=== PATIENT | male | born 1965 | race Caucasian/White ===

== ENCOUNTER → 2022-12-22 11:11 | Outpatient (BNVA) | payer MEDICARE, BC, SELFPAY | PROVIDERS: PCP Hospitalist; Visit Provider Nurse Practitioner Family | DX: N39.41 Urge incontinence (principal); R35.0 Frequency of micturition; E23.2 Diabetes insipidus; Z79.82 Long term (current) use of aspirin | CPT/HCPCS: 51798; 99202 ==

== ENCOUNTER 2023-01-17 09:52 | Outpatient (REF) | payer MEDICARE, BC, SELFPAY ==
--- NOTE | ~2023-01-17 | US_ITS ---
EXAMINATION: US RETROPERITONEAL COMPLETE (RENAL) CLINICAL INFORMATION: Frequency of micturition. COMPARISON: None available. TECHNIQUE: Real-time imaging of the kidneys and bladder. FINDINGS: RIGHT KIDNEY: 9.6 x 4.9 x 5.1 cm (SAG x AP x TRV). The kidney is normal in size, contour, and echogenicity. Renal cortical thickness is normal. No focal parenchymal lesions. There are calculi seen throughout the kidney with possible staghorn or near staghorn appearance. The largest single calcification measures 1.1 cm. There is trace perinephric fluid. No hydronephrosis but assessment limited due to calcific burden. LEFT KIDNEY: 9.4 x 4.9 x 5.7 cm (SAG x AP x TRV). The kidney is normal in size, contour, and echogenicity. Renal cortical thickness is normal. 2.2 cm simple cyst in the upper pole. No imaging follow-up is recommended. There are calculi seen throughout the kidney with possible staghorn or near staghorn appearance. The largest single calcification measures 0.9 cm. No hydronephrosis but assessment limited due to calcific burden. BLADDER: Partially distended. Right ureteral jet is demonstrated; left is not. Prevoid bladder volume is 128 mL. The patient was unable to void. Prostate: Not visualized. US/US retroperitoneal comp IMPRESSION: Innumerable bilateral calculi have the appearance of staghorn versus near staghorn configuration. There is trace right perinephric fluid. No definite hydronephrosis on either side, but assessment is limited due to the calcific burden.
== END 2023-01-17 09:53 | disposition home or self-care (01) ==
LOC: HO.US 09:52
PROVIDERS: PCP Hospitalist; Visit Provider Nurse Practitioner Family
DX: E23.2 Diabetes insipidus (principal); N39.41 Urge incontinence; R35.0 Frequency of micturition
CPT/HCPCS: 76770

== ENCOUNTER → 2023-02-09 09:06 | Outpatient (BNVA) | payer MEDICARE, BC, SELFPAY | PROVIDERS: PCP Hospitalist; Referring Provider Hospitalist; Visit Provider Nurse Practitioner Family | DX: Z12.11 Encounter for screening for malignant neoplasm of colon (principal) | CPT/HCPCS: 99202 ==

== ENCOUNTER → 2023-02-14 10:32 | Outpatient (BNVA) | payer MEDICARE, BC, SELFPAY | PROVIDERS: PCP Hospitalist; Visit Provider Nurse Practitioner Family | DX: N20.0 Calculus of kidney (principal); N39.41 Urge incontinence; R35.0 Frequency of micturition | CPT/HCPCS: 51798; 99212 ==

== ENCOUNTER 2023-03-01 11:56 | Outpatient (REF) | payer MEDICARE, BC, SELFPAY ==
--- NOTE | ~2023-03-01 | CT_ITS ---
EXAMINATION: CT ABDOMEN AND PELVIS WITHOUT CONTRAST CLINICAL INFORMATION: Kidney stones COMPARISON: Previous ultrasound December 2022 TECHNIQUE: Multidetector volumetric imaging was performed from the superior aspect of the liver through the pubic symphysis. Sagittal and coronal reformatted images were obtained on the technologist's workstation. This CT examination was performed using dose optimization techniques as appropriate, variously including the following: *Automated exposure control *Adjustment of mA and/or kV according to patient size (this includes techniques or standardized protocols for targeted exams where dose is matched to indication/reason for exam; i.e. extremities or head) *Use of iterative reconstruction technique DLP: 688 mGy-cm FINDINGS: LUNG BASES: The visualized lung bases are unremarkable. LIVER, GALLBLADDER, AND BILIARY TREE: The liver is normal in size, shape, and attenuation. 2 cm low-attenuation lesion in the right lobe of the liver near the gallbladder probably representing a cyst. No other focal liver lesion. No biliary duct dilatation. Normal gallbladder. PANCREAS: Fatty infiltration. Pancreas is otherwise normal. SPLEEN: Unremarkable. ADRENAL GLANDS: Fat stranding surrounding both adrenal glands. This is continuous with perinephric fat stranding.. A discrete mass/nodule not seen. KIDNEYS AND URETERS: The right kidney measures 8.7 and the left 10 cm in length. There are innumerable bilateral renal stones. Largest right renal stone measures 0.8 x 1.2 cm central right kidney probably the renal pelvis. Largest left renal stone measures 0.9 x 1.5 cm in the lower pole. There are central cystic areas bilaterally questionable mild hydronephrosis. There is bilateral renal cortical thickening. There is thickening of the bilateral renal capsule and inflammatory changes in the adjacent perinephric fat. Appearance is questionable for potential X DAP or xanthogranulomatous pyelonephritis. No ureteral dilatation. No ureteral stone. BLADDER: Unremarkable. GASTROINTESTINAL TRACT: Severe constipation. Postsurgical changes to the and small bowel suggestive of gastric bypass. Appendix not seen. ABDOMINAL WALL: Bulge versus small broad-based ventral hernia containing fat. LYMPH NODES: Small retroperitoneal lymph nodes. No enlarged lymph nodes. No ascites. VASCULAR: Unremarkable. PELVIC VISCERA: Unremarkable. OSSEOUS STRUCTURES: Osteopenia. T12 vertebral body compression fracture. Question L2 and L3 mild compression fractures versus Schmorl's nodes. Hardware in the right proximal femur. Degenerative changes of both hip joints. Mild degenerative changes of the lower thoracic and upper lumbar spine. CT/CT abdomen pelvis wo IV con IMPRESSION: Multiple bilateral large renal stones and question XGP or xanthogranulomatous pyelonephritis. Correlation with urinalysis recommended. Liver cyst. Constipation. Postsurgical changes from probable gastric bypass. Fleischner guidelines were followed.
== END 2023-03-01 11:57 | disposition home or self-care (01) ==
LOC: HO.CT 11:56
PROVIDERS: PCP Hospitalist; Visit Provider Hospitalist
DX: N28.83 Nephroptosis (principal)
CPT/HCPCS: 74176

== ENCOUNTER → 2023-03-15 14:05 | Outpatient (BNVA) | payer MEDICARE, BC, SELFPAY | PROVIDERS: PCP Hospitalist; Visit Provider Nurse Practitioner Family | DX: N20.0 Calculus of kidney (principal); N39.41 Urge incontinence | CPT/HCPCS: 99212 ==

== ENCOUNTER 2023-03-20 08:42 | Outpatient (REF) | payer MEDICARE, BC, SELFPAY ==
--- NOTE | ~2023-03-20 | CT_ITS ---
EXAMINATION: CT ABDOMEN AND PELVIS WITHOUT CONTRAST CLINICAL INFORMATION: Kidney stone COMPARISON: Previous CT of the abdomen and pelvis March 2023 renal and bladder ultrasound December 2022 TECHNIQUE: Multidetector volumetric imaging was performed from the superior aspect of the liver through the pubic symphysis. Sagittal and coronal reformatted images were obtained on the technologist's workstation. This CT examination was performed using dose optimization techniques as appropriate, variously including the following: *Automated exposure control *Adjustment of mA and/or kV according to patient size (this includes techniques or standardized protocols for targeted exams where dose is matched to indication/reason for exam; i.e. extremities or head) *Use of iterative reconstruction technique DLP: 718 mGy-cm FINDINGS: LUNG BASES: Small calcified and noncalcified pulmonary nodules just measuring 2 to 3 mm. Left gynecomastia. LIVER, GALLBLADDER, AND BILIARY TREE: 1.5 x 2 cm liver lesion medial segment the left lobe near the gallbladder probably representing a cyst. The liver is otherwise unremarkable. The gallbladder is unremarkable. PANCREAS: Fatty infiltration of the pancreas. SPLEEN: Unremarkable. ADRENAL GLANDS: There is diffuse fat stranding obscuring both adrenal glands. This may be secondary to renal findings. Appearance is similar to previous exam. KIDNEYS AND URETERS: There are multiple bilateral renal stones. Largest right renal stone measures 9 mm in the central right kidney/renal pelvis. Largest left renal stone measures 1 x 1.2 cm in the lower pole. There is loss of normal cortical medullary differentiation. There are small central cystic areas. There is marked capsular thickening and stranding of the perinephric fat. Appearance is questionable for XGP or xanthogranulomatous pyelonephritis. No ureteral dilatation or ureteral stone. BLADDER: Unremarkable. GASTROINTESTINAL TRACT: Severe constipation. The colon is not distended. This is similar to previous exam. The surgical changes to the stomach and small bowel/question gastric bypass. ABDOMINAL WALL: All upper abdominal wall broad-based hernia or bulge. LYMPH NODES: Small, small bowel mesentery lymph nodes. Small retroperitoneal lymph nodes. No enlarged lymph nodes seen. VASCULAR: Unremarkable. PELVIC VISCERA: Unremarkable. OSSEOUS STRUCTURES: Degenerative changes of the spine. Old-appearing T12 vertebral body compression fracture similar to previous exam. Degenerative changes at the hip joints. ORIF of right femoral intertrochanteric fracture. CT/CT abdomen pelvis wo IV con IMPRESSION: Bilateral renal stones and question xanthogranulomatous pyelonephritis of the kidneys. This is similar to 03/01/2023 exam. This may involve the adrenal glands as well. Severe constipation and mild large bowel dilatation. Other stable findings from recent exam 03/01/2023. Fleischner guidelines were followed.
== END 2023-03-20 08:43 | disposition home or self-care (01) ==
LOC: HO.CT 08:42
PROVIDERS: PCP Hospitalist; Referring Provider Hospitalist; Visit Provider Nurse Practitioner Family
DX: N20.0 Calculus of kidney (principal)
CPT/HCPCS: 74176

== ENCOUNTER 2023-04-18 11:01 | Outpatient (AMB) | payer MEDICARE, BC, SELFPAY ==
--- NOTE | 2023-04-18 11:12 | A.OFFVIS_ITS ---
Intake Vital Signs 04/18/23 11:15 Weight 235 lb 14.314 oz BP 94/52 L Blood Pressure Location Lt brachial Position Sitting Pulse 52 Pulse Source Pulse Oximeter Pulse Oximetry (%) 99 Oxygen Delivery Method Room Air Intake Visit Reasons: Pulmonary nodule Allergies No Known Allergies Allergy (Verified 04/18/23 11:17) Medication List - Last Reconciled 04/18/23 by Lilia Romero LPN acetaminophen 650 mg PO Q6H PRN aspirin 81 mg PO DAILY atropine 1% 0 drps ophthalmic (eye) bisacodyl (Dulcolax (bisacodyl)) 10 mg (2 x 5 mg) PO ONCE 1 day bisacodyl 10 mg DE DAILY PRN calcium carbonate 500 mg PO DAILY cyanocobalamin (vitamin B-12) 1,000 mcg PO DAILY desmopressin 0.2 mg PO DAILY hyoscyamine sulfate 0.125 mg PO BID PRN ibuprofen 400 mg PO Q8H levofloxacin 250 mg PO DAILY 30 days polyethylene glycol 3350 (Miralax) 238 grams PO ONCE pyridoxine (vitamin B6) ER 200 mg PO DAILY sennosides (Senna Laxative) 8.6 mg PO DAILY sodium phosphates 19-7 gram/118 mL (Fleet Enema) 118 mL DE DAILY PRN HPI Pulmonary nodule HPI Details Ayo is a very pleasant 58 year old male, never smoker, with underlying SABINE on CPAP therapy. He presents to office in a wheelchair, accompanied by a staff member from [facility], where he resides. He was referred by PCP after incidental finding of pulmonary nodules on abdominal CT. He denies any respiratory complaints at this time. Reviewed his chart, no respiratory medications other than CPAP therapy. He denies any family history of lung co nditions. 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 Combined forms of age-related cataract, bilateral Constipation, unspecified Deficiency, saccadic eye movements Diabetes insipidus Dysarthria and anarthria Dysphagia, oral phase Hemangioma of skin and subcutaneous tissue Hypertension Insomnia, unspecified Melanocytic nevi, unspecified Morbid (severe) obesity due to excess calories Muscle weakness (generalized) Obstructive sleep apnea (adult) (pediatric) Other abnormalities of gait and mobility Other chronic pain Other forms of nystagmus Other melanin hyperpigmentation Personal history of (healed) other pathological fracture Personal history of other malignant neoplasm of skin Seborrheic dermatitis, unspecified Sensorineural hearing loss, bilateral Unsteadiness on feet Vitamin B deficiency, unspecified Vitamin B12 deficiency anemia, unspecified Surgical History Bariatric surgery status Other specified postprocedural states Presence of right artificial hip joint Vasectomy status Review of Systems Const Denies chills, Denies excessive sweating, Denies fever(s), Denies headache(s) and Denies night sweats Eyes Denies dry eyes, Denies irritation and Denies itchy eyes ENT Reports Normal hearing present, Denies headache(s), Denies nasal congestion, Denies nasal discharge, Denies post nasal drip and Denies sore throat Card Denies chest pain, Denies chest pain at rest, Denies chest pain with activity, Denies claudication, Denies leg edema, Denies dyspnea, Denies dyspnea on exertion, Denies orthopnea and Denies paroxysmal nocturnal dyspnea Resp Denies chest congestion, Denies cough, Denies excessive phlegm production, Denies pain on inspiration, Denies pain with cough, Denies dyspnea, Denies dyspnea on exertion, Denies stridor and Denies wheezing Musc Denies myalgias Neuro Reports Normal hearing present and Denies headache(s) Endo Denies excessive sweating Antonio/Lymph Denies lymphadenopathy Aller/Immun Denies itchy eyes, Denies seasonal rhinorrhea and Denies wheezing Physical Exam Vital Signs: Last Vital Signs Pulse 52 04/18/23 11:15 BP 94/52 L 04/18/23 11:15 Pulse Ox 99 04/18/23 11:15 Oxygen Delivery Method Room Air 04/18/23 11:15 Const General: cooperative, healthy appearing, comfortable, no acute distress, well developed and alert Nutritional Appearance: obese Orientation/consciousness: patient oriented x3 Limitations: wheelchair HEENT Head: Yes normal to inspection, Yes normocephalic and Yes atraumatic Ears: hearing grossly normal bilaterally and external ears normal Eyes General: appearance normal, both eyes and all related structures Eyelids: Yes eyelids normal Sclerae: sclerae normal EOM: EOMs intact bilaterally Neck Neck: Yes normal visual inspection Chest Chest palpation & inspection: normal inspection of the chest Resp Effort & Inspection: normal respiratory effort, able to speak in complete sentences, no audible wheezes, no cough, no stridor, not tachypneic, no tripod positioning and no use of accessory muscles Auscultation: clear to auscultation bilaterally Cardio Jugular venous distension: no JVD Rate: regular rate Rhythm: regular rhythm Skin Other: warm, dry Neuro General: patient oriented x3 Cranial nerves: Yes Normal hearing present Cognition (Neuro): normal cognition Extrem Other: moderate BLE edema Psych Appearance: grossly normal and well kempt Speech and movement: Normal speech and movement present and Clear speech present Affect: normal affect Attitude: cooperative Thought process: Normal thought process present Thought content: Normal thought content present Insight: Good insight present (Psych) Judgement: Good judgement present (Psych) Results Reviewed Results Reviewed: [address] [address] [address] Scan Report Signed Patient: Ayo Miranda MR#: [id number] : 1965 Acct:[id number] Age/Sex: 58 / M ADM Date: 03/20/23 Loc: HO.CT Attending Dr: Cristal ROBERTSON Ordering Physician: Cristal Flores Date of Service: 03/20/23 Procedure(s): CT abdomen pelvis wo IV con Accession Number(s): [id number] cc: Cristal Flores~ EXAMINATION: CT ABDOMEN AND PELVIS WITHOUT CONTRAST? CLINICAL INFORMATION: Kidney stone? COMPARISON: Previous CT of the abdomen and pelvis March 2023 renal and bladder ultrasound December 2022 TECHNIQUE: Multidetector volumetric imaging was performed from the superior aspect of the liver through the pubic symphysis. Sagittal and coronal reformatted images were obtained on the technologist's workstation.? This CT examination was performed using dose optimization techniques as appropriate, variously including the following: *Automated exposure control *Adjustment of mA and/or kV according to patient size (this includes techniques or standardized protocols for targeted exams where dose is matched to indication/reason for exam; i.e. extremities or head) *Use of iterative reconstruction technique DLP: 718 mGy-cm FINDINGS: LUNG BASES: Small calcified and noncalcified pulmonary nodules just measuring 2 to 3 mm. Left gynecomastia.? LIVER, GALLBLADDER, AND BILIARY TREE: 1.5 x 2 cm liver lesion medial segment the left lobe near the gallbladder probably representing a cyst. The liver is otherwise unremarkable. The gallbladder is unremarkable. PANCREAS: Fatty infiltration of the pancreas.? SPLEEN: Unremarkable.? ADRENAL GLANDS: There is diffuse fat stranding obscuring both adrenal glands. This may be secondary to renal findings. Appearance is similar to previous exam. KIDNEYS AND URETERS: There are multiple bilateral renal stones. Largest right renal stone measures 9 mm in the central right kidney/renal pelvis. Largest left renal stone measures 1 x 1.2 cm in the lower pole. There is loss of normal cortical medullary differentiation. There are small central cystic areas. There is marked capsular thickening and stranding of the perinephric fat. Appearance is questionable for XGP or xanthogranulomatous pyelonephritis. No ureteral dilatation or ureteral stone. BLADDER: Unremarkable.? GASTROINTESTINAL TRACT: Severe constipation. The colon is not distended. This is similar to previous exam. The surgical changes to the stomach and small bowel/question gastric bypass. ABDOMINAL WALL: All upper abdominal wall broad-based hernia or bulge. LYMPH NODES: Small, small bowel mesentery lymph nodes. Small retroperitoneal lymph nodes. No enlarged lymph nodes seen. VASCULAR: Unremarkable. PELVIC VISCERA: Unremarkable.? OSSEOUS STRUCTURES: Degenerative changes of the spine. Old-appearing T12 vertebral body compression fracture similar to previous exam. Degenerative changes at the hip joints. ORIF of right femoral intertrochanteric fracture. ? CT/CT abdomen pelvis wo IV con IMPRESSION: Bilateral renal stones and question xanthogranulomatous pyelonephritis of the kidneys. This is similar to 03/01/2023 exam. This may involve the adrenal glands as well. Severe constipation and mild large bowel dilatation. Other stable findings from recent exam 03/01/2023. ? Fleischner guidelines were followed. Dictated By: Kathleen May MD Assessment & Plan Assessment & Plan (1) Multiple pulmonary nodules: Code(s): R91.8 - Other nonspecific abnormal finding of lung field Plan Referred for incidental findings of 2-3 mm pulmonary nodules in lung bases on abdominal CT, report above. Will send for dedicated chest CT and follow up to review results. All questions were answered and patient is in agreement of plan. Orders: Orders CT chest wo IV con Today R91.8 - Other nonspecific abnormal finding of lung field Coding Level of Care Code New Pt Level 3 (60008) Diagnoses Multiple pulmonary nodules R91.8
[2023-04-18 11:15] VITALS: BP 94/52; PULSE 52; O2SAT 99
== END 2023-04-18 11:30 | disposition home or self-care (01) ==
PROVIDERS: PCP Hospitalist; Visit Provider Nurse Practitioner Family
DX: R91.8 Other nonspecific abnormal finding of lung field (principal)
CPT/HCPCS: 99203

== ENCOUNTER → 2023-04-18 11:01 | Outpatient (BNVA) | payer MEDICARE, BC, SELFPAY | PROVIDERS: PCP Hospitalist; Visit Provider Nurse Practitioner Family | DX: R91.8 Other nonspecific abnormal finding of lung field (principal); G47.33 Obstructive sleep apnea (adult) (pediatric); Z99.89 Dependence on other enabling machines and devices | CPT/HCPCS: 99202 ==

== ENCOUNTER 2023-04-30 09:29 | Day surgery (SDC) | payer MEDICARE, BC, SELFPAY ==
--- NOTE | 2023-04-27 09:52 | HO.ANESPROP2 ---
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 Combined forms of age-related cataract, bilateral Constipation, unspecified Deficiency, saccadic eye movements Diabetes insipidus Dysarthria and anarthria Dysphagia, oral phase Hemangioma of skin and subcutaneous tissue Hypertension Insomnia, unspecified Melanocytic nevi, unspecified Morbid (severe) obesity due to excess calories Muscle weakness (generalized) Obstructive sleep apnea (adult) (pediatric) Other abnormalities of gait and mobility Other chronic pain Other forms of nystagmus Other melanin hyperpigmentation Personal history of (healed) other pathological fracture Personal history of other malignant neoplasm of skin Seborrheic dermatitis, unspecified Sensorineural hearing loss, bilateral Unsteadiness on feet Vitamin B deficiency, unspecified Vitamin B12 deficiency anemia, unspecified Surgical History Surgical History Bariatric surgery status Other specified postprocedural states Presence of right artificial hip joint Vasectomy status Meds Allergies Allergy/AdvReac Type Severity Reaction Status Date / Time No Known Allergies Allergy Verified 04/18/23 11:17 Home Medications Medication Instructions Recorded Confirmed Last Taken Type acetaminophen 325 mg capsule 650 mg PO Q6H PRN Fever 12/22/22 04/27/23 Unknown History aspirin 81 mg tablet,delayed 81 mg PO BID 12/22/22 04/27/23 Unknown History release bisacodyl 10 mg rectal suppository 10 mg CA DAILY PRN Constipation 12/22/22 04/27/23 Unknown History calcium carbonate 500 mg calcium 500 mg PO Q6-8H PRN Heartburn 12/22/22 04/27/23 Unknown History (1,250 mg) chewable tablet cyanocobalamin (vitamin B-12) 500 1,000 mcg PO DAILY 12/22/22 04/27/23 Unknown History mcg tablet desmopressin 0.2 mg tablet 0.2 mg PO BID 12/22/22 04/27/23 Unknown History hyoscyamine sulfate 0.125 mg 0.125 mg PO BID 12/22/22 04/27/23 Unknown History sublingual tablet ibuprofen 200 mg tablet 400 mg PO Q8H PRN Pain, Moderate 12/22/22 04/27/23 Unknown History pyridoxine (vitamin B6) 200 mg 200 mg PO DAILY 12/22/22 04/27/23 Unknown History tablet,extended release sennosides 8.6 mg tablet (Senna 8.6 mg PO DAILY 12/22/22 04/27/23 Unknown History Laxative) sodium phosphates 19 gram-7 118 ml CA DAILY PRN 12/22/22 04/18/23 Unknown History gram/118 mL enema (Fleet Enema) atropine 1 % eye drops 2 drp ophthalmic (eye) BID 02/14/23 04/27/23 Unknown History Exam Exam Date and Time: April 27, 2023 0952 Height,Weight and Vital Signs: Weight 106.594 kg Assessment and Plan Assessment Anesthesia Assessment: Chart Reviewed Documented by User: Norah Quinn MD 04/30/23 13:17 HPI - Anesthesia Eval Consult details Narrative: 58yo M for Cystoscopy, Left Ureteroroscopy, Retro, Laser, poss stent SNF resident. Seen by PCP Dr Pacheco 04/29/23 for pre-/tripp-op risk stratificaton. Moderate cardiac risk. Ok to proceed with surgery. No medically prohibitive issues PMFSH Active Problems Active Problems: All Active Problems (Updated 04/30/23 @ 11:30 by Norah Quinn MD) Multiple pulmonary nodules (Acute) Staghorn kidney stones (Acute) Urinary frequency (Acute) Diabetes insipidus (Acute)- Labs from 03/2023 wnl Urinary incontinence, urge (Acute) SABINE. On CPAP Patient states chokes on food. 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 Combined forms of age-related cataract, bilateral Constipation, unspecified Deficiency, saccadic eye movements Diabetes insipidus Dysarthria and anarthria Dysphagia, oral phase Hemangioma of skin and subcutaneous tissue Hypertension Insomnia, unspecified Melanocytic nevi, unspecified Morbid (severe) obesity due to excess calories Muscle weakness (generalized) Obstructive sleep apnea (adult) (pediatric) Other abnormalities of gait and mobility Other chronic pain Other forms of nystagmus Other melanin hyperpigmentation Personal history of (healed) other pathological fracture Personal history of other malignant neoplasm of skin Seborrheic dermatitis, unspecified Sensorineural hearing loss, bilateral Unsteadiness on feet Vitamin B deficiency, unspecified Vitamin B12 deficiency anemia, unspecified Family History Family history of problems with anesthesia: No Surgical History Surgical History Bariatric surgery status Other specified postprocedural states Presence of right artificial hip joint Vasectomy status History of Problems with Anesthesia: No Meds Allergies Allergy/AdvReac Type Severity Reaction Status Date / Time No Known Allergies Allergy Verified 04/18/23 11:17 Home Medications Medication Instructions Recorded Confirmed Last Taken Type acetaminophen 325 mg capsule 650 mg PO Q6H PRN Fever 12/22/22 04/27/23 Unknown History aspirin 81 mg tablet,delayed 81 mg PO BID 12/22/22 04/27/23 Unknown History release bisacodyl 10 mg rectal suppository 10 mg CA DAILY PRN Constipation 12/22/22 04/27/23 Unknown History calcium carbonate 500 mg calcium 500 mg PO Q6-8H PRN Heartburn 12/22/22 04/27/23 Unknown History (1,250 mg) chewable tablet cyanocobalamin (vitamin B-12) 500 1,000 mcg PO DAILY 12/22/22 04/27/23 Unknown History mcg tablet desmopressin 0.2 mg tablet 0.2 mg PO BID 12/22/22 04/27/23 Unknown History hyoscyamine sulfate 0.125 mg 0.125 mg PO BID 12/22/22 04/27/23 Unknown History sublingual tablet ibuprofen 200 mg tablet 400 mg PO Q8H PRN Pain, Moderate 12/22/22 04/27/23 Unknown History pyridoxine (vitamin B6) 200 mg 200 mg PO DAILY 12/22/22 04/27/23 Unknown History tablet,extended release sennosides 8.6 mg tablet (Senna 8.6 mg PO DAILY 12/22/22 04/27/23 Unknown History Laxative) sodium phosphates 19 gram-7 118 ml CA DAILY PRN 12/22/22 04/18/23 Unknown History gram/118 mL enema (Fleet Enema) atropine 1 % eye drops 2 drp ophthalmic (eye) BID 02/14/23 04/27/23 Unknown History Exam Height,Weight and Vital Signs: Height 5 ft 11 in Weight 105.687 kg Vital Signs Temp Pulse Resp BP Pulse Ox O2 Del Method 04/30/23 11:37 97.9 F 52 18 149/93 H 100 Room Air Pertinent Lab Results Pertinent Lab Results: Lab Results 04/30/23 04/30/23 Range/Units 11:08 11:56 POC Glucose 47 L* 78 (60-115) mg/dL POC 78 after 5g of glucose. Will give another 5g Airway Mallampati Class: IV TM Dist: >3cm Neck ROM: Full Loose/Missing/Broken Teeth: Yes (No teeth top. Few teeth bottom, many broken. Denies loose) Heart: RRR Lungs: CTAB Assessment and Plan Assessment Anesthesia Assessment: Anesthesia Plan Discussed Final Anesthetic Review Family History of Problems with Anesthesia: No History of Problems with Anesthesia: No NPO: Yes ASA Class: IV Final Preanesthetic Review: No Changes in Pt Med Stat, Meds/Allgs Chart Reviewed, Anes Risks/Benef Reviewed and DNR Form (If Appl.) Patient Risk: High Procedure Risk: Low Assessment/Block/Sedation in SS: Assess/Block/Sedation-SS Anesthetic Plan Anesthetic Plan: GA Disposition: Standard PACU
--- NOTE | 2023-04-29 15:37 | P.HPHOSP_ITS ---
History of Present Illness Date of Service: 04/29/23 Chief Complaint: Preop risk stratification 58-year-old male resident of [facility] seen for risk stratification prior to stent placement. 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 Combined forms of age-related cataract, bilateral Constipation, unspecified Deficiency, saccadic eye movements Diabetes insipidus Dysarthria and anarthria Dysphagia, oral phase Hemangioma of skin and subcutaneous tissue Hypertension Insomnia, unspecified Melanocytic nevi, unspecified Morbid (severe) obesity due to excess calories Muscle weakness (generalized) Obstructive sleep apnea (adult) (pediatric) Other abnormalities of gait and mobility Other chronic pain Other forms of nystagmus Other melanin hyperpigmentation Personal history of (healed) other pathological fracture Personal history of other malignant neoplasm of skin Seborrheic dermatitis, unspecified Sensorineural hearing loss, bilateral Unsteadiness on feet Vitamin B deficiency, unspecified Vitamin B12 deficiency anemia, unspecified Surgical History Bariatric surgery status Other specified postprocedural states Presence of right artificial hip joint Vasectomy status Meds Allergies Allergy/AdvReac Type Severity Reaction Status Date / Time No Known Allergies Allergy Verified 04/18/23 11:17 Home Medications Medication Instructions Recorded Confirmed Last Taken Type acetaminophen 325 mg capsule 650 mg PO Q6H PRN Fever 12/22/22 04/27/23 Unknown History aspirin 81 mg tablet,delayed 81 mg PO BID 12/22/22 04/27/23 Unknown History release bisacodyl 10 mg rectal suppository 10 mg AK DAILY PRN Constipation 12/22/22 04/27/23 Unknown History calcium carbonate 500 mg calcium 500 mg PO Q6-8H PRN Heartburn 12/22/22 04/27/23 Unknown History (1,250 mg) chewable tablet cyanocobalamin (vitamin B-12) 500 1,000 mcg PO DAILY 12/22/22 04/27/23 Unknown History mcg tablet desmopressin 0.2 mg tablet 0.2 mg PO BID 12/22/22 04/27/23 Unknown History hyoscyamine sulfate 0.125 mg 0.125 mg PO BID 12/22/22 04/27/23 Unknown History sublingual tablet ibuprofen 200 mg tablet 400 mg PO Q8H PRN Pain, Moderate 12/22/22 04/27/23 Unknown History pyridoxine (vitamin B6) 200 mg 200 mg PO DAILY 12/22/22 04/27/23 Unknown History tablet,extended release sennosides 8.6 mg tablet (Senna 8.6 mg PO DAILY 12/22/22 04/27/23 Unknown History Laxative) sodium phosphates 19 gram-7 118 ml AK DAILY PRN 12/22/22 04/18/23 Unknown History gram/118 mL enema (Fleet Enema) atropine 1 % eye drops 2 drp ophthalmic (eye) BID 02/14/23 04/27/23 Unknown History Physical Exam Const: Other: Awake alert no acute distress Resp: Other: Clear to auscultation bilaterally there is no rales rhonchi or wheezes Cardio: Other: No S4; positive S1-S2; no S3 murmurs rubs or gallops GI: Other: Soft nontender and nondistended normoactive bowel sounds Extrem: Other: No edema bilateral Assessment and Plan (1) Staghorn kidney stones: Status: Acute Plan 58[facility] for risk stratification prior to stent placement. He is a moderate cardiac risk for planned procedure and can proceed as per Dr. Lane. There are no medically prohibitive issues at this time Time Spent With Patient Time: Total time managing care of this patient today ____ minutes. Quality Stroke Does the patient have a stroke diagnosis?: No VTE Prior VTE?: No VTE Risk Level:: Surgical - low VTE Device Contraindication: Treatment Not Indicated VTE Drug Contraindication: Treatment Not Indicated
[2023-04-30] VITALS (8 sets, daily range): BP systolic 118–152; BP diastolic 64–93; PULSE 52–63; RESP 15–18; TEMP 36.1–36.6; O2SAT 93–100; BMI 32.5
--- NOTE | ~2023-04-30 | FL_ITS ---
EXAMINATION: XR FLUOROSCOPY WITH IMAGES CLINICAL INFORMATION: Stone in left. COMPARISON: CT of the abdomen and pelvis March 2023 TECHNIQUE: Fluoroscopy Supervised By: Dr. Wero Lane. Fluoroscopy Time: 275.0 seconds. Cumulative Dose: 94.44 mGy. DAP: Gycm2. Images: 2. FINDINGS: Images demonstrate probable left nephroureterostomy tube incompletely visualized and Murdock catheter in the bladder. FL/FL guidance in OR IMPRESSION: Fluoroscopy guidance for urology procedure.
[2023-04-30 11:26] LABS: Glucose, Whole Blood 47 mg/dL (60-115)
[2023-04-30 12:00] LABS: Glucose, Whole Blood 78 mg/dL (60-115)
--- NOTE | 2023-04-30 13:57 | P.OP_ITS ---
Operative Note Operative Note Date of Service: 04/30/23 Narrative: PreOperative Diagnosis: left renal stones Post Operative Diagnosis: left renal infections stones, left proximal ureteric scarring Procedure: - cystoscopy, left retrograde - left dilatation of ureteric orifice under fluoroscopy - serial dilatation of left proximal ureteric stricture - left ureteroscopy, laser lithotripsy - left stent placement Surgeon: Dr Wero Lane Anesthesia: General Indications for procedure: recurring UTI, bilateral stones on imaging, recurrent presentation to hospital Procedure: After informed consent was verified patient was brought to the operating placed in supine position. Anesthesia was administered per protocol. Patient was placed in modified dorsal lithotomy position and prepped and draped in a sterile fashion. Safety pause time-out and side of surgery confirmed. Antibiotics confirmed. 22 Maldivian cystoscope was inserted per urethra. - there was narrowing of urethra proximally. A wire was placed to allow for better entrance. The had been lifting of some mucosal flap. Bladder was normal in its entirety. Both ureteric orifices were in normal position. The left ureteric orifice was cannulated and a retrograde examination was performed. proximal narrowing of contrast indicative of proximal ureteric narrowing. A Sensor guidewire was placed up to the level of the renal pelvis under fluoroscopy. The rigid cystoscope was removed and the inner cannula of ureteric access sheath was used under fluoroscopy to dilate the ureteric orifice. The ureteric access sheath was placed and the inner cannula with access wire removed. The digital flexible ureteral scope was placed. it was determined that the upper portion of the ureter had not been fully dilated. We advanced the ureteral scope to a pinpoint opening. Sensor wire was passed. The ureteral scope was removed as was the cannula. The open-ended catheter was placed. An amplatz stiff wire was placed. The ureter was dilated using ureteral dilatation. A 10 Maldivian was able to be inserted up to the level renal pelvis. The sheath was placed back over the Amplatz wire. The ureteral scope was advanced over the Amplatz wire into the mid calyx. Stone was found in the mid calyx. Using the laser fiber 272 micron the stone was broken into small pieces. A 2nd stone was found in the of the mid calyx. This matched the radiology appearance. Each calyx had a very narrowed infundibulum consistent with scarring from recurrent UTI. The upper pole calyx was opened in examine. We were able to place a wire into the lower pole calyx however we could not advance the ureteral scope. At the completion of the procedure the wire was placed back into the renal pelvis. The rigid cystoscope was backloaded over the wire and advanced into the bladder. A 7 Maldivian by 28 cm double-J stent was placed into the renal pelvis and bladder under a combination of fluoroscopy and direct visualization. the stent was seen to be in the mid Calyceal location. good coil was seen in the bladder. The bladder was emptied. Because a mucosal flap being raised in the urethra decision was made to place a Sensor wire and a 16 [place] tip Murdock catheter was placed on the fluoroscopy.The patient tolerated the procedure well and was extubated in the operating room, and transferred in stable condition to the recovery area. Pathology: None Drains: 7 Maldivian by 28 cm
[2023-04-30] MEDS: Phenazopyridine HCL 100 MG TABLET PO (14:52)
--- NOTE | 2023-04-30 15:18 | PC.NURSE ---
report provided to unit nurse edgar in the [facility] unit and also to the director of [facility].
== END 2023-04-30 15:04 | disposition home or self-care (01) ==
PROVIDERS: PCP Hospitalist; Visit Provider Urology
PROC: (CPT 52356; principal; 2023-04-30 12:00)
DX: N20.0 Calculus of kidney (principal); N39.0 Urinary tract infection, site not specified; R26.0 Ataxic gait; H81.11 Benign paroxysmal vertigo, right ear; G47.33 Obstructive sleep apnea (adult) (pediatric); E23.2 Diabetes insipidus; Z79.1 Long term (current) use of non-steroidal anti-inflammatories (NSAID); Z79.82 Long term (current) use of aspirin; Z79.899 Other long term (current) drug therapy; I10 Essential (primary) hypertension; E66.01 Morbid (severe) obesity due to excess calories
CPT/HCPCS: 52356; 82947; C1758; C1769; C2617; J0131; J1100; J1956; J2250; J2405; J3010; Q9967

== ENCOUNTER → 2023-04-30 09:29 | Outpatient (BNV) | payer MEDICARE, BC, SELFPAY | PROVIDERS: PCP Hospitalist; Visit Provider Urology | DX: N20.0 Calculus of kidney (principal) | CPT/HCPCS: 52356 ==

== ENCOUNTER → 2023-04-30 12:00 | Outpatient (BNV) | payer MEDICARE, BC, SELFPAY | PROVIDERS: PCP Hospitalist; Visit Provider Hospitalist | DX: N20.0 Calculus of kidney (principal) | CPT/HCPCS: 99221 ==

== ENCOUNTER 2023-05-01 12:01 | Emergency (ER) | payer MEDICARE, BC, SELFPAY ==
--- NOTE | ~2023-05-01 | XR_ITS ---
EXAMINATION: XR RIBS, RIGHT, PA CHEST CLINICAL INFORMATION: Chest and rib pain status post fall. COMPARISON: None available. TECHNIQUE: 3 views of the right ribs were obtained along with a PA view of the chest. A skin marker overlies the inferior right ribs. FINDINGS: Lungs are clear. No consolidation, pneumothorax, or pleural effusion. The cardiomediastinal silhouette and pulmonary vasculature are normal. Osseous structures are unremarkable. Ribs are intact. No fractures are identified. Incidental sclerotic density overlying the right scapula. XR/XR ribs RT min 3V w CXR1V IMPRESSION: 1. No acute cardiopulmonary process. 2. No acute right rib fracture. 3. Incidental sclerotic density overlying the right scapula is nonspecific, but demonstrates benign features possibly degenerative in nature or representing enostosis.
[2023-05-01 12:14] VITALS: BP 149/96; BP 159/77; PULSE 82; PULSE 87; RESP 20; TEMP 36; O2SAT 97; O2SAT 99; BMI 35.0
--- NOTE | 2023-05-01 12:18 | ED_ITS ---
HPI - General Adult General Chief complaint: General Medical Stated complaint: R SIDE/RIB PAIN S/P FALL OOB @3AM FROM SNF PER EMS Time Seen by Provider: 05/01/23 12:17 Source: patient and EMS Mode of arrival: EMS Limitations: no limitations History of Present Illness HPI narrative: Patient is a 58 year old assigned male at with a history of cerebellar ataxia and HTN presenting to the emergency department today with right rib pain after a fall. Patient states that last night he fell out of bed and landed on his right ribs. Patient denies any head strike or loss of consciousness. Patient denies any dizziness, lightheadedness, abdominal pain, nausea, vomiting, fever, chills, blurry vision, double vision, loss of vision, chest pain, difficulty breathing, shortness of breath, back pain, night sweats, pain with urination, increased urinary frequency, increased urinary urgency, blood in his urine or stool, syncope or a near syncopal episode, recent trauma or falls, bowel incontinence, bladder incontinence, bowel retention, bladder retention, or any other complaints at this time. Onset (ago): day(s) (1) Location: right (ribs) Radiation: non-radiation Severity: mild Severity scale (1-10): 3 Quality: aching and dull Pain Consistency: constant Relieving factors: none Exacerbating factors: none Associated symptoms: denies other symptoms Treatments prior to arrival: none Related Data Home Medications Medication Instructions Recorded Confirmed acetaminophen 325 mg capsule 650 mg PO Q6H PRN Fever 12/22/22 05/01/23 aspirin 81 mg tablet,delayed 81 mg PO BID 12/22/22 05/01/23 release bisacodyl 10 mg rectal suppository 10 mg SC DAILY PRN Constipation 12/22/22 05/01/23 calcium carbonate 500 mg calcium 500 mg PO Q6-8H PRN Heartburn 12/22/22 05/01/23 (1,250 mg) chewable tablet cyanocobalamin (vitamin B-12) 500 1,000 mcg PO DAILY 12/22/22 05/01/23 mcg tablet desmopressin 0.2 mg tablet 0.2 mg PO BID 12/22/22 05/01/23 hyoscyamine sulfate 0.125 mg 0.125 mg sublingual BID 12/22/22 05/01/23 sublingual tablet ibuprofen 200 mg tablet 400 mg PO Q8H PRN Pain, Moderate 12/22/22 05/01/23 pyridoxine (vitamin B6) 200 mg 200 mg PO DAILY 12/22/22 05/01/23 tablet,extended release sennosides 8.6 mg tablet (Senna 8.6 mg PO DAILY 12/22/22 05/01/23 Laxative) sodium phosphates 19 gram-7 118 ml SC DAILY PRN Constipation 12/22/22 05/01/23 gram/118 mL enema (Fleet Enema) atropine 1 % eye drops 2 drp sublingual BID 02/14/23 05/01/23 benzocaine 10 % mucosal gel 1 appl mucous membrane TID PRN Pain 05/01/23 05/01/23 (Anbesol (benzocaine)) desmopressin 0.2 mg tablet 0.2 mg PO Q24H PRN EXCESSIVE 05/01/23 05/01/23 SECRETIONS Previous Rx's Medication Instructions Recorded sulfamethoxazole 400 1 tab PO DAILY #10 tabs 04/30/23 mg-trimethoprim 80 mg tablet (Bactrim) Allergies Allergy/AdvReac Type Severity Reaction Status Date / Time No Known Allergies Allergy Verified 04/18/23 11:17 Review of Systems Constitutional: Constitutional: Reports no additional constitutional complaints, Denies chills, Denies fever(s) and Denies night sweats Eyes: Eyes: Reports no additional eye complaints, Denies blurry vision, Denies change in vision, Denies diplopia, Denies eye discharge, Denies loss of vision and Denies eye pain ENT: Denies dizziness Cardiovascular: Cardiovascular: Reports no additional cardiovascular co mplaints, Denies chest pain, Denies lightheadedness, Denies Loss of Consciousness and Denies dyspnea Respiratory: Respiratory: Reports no additional respiratory complaints and Denies dyspnea Gastrointestinal: Gastrointestinal: Reports no additional gastrointestinal complaints, Denies abdominal pain, Denies melena, Denies hematochezia, Denies change in bowel habits and Denies change in stool character Genitourinary: Genitourinary: Reports no additional male genitourinary complaints, Denies hematuria, Denies oliguria, Denies difficulty urinating, Denies dysuria, Denies urinary frequency, Denies urinary hesitancy, Denies urinary incontinence and Denies urinary urgency Musculoskeletal: Musculoskeletal: Reports no additional musculoskeletal complaints, Denies numbness and Denies tingling Comments: right rib pain Neurologic: Denies dizziness, Denies loss of vision, Denies numbness and Denies tingling Psychiatric: Psychiatric: Reports no additional psychiatric complaints Endocrine: Endocrine: Reports no additional endocrine complaints Hematologic/Lymphatic: Hematologic/Lymphatic: Reports no additional hematologic/lymphatic complaints Allergic/Immunologic: Allergic/Immunologic: Reports no additional allergic/immunologic complaints [facility] Past Medical History Attestation statement: The following information was validated with the patient. Source: old records reviewed and nursing notes reviewed Medical History Alternating exotropia Ataxic gait Benign paroxysmal vertigo, right ear 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 Combined forms of age-related cataract, bilateral Constipation, unspecified Deficiency, saccadic eye movements Diabetes insipidus Dysarthria and anarthria Dysphagia, oral phase Hemangioma of skin and subcutaneous tissue Hypertension Insomnia, unspecified Melanocytic nevi, unspecified Morbid (severe) obesity due to excess calories Muscle weakness (generalized) Obstructive sleep apnea (adult) (pediatric) Other abnormalities of gait and mobility Other chronic pain Other forms of nystagmus Other melanin hyperpigmentation Personal history of (healed) other pathological fracture Personal history of other malignant neoplasm of skin Seborrheic dermatitis, unspecified Sensorineural hearing loss, bilateral Unsteadiness on feet Vitamin B deficiency, unspecified Vitamin B12 deficiency anemia, unspecified Surgical History Bariatric surgery status Other specified postprocedural states Presence of right artificial hip joint Vasectomy status Social History Social History Patient Tobacco Use Status: Never used Tobacco Advance Directives: Yes Advance Directives on File: Yes Advance Directives Date on File: 05/01/23 Physical Exam ED Vital Signs: Vital Signs - 24 hr 05/01/23 12:14 Temperature 96.8 F Pulse Rate 87 Respiratory Rate 20 Blood Pressure 149/96 H Pulse Oximetry 99 Oxygen Delivery Method Room Air BMI result Body Mass Index 35.0 Const General: cooperative, no acute distress, alert and awake Nutritional Appearance: well nourished Orientation/consciousness: patient oriented x3 Limitations: no limitations HENMT Head: Yes normal to inspection and Yes atraumatic Ears: hearing grossly normal bilaterally and external ears normal General nose exam: Normal external nose present, no nasal discharge noted and no epistaxis Face and sinus: Yes normal facial exam, No abrasion and No laceration Mouth: Normal oral and palatal mucosa present, no drooling and no muffled voice Eyes General: appearance normal, both eyes and all related structures Periorbital: periorbital findings normal Eyelids: Yes eyelids normal Conjunctivae: conjunctivae normal Pupils: Equal, round and reactive pupils present EOM: EOMs intact bilaterally Neck Neck: Yes normal visual inspection, Yes full ROM and Yes no lymphadenopathy Chest Chest palpation & inspection: normal inspection of the chest Resp Effort & Inspection: normal respiratory effort and able to speak in complete sentences Auscultation: clear to auscultation bilaterally Cardio Rate: regular rate Rhythm: regular rhythm GI Inspection: Yes normal to inspection Palpation (GI): Soft to palpation, not firm, nontender, no guarding and not rigid Neuro General: patient oriented x3 and moves all extremities Cranial nerves: Yes Equal, round and reactive pupils present Cognition (Neuro): normal cognition Motor exam (neuro): 5/5 motor strength present throughout Sensory Exam: Normal double simultaneous stimulation for sensation Coordination: [id number] test normal Extrem General: Yes capillary refill normal Psych Appearance: grossly normal Mental Status: mental status grossly normal Affect: normal affect Attitude: cooperative Thought process: Normal thought process present Thought content: Normal thought content present Insight: Good insight present (Psych) Medical Decision Making Medical Decision Making MDM Narrative: Patient is a 58 year old assigned male] at with a history of cerebellar ataxia and HTN presenting to the emergency department today with right rib pain after a fall. Patient's physical exam was unremarkable. Patient's right rib x- ray showed no acute process. I explained my physical exam findings as well as all test results to the patient. I answered all questions asked by the patient. I stressed the importance of the patient taking his medication as prescribed. I stressed the importance of the patient following up with his primary care provider. I stressed the importance of the patient returning to the emergency department immediately if his symptoms were to worsen or if he were to develop any dizziness, shortness of breath, difficulty breathing, chest pain, blurry vision, loss of vision, nausea, vomiting, abdominal pain, fever, chills, back pain, or any other complaints. Patient verbalized agreement and understanding with this treatment plan and discharge. Differential Diagnosis Differential Diagnoses: The differential diagnosis associated with the presentation includes Rib fracture Rib contusion Pulmonary contusion Fall Independent Interpretation I performed an independent interpretation of an: Plain X-Ray Interpretation: My interpretation is in agreement with the radiologist's impression of this imaging study. EXAMINATION: XR RIBS, RIGHT, PA CHEST CLINICAL INFORMATION: Chest and rib pain status post fall. COMPARISON: None available. TECHNIQUE: 3 views of the right ribs were obtained along with a PA view of the chest. A skin marker overlies the inferior right ribs. FINDINGS: Lungs are clear. No consolidation, pneumothorax, or pleural effusion. The cardiomediastinal silhouette and pulmonary vasculature are normal. Osseous structures are unremarkable. Ribs are intact. No fractures are identified. Incidental sclerotic density overlying the right scapula. XR/XR ribs RT min 3V w CXR1V IMPRESSION: 1.? No acute cardiopulmonary process. 2.? No acute right rib fracture. 3.? Incidental sclerotic density overlying the right scapula is nonspecific, but demonstrates benign features possibly degenerative in nature or representing enostosis. Dictated By: Anselmo Moreno MD Signed By: Electronically signed by Anselmo Moreno MD 05/01/23 2462 Radiology Impression Discussion of test interpretation with radiology: I have reviewed the radiologist's reading. Independent Historian Clinical information obtained from an independent historian. History obtained from or confirmed by: EMS (EMS provided additional history and confirmed the history provided by the patient.) Discharge Plan Discharge Clinical Impression: Fall Patient Disposition: Home, Self-Care Instructions: Fall Prevention (ED) Additional Instructions: Follow up with your primary care provider. Return to the emergency department immediately if your symptoms worsen or if you develop any dizziness, shortness of breath, difficulty breathing, chest pain, blurry vision, loss of vision, nausea, vomiting, abdominal pain, fever, chills, back pain, or any other complaints. Prescriptions: No Action Anbesol (benzocaine) 10 % Gel 1 appl MUCOUS MEMBRANE TID PRN (Reason: Pain) desmopressin 0.2 mg tablet 0.2 mg PO Q24H PRN (Reason: EXCESSIVE SECRETIONS ) sulfamethoxazole-trimethoprim [Bactrim] 400-80 mg tablet 1 tab PO DAILY Qty: 10 0RF acetaminophen 325 mg capsule 650 mg PO Q6H PRN (Reason: Fever) aspirin 81 mg tablet,delayed release (DR/EC) 81 mg PO BID bisacodyl 10 mg suppository 10 mg SC DAILY PRN (Reason: Constipation) cyanocobalamin (vitamin B-12) 500 mcg tablet 1,000 mcg PO DAILY desmopressin 0.2 mg tablet 0.2 mg PO BID Fleet Enema 19-7 gram/118 mL enema 118 ml SC DAILY PRN (Reason: Constipation) hyoscyamine sulfate 0.125 mg tablet, sublingual 0.125 mg sublingual BID ibuprofen 200 mg tablet 400 mg PO Q8H PRN (Reason: Pain, Moderate) pyridoxine (vitamin B6) 200 mg tablet extended release 200 mg PO DAILY sennosides [Senna Laxative] 8.6 mg tablet 8.6 mg PO DAILY calcium carbonate 500 mg calcium (1,250 mg) tablet,chewable 500 mg PO Q6-8H PRN (Reason: Heartburn) atropine 1 % drops 2 drp sublingual BID Referrals: Med Pacheco DO [Primary Care Provider] - Print Language: Romanian
--- NOTE | 2023-05-01 13:54 | PHA.MEDREC ---
Pharmacy Consult ? Medication Reconciliation Pharmacy has completed the medication reconciliation. Patient came from [facility] with med list. Roselyn Mota, DorothyD
== END 2023-05-01 16:44 ==
PROVIDERS: Emergency Provider Emergency Medicine; PCP Hospitalist
DX: R07.81 Pleurodynia (principal); Z91.81 History of falling; I10 Essential (primary) hypertension; Z79.82 Long term (current) use of aspirin; Z79.899 Other long term (current) drug therapy
CPT/HCPCS: 71101; 99282; 99283

== ENCOUNTER 2023-05-07 10:51 | Day surgery (SDC) | payer MEDICARE, BC, SELFPAY ==
[2023-05-03 10:25] VITALS: BMI 32.8
[2023-05-07] VITALS (7 sets, daily range): BP systolic 121–169; BP diastolic 89–99; PULSE 64–77; RESP 12–18; TEMP 36.1–36.8; O2SAT 97–100
--- NOTE | ~2023-05-07 | FL_ITS ---
EXAMINATION: XR FLUOROSCOPY WITH IMAGES CLINICAL INFORMATION: Retro. COMPARISON: Previous CT of the abdomen and pelvis March 2023 TECHNIQUE: Fluoroscopy Supervised By: Dr. Wero Lane. Fluoroscopy Time: 0.6 minutes. Cumulative Dose: 11.3 mGy. DAP: 0.197 Gycm2. Images: 5. FINDINGS: Fluoroscopy guidance provided for right retrograde exam and internal ureteral stent placement. There is dilatation of the right renal collecting system. There are right renal stones. FL/FL guidance in OR IMPRESSION: Fluoroscopy guidance for right retrograde exam and internal ureteral stent placement.
--- NOTE | 2023-05-07 11:57 | HO.ANESPROP2 ---
[facility] Active Problems Active Problems: All Active Problems (Updated 05/02/23 @ 00:11 by Background Daemon) Urinary incontinence, urge (Acute) Urinary frequency (Acute) Staghorn kidney stones (Acute) Multiple pulmonary nodules (Acute) Alternating exotropia (Acute) 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 (Acute) Seborrheic dermatitis, unspecified (Acute) Insomnia, unspecified (Acute) Hypertension (Acute) Diabetes insipidus (Acute) Past Medical History Medical History (Updated 05/02/23 @ 00:11 by Background Daemon) Alternating exotropia Ataxic gait Benign paroxysmal vertigo, right ear 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 Combined forms of age-related cataract, bilateral Constipation, unspecified Deficiency, saccadic eye movements Diabetes insipidus Dysarthria and anarthria Dysphagia, oral phase Hemangioma of skin and subcutaneous tissue Hypertension Insomnia, unspecified Melanocytic nevi, unspecified Morbid (severe) obesity due to excess calories Muscle weakness (generalized) Obstructive sleep apnea (adult) (pediatric) Other abnormalities of gait and mobility Other chronic pain Other forms of nystagmus Other melanin hyperpigmentation Personal history of (healed) other pathological fracture Personal history of other malignant neoplasm of skin Resides in [facility] facility Seborrheic dermatitis, unspecified Sensorineural hearing loss, bilateral Unsteadiness on feet Vitamin B deficiency, unspecified Vitamin B12 deficiency anemia, unspecified Family History Family history of problems with anesthesia: No Surgical History Surgical History (Updated 05/03/23 @ 10:02 by Kailee Lucero RN) Bariatric surgery status Hx of cystoscopy Other specified postprocedural states Presence of right artificial hip joint Vasectomy status History of Problems with Anesthesia: No Social History Social History Housing Other:: [facility] Patient Tobacco Use Status: Never used Tobacco Use of substances other than those prescribed or required for medical reasons: No Have you been hit, kicked, punched, or otherwise hurt by someone within the past year? If so, by whom?: No Are you DNR?: Yes Advance Directives: Yes (MOLST & guardianship documents) Advance Directives Information Provided: Yes Advance Directives on File: Yes Advance Directives Date on File: 05/01/23 Recently lost weight without trying: No Eating poorly because of decreased appetite: No Nutrition Risks: No Nutritional Risk Meds Allergies Allergy/AdvReac Type Severity Reaction Status Date / Time No Known Allergies Allergy Verified 04/18/23 11:17 Active Medications: Current Medications Lactated Ringer's (Lr) 1,000 mls @ 100 mls/hr IVCONT .Q10H [facility] Home Medications Medication Instructions Recorded Confirmed Last Taken Type acetaminophen 325 mg capsule 650 mg PO Q6H PRN Fever 12/22/22 05/03/23 Unknown History aspirin 81 mg tablet,delayed 81 mg PO BID 12/22/22 05/03/23 Unknown History release bisacodyl 10 mg rectal suppository 10 mg AR DAILY PRN Constipation 12/22/22 05/03/23 Unknown History calcium carbonate 500 mg calcium 500 mg PO Q6-8H PRN Heartburn 12/22/22 05/03/23 Unknown History (1,250 mg) chewable tablet cyanocobalamin (vitamin B-12) 500 1,000 mcg PO DAILY 12/22/22 05/03/23 Unknown History mcg tablet desmopressin 0.2 mg tablet 0.2 mg PO BID 12/22/22 05/03/23 Unknown History hyoscyamine sulfate 0.125 mg 0.125 mg sublingual BID 12/22/22 05/03/23 Unknown History sublingual tablet ibuprofen 200 mg tablet 400 mg PO Q8H PRN Pain, Moderate 12/22/22 05/03/23 Unknown History pyridoxine (vitamin B6) 200 mg 200 mg PO DAILY 12/22/22 05/03/23 Unknown History tablet,extended release sennosides 8.6 mg tablet (Senna 8.6 mg PO DAILY 12/22/22 05/03/23 Unknown History Laxative) sodium phosphates 19 gram-7 118 ml AR DAILY PRN Constipation 12/22/22 05/03/23 Unknown History gram/118 mL enema (Fleet Enema) atropine 1 % eye drops 2 drp sublingual BID 02/14/23 05/03/23 Unknown History benzocaine 10 % mucosal gel 1 appl mucous membrane TID PRN Pain 05/01/23 05/03/23 Unknown History (Anbesol (benzocaine)) desmopressin 0.2 mg tablet 0.2 mg PO Q24H PRN EXCESSIVE 05/01/23 05/03/23 Unknown History SECRETIONS Exam Exam Date and Time: May 07, 2023 1157 Height,Weight and Vital Signs: Height 5 ft 11 in Weight 106.594 kg Airway Mallampati Class: III TM Dist: >3cm Neck ROM: Full Other: signs of cerebellar ataxia Assessment and Plan Assessment Anesthesia Assessment: Anesthesia Plan Discussed and Chart Reviewed Final Anesthetic Review Family History of Problems with Anesthesia: No History of Problems with Anesthesia: No NPO: Yes ASA Class: III Final Preanesthetic Review: No Changes in Pt Med Stat, Meds/Allgs Chart Reviewed, Consent Obtained/Reviewed and Anes Risks/Benef Reviewed Patient Risk: Intermediate Procedure Risk: Low Anesthetic Plan Anesthetic Plan: GA Disposition: Standard PACU
[2023-05-07 12:05] LABS: Glucose, Whole Blood 81 mg/dL (60-115)
--- NOTE | 2023-05-07 13:02 | MHC.SHP ---
Pre-Procedural Eval Section A Date of Service: 05/07/23 The patient is an INPATIENT: No Changes since office visit: No Cold of Flu in the past 2 weeks, No New Medical Problems, No Changes in Medication and No Patient answered all questions The History & Physical has been completed within 30 days and I have reviewed it.: Yes Section B Chief Complaint: Calculus of kidney Details of Present Illness: left renal stone Relevant Social History: None Present Medications: see Short Stay Collaborative assessment Medical History: Significant History History of Previous Operations: No relevant previous surgery Allergies: Allergies Allergy/AdvReac Type Severity Reaction Status Date / Time No Known Allergies Allergy Verified 04/18/23 11:17 Review of Systems Sugical H&P ROS: Negative: Constitution, Cardiovascular, Respiratory, Neurological, Psychiatric, Hem-Onc, Allergic/Immunologic, Gastrointestinal, Genitourinary, Musculoskeletal, Integumentary, Endocrine and Eyes/Ears/Nose/Throat Exam Surgical H&P Exam: Normal: HEENT, Normal: Heart, Normal: Lungs, Normal: Extremities, Normal: Abdomen, Normal: Skin and Normal: Neurological Plan Diagnosis/Plan: Unchanged (left retrograde, ureteroscopy, laser, stent) I have reviewed the history and physical and performed a pertinent physical examination on my patient. No changes have occurred unless specified. Time Spent With Patient Time: Total time managing care of this patient today ____ minutes.
--- NOTE | 2023-05-07 14:47 | W.PM.OPN ---
Operative Note Operative Note Date of Service: 05/07/23 Narrative: PreOperative Diagnosis: indwelling left ureteric stent, right renal stones Post Operative Diagnosis: same Procedure: - cystoscopy, removal left indwelling stent - cystoscopy, right retrograde - right dilatation of ureteric orifice under fluoroscopy - dilation of proximal right ureteric narrowing - right ureteroscopy, laser lithotripsy - right stent placement Surgeon: Dr Wero Lane Anesthesia: General Indications for procedure: 1.2 cm right renal pelvic stone, follow-up from left renal stone. Procedure: After informed consent was verified patient was brought to the operating placed in supine position. Anesthesia was administered per protocol. Patient was placed in modified dorsal lithotomy position and prepped and draped in a sterile fashion. Safety pause time-out and side of surgery confirmed. Antibiotics confirmed. 22 Liberian cystoscope was inserted per urethra. Bladder was normal in its entirety. Both ureteric orifices were in normal position. Stent emerging from left ureteric orifice. Stent grasped and removed. The Right ureteric orifice was cannulated and a retrograde examination was performed. filling defect in right renal pelvis, narrowing right proximal ureter. A Sensor guidewire was placed up to the level of the renal pelvis under fluoroscopy. The rigid cystoscope was removed and the inner cannula of ureteric access sheath was used under fluoroscopy to dilate the ureteric orifice. The ureteric access sheath was placed and the inner cannula with access wire removed. The digital flexible ureteral scope was placed. narrowing found at UPJ, right proximal ureter. Flexible scope removed. Using the ureteric dilators the narrowed area was dilated to 10 Liberian. The flexible scope was then able to be passed over the wire into the renal pelvis. Large stone encountered. Using the 272 holmium laser fiber the stone was dusted into small pieces. Secondary stones were found in the right lower pole and broken. We were unable to remove any stone burden secondary to narrowing of proximal ureter. At the completion of the stone procedure a Sensor wire was placed back into the renal pelvis. The rigid cystoscope was backloaded over the wire and advanced into the bladder. A 7 Liberian by 28 cm double-J stent was placed into the renal pelvis and bladder under a combination of fluoroscopy and direct visualization. The bladder was emptied. The patient tolerated the procedure well and was extubated in the operating room, and transferred in stable condition to the recovery area. Pathology: Drains: Stent as above
[2023-05-07 15:16] LABS: Glucose, Whole Blood 78 mg/dL (60-115)
[2023-05-07] MEDS: Phenazopyridine HCL 100 MG TABLET PO (15:56)
--- NOTE | 2023-05-07 16:29 | PC.NURSE ---
Nurse to nurse report given to EMELINA Hunter at [facility]
== END 2023-05-07 16:29 | disposition home or self-care (01) ==
PROVIDERS: PCP Hospitalist; Visit Provider Urology
PROC: (CPT 52356; principal; 2023-05-07 13:10)
PROC: (CPT 52310; 2023-05-07 13:10)
DX: N20.0 Calculus of kidney (principal); Z46.6 Encounter for fitting and adjustment of urinary device; I10 Essential (primary) hypertension; E23.2 Diabetes insipidus; G47.33 Obstructive sleep apnea (adult) (pediatric); H81.10 Benign paroxysmal vertigo, unspecified ear; R26.0 Ataxic gait; N39.41 Urge incontinence; Z79.82 Long term (current) use of aspirin; Z79.1 Long term (current) use of non-steroidal anti-inflammatories (NSAID); Z79.899 Other long term (current) drug therapy; Z66 Do not resuscitate; Z98.84 Bariatric surgery status; Z98.52 Vasectomy status; Z96.641 Presence of right artificial hip joint
CPT/HCPCS: 52356; 82947; C1758; C1769; C2617; J1956; Q9967

== ENCOUNTER → 2023-05-07 10:51 | Outpatient (BNV) | payer MEDICARE, BC, SELFPAY | PROVIDERS: PCP Hospitalist; Visit Provider Urology | DX: N20.0 Calculus of kidney (principal); Z96.0 Presence of urogenital implants | CPT/HCPCS: 52356; 74420 ==

== ENCOUNTER 2023-05-10 23:41 | Inpatient (IN) | payer MEDICARE, BC, SELFPAY ==
--- NOTE | ~2023-05-10 | CT_ITS ---
EXAMINATION: CT ABDOMEN AND PELVIS WITHOUT CONTRAST CLINICAL INFORMATION: Urinary retention. COMPARISON: 03/20/2023. TECHNIQUE: Multidetector volumetric imaging was performed from the superior aspect of the liver through the pubic symphysis. Sagittal and coronal reformatted images were obtained on the technologist's workstation. This CT examination was performed using dose optimization techniques as appropriate, variously including the following: *Automated exposure control *Adjustment of mA and/or kV according to patient size (this includes techniques or standardized protocols for targeted exams where dose is matched to indication/reason for exam; i.e. extremities or head) *Use of iterative reconstruction technique DLP: 1028 mGy-cm FINDINGS: LUNG BASES: The visualized lung bases are unremarkable. LIVER, GALLBLADDER, AND BILIARY TREE: There is a stable cyst left lobe of the liver. The gallbladder is unremarkable with no evidence of radiopaque gallstones, gallbladder wall thickening, or obvious pericholecystic inflammatory changes. PANCREAS: There is fatty infiltration of the pancreas. SPLEEN: Unremarkable. ADRENAL GLANDS: There is bilateral adrenal gland thickening and nodularity. KIDNEYS AND URETERS: There is loss of the expected renal contour. There is bilateral perinephric stranding. There is a subcapsular collection on the right measuring up to 2 cm in thickness increased compared to previous. There is minimal irregular lucency mid to lower pole right kidney. The renal parenchyma is heterogeneous numerous areas of calcification measuring up to 1.3 cm. A right double-J stent is noted with proximal stent pole right kidney and distal stent within the urinary bladder. There is no hydronephrosis. BLADDER: There is a small amount of air within the urinary bladder. GASTROINTESTINAL TRACT: There has been a previous gastric bypass. The appendix is unremarkable. ABDOMINAL WALL: There is a supraumbilical hernia containing fat. LYMPH NODES: Normal. VASCULAR: There is mild atherosclerotic plaque of the abdominal aorta. PELVIC VISCERA: Unremarkable. OSSEOUS STRUCTURES: There is mild diffuse thoracolumbar disc degenerative change. There is a chronic T12 compression fracture. CT/CT abdomen pelvis wo IV con IMPRESSION: Significant abnormalities of the right kidney with multiple bilateral renal calculi and loss of the expected renal contour as well as heterogeneous renal parenchyma and perinephric stranding. Infectious process is considered. There is a right subcapsular collection measuring up to 2 cm with some apparent air lucency. Infected perinephric collection is a possibility. Right double-J stent in place. No hydronephrosis. Small amount of air within the urinary bladder needs correlation with urinalysis. Fleischner guidelines were followed.
[2023-05-11] VITALS (7 sets, daily range): BP systolic 136–150; BP diastolic 63–91; PULSE 30–72; RESP 14–20; TEMP 36.5–37.1; O2SAT 95–100; BMI 31.9
[2023-05-11 01:08] LABS: MANUAL DIFF FLAG NO
--- NOTE | 2023-05-11 01:13 | ED.MALEGU ---
HPI - Male Genitourinary General Chief complaint: Urogenital-Male Stated complaint: difficulty urinating Time Seen by Provider: 05/11/23 00:24 Source: patient, EMS, RN notes reviewed and old records reviewed Mode of arrival: EMS Limitations: no limitations History of Present Illness HPI Narrative: 58-year-old male presents for evaluation of ?I have not Peed since Sunday. ? Patient has a medical history significant for cerebral ataxia, dysarthria, hypertension, diabetes insipidus, obstructive sleep apnea, who presents from [facility] The patient had a left ureteral stent removed 4 days ago on 05/07/[address]. Patient reports that since Sunday he has not been able to urinate well. He has been urinating but ?only dribbling a little bit at a time. ? He denies any abdominal pain no fevers, chills He reports he feels well Patient reports that the tried to catheterize him nurse facility but ?they could not get it. ? Related Data Home Medications Medication Instructions Recorded Confirmed acetaminophen 325 mg capsule 650 mg PO Q6H PRN Fever 12/22/22 05/03/23 aspirin 81 mg tablet,delayed 81 mg PO BID 12/22/22 05/03/23 release bisacodyl 10 mg rectal suppository 10 mg NJ DAILY PRN Constipation 12/22/22 05/03/23 calcium carbonate 500 mg calcium 500 mg PO Q6-8H PRN Heartburn 12/22/22 05/03/23 (1,250 mg) chewable tablet cyanocobalamin (vitamin B-12) 500 1,000 mcg PO DAILY 12/22/22 05/03/23 mcg tablet desmopressin 0.2 mg tablet 0.2 mg PO BID 12/22/22 05/03/23 hyoscyamine sulfate 0.125 mg 0.125 mg sublingual BID 12/22/22 05/03/23 sublingual tablet ibuprofen 200 mg tablet 400 mg PO Q8H PRN Pain, Moderate 12/22/22 05/03/23 pyridoxine (vitamin B6) 200 mg 200 mg PO DAILY 12/22/22 05/03/23 tablet,extended release sennosides 8.6 mg tablet (Senna 8.6 mg PO DAILY 12/22/22 05/03/23 Laxative) sodium phosphates 19 gram-7 118 ml NJ DAILY PRN Constipation 12/22/22 05/03/23 gram/118 mL enema (Fleet Enema) atropine 1 % eye drops 2 drp sublingual BID 02/14/23 05/03/23 benzocaine 10 % mucosal gel 1 appl mucous membrane TID PRN Pain 05/01/23 05/03/23 (Anbesol (benzocaine)) desmopressin 0.2 mg tablet 0.2 mg PO Q24H PRN EXCESSIVE 05/01/23 05/03/23 SECRETIONS Previous Rx's Medication Instructions Recorded sulfamethoxazole 400 1 tab PO DAILY #10 tabs 04/30/23 mg-trimethoprim 80 mg tablet (Bactrim) naproxen 500 mg tablet 500 mg PO BID PRN pain 7 days #14 05/07/23 tabs phenazopyridine 100 mg tablet 100 mg PO TID PRN Spasm 4 days #12 05/07/23 (Pyridium) tabs tramadol 50 mg tablet 50 mg PO Q6H PRN pain (scale score 05/07/23 1-3) #8 tabs Allergies Allergy/AdvReac Type Severity Reaction Status Date / Time No Known Allergies Allergy Verified 05/11/23 04:34 Review of Systems Constitutional: Constitutional: Reports as per HPI, Denies chills, Denies fatigue, Denies fever(s) and Denies headache(s) ENT: Denies headache(s) Cardiovascular: Cardiovascular: Denies chest pain and Denies dyspnea Respiratory: Respiratory: Denies cough and Denies dyspnea Gastrointestinal: Gastrointestinal: Denies abdominal pain, Denies constipation and Denies vomiting Genitourinary: Genitourinary: Denies difficulty urinating and Denies dysuria Neurologic: Denies headache(s) Endocrine: Endocrine: Denies fatigue FORMERLY [facility] Past Medical History Medical History (Updated 05/11/23 @ 05:25 by Edouard Hidalgo MD) Alternating exotropia Ataxic gait Benign paroxysmal vertigo, right ear 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 Combined forms of age-related cataract, bilateral Constipation, unspecified Deficiency, saccadic eye movements Diabetes insipidus Dysarthria and anarthria Dysphagia, oral phase Hemangioma of skin and subcutaneous tissue Hypertension Insomnia, unspecified Melanocytic nevi, unspecified Morbid (severe) obesity due to excess calories Muscle weakness (generalized) Obstructive sleep apnea (adult) (pediatric) Other abnormalities of gait and mobility Other chronic pain Other forms of nystagmus Other melanin hyperpigmentation Personal history of (healed) other pathological fracture Personal history of other malignant neoplasm of skin Resides in [facility] facility Seborrheic dermatitis, unspecified Sensorineural hearing loss, bilateral Unsteadiness on feet Vitamin B deficiency, unspecified Vitamin B12 deficiency anemia, unspecified Surgical History Bariatric surgery status Hx of cystoscopy Other specified postprocedural states Presence of right artificial hip joint Vasectomy status Social History Social History Household Members Other:: lives [facility] Housing Other:: [facility] Are you a primary post acute care nurse practitioner to a significant other at home: No Do you presently have visiting nurse or other home services: No Alcohol intake: never Patient Tobacco Use Status: Never used Tobacco Smoked in Last 30 Days: No Use of substances other than those prescribed or required for medical reasons: No Advance Directives: Yes Advance Directives on File: Yes Advance Directives Date on File: 05/01/23 Physical Exam Vital Signs: Vital Signs: Last Vital Signs Temp 98.8 F 05/11/23 04:00 Pulse 72 05/11/23 04:00 Resp 14 05/11/23 04:00 BP 150/87 H 05/11/23 04:00 Pulse Ox 99 05/11/23 04:00 O2 Del Method Room Air 05/11/23 04:00 BMI result Body Mass Index 31.9 Const: General: comfortable, no acute distress, alert and awake Nutritional Appearance: well nourished Orientation/consciousness: patient oriented x3 HEENT: Head: Yes normocephalic and Yes atraumatic Eyes: Eyelids: Yes eyelids normal Conjunctivae: conjunctivae normal Sclerae: sclerae normal Corneas: corneas normal Pupils: Equal, round and reactive pupils present EOM: EOMs intact bilaterally Neck: Neck: Yes full ROM Resp: Effort & Inspection: normal respiratory effort, able to speak in complete sentences, no audible wheezes and not labored Auscultation: clear to auscultation bilaterally GI: Inspection: No distended Palpation (GI): Soft to palpation, not firm, nontender, no guarding and not rigid Auscultation: normoactive bowel sounds Skin: General skin exam: no rashes or lesions noted and elasticity normal Neuro: General: patient oriented x3 Cranial nerves: Yes Equal, round and reactive pupils present and Yes Bilaterally intact EOM present Cognition (Neuro): normal cognition Course Reevaluation(s) Reevaluation #1: Patient was noted of a creatinine of 5.71. His a white count of 17.5. His total signs remain normal, no evidence of sepsis. However we will add blood cultures, lactic acid, LFTs, CT scan of the abdomen pelvis without contrast. A urine straight cath was ordered. The patient denies any history of renal disease outside of kidney stones/obstruction. Patient will be signed out to overnight staff Time: 01:47 Medications Administered Generic Name Dose Route Start Last Admin Trade Name Freq PRN Reason Stop Dose Admin Lactated Ringer's 1,000 mls @ 150 mls/hr 05/11/23 05:00 05/11/23 05:14 Lr IVCONT 150 mls/hr .Q6H40M TERRANCE Administration Discontinued Medications Generic Name Dose Route Start Last Admin Trade Name Freq PRN Reason Stop Dose Admin Sodium Chloride 1,000 mls @ 999 mls/hr 05/11/23 01:45 05/11/23 03:32 Ns IV 05/11/23 02:45 Infused .Q1H1M TERRANCE Infusion Ceftriaxone Sodium 1 gm/ 50 mls @ 100 mls/hr 05/11/23 02:59 05/11/23 04:26 Sodium Chloride IV 05/11/23 03:28 Infused ONCE ONE Infusion Lidocaine HCl 10 ml 05/11/23 02:57 05/11/23 03:58 Lidocaine Hcl 2 % Urojet 10 Ml Jel.Pf.Kerri TOPICAL 05/11/23 02:58 10 ml ONCE ONE Administration Medical Decision Making Medical Decision Making MDM Narrative: 58-year-old male presents for evaluation from nursing facility for decreased urination. The patient had a ureteral stent removed 4 days ago. He denies any pain, he is nontender on exam. His bladder scan had only 225 cc of urine in the bladder. Will check basic labs and get a straight cath urine to assess for UTI. Given the patient has stable vital signs, is comfortable and has a reassuring exam, we will defer imaging at this time. Patient's BOYD with ureteric stent placement with UTI Murdock catheter was placed using wire IV antibiotics started Differential Diagnosis Differential Diagnoses: The differential diagnosis associated with the presentation includes Oliguria UTI Obstructive uropathy Pyelonephritis Dehydration Renal failure BOYD Consult Healthcare Provider Management of the patient was discussed with: Hospitalist Lab Data [facility] Lab Attestation statement: I reviewed the patient's lab results. 05/11/23 01:04 05/11/23 01:04 Labs: Lab Results 05/11/23 05/11/23 05/11/23 Range/Units 01:04 01:04 02:26 WBC 17.5 H (4.8-10.8) X10*3/uL RBC 3.69 L (4.60-5.80) X10*6/uL Hgb 10.8 L (14.0-18.0) g/dl Hct 32.9 L (42.0-52.0) % MCV 89.2 (80.0-98.0) fL MCH 29.3 (27.0-33.0) pg MCHC 32.8 (31.0-36.0) g/dl RDW 13.7 (11.0-16.0) % Plt Count 257 (160-400) X10*3/uL MPV 9.6 (9.4-12.4) fL Immature Gran % (Auto) 0.6 H (0.0-0.4) % Neut % (Auto) 80.3 H (45-73) % Lymph % (Auto) 9.4 L (20-40) % [place] % (Auto) 8.5 (2-11) % Eos % (Auto) 0.9 (0-4) % Baso % (Auto) 0.3 (0-2) % Lymph # (Auto) 1.7 (1.2-4.9) X10*3/uL [place] # (Auto) 1.5 H (0.1-1.2) X10*3/uL Eos # (Auto) 0.2 (0.0-0.4) X10*3/uL Baso # (Auto) 0.1 (0.0-0.2) X10*3/uL Abs Immat Gran (auto) 0.11 H (0.00-0.03) X10*3/uL Absolute Neuts (auto) 14.0 H (2.0-8.3) x10*3/uL Absolute Nucleated RBC 0.000 (0.0-0.012) X10*3/uL Nucleated RBC % (auto) 0.0 (0.0-0.2) /100WBC Sodium 135 (135-145) mmol/L Potassium 4.3 (3.3-5.1) mmol/L Chloride 105 (96-108) mmol/L Carbon Dioxide 17 L (22-29) mmol/L Anion Gap 17 (12-20) BUN 63 H (9-16) mg/dL Creatinine 5.71 H* (0.5-1.4) mg/dL Estim Creat Clear Calc 17.0 Estimated GFR 10 Random Glucose 90 (60-115) mg/dL Lactic Acid 0.7 (0.5-2.0) mmol/L Calcium 8.2 L (8.4-10.2) mg/dL Total Bilirubin 0.6 (0.0-1.0) mg/dL Direct Bilirubin 0.4 (0.0-0.5) mg/dL AST 12 (5-37) U/L ALT 9 (0-40) U/L Alkaline Phosphatase 78 (39-117) U/L Total Protein 5.9 L (6.5-8.0) g/dL Albumin 2.4 L (3.5-5.0) g/dL Urine Color Urine Appearance Urine pH (5.0-9.0) Ur Specific [place] (1.005-1.025) Urine Protein (Neg-Trace) mg/dL Urine Glucose (UA) (Negative) mg/dL Urine Ketones (Negative) mg/dL Urine Blood (Negative) Urine Nitrite (Negative) Ur Leukocyte Esterase (Negative) Urine RBC (0-2) /HPF Urine WBC (0-5) /HPF Ur Squamous Epith Cells (0-2) /HPF Urine Bacteria (None Seen) Hyaline Casts (0-2) /LPF 05/11/23 Range/Units 03:44 WBC (4.8-10.8) X10*3/uL RBC (4.60-5.80) X10*6/uL Hgb (14.0-18.0) g/dl Hct (42.0-52.0) % MCV (80.0-98.0) fL MCH (27.0-33.0) pg MCHC (31.0-36.0) g/dl RDW (11.0-16.0) % Plt Count (160-400) X10*3/uL MPV (9.4-12.4) fL Immature Gran % (Auto) (0.0-0.4) % Neut % (Auto) (45-73) % Lymph % (Auto) (20-40) % [place] % (Auto) (2-11) % Eos % (Auto) (0-4) % Baso % (Auto) (0-2) % Lymph # (Auto) (1.2-4.9) X10*3/uL [place] # (Auto) (0.1-1.2) X10*3/uL Eos # (Auto) (0.0-0.4) X10*3/uL Baso # (Auto) (0.0-0.2) X10*3/uL Abs Immat Gran (auto) (0.00-0.03) X10*3/uL Absolute Neuts (auto) (2.0-8.3) x10*3/uL Absolute Nucleated RBC (0.0-0.012) X10*3/uL Nucleated RBC % (auto) (0.0-0.2) /100WBC Sodium (135-145) mmol/L Potassium (3.3-5.1) mmol/L Chloride (96-108) mmol/L Carbon Dioxide (22-29) mmol/L Anion Gap (12-20) BUN (9-16) mg/dL Creatinine (0.5-1.4) mg/dL Estim Creat Clear Calc Estimated GFR Random Glucose (60-115) mg/dL Lactic Acid (0.5-2.0) mmol/L Calcium (8.4-10.2) mg/dL Total Bilirubin (0.0-1.0) mg/dL Direct Bilirubin (0.0-0.5) mg/dL AST (5-37) U/L ALT (0-40) U/L Alkaline Phosphatase (39-117) U/L Total Protein (6.5-8.0) g/dL Albumin (3.5-5.0) g/dL Urine Color Dark Yellow Urine Appearance Turbid Urine pH 6.0 (5.0-9.0) Ur Specific [place] 1.015 (1.005-1.025) Urine Protein 300 (3+) H (Neg-Trace) mg/dL Urine Glucose (UA) Negative (Negative) mg/dL Urine Ketones Negative (Negative) mg/dL Urine Blood Large (3+) H (Negative) Urine Nitrite Positive H (Negative) Ur Leukocyte Esterase Large (3+) H (Negative) Urine RBC >20 H (0-2) /HPF Urine WBC >50 H (0-5) /HPF Ur Squamous Epith Cells 0-2 (0-2) /HPF Urine Bacteria 3+ (None Seen) Hyaline Casts 11-20 (0-2) /LPF Radiology Impression Discussion of test interpretation with radiology: I have reviewed the radiologist's reading. Radiologist Impression: CT/CT abdomen pelvis wo IV con IMPRESSION: Significant abnormalities of the right kidney with multiple bilateral renal calculi and loss of the expected renal contour as well as heterogeneous renal parenchyma and perinephric stranding. Infectious process is considered. There is a right subcapsular collection measuring up to 2 cm with some apparent air lucency. Infected perinephric collection is a possibility. ? Right double-J stent in place. ? No hydronephrosis. ? Small amount of air within the urinary bladder needs correlation with urinalysis. Fleischner guidelines were followed. Procedures Catheter Insertion (Urinary) Date of insertion: 05/11/23 Reason for placing: Yes Reason for placing indwelling catheter: Acute urinary retention Bladder scan/ultrasound used before catheterization: Yes Estimated amount of urine (mLs): 300 Antiseptic solution prep: Povidone-Iodine Topical anesthesia used: Yes Catheter type/location: Urethral Size (Angolan): 18 Catheter balloon size (mL): 10 Catheter balloon amount: 10 Results: retried with different size/type catheter and other (Sure Newberry guidewire was used) Procedure performed: without complications Discharge Plan Discharge Clinical Impression: BOYD (acute kidney injury), Acute bacterial pyelonephritis Patient Disposition: Admitted As Inpatient
[2023-05-11 01:20] LABS: Basophils Absolute Auto 0.1 X10*3/uL (0.0-0.2); Basophils Percent Auto 0.3 % (0-2); Eosinophils Absolute Auto 0.2 X10*3/uL (0.0-0.4); Eosinophils Percent Auto 0.9 % (0-4); Hematocrit 32.9 % (42.0-52.0); Hemoglobin 10.8 g/dl (14.0-18.0); Imm Gran Abs Auto 0.11 X10*3/uL (0.00-0.03); Imm Gran Pct Auto 0.6 % (0.0-0.4); Lymphocytes Absolute Auto 1.7 X10*3/uL (1.2-4.9); Lymphocytes Percent Auto 9.4 % (20-40); Mean Corpuscular HGB Conc 32.8 g/dl (31.0-36.0); Mean Corpuscular Hemoglobin 29.3 pg (27.0-33.0); Mean Corpuscular Volume 89.2 fL (80.0-98.0); Mean Platelet Volume 9.6 fL (9.4-12.4); Monocytes Absolute Auto 1.5 X10*3/uL (0.1-1.2); Monocytes Percent Auto 8.5 % (2-11); Neutrophils Percent Auto 80.3 % (45-73); Platelet Count 257 X10*3/uL (160-400); Red Blood Count 3.69 X10*6/uL (4.60-5.80); Red Cell Distribution Width 13.7 % (11.0-16.0); White Blood Count 17.5 X10*3/uL (4.8-10.8)
[2023-05-11 01:39] LABS: Anion Gap 17 (12-20); Blood Urea Nitrogen 63 mg/dL (9-16); Calcium 8.2 mg/dL (8.4-10.2); Carbon Dioxide 17 mmol/L (22-29); Chloride 105 mmol/L (96-108); Estimated Glomerular Filt Rate 10; Glucose Random 90 mg/dL (60-115); Potassium 4.3 mmol/L (3.3-5.1); Sodium 135 mmol/L (135-145)
[2023-05-11 02:09] LABS: Alanine Aminotransferase 9 U/L (0-40); Albumin Level 2.4 g/dL (3.5-5.0); Alkaline Phosphatase 78 U/L (39-117); Aspartate Amino Transferase 12 U/L (5-37); Bilirubin Direct 0.4 mg/dL (0.0-0.5); Bilirubin Total 0.6 mg/dL (0.0-1.0); Total Protein 5.9 g/dL (6.5-8.0)
[2023-05-11] MEDS: 0.9 % Sodium Chloride 1,000 ML 999 ML IV (02:31)
[2023-05-11 02:41] LABS: Lactic Acid 0.7 mmol/L (0.5-2.0)
[2023-05-11 03:51] LABS: Appearance Urine Turbid; Color Urine Dark Yellow; Glucose Urine UA Negative (Negative); Leukocyte Esterase Urine Large (3+) (Negative); Nitrite Urine Positive (Negative); Specific Gravity - Urine 1.015 (1.005-1.025); UMIC TRIGGER UACC YES; Urine Blood Large (3+) (Negative); Urine Ketones Negative (Negative); Urine Protein 300 (3+) mg/dL (Neg-Trace)
[2023-05-11] MEDS: cefTRIAXone sodium 1 GM in 0.9 % Sodium Chloride 50 ML IV (03:56)
[2023-05-11] MEDS: Lidocaine HCl 2 % Urojet 10 ML JEL.PF.APP TOPICAL (03:58)
[2023-05-11 04:05] LABS: Bacteria Urine 3+ (None Seen); RBC Urine >20 /HPF (0-2); Squamous Epithelial Cell Urine 0-2 /HPF (0-2); UACC Culture Trigger YES; WBC Urine >50 /HPF (0-5)
--- NOTE | 2023-05-11 04:17 | PC.NURSE ---
Pt BIB[facility] from [facility], BLL 4+ pitting edema noted, skin is intact, warm and dry. Pt reporting difficulty urinating, with only dribbles, with a dark orange colored urine, pt bladder scanned 267 ml's, provider Justine notified, new order to straight cath. IV inserted in LAC, fluids running per order. Pt denies pain aristeo, failed straight cath attempt, Dr. Hidalgo used wire guided catheter for insertion, 300ml of dark orange urine with sediment draining, urine sample collected and sent to lab. Pt states feeling relief after catheter insertion. ABX running per MAR, VSS, wctm.
--- NOTE | 2023-05-11 04:59 | P.HPHOSP_ITS ---
History of Present Illness Date of Service: 05/11/23 Chief Complaint: unable to urinate 58-year-old male with past medical history of cerebral ataxia disease, hypertension, diabetes, comes in from a facility, with inability to urinate. Patient is a poor historian, unable to get any more history from him as a faci lity did not send any documents with the patient, he seems to may have some underlying disability, states that he has problems with urine he keeps pointing to the Murdock catheter back, when asked him if he has any dysuria or urgency, he denies, he denies any pain, but he says could not pee could not pee. Unable to obtain complete review of systems. It appears the patient had a recent ureteral stents placement for history of staghorn calculus, 1 on the left eye was removed, and now a new 1 in the right displaced few days ago. On arrival to the ED patient hemodynamically stable with slightly elevated blood pressure Labs are significant for WBC count of 17.5, hemoglobin of 10.8, hematocrit 32.9, sodium of 135, bicarb of 17, creatinine of 5.71 with no baseline, BUN 63, UA positive for leukocyte Estrace, nitrites, WBC, as well as bacteria Abdomen pelvic CT shows significant abnormalities of the right kidney with multiple bilateral renal calculi and loss of the expected renal contour as well as heterogeneous renal parenchymal and perinephric stranding infectious etiology is considered A Murdock catheter was placed, patient started on IV antibiotics will be admitted for further management Review of Systems Review of Systems: Yes Unobtainable due to mental condition and Unobtainable due to mental status [facility] Medical History Alternating exotropia Ataxic gait Benign paroxysmal vertigo, right ear 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 Combined forms of age-related cataract, bilateral Constipation, unspecified Deficiency, saccadic eye movements Diabetes insipidus Dysarthria and anarthria Dysphagia, oral phase Hemangioma of skin and subcutaneous tissue Hypertension Insomnia, unspecified Melanocytic nevi, unspecified Morbid (severe) obesity due to excess calories Muscle weakness (generalized) Obstructive sleep apnea (adult) (pediatric) Other abnormalities of gait and mobility Other chronic pain Other forms of nystagmus Other melanin hyperpigmentation Personal history of (healed) other pathological fracture Personal history of other malignant neoplasm of skin Resides in [facility] facility Seborrheic dermatitis, unspecified Sensorineural hearing loss, bilateral Unsteadiness on feet Vitamin B deficiency, unspecified Vitamin B12 deficiency anemia, unspecified Surgical History Bariatric surgery status Hx of cystoscopy Other specified postprocedural states Presence of right artificial hip joint Vasectomy status Social History Household Members Other:: [facility] Other:: [facility] Are you a primary transitional care liaison to a significant other at home: No Do you presently have visiting nurse or other home services: No Alcohol intake: never Patient Tobacco Use Status: Never used Tobacco Smoked in Last 30 Days: No Use of substances other than those prescribed or required for medical reasons: No Advance Directives: Yes Advance Directives on File: Yes Advance Directives Date on File: 05/01/23 Meds Allergies Allergy/AdvReac Type Severity Reaction Status Date / Time No Known Allergies Allergy Verified 05/11/23 04:34 Home Medications Medication Instructions Recorded Confirmed Last Taken Type acetaminophen 325 mg capsule 650 mg PO Q6H PRN Fever 12/22/22 05/03/23 Unknown History aspirin 81 mg tablet,delayed 81 mg PO BID 12/22/22 05/03/23 Unknown History release bisacodyl 10 mg rectal suppository 10 mg [place] DAILY PRN Constipation 12/22/22 05/03/23 Unknown History calcium carbonate 500 mg calcium 500 mg PO Q6-8H PRN Heartburn 12/22/22 05/03/23 Unknown History (1,250 mg) chewable tablet cyanocobalamin (vitamin B-12) 500 1,000 mcg PO DAILY 12/22/22 05/03/23 Unknown History mcg tablet desmopressin 0.2 mg tablet 0.2 mg PO BID 12/22/22 05/03/23 Unknown History hyoscyamine sulfate 0.125 mg 0.125 mg sublingual BID 12/22/22 05/03/23 Unknown History sublingual tablet ibuprofen 200 mg tablet 400 mg PO Q8H PRN Pain, Moderate 12/22/22 05/03/23 Unknown History pyridoxine (vitamin B6) 200 mg 200 mg PO DAILY 12/22/22 05/03/23 Unknown History tablet,extended release sennosides 8.6 mg tablet (Senna 8.6 mg PO DAILY 12/22/22 05/03/23 Unknown History Laxative) sodium phosphates 19 gram-7 118 ml [place] DAILY PRN Constipation 12/22/22 05/03/23 Unknown History gram/118 mL enema (Fleet Enema) atropine 1 % eye drops 2 drp sublingual BID 02/14/23 05/03/23 Unknown History benzocaine 10 % mucosal gel 1 appl mucous membrane TID PRN Pain 05/01/23 05/03/23 Unknown History (Anbesol (benzocaine)) desmopressin 0.2 mg tablet 0.2 mg PO Q24H PRN EXCESSIVE 05/01/23 05/03/23 Unknown History SECRETIONS Physical Exam Vital Signs and Narrative: Vital Signs: Last Vital Signs Temp 98.8 F 05/11/23 04:00 Pulse 72 05/11/23 04:00 Resp 14 05/11/23 04:00 BP 150/87 H 05/11/23 04:00 Pulse Ox 99 05/11/23 04:00 O2 Del Method Room Air 05/11/23 04:00 BMI result Body Mass Index 31.9 Const: Other: Awake, but unable to obtain orientation, he appears to have some underlying disability but no documentation from care home or sent in regards to his past medical history General: cooperative and no acute distress Eyes: General: appearance normal, both eyes and all related structures Resp: Effort & Inspection: normal respiratory effort Auscultation: clear to auscultation bilaterally Cardio: Rate: regular rate Rhythm: regular rhythm GI: Other: Abdomen is nontender, no rebound or guarding Palpation (GI): Soft to palpation Auscultation: normal bowel sounds Skin: General skin exam: no rashes or lesions noted Extrem: General: Yes normal to inspection and Yes no pedal edema Results Labs 05/11/23 01:04 05/11/23 01:04 Labs: Laboratory Results - last 24 hr 05/11/23 05/11/23 05/11/23 01:04 01:04 02:26 MCV 89.2 MCH 29.3 MCHC 32.8 RDW 13.7 Plt Count 257 MPV 9.6 Immature Gran % (Auto) 0.6 H Neut % (Auto) 80.3 H Lymph % (Auto) 9.4 L [place] % (Auto) 8.5 Eos % (Auto) 0.9 Baso % (Auto) 0.3 Lymph # (Auto) 1.7 [place] # (Auto) 1.5 H Eos # (Auto) 0.2 Baso # (Auto) 0.1 Abs Immat Gran (auto) 0.11 H Absolute Neuts (auto) 14.0 H Absolute Nucleated RBC 0.000 Nucleated RBC % (auto) 0.0 Anion Gap 17 Estim Creat Clear Calc 17.0 Estimated GFR 10 Random Glucose 90 Lactic Acid 0.7 Calcium 8.2 L Total Bilirubin 0.6 Direct Bilirubin 0.4 AST 12 ALT 9 Alkaline Phosphatase 78 Total Protein 5.9 L Albumin 2.4 L Urine Color Urine Appearance Urine pH Ur Specific [place] Urine Protein Urine Glucose (UA) Urine Ketones Urine Blood Urine Nitrite Ur Leukocyte Esterase Urine RBC Urine WBC Ur Squamous Epith Cells Urine Bacteria Hyaline Casts 05/11/23 03:44 MCV MCH MCHC RDW Plt Count MPV Immature Gran % (Auto) Neut % (Auto) Lymph % (Auto) [place] % (Auto) Eos % (Auto) Baso % (Auto) Lymph # (Auto) [place] # (Auto) Eos # (Auto) Baso # (Auto) Abs Immat Gran (auto) Absolute Neuts (auto) Absolute Nucleated RBC Nucleated RBC % (auto) Anion Gap Estim Creat Clear Calc Estimated GFR Random Glucose Lactic Acid Calcium Total Bilirubin Direct Bilirubin AST ALT Alkaline Phosphatase Total Protein Albumin Urine Color Dark Yellow Urine Appearance Turbid Urine pH 6.0 Ur Specific [place] 1.015 Urine Protein 300 (3+) H Urine Glucose (UA) Negative Urine Ketones Negative Urine Blood Large (3+) H Urine Nitrite Positive H Ur Leukocyte Esterase Large (3+) H Urine RBC >20 H Urine WBC >50 H Ur Squamous Epith Cells 0-2 Urine Bacteria 3+ Hyaline Casts 11-20 Imaging Radiologist's Impressions: Impressions Abdomen/Pelvis CT 05/11/23 03:10 IMPRESSION: Significant abnormalities of the right kidney with multiple bilateral renal calculi and loss of the expected renal contour as well as heterogeneous renal parenchyma and perinephric stranding. Infectious process is considered. There is a right subcapsular collection measuring up to 2 cm with some apparent air lucency. Infected perinephric collection is a possibility. Right double-J stent in place. No hydronephrosis. Small amount of air within the urinary bladder needs correlation with urinalysis. Fleischner guidelines were followed. Assessment and Plan (1) BOYD (acute kidney injury): Status: Acute (2) Acute bacterial pyelonephritis: Status: Acute (3) Urinary retention: Status: Acute Plan 58-year-old male comes in from facility with complaints of inability to urinate found to have urinary retention, as well as acute pyelonephritis # acute pyelonephritis/cystitis/UTI - will treat with IV antibiotics, CT findings as above - follow cultures - no evidence of obstructing calculi at this time, stent in place - urology consulted as the stent may need to be extracted # urinary tension - Murdock catheter in place # BOYD - secondary to above - will start with IV fluids - follow BMP Unable to do med rec as patient's medication list not available, nursing staff tried reaching to the facility multiple times with no luck DVT prophylaxis: Lovenox Given patient's need for IV antibiotics patient require minimum 2 night inpatient hospital stay for further management and monitor Time Spent With Patient Time: Total time managing care of this patient today ____ minutes. Quality Stroke Does the patient have a stroke diagnosis?: No VTE Prior VTE?: No VTE Risk Level:: Medical - moderate - high VTE Device Contraindication: Treatment Not Indicated VTE Drug Contraindication: N/A - Med Ordered
[2023-05-11] MEDS: Lactated Ringers 1,000 ML 150 ML IVCONT ×3 (05:14→20:53)
[2023-05-11 05:48] LABS: MANUAL DIFF FLAG NO
[2023-05-11 06:16] LABS: Anion Gap 14 (12-20); Blood Urea Nitrogen 62 mg/dL (9-16); Calcium 8.1 mg/dL (8.4-10.2); Carbon Dioxide 19 mmol/L (22-29); Chloride 105 mmol/L (96-108); Creatinine Clr Calc Pharmacy 17.1; Estimated Glomerular Filt Rate 10; Glucose Random 85 mg/dL (60-115); Potassium 4.1 mmol/L (3.3-5.1); Sodium 134 mmol/L (135-145)
[2023-05-11 06:24] LABS: Basophils Absolute Auto 0.1 X10*3/uL (0.0-0.2); Basophils Percent Auto 0.3 % (0-2); Eosinophils Absolute Auto 0.1 X10*3/uL (0.0-0.4); Eosinophils Percent Auto 0.5 % (0-4); Hematocrit 28.3 % (42.0-52.0); Hemoglobin 9.5 g/dl (14.0-18.0); Imm Gran Abs Auto 0.12 X10*3/uL (0.00-0.03); Imm Gran Pct Auto 0.7 % (0.0-0.4); Lymphocytes Absolute Auto 1.4 X10*3/uL (1.2-4.9); Lymphocytes Percent Auto 8.1 % (20-40); Mean Corpuscular HGB Conc 33.6 g/dl (31.0-36.0); Mean Corpuscular Hemoglobin 28.9 pg (27.0-33.0); Mean Platelet Volume 9.9 fL (9.4-12.4); Monocytes Absolute Auto 1.4 X10*3/uL (0.1-1.2); Monocytes Percent Auto 8.3 % (2-11); Neutrophils Absolute Auto 13.9 x10*3/uL (2.0-8.3); Neutrophils Percent Auto 82.1 % (45-73); Platelet Count 255 X10*3/uL (160-400); Red Blood Count 3.29 X10*6/uL (4.60-5.80); Red Cell Distribution Width 13.6 % (11.0-16.0); White Blood Count 16.9 X10*3/uL (4.8-10.8)
--- NOTE | 2023-05-11 06:31 | PC.NURSE ---
Four attempts made to contact [facility] for Pt Med rec, not successful, Dr. Viera aware.
[2023-05-11] MEDS: Heparin Sodium,Porcine 5,000 UNIT/ML VIAL 5000 UNIT SUBCUT ×2 (07:46→14:55)
[2023-05-11] MEDS: 0.9 % Sodium Chloride Flush 3 ML SYRINGE IVFLUSH (07:47)
--- NOTE | 2023-05-11 08:41 | PC.NURSE ---
Per overnight RN this patient presented to [facility] from [facility] in [place] due to urinary retention/difficulty with urination. Found to have UTI/BOYD. Pt recently had a urethral stent removed. Residual deficits observed from previous CVA, pt is able to communicate and make needs known - left sided weakness. Wheelchair bound at baseline. Presently A&Ox3. Murdock catheter is draining dark yellow/cloudy urine. +4 Edema observed in BLE, patient states that this is his baseline. Currently denies pain/n/v/sob. Awaiting home med list from facility; Plan for IP admit. Pt tolerated breakfast tray well. WCTA
--- NOTE | 2023-05-11 09:08 | PHA.MEDREC ---
Pharmacy Consult ? Medication Reconciliation Pharmacy has completed the medication reconciliation. Patient had med list from [facility] faxed to pharmacy.
--- NOTE | 2023-05-11 11:46 | MHC.CM.PN ---
Addendum entered by Uma Saavedra 05/11/23 11:57: Received return telephone call from patient's daughter/guardian, Carey. Carey confirms patient will return to [facility] via BLS when medically stable. Original Note: Attempted to meet with patient in regards to discharge planning. Patient is a LTC resident of [facility] with a guardianship from [facility]. Attempted to reach patient's daughter/guardian, Carlos Patino via telephone at [phone]. Left message requesting return telephone call and explaining IMM would be sent via certified mail. CM assessment completed using medical record. Anticipate patient will return to [facility] via BLS when medically stable. Received 2 Pfizer vaccines. Copy of guardianship obtained from Guy at [facility]. Anticipate patient will return to facility via BLS when medically stable. Continue to monitor for d/c needs.
--- NOTE | 2023-05-11 13:51 | PM.EVENT ---
Event Note Date of Service: 05/11/23 Event Note: This patient is seen and examined already by hospitalist team this morning, seen and examined again-clinically similar as per H& P. patient came ''?could not able to urinate'' no nausea/vomitin Physical exam and assessment and plan coordinated in H&P note Agree with the plan in addition: luis miguel /pyeloneprhitis urology recomended -continue ivf and antibiotics , follow up culture close i/o monitering, mcclure urology and nephrology eval pending Time Spent With Patient Time: Total time managing care of this patient today ____ minutes.
--- NOTE | 2023-05-11 18:02 | PM.CNNEP ---
History of Present Illness Reason for Consult Consult date: 05/11/23 Reason for consult: BOYD and abnormal renal imaging Chief Complaint Chief complaint: BOYD, UTI History of Present Illness Narrative: Ayo is a 58 yo man with a history of cerebellar ataxia and diabetes insipidis, and staghorn calculi and multiple obstructing renal stones who was sent here from [facility]. He tells me his prior medical care and hospitalizations were in [place]. On presentation, he had diff voiding and was found to have bilateral markedly imaging abnormalities of the kidneys consistent with possibe bilateral xanthogranulomatous pyelonephritis. His creat was 5.6. He recently undertook removal of a left ureteral stent by Dr. Marie. There is a stent in the right kidney. The right kidney also appears to have a subcapsular collection with air in it concerning for an infected subcapsular hematoma or infection. He is receiving fluids. H denies flank pain. He is having diff swallowing. I do not see prior renal labs [place] [facility]. In his med list ibuprofen is listed as a regular medication Review of Systems Comments: malaise but no fever or chlls Comments: no chest pain Comments: denies cough or SOB Comments: diff swallowing, no nausea Comments: diff voiding on admission Comments: diff walking, uses wheelchair cognitive dysfunction PMFSH Past Medical History Medical History Alternating exotropia Ataxic gait Benign paroxysmal vertigo, right ear 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 Combined forms of age-related cataract, bilateral Constipation, unspecified Deficiency, saccadic eye movements Diabetes insipidus Dysarthria and anarthria Dysphagia, oral phase Hemangioma of skin and subcutaneous tissue Hypertension Insomnia, unspecified Melanocytic nevi, unspecified Morbid (severe) obesity due to excess calories Muscle weakness (generalized) Obstructive sleep apnea (adult) (pediatric) Other abnormalities of gait and mobility Other chronic pain Other forms of nystagmus Other melanin hyperpigmentation Personal history of (healed) other pathological fracture Personal history of other malignant neoplasm of skin Resides in custodial facility Seborrheic dermatitis, unspecified Sensorineural hearing loss, bilateral Unsteadiness on feet Vitamin B deficiency, unspecified Vitamin B12 deficiency anemia, unspecified Surgical History Surgical History Bariatric surgery status Hx of cystoscopy Other specified postprocedural states Presence of right artificial hip joint Vasectomy status Social History Social History Household Members: None Household Members Other:: [facility] Housing: [facility] Housing Other:: [facility] Are you a primary healthcare administration intern to a significant other at home: No Do you presently have visiting nurse or other home services: No Alcohol intake: never Patient Tobacco Use Status: Never used Tobacco Smoked in Last 30 Days: No Use of substances other than those prescribed or required for medical reasons: No Currently Displaying Signs/Symptoms of Drug Intoxication Withdrawal: No Advance Directives: Yes Advance Directives on File: Yes Advance Directives Date on File: 05/01/23 Do you have thoughts of harming others: None Do you have a plan to hurt others: No Plan Recently lost weight without trying: Unsure Nutrition Risks: No Nutritional Risk service: No Meds Allergies Allergy/AdvReac Type Severity Reaction Status Date / Time No Known Allergies Allergy Verified 05/11/23 04:34 Active Medications: Current Medications Acetaminophen (Acetaminophen 325 Mg Tablet) 650 mg PO Q6H PRN PRN Reason: Fever Or Pain Aspirin (Aspirin Enteric Coated 81 Mg Tablet.Dr) 81 mg PO BID TERRANCE Atropine Sulfate (Atropine Sulfate 1 % Ophth [place] 2 Ml Bottle) 2 drop SUBLINGUAL BID TERRANCE Benzocaine (Benzocaine 20 % Oral Gel 9 Gm Tube) 1 appl MUCOUS MEM TID PRN PRN Reason: Pain Bisacodyl (Bisacodyl 10 Mg Supp.Rect) 10 mg [place] DAILY PRN PRN Reason: Constipation Cyanocobalamin (Cyanocobalamin (Vitamin B-12) 1,000 Mcg Tablet) 1,000 mcg PO DAILY TERRANCE Desmopressin Acetate (Desmopressin Acetate 0.2 Mg Tablet) 0.2 mg PO BID TERRANCE Desmopressin Acetate (Desmopressin Acetate 0.2 Mg Tablet) 0.2 mg PO Q24H PRN PRN Reason: EXCESSIVE SECRETIONS Docusate Sodium (Docusate Sodium 100 Mg Capsule) 100 mg PO DAILY PRN PRN Reason: Constipation Heparin Sodium (Porcine) (Heparin Sodium,Porcine 5,000 Unit/Ml Vial) 5,000 unit SUBCUT Q8H [facility] Last Admin: 05/11/23 14:55 Dose: 5,000 unit Ceftriaxone Sodium 1 gm/ (Sodium Chloride) 50 mls @ 100 mls/hr IV Q24H [facility] Lactated Ringer's (Lr) 1,000 mls @ 150 mls/hr IVCONT .Q6H40M [facility] Last Admin: 05/11/23 12:04 Dose: 150 mls/hr Ondansetron HCl (Ondansetron Hcl 4 Mg/2 Ml Vial) 4 mg IVPUSH Q8H PRN PRN Reason: Nausea and Vomiting Pharmacy Consult (Consult Rx Perform Med Rec) 1 each MISCELLANE ONCE PRN PRN Reason: Consult order Pyridoxine HCl (Pyridoxine Hcl (Vitamin B6) 50 Mg Tablet) 200 mg PO DAILY [facility] Senna (Sennosides 8.6 Mg Tablet) 8.6 mg PO DAILY PRN PRN Reason: Constipation Sodium Chloride (0.9 % Sodium Chloride Flush 3 Ml Syringe) 3 ml IVFLUSH QSHIFT [facility] Last Admin: 05/11/23 14:49 Dose: Not Given Home Medications Medication Instructions Recorded Confirmed Last Taken Type acetaminophen 325 mg capsule 650 mg PO Q6H PRN Fever Or Pain 12/22/22 05/11/23 Unknown History aspirin 81 mg tablet,delayed 81 mg PO BID 12/22/22 05/11/23 Unknown History release bisacodyl 10 mg rectal suppository 10 mg [place] DAILY PRN Constipation 12/22/22 05/11/23 Unknown History calcium carbonate 500 mg calcium 500 mg PO Q6H PRN Heartburn 12/22/22 05/11/23 Unknown History (1,250 mg) chewable tablet cyanocobalamin (vitamin B-12) 500 1,000 mcg PO DAILY 12/22/22 05/11/23 Unknown History mcg tablet desmopressin 0.2 mg tablet 0.2 mg PO BID 12/22/22 05/11/23 Unknown History hyoscyamine sulfate 0.125 mg 0.125 mg sublingual BID 12/22/22 05/11/23 Unknown History sublingual tablet ibuprofen 200 mg tablet 400 mg PO Q8H PRN Pain, Moderate 12/22/22 05/11/23 Unknown History pyridoxine (vitamin B6) 200 mg 200 mg PO DAILY 12/22/22 05/11/23 Unknown History tablet,extended release sennosides 8.6 mg tablet (Senna 8.6 mg PO DAILY PRN Constipation 12/22/22 05/11/23 Unknown History Laxative) sodium phosphates 19 gram-7 118 ml [place] DAILY PRN Constipation 12/22/22 05/11/23 Unknown History gram/118 mL enema (Fleet Enema) atropine 1 % eye drops 2 drp sublingual BID 02/14/23 05/11/23 Unknown History benzocaine 10 % mucosal gel 1 appl mucous membrane TID PRN Pain 05/01/23 05/11/23 Unknown History (Anbesol (benzocaine)) desmopressin 0.2 mg tablet 0.2 mg PO Q24H PRN EXCESSIVE 05/01/23 05/11/23 Unknown History SECRETIONS Physical Exam Vital Signs: Last Vital Signs Temp 97.7 F 05/11/23 14:34 Pulse 67 05/11/23 14:34 Resp 18 05/11/23 14:34 BP 145/90 H 05/11/23 14:34 Pulse Ox 98 05/11/23 14:34 O2 Del Method Room Air 05/11/23 14:34 BMI result Body Mass Index 31.9 Const Other: Alert, interactive, dysarthric,, in no acute distress HEENT Other: benign, Neck Other: no JVD or adenpathy Chest Other: clear Cardio Other: RRR , no murmur, no JVD GI Other: soft, nondistended, nontender Other: mcclure in Skin Other: no rash Extrem Other: edema 1 plus pretib bilaterally Results Lab Results 05/11/23 05:37 05/11/23 05:37 Lab results: Chemistry 05/11/23 05/11/23 01:04 05:37 Sodium 135 134 L Potassium 4.3 4.1 Carbon Dioxide 17 L 19 L BUN 63 H 62 H Creatinine 5.71 H* 5.69 H* Calcium 8.2 L 8.1 L Hematology 05/11/23 05/11/23 01:04 05:37 WBC 17.5 H 16.9 H Hgb 10.8 L 9.5 L Plt Count 257 255 Urinalysis 05/11/23 03:44 Urine Color Dark Yellow Urine Appearance Turbid Urine pH 6.0 Ur Specific [place] 1.015 Urine Protein 300 (3+) H Urine Glucose (UA) Negative Urine Ketones Negative Urine Blood Large (3+) H Urine Nitrite Positive H Ur Leukocyte Esterase Large (3+) H Urine RBC >20 H Urine WBC >50 H Ur Squamous Epith Cells 0-2 Hyaline Casts 11-20 Assessment and Plan (1) BOYD (acute kidney injury): Status: Acute BOYD on likely CKD in the setting of apparent right kidney infection and possibly Page kidney on the right and 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 Also on ibuprofen!! and may have NSAID induced BOYD as weell: ATN or AIN. XGP carries a poor prognosis and he may require, ultimately, bilaterally nephrectomies. At the present time there is no absolute indication for dialysis . I will try to track down prior serum creatinines and evaluate his baseline renal function. He does not appear septic. We will need to get urology involved. 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 Procedures Date of Service Date of Service: 05/11/23
[2023-05-11] MEDS: Desmopressin Acetate 0.2 MG TABLET PO (20:54)
[2023-05-11] MEDS: Aspirin Enteric Coated 81 MG TABLET.DR PO (20:54)
[2023-05-11] MEDS: Atropine Sulfate 1 % Ophth Sol 2 ML BOTTLE 2 DROP SUBLINGUAL (21:02)
[2023-05-12] MEDS: cefTRIAXone sodium 1 GM in 0.9 % Sodium Chloride 50 ML IV (00:05)
[2023-05-12] MEDS: Heparin Sodium,Porcine 5,000 UNIT/ML VIAL 5000 UNIT SUBCUT ×4 (00:05→23:09)
[2023-05-12 03:08] VITALS: BP 139/76; PULSE 70; RESP 16; TEMP 36.1; O2SAT 99
[2023-05-12] MEDS: Lactated Ringers 1,000 ML 150 ML IVCONT (03:15)
[2023-05-12 06:34] LABS: Hematocrit 27.3 % (42.0-52.0); Hemoglobin 9.1 g/dl (14.0-18.0); Mean Corpuscular HGB Conc 33.3 g/dl (31.0-36.0); Mean Corpuscular Hemoglobin 28.9 pg (27.0-33.0); Mean Corpuscular Volume 86.7 fL (80.0-98.0); Mean Platelet Volume 9.3 fL (9.4-12.4); Platelet Count 268 X10*3/uL (160-400); Red Blood Count 3.15 X10*6/uL (4.60-5.80); Red Cell Distribution Width 13.7 % (11.0-16.0); White Blood Count 13.8 X10*3/uL (4.8-10.8)
[2023-05-12 06:38] LABS: Anion Gap 13 (12-20); Blood Urea Nitrogen 58 mg/dL (9-16); Calcium 8.3 mg/dL (8.4-10.2); Carbon Dioxide 21 mmol/L (22-29); Chloride 107 mmol/L (96-108); Creatinine Clr Calc Pharmacy 20.2; Estimated Glomerular Filt Rate 12; Glucose Random 82 mg/dL (60-115); Potassium 4.9 mmol/L (3.3-5.1); Sodium 136 mmol/L (135-145)
[2023-05-12 07:35] VITALS: BP 162/87; PULSE 60; RESP 20; TEMP 36; O2SAT 98
[2023-05-12] MEDS: Aspirin Enteric Coated 81 MG TABLET.DR PO ×2 (07:40→20:03)
[2023-05-12] MEDS: Desmopressin Acetate 0.2 MG TABLET PO ×2 (07:41→20:03)
[2023-05-12] MEDS: Cyanocobalamin (Vitamin B-12) 1,000 MCG TABLET 1000 MCG PO (07:41)
[2023-05-12] MEDS: Pyridoxine HCl (Vitamin B6) 50 MG TABLET 200 MG PO (07:41)
[2023-05-12] MEDS: Atropine Sulfate 1 % Ophth Sol 2 ML BOTTLE 2 DROP SUBLINGUAL ×2 (07:44→20:03)
[2023-05-12] MEDS: Lactated Ringers 1,000 ML 100 ML IVCONT ×2 (10:03→20:03)
--- NOTE | 2023-05-12 10:16 | HO.PM.IMPN ---
Subjective Subjective Date of Service: 05/12/23 Interval History: boyd,pyelonephritis (thought to be XPG pyelonephritis) Review of Systems no fevers eating breakfast Physical Exam Vital Signs: Vital Signs: Last Vital Signs Temp 96.8 F 05/12/23 07:35 Pulse 60 05/12/23 07:35 Resp 20 05/12/23 07:35 BP 162/87 H 05/12/23 07:35 Pulse Ox 98 05/12/23 07:35 O2 Del Method Room Air 05/12/23 07:35 BMI result Body Mass Index 31.9 Appearance: Alert.? Oriented ,seems at his baseline.. cvs: [id number], [id number]. res: clear to auscultation ,no rhonchii or wheezing abd: no rebound or guarding ,nt, bs present. ext pulses present , no cyanosis . neuro: axo3 , nonfocal. Objective Data Active Medications Acetaminophen (Acetaminophen 325 Mg Tablet) 650 mg PO Q6H PRN PRN Reason: Fever Or Pain Aspirin (Aspirin Enteric Coated 81 Mg Tablet.) 81 mg PO BID COUNTS INCLUDE 234 BEDS AT THE [facility] Last Admin: 05/12/23 07:40 Dose: 81 mg Documented By: NICK Atropine Sulfate (Atropine Sulfate 1 % Ophth Sumaya 2 Ml Bottle) 2 drop SUBLINGUAL BID COUNTS INCLUDE 234 BEDS AT THE [facility] Last Admin: 05/12/23 07:44 Dose: 2 drop Documented By: NICK Benzocaine (Benzocaine 20 % Oral Gel 9 Gm Tube) 1 appl MUCOUS MEM TID PRN PRN Reason: Pain Bisacodyl (Bisacodyl 10 Mg Supp.Rect) 10 mg [place] DAILY PRN PRN Reason: Constipation Cyanocobalamin (Cyanocobalamin (Vitamin B-12) 1,000 Mcg Tablet) 1,000 mcg PO DAILY COUNTS INCLUDE 234 BEDS AT THE [facility] Last Admin: 05/12/23 07:41 Dose: 1,000 mcg Documented By: NICK Desmopressin Acetate (Desmopressin Acetate 0.2 Mg Tablet) 0.2 mg PO BID COUNTS INCLUDE 234 BEDS AT THE [facility] Last Admin: 05/12/23 07:41 Dose: 0.2 mg Documented By: NICK Desmopressin Acetate (Desmopressin Acetate 0.2 Mg Tablet) 0.2 mg PO Q24H PRN PRN Reason: EXCESSIVE SECRETIONS Docusate Sodium (Docusate Sodium 100 Mg Capsule) 100 mg PO DAILY PRN PRN Reason: Constipation Heparin Sodium (Porcine) (Heparin Sodium,Porcine 5,000 Unit/Ml Vial) 5,000 unit SUBCUT Q8H COUNTS INCLUDE 234 BEDS AT THE [facility] Last Admin: 05/12/23 06:21 Dose: 5,000 unit Documented By: JOHN Ceftriaxone Sodium 1 gm/ (Sodium Chloride) 50 mls @ 100 mls/hr IV Q24H COUNTS INCLUDE 234 BEDS AT THE [facility] Last Infusion: 05/12/23 00:39 Dose: 0 mls/hr Documented By: JOHN Lactated Ringer's (Lr) 1,000 mls @ 100 mls/hr IVCONT .Q10H COUNTS INCLUDE 234 BEDS AT THE [facility] Last Admin: 05/12/23 10:03 Dose: 100 mls/hr Documented By: NICK Ondansetron HCl (Ondansetron Hcl 4 Mg/2 Ml Vial) 4 mg IVPUSH Q8H PRN PRN Reason: Nausea and Vomiting Pharmacy Consult (Consult Rx Perform Med Rec) 1 each MISCELLANE ONCE PRN PRN Reason: Consult order Pyridoxine HCl (Pyridoxine Hcl (Vitamin B6) 50 Mg Tablet) 200 mg PO DAILY COUNTS INCLUDE 234 BEDS AT THE [facility] Last Admin: 05/12/23 07:41 Dose: 200 mg Documented By: NICK Senna (Sennosides 8.6 Mg Tablet) 8.6 mg PO DAILY PRN PRN Reason: Constipation Sodium Chloride (0.9 % Sodium Chloride Flush 3 Ml Syringe) 3 ml IVFLUSH QSHIFT COUNTS INCLUDE 234 BEDS AT THE [facility] Last Admin: 05/12/23 10:00 Dose: Not Given Documented By: NICK Non-Admin Reason: IV Running Labs 05/12/23 06:19 05/12/23 06:19 Labs: Laboratory Results - last 24 hr 05/12/23 05/12/23 06:19 06:19 MCV 86.7 MCH 28.9 MCHC 33.3 RDW 13.7 Plt Count 268 MPV 9.3 L Absolute Nucleated RBC 0.000 Nucleated RBC % (auto) 0.0 Anion Gap 13 Estim Creat Clear Calc 20.2 Estimated GFR 12 Random Glucose 82 Calcium 8.3 L Microbiology Microbiology Results: Microbiology 05/11/23 02:26 Blood Culture - Preliminary Blood - Venous No growth after 24 hours. 05/11/23 02:26 Blood Culture - Preliminary Blood - Venous No growth after 24 hours. Assessment and Plan (1) Urinary retention: Status: Acute (2) BOYD (acute kidney injury): Status: Acute (3) Pyelonephritis: Status: Acute Plan 58-year-old male comes in from facility with complaints of inability to urinate found to have urinary retention, as well as acute pyelonephritis acute pyelonephritis(thought to be XPG)/cystitis/UTI - will treat with IV antibiotics, CT findings as above - follow cultures - no evidence of obstructing calculi at this time, stent in place seen by urology-no acute intervention urinary retension- Murdock catheter in place BOYD- secondary to above - will start with IV fluids - follow BMP overweight -encourage to lose weight. DVT prophylaxis:? Lovenox acute pyelonephritis/boyd-need IV antibiotics and hydration, need close monitoring of renal function and electrolytes. Time Spent With Patient Time: Total time managing care of this patient today ____ minutes. Quality Stroke Does the patient have a stroke diagnosis?: No VTE Prior VTE?: No VTE Risk Level:: Medical - moderate - high VTE Device Contraindication: Treatment Not Indicated VTE Drug Contraindication: N/A - Med Ordered
--- NOTE | 2023-05-12 15:09 | P.PNNP_ITS ---
Subjective Subjective Date of Service: 05/12/23 Interval history: boyd,pyelonephritis (thought to be XPG pyelonephritis), urinary retention Physical Exam Vital Signs: Vital Signs: Last Vital Signs Temp 96.8 F 05/12/23 07:35 Pulse 60 05/12/23 07:35 Resp 20 05/12/23 07:35 BP 162/87 H 05/12/23 07:35 Pulse Ox 98 05/12/23 07:35 O2 Del Method Room Air 05/12/23 07:35 BMI result Body Mass Index 31.9 Const: Other: Alert, interactive, dysarthric,, in no acute distress General: cooperative, comfortable, no acute distress, alert and awake Nutritional Appearance: well nourished Orientation/consciousness: patient oriented x3 HEENT: Other: benign, Head: Yes normocephalic and Yes atraumatic Eyes: General: appearance normal, both eyes and all related structures E yelids: Yes eyelids normal Conjunctivae: conjunctivae normal Sclerae: sclerae normal Corneas: corneas normal Pupils: Equal, round and reactive pupils present EOM: EOMs intact bilaterally Neck: Other: no JVD or adenpathy Neck: Yes full ROM Chest: Other: clear Resp: Effort & Inspection: normal respiratory effort, able to speak in complete sentences, no audible wheezes and not labored Auscultation: clear to auscultation bilaterally Cardio: Other: RRR , no murmur, no JVD Rate: regular rate Rhythm: regular rhythm GI: Other: soft, nondistended, nontender Inspection: No distended Palpation (GI): Soft to palpation, not firm, nontender, no guarding and not rigid Auscultation: normal bowel sounds and normoactive bowel sounds : Other: mcclure in Skin: Other: no rash General skin exam: no rashes or lesions noted and elasticity normal Neuro: General: patient oriented x3 Cranial nerves: Yes Equal, round and reactive pupils present and Yes Bilaterally intact EOM present Cognition (Neuro): normal cognition Extrem: Other: edema 1 plus pretib bilaterally General: Yes normal to inspection and Yes no pedal edema Objective Data Labs 05/12/23 06:19 05/12/23 06:19 Labs: Laboratory Results - last 24 hr 05/12/23 05/12/23 06:19 06:19 WBC 13.8 H RBC 3.15 L Hgb 9.1 L Hct 27.3 L MCV 86.7 MCH 28.9 MCHC 33.3 RDW 13.7 Plt Count 268 MPV 9.3 L Absolute Nucleated RBC 0.000 Nucleated RBC % (auto) 0.0 Sodium 136 Potassium 4.9 Chloride 107 Carbon Dioxide 21 L Anion Gap 13 BUN 58 H Creatinine 4.82 H* Estim Creat Clear Calc 20.2 Estimated GFR 12 Random Glucose 82 Calcium 8.3 L Microbiology Microbiology Results: Microbiology 05/11/23 Unknown Urine Catheterized - Mcclure Catheter Urine Culture - Preliminary Culture in progress. 05/11/23 02:26 Blood - Venous Blood Culture - Preliminary No growth after 24 hours. 05/11/23 02:26 Blood - Venous Blood Culture - Preliminary No growth after 24 hours. Procedures Date of Service Date of Service: 05/12/23 Assessment & Plan Assessment and plan (1) BOYD (acute kidney injury): Status: Acute (2) Urinary retention: Status: Acute Assessment and Plan: Multifactorial: obstructive CABALLERO, bilateral pyelo possibly XGP, septic ATN, calyceal staghorn upper obstruction, possible page kidney on one side with subcapsular collection (3) Staghorn kidney stones: Status: Acute (4) Acute bacterial pyelonephritis: Status: Acute Plan Creat improving Reduce IVF now mcclure catheter No need for dialysis Involve urology Treat pyelonephritis Time Spent With Patient Time: Total time managing care of this patient today ____ minutes. Progress Note: Quality Stroke Does the patient have a stroke diagnosis?: No
[2023-05-12 15:10] VITALS: BP 152/85; PULSE 68; RESP 20; TEMP 36.1; O2SAT 98
[2023-05-12 19:52] VITALS: BP 171/85; PULSE 76; RESP 17; TEMP 36.2; O2SAT 95
[2023-05-12 20:18] VITALS: PULSE 97; O2SAT 18
[2023-05-13] MEDS: cefTRIAXone sodium 1 GM in 0.9 % Sodium Chloride 50 ML IV ×2 (00:39→23:42)
[2023-05-13 04:00] VITALS: BP 151/77; PULSE 66; RESP 16; TEMP 36.3; O2SAT 97
[2023-05-13 06:32] LABS: Anion Gap 12 (12-20); Blood Urea Nitrogen 50 mg/dL (9-16); Calcium 8.1 mg/dL (8.4-10.2); Carbon Dioxide 21 mmol/L (22-29); Chloride 109 mmol/L (96-108); Creatinine Clr Calc Pharmacy 25.3; Estimated Glomerular Filt Rate 16; Glucose Random 79 mg/dL (60-115); Potassium 4.2 mmol/L (3.3-5.1); Sodium 138 mmol/L (135-145)
[2023-05-13] MEDS: Lactated Ringers 1,000 ML 100 ML IVCONT (07:27)
[2023-05-13] MEDS: Heparin Sodium,Porcine 5,000 UNIT/ML VIAL 5000 UNIT SUBCUT ×3 (07:28→22:13)
[2023-05-13] MEDS: Desmopressin Acetate 0.2 MG TABLET PO ×2 (07:29→20:38)
[2023-05-13] MEDS: Atropine Sulfate 1 % Ophth Sol 2 ML BOTTLE 2 DROP SUBLINGUAL ×2 (07:29→20:39)
[2023-05-13] MEDS: Pyridoxine HCl (Vitamin B6) 50 MG TABLET 200 MG PO (07:29)
[2023-05-13] MEDS: Aspirin Enteric Coated 81 MG TABLET.DR PO ×2 (07:30→20:38)
[2023-05-13] MEDS: Cyanocobalamin (Vitamin B-12) 1,000 MCG TABLET 1000 MCG PO (07:30)
[2023-05-13 07:34] VITALS: BP 145/87; PULSE 61; RESP 20; TEMP 36.6; O2SAT 97
[2023-05-13] MEDS: Lactated Ringers 1,000 ML 80 ML IVCONT ×2 (11:42→17:41)
--- NOTE | 2023-05-13 12:16 | MHC.SL.SWA ---
Speech Pathologist Impression: Risk of Aspiration Due to: Neurological Condition Dysphasia Diet Status: Moderate oral pharyngeal dysphagia with delay initiating swallow on solid consistencies. Liquid Consistency and Strategies for Safe Swallow: Liquid Intake Recommendation: Thin Liquid Intake Strategies: Small Sips No Straws Solid Food Consistency: Dietary Recommendations: Grnd/Mech Altered (NDD2) Additional Modifications to Solid Foods: Patient reports that he can independently feed self, but today's eval indicates that he requires at least full supervision during meals with specific cuing to alternate liquids and solids, to take small bites and sips, and to swallow before adding more to mouth. Patient reported that he eats very slowly. However, patient will likely need specific cuing to swallow before adding more food to mouth. Note: swallow on solid foods is delayed and effortful. Add sauces and gravies to ground food and blend well. Monitor closely for clinical signs of aspiration, discontinue if patient is coughing, having difficulty clearing throat. Oral Medication Intake: Crushed with Puree Please contact the pharmacy regarding appropriate crushable or liquid drug formulations that are available whenever modified delivery is recommended. Compensatory Strategies and Precautions to be Taken for Safe Swallow: Sitting Upright (90 deg) No Straw Liquids from Straw Small Bites and Sips Alternate Liquids/Solids Rate of Ingestion Change Oral Check Avoid Specific Foods Supervision While Eating and Drinking for Safe Swallow: Total Supervision (1:1) Foods to Avoid: Mixed consistencies (soups with solids, cereals with milk). Difficult to chew solids. Swallowing Recommended Treatments: Compens. Strategy Educat. 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 CP. Patient has disorganized oral/lingual pattern in transit of bolus, marked delay of swallow on solids with effortful swallow noted, w/evidence of likely laryngeal residual after swallow, which improved when given alternate sips of liquid. Recommend UPGRADE from NPO to Ground/Mechanical Altered (NDD2) with THIN liquids by controlled cup sip (no straws), pills crushed in puree. Patient requires full supervision during meals with cues to take small bites and sips, alternate sips of liquid with bites of food, and cues to swallow before adding more food to mouth (closely monitor for swallow which is delayed). , RD notified of recommendation by secure text, discussed with RN in person. AUTOMATION ANALYST will continue to follow, assess toleration, re-assess swallow and adjust diet if warranted. Frequency/Duration: Date Range for Service Req: Timeline to reassess: Brick Shader Clinican/Clinical Fellow: No Supervisory Statement: I have reviewed and agree with the student/clinical fellow's documentation: N/A Speech Language Pathologist: Lilia Johnson M.A., CCC-AUTOMATION ANALYST
--- NOTE | 2023-05-13 12:17 | P.PNIM_ITS ---
Subjective Subjective Date of Service: 05/13/23 Interval History: boyd,pyelonephritis (thought to be XPG pyelonephritis) Review of Systems no fevers eating breakfast Physical Exam Vital Signs: Vital Signs: Last Vital Signs Temp 97.9 F 05/13/23 07:34 Pulse 61 05/13/23 07:34 Resp 20 05/13/23 07:34 BP 145/87 H 05/13/23 07:34 Pulse Ox 97 05/13/23 07:34 O2 Del Method Room Air 05/13/23 07:34 O2 Flow Rate 96 05/12/23 19:52 BMI result Body Mass Index 31.9 Appearance: Alert.? Oriented ,seems at his baseline.. cvs: rrr, [id number]. res: clear to auscultation ,no rhonchii or wheezing abd: no rebound or guarding ,nt, bs present. ext pulses present , no cyanosis . neuro: axo3 , nonfocal. Objective Data Active Medications Acetaminophen (Acetaminophen 325 Mg Tablet) 650 mg PO Q6H PRN PRN Reason: Fever Or Pain Aspirin (Aspirin Enteric Coated 81 Mg Tablet.) 81 mg PO BID [facility] Last Admin: 05/13/23 07:30 Dose: 81 mg Documented By: NICK Atropine Sulfate (Atropine Sulfate 1 % Ophth Sumaya 2 Ml Bottle) 2 drop SUBLINGUAL BID [facility] Last Admin: 05/13/23 07:29 Dose: 2 drop Documented By: NICK Benzocaine (Benzocaine 20 % Oral Gel 9 Gm Tube) 1 appl MUCOUS MEM TID PRN PRN Reason: Pain Bisacodyl (Bisacodyl 10 Mg Supp.Rect) 10 mg [place] DAILY PRN PRN Reason: Constipation Cyanocobalamin (Cyanocobalamin (Vitamin B-12) 1,000 Mcg Tablet) 1,000 mcg PO DAILY [facility] Last Admin: 05/13/23 07:30 Dose: 1,000 mcg Documented By: NICK Desmopressin Acetate (Desmopressin Acetate 0.2 Mg Tablet) 0.2 mg PO BID [facility] Last Admin: 05/13/23 07:29 Dose: 0.2 mg Documented By: NICK Desmopressin Acetate (Desmopressin Acetate 0.2 Mg Tablet) 0.2 mg PO Q24H PRN PRN Reason: EXCESSIVE SECRETIONS Docusate Sodium (Docusate Sodium 100 Mg Capsule) 100 mg PO DAILY PRN PRN Reason: Constipation Heparin Sodium (Porcine) (Heparin Sodium,Porcine 5,000 Unit/Ml Vial) 5,000 unit SUBCUT Q8H [facility] Last Admin: 05/13/23 07:28 Dose: 5,000 unit Documented By: NICK Ceftriaxone Sodium 1 gm/ (Sodium Chloride) 50 mls @ 100 mls/hr IV Q24H [facility] Last Infusion: 05/13/23 01:37 Dose: 0 mls/hr Documented By: MATILDA Lactated Ringer's (Lr) 1,000 mls @ 80 mls/hr IVCONT .[id number] [facility] Last Admin: 05/13/23 11:42 Dose: 80 mls/hr Documented By: NICK Ondansetron HCl (Ondansetron Hcl 4 Mg/2 Ml Vial) 4 mg IVPUSH Q8H PRN PRN Reason: Nausea and Vomiting Pharmacy Consult (Consult Rx Perform Med Rec) 1 each MISCELLANE ONCE PRN PRN Reason: Consult order Pyridoxine HCl (Pyridoxine Hcl (Vitamin B6) 50 Mg Tablet) 200 mg PO DAILY [facility] Last Admin: 05/13/23 07:29 Dose: 200 mg Documented By: NICK Senna (Sennosides 8.6 Mg Tablet) 8.6 mg PO DAILY PRN PRN Reason: Constipation Sodium Chloride (0.9 % Sodium Chloride Flush 3 Ml Syringe) 3 ml IVFLUSH QSHIFT [facility] Last Admin: 05/13/23 07:23 Dose: Not Given Documented By: NICK Non-Admin Reason: IV Running Labs 05/12/23 06:19 05/13/23 06:06 Labs: Laboratory Results - last 24 hr 05/13/23 06:06 Anion Gap 12 Estim Creat Clear Calc 25.3 Estimated GFR 16 Random Glucose 79 Calcium 8.1 L Microbiology Microbiology Results: Microbiology 05/11/23 Unknown Urine Culture - Preliminary Urine Catheterized - Murdock Catheter Staphylococcus aureus Enterococcus/Streptococcus sp 05/11/23 02:26 Blood Culture - Preliminary Blood - Venous No growth after 48 hours. 05/11/23 02:26 Blood Culture - Preliminary Blood - Venous No growth after 48 hours. Assessment and Plan (1) Urinary retention: Status: Acute (2) BOYD (acute kidney injury): Status: Acute (3) Pyelonephritis: Status: Acute Plan 58-year-old male comes in from facility with complaints of inability to urinate found to have urinary retention, as well as acute pyelonephritis acute pyelonephritis(thought to be XPG)/cystitis/UTI - will treat with IV antibiotics, CT findings as above - follow cultures - no evidence of obstructing calculi at this time, stent in place seen by urology-no acute intervention urinary retension- Murdock catheter in place BOYD- secondary to above - will start with IV fluids - follow BMP overweight -encourage to lose weight. DVT prophylaxis:? Lovenox acute pyelonephritis/boyd-need IV antibiotics and hydration, need close monitoring of renal function and electrolytes. Time Spent With Patient Time: Total time managing care of this patient today ____ minutes. Quality Stroke Does the patient have a stroke diagnosis?: No VTE Prior VTE?: No VTE Risk Level:: Medical - moderate - high VTE Device Contraindication: Treatment Not Indicated VTE Drug Contraindication: N/A - Med Ordered
[2023-05-13 16:00] VITALS: BP 154/79; PULSE 63; RESP 18; TEMP 36.2; O2SAT 98
[2023-05-13 20:00] VITALS: BP 156/81; PULSE 65; RESP 20; TEMP 36.1; O2SAT 100
[2023-05-13 23:39] VITALS: PULSE 70; RESP 20; O2SAT 96
[2023-05-13] MEDS: 0.9 % Sodium Chloride Flush 3 ML SYRINGE IVFLUSH (23:41)
[2023-05-14 04:00] VITALS: BP 161/88; PULSE 63; RESP 19; TEMP 36.6; O2SAT 99
[2023-05-14] MEDS: Lactated Ringers 1,000 ML 80 ML IVCONT (04:36)
[2023-05-14 07:09] LABS: Adenovirus F 40/41 Not Detected (Not Detect.); Astrovirus Not Detected (Not Detect.); Campylobacter Not Detected (Not Detect.); Cryptosporidium Not Detected (Not Detect.); Cyclospora cayetanensis Not Detected (Not Detect.); E. coli EAEC Not Detected (Not Detect.); E. coli EPEC Not Detected (Not Detect.); E. coli ETEC Not Detected (Not Detect.); E. coli STEC Not Detected (Not Detect.); Entamoeba histolytica Not Detected (Not Detect.); Giardia lamblia Not Detected (Not Detect.); Norovirus GI/GII Not Detected (Not Detect.); Plesiomonas shigelloides Not Detected (Not Detect.); Rotavirus A Not Detected (Not Detect.); Salmonella Not Detected (Not Detect.); Sapovirus Not Detected (Not Detect.); Shigella sp./EIEC Not Detected (Not Detect.); Vibrio Not Detected (Not Detect.); Vibrio Cholerae Not Detected (Not Detect.); Yersinia enterocolitica Not Detected (Not Detect.)
[2023-05-14 07:34] VITALS: BP 165/84; PULSE 67; RESP 18; TEMP 36.2; O2SAT 98
[2023-05-14] MEDS: Pyridoxine HCl (Vitamin B6) 50 MG TABLET 200 MG PO (09:11)
[2023-05-14] MEDS: Cyanocobalamin (Vitamin B-12) 1,000 MCG TABLET 1000 MCG PO (09:12)
[2023-05-14] MEDS: Desmopressin Acetate 0.2 MG TABLET PO ×2 (09:12→20:06)
[2023-05-14] MEDS: Heparin Sodium,Porcine 5,000 UNIT/ML VIAL 5000 UNIT SUBCUT ×3 (09:12→21:43)
[2023-05-14] MEDS: Aspirin Enteric Coated 81 MG TABLET.DR PO ×2 (09:12→20:06)
[2023-05-14 09:17] LABS: Anion Gap 12 (12-20); Blood Urea Nitrogen 41 mg/dL (9-16); Calcium 8.7 mg/dL (8.4-10.2); Carbon Dioxide 23 mmol/L (22-29); Chloride 107 mmol/L (96-108); Creatinine Clr Calc Pharmacy 31.1; Estimated Glomerular Filt Rate 20; Glucose Random 72 mg/dL (60-115); Potassium 4.2 mmol/L (3.3-5.1); Sodium 138 mmol/L (135-145)
--- NOTE | 2023-05-14 09:40 | PM.PNNEP ---
Subjective Subjective Date of Service: 05/14/23 Interval history: Events noted. All recent data reviewed. Renal function improving Physical Exam Vital Signs: Vital Signs: Last Vital Signs Temp 97.2 F 05/14/23 07:34 Pulse 67 05/14/23 07:34 Resp 18 05/14/23 07:34 BP 165/84 H 05/14/23 07:34 Pulse Ox 98 05/14/23 07:34 O2 Del Method CPAP 05/14/23 07:34 O2 Flow Rate 96 05/12/23 19:52 BMI result Body Mass Index 31.9 Const: General: no acute distress Eyes: EOM: EOMs intact bilaterally Neck: Neck: Yes supple Resp: Auscultation: diminished lung sounds Cardio: Rate: regular rate GI: Palpation (GI): Soft to palpation Neuro: General: moves all extremities Objective Data Labs 05/12/23 06:19 05/14/23 07:46 Labs: Laboratory Results - last 24 hr 05/13/23 05/14/23 14:32 07:46 Sodium 138 Potassium 4.2 Chloride 107 Carbon Dioxide 23 Anion Gap 12 BUN 41 H Creatinine 3.13 H Estim Creat Clear Calc 31.1 Estimated GFR 20 Random Glucose 72 Calcium 8.7 D Stl C. cayetanensis PCR Not Detected Stool Rotavirus A PCR Not Detected Stl Adenov F 40/41 PCR Not Detected Stool Astrovirus (PCR) Not Detected Stool Campylobacter PCR Not Detected Stool Cryptosporidium PCR Not Detected Stl Sh Tox Pr E STEC PCR Not Detected Stool E coli O157 PCR Not applicable Stl Enterotoxigenic E PCR Not Detected Stool EPEC (PCR) Not Detected Stool EAEC (PCR) Not Detected Stl E. histolytica PCR Not Detected Stool Giardia Lamblia PCR Not Detected Stl P. shigelloides PCR Not Detected Stool Salmonella PCR Not Detected Stool Sapovirus (PCR) Not Detected Stl Shigella/EIEC PCR Not Detected St Y.enterocolitica PCR Not Detected Stool Vibrio (PCR) Not Detected Stl Vibrio cholerae PCR Not Detected Stl Norovirus GI/GII PCR Not Detected Microbiology Microbiology Results: Microbiology 05/11/23 Unknown Urine Catheterized - Murdock Catheter Urine Culture - Preliminary Methicillin Res Staph Aureus Enterococcus faecalis 05/11/23 02:26 Blood - Venous Blood Culture - Preliminary No growth after 48 hours. 05/11/23 02:26 Blood - Venous Blood Culture - Preliminary No growth after 48 hours. Procedures Date of Service Date of Service: 05/14/23 Assessment & Plan Assessment and plan (1) BOYD (acute kidney injury): Status: Acute Plan Creatinine improving; Murdock catheter No need for renal replacement Continue with rest of current management Progress Note: Quality Stroke Does the patient have a stroke diagnosis?: No
[2023-05-14] MEDS: Atropine Sulfate 1 % Ophth Sol 2 ML BOTTLE 2 DROP SUBLINGUAL ×2 (10:52→20:06)
--- NOTE | 2023-05-14 14:16 | P.PNIM_ITS ---
Subjective Subjective Date of Service: 05/14/23 Interval History: boyd,pyelonephritis (thought to be XPG pyelonephritis) Review of Systems no fevers asking for breakfast Physical Exam Vital Signs: Vital Signs: Last Vital Signs Temp 97.2 F 05/14/23 07:34 Pulse 67 05/14/23 07:34 Resp 18 05/14/23 07:34 BP 165/84 H 05/14/23 07:34 Pulse Ox 98 05/14/23 07:34 O2 Del Method CPAP 05/14/23 07:34 O2 Flow Rate 96 05/12/23 19:52 BMI result Body Mass Index 31.9 Appearance: Alert.? Oriented ,seems at his baseline.. cvs: rrr, [id number]. res: clear to auscultation ,no rhonchii or wheezing abd: no rebound or guarding ,nt, bs present. ext pulses present , no cyanosis . neuro: axo3 , nonfocal. Objective Data Active Medications Acetaminophen (Acetaminophen 325 Mg Tablet) 650 mg PO Q6H PRN PRN Reason: Fever Or Pain Aspirin (Aspirin Enteric Coated 81 Mg Tablet.) 81 mg PO BID [facility] Last Admin: 05/14/23 09:12 Dose: 81 mg Documented By: NICK Atropine Sulfate (Atropine Sulfate 1 % Ophth Sumaya 2 Ml Bottle) 2 drop SUBLINGUAL BID [facility] Last Admin: 05/14/23 10:52 Dose: 2 drop Documented By: NICK Benzocaine (Benzocaine 20 % Oral Gel 9 Gm Tube) 1 appl MUCOUS MEM TID PRN PRN Reason: Pain Bisacodyl (Bisacodyl 10 Mg Supp.Rect) 10 mg [place] DAILY PRN PRN Reason: Constipation Cyanocobalamin (Cyanocobalamin (Vitamin B-12) 1,000 Mcg Tablet) 1,000 mcg PO D AILY [facility] Last Admin: 05/14/23 09:12 Dose: 1,000 mcg Documented By: NICK Desmopressin Acetate (Desmopressin Acetate 0.2 Mg Tablet) 0.2 mg PO BID [facility] Last Admin: 05/14/23 09:12 Dose: 0.2 mg Documented By: NICK Desmopressin Acetate (Desmopressin Acetate 0.2 Mg Tablet) 0.2 mg PO Q24H PRN PRN Reason: EXCESSIVE SECRETIONS Docusate Sodium (Docusate Sodium 100 Mg Capsule) 100 mg PO DAILY PRN PRN Reason: Constipation Heparin Sodium (Porcine) (Heparin Sodium,Porcine 5,000 Unit/Ml Vial) 5,000 unit SUBCUT Q8H [facility] Last Admin: 05/14/23 09:12 Dose: 5,000 unit Documented By: NICK Ceftriaxone Sodium 1 gm/ (Sodium Chloride) 50 mls @ 100 mls/hr IV Q24H [facility] Last Infusion: 05/14/23 00:35 Dose: 0 mls/hr Documented By: CONSTANZA Lactated Ringer's (Lr) 1,000 mls @ 80 mls/hr IVCONT .[id number] [facility] Last Admin: 05/14/23 13:44 Dose: Not Given Documented By: NICK Non-Admin Reason: IV Running Ondansetron HCl (Ondansetron Hcl 4 Mg/2 Ml Vial) 4 mg IVPUSH Q8H PRN PRN Reason: Nausea and Vomiting Pharmacy Consult (Consult Rx Perform Med Rec) 1 each MISCELLANE ONCE PRN PRN Reason: Consult order Pyridoxine HCl (Pyridoxine Hcl (Vitamin B6) 50 Mg Tablet) 200 mg PO DAILY [facility] Last Admin: 05/14/23 09:11 Dose: 200 mg Documented By: NICK Senna (Sennosides 8.6 Mg Tablet) 8.6 mg PO DAILY PRN PRN Reason: Constipation Sodium Chloride (0.9 % Sodium Chloride Flush 3 Ml Syringe) 3 ml IVFLUSH QSHIFT [facility] Last Admin: 05/14/23 09:13 Dose: Not Given Documented By: NICK Non-Admin Reason: IV Running Labs 05/12/23 06:19 05/14/23 07:46 Labs: Laboratory Results - last 24 hr 05/13/23 05/14/23 14:32 07:46 Anion Gap 12 Estim Creat Clear Calc 31.1 Estimated GFR 20 Random Glucose 72 Calcium 8.7 D Stl C. cayetanensis PCR Not Detected Stool Rotavirus A PCR Not Detected Stl Adenov F 40/41 PCR Not Detected Stool Astrovirus (PCR) Not Detected Stool Campylobacter PCR Not Detected Stool Cryptosporidium PCR Not Detected Stl Sh Tox Pr E STEC PCR Not Detected Stool E coli O157 PCR Not applicable Stl Enterotoxigenic E PCR Not Detected Stool EPEC (PCR) Not Detected Stool EAEC (PCR) Not Detected Stl E. histolytica PCR Not Detected Stool Giardia Lamblia PCR Not Detected Stl P. shigelloides PCR Not Detected Stool Salmonella PCR Not Detected Stool Sapovirus (PCR) Not Detected Stl Shigella/EIEC PCR Not Detected St Y.enterocolitica PCR Not Detected Stool Vibrio (PCR) Not Detected Stl Vibrio cholerae PCR Not Detected Stl Norovirus GI/GII PCR Not Detected Microbiology Microbiology Results: Microbiology 05/11/23 Unknown Urine Culture - Preliminary Urine Catheterized - Murdock Catheter Methicillin Res Staph Aureus Enterococcus faecalis Assessment and Plan (1) Urinary retention: Status: Acute (2) BOYD (acute kidney injury): Status: Acute (3) Pyelonephritis: Status: Acute Plan 58-year-old male comes in from facility with complaints of inability to urinate found to have urinary retention, as well as acute pyelonephritis acute pyelonephritis(thought to be XPG)/cystitis/UTI - will treat with IV antibiotics, CT findings as above - follow cultures - no evidence of obstructing calculi at this time, stent in place seen by urology-no acute intervention urinary retension- Murdock catheter in place BOYD- secondary to above - will start with IV fluids - follow BMP overweight -encourage to lose weight. DVT prophylaxis:? Lovenox acute pyelonephritis/boyd-need IV antibiotics and hydration, need close monitoring of renal function and electrolytes. Time Spent With Patient Time: Total time managing care of this patient today ____ minutes. Quality Stroke Does the patient have a stroke diagnosis?: No VTE Prior VTE?: No VTE Risk Level:: Medical - moderate - high VTE Device Contraindication: Treatment Not Indicated VTE Drug Contraindication: N/A - Med Ordered
--- NOTE | 2023-05-14 14:33 | MHC.SL.SWA ---
Speech Pathologist Impression: Risk of Aspiration Due to: Neurological Condition Dysphasia Diet Status: DOWNGRADE diet to PUREE (NDD2) with NECTAR THICK liquids, pills crushed in puree. Liquid Consistency and Strategies for Safe Swallow: Liquid Intake Recommendation: Miles Thick Liquid Intake Strategies: Small Sips No Straws Solid Food Consistency: Dietary Recommendations: Pureed (NDD1) Additional Modifications to Solid Foods: Patient requires direct supervision during meals, with cues to take small bites and sips, and cues to swallow before adding more food to mouth. Patient noted to have marked delay initiating swallow on solids, closely observe that patient has swallowed before more food is added to mouth. Aspiration precautions apply. Oral Medication Intake: Crushed with Puree Please contact the pharmacy regarding appropriate crushable or liquid drug formulations that are available whenever modified delivery is recommended. Compensatory Strategies and Precautions to be Taken for Safe Swallow: Sitting Upright (90 deg) No Straw Liquids from Cup Liquids from Spoon Small Bites and Sips Alternate Liquids/Solids Rate of Ingestion Change Supervision While Eating and Drinking for Safe Swallow: Total Supervision (1:1) Foods to Avoid: Mixed consistencies (soups with solids, cereals with milk). Difficult to chew solids. Dry, crunchy consistencies. Swallowing Recommended Treatments: Compens. Strategy Educat. Recommendation for Speech: Inpatient Speech Therapy Comment: Patient seen this morning for re-assessment, toleration of diet. RN reported that patient did not do well on ground diet, noted to be coughing on liquids, having residual in mouth after bites of solid, some times cleared by liquid. RN felt patient doing best on puree. Pt. given trial of puree, produced mild delay of oral phase, disorganized lingual movement, mild delay before initiating swallow, tongue pump on swallow, complete oral clearance. Patient given nectar thick liquids, encouraged to take independent cup sips. Patient noted to take quick, successive sips independently (cued to slow/stop), produced a timely oral phase and more timely initiation of swallow, no clinical signs of aspiration. Patient then took additional gulp of liquid, again produce more timely swallow, then after delay had period of coughing. Patient with c/o nectar thick juice was lumpy. CDL FLATBED TRUCK DRIVER contacted nurse at [facility], nurse reports patient eating soft diet with thin liquids, though patient very resistant to eating alternative textures/liquids. Given aspiration risk, recommend DOWNGRADE diet to PUREE (NDD2) with NECTAR THICK liquids, pills crushed in puree. Advised [facility] nurse that [facility] [facility] will be altering diet while inpatient for safety reasons, RN appreciative. MD/RD notified of recommendation by secure text, RN in person, CDL FLATBED TRUCK DRIVER made adjustment in diet orders. CDL FLATBED TRUCK DRIVER will continue to follow. Frequency/Duration: Date Range for Service Req: Timeline to reassess: Manager Country Clinican/Clinical Fellow: No Supervisory Statement: I have reviewed and agree with the student/clinical fellow's documentation: N/A Speech Language Pathologist: Lilia Johnson M.A., CCC-CDL FLATBED TRUCK DRIVER
[2023-05-14 16:00] VITALS: BP 158/92; PULSE 65; RESP 18; TEMP 36.4; O2SAT 98
[2023-05-14 19:34] VITALS: BP 159/84; PULSE 68; RESP 18; TEMP 36.8; O2SAT 99
[2023-05-14 23:18] VITALS: PULSE 66; RESP 20; O2SAT 98
[2023-05-14] MEDS: cefTRIAXone sodium 1 GM in 0.9 % Sodium Chloride 50 ML IV (23:51)
[2023-05-14] MEDS: 0.9 % Sodium Chloride Flush 3 ML SYRINGE IVFLUSH (23:51)
[2023-05-15] MEDS: Lactated Ringers 1,000 ML 80 ML IVCONT (00:26)
[2023-05-15 04:00] VITALS: BP 171/96; PULSE 68; RESP 16; TEMP 36.2; O2SAT 97
[2023-05-15] MEDS: Heparin Sodium,Porcine 5,000 UNIT/ML VIAL 5000 UNIT SUBCUT ×3 (06:19→23:13)
[2023-05-15 07:40] VITALS: BP 162/79; PULSE 67; RESP 17; TEMP 36.2; O2SAT 97
[2023-05-15 09:48] LABS: Anion Gap 9 (12-20); Blood Urea Nitrogen 33 mg/dL (9-16); Calcium 8.2 mg/dL (8.4-10.2); Carbon Dioxide 23 mmol/L (22-29); Chloride 109 mmol/L (96-108); Creatinine Clr Calc Pharmacy 41.8; Estimated Glomerular Filt Rate 29; Glucose Random 89 mg/dL (60-115); Potassium 3.8 mmol/L (3.3-5.1); Sodium 137 mmol/L (135-145)
[2023-05-15] MEDS: Pyridoxine HCl (Vitamin B6) 50 MG TABLET 200 MG PO (09:58)
[2023-05-15] MEDS: Cyanocobalamin (Vitamin B-12) 1,000 MCG TABLET 1000 MCG PO (09:58)
[2023-05-15] MEDS: Aspirin Enteric Coated 81 MG TABLET.DR PO ×2 (09:58→20:05)
[2023-05-15] MEDS: Desmopressin Acetate 0.2 MG TABLET PO ×3 (09:58→20:05)
[2023-05-15] MEDS: Atropine Sulfate 1 % Ophth Sol 2 ML BOTTLE 2 DROP SUBLINGUAL ×2 (10:00→20:05)
--- NOTE | 2023-05-15 10:48 | PM.UROCN ---
History of Present Illness Consult details Consult date: 05/14/23 Narrative: Consulting complaint - acute on chronic renal insult 58-year-old male Underwent stone procedure approximately 7 days prior Cystoscopy with left stent removal, right ureteroscopy with laser lithotripsy and stent placement Presents to hospital with acute on chronic renal insult Initial elevated white count and urinary retention Imaging - IMPRESSION: Significant abnormalities of the right kidney with multiple bilateral renal calculi and loss of the expected renal contour as well as heterogeneous renal parenchyma and perinephric stranding. Infectious process is considered. There is a right subcapsular collection measuring up to 2 cm with some apparent air lucency. Infected perinephric collection is a possibility. Likely infection to perinephric collection Continue conservative therapy with fluids and antibiotics Review of Systems Constitutional: Constitutional: Denies chills and Denies fever(s) Cardiovascular: Cardiovascular: Reports no additional cardiovascular complaints and Denies syncope Respiratory: Respiratory: Denies cough Gastrointestinal: Gastrointestinal: Denies abdominal pain and Denies heartburn Genitourinary: Genitourinary: Reports as per HPI and Denies change in libido Neurologic: Denies syncope Psychiatric: Psychiatric: Denies change in libido Endocrine: Endocrine: Denies change in libido [facility] Past Medical History Medical History Alternating exotropia Ataxic gait Benign paroxysmal vertigo, right ear 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 Combined forms of age-related cataract, bilateral Constipation, unspecified Deficiency, saccadic eye movements Diabetes insipidus Dysarthria and anarthria Dysphagia, oral phase Hemangioma of skin and subcutaneous tissue Hypertension Insomnia, unspecified Melanocytic nevi, unspecified Morbid (severe) obesity due to excess calories Muscle weakness (generalized) Obstructive sleep apnea (adult) (pediatric) Other abnormalities of gait and mobility Other chronic pain Other forms of nystagmus Other melanin hyperpigmentation Personal history of (healed) other pathological fracture Personal history of other malignant neoplasm of skin Resides in senior living facility Seborrheic dermatitis, unspecified Sensorineural hearing loss, bilateral Unsteadiness on feet Vitamin B deficiency, unspecified Vitamin B12 deficiency anemia, unspecified Surgical History Surgical History Bariatric surgery status Hx of cystoscopy Other specified postprocedural states Presence of right artificial hip joint Vasectomy status Social History Social History Household Members: None Household Members Other:: lives [facility] Housing: Intermediate Housing Other:: [facility] Are you a primary healthcare project manager to a significant other at home: No Do you presently have visiting nurse or other home services: No Alcohol intake: never Patient Tobacco Use Status: Never used Tobacco Advance Directives Date on File: 05/01/23 service: No Meds Allergies Allergy/AdvReac Type Severity Reaction Status Date / Time No Known Allergies Allergy Verified 05/11/23 04:34 Active Medications: Current Medications Acetaminophen (Acetaminophen 325 Mg Tablet) 650 mg PO Q6H PRN PRN Reason: Fever Or Pain Aspirin (Aspirin Enteric Coated 81 Mg Tablet.Dr) 81 mg PO BID [facility] Last Admin: 05/15/23 09:58 Dose: 81 mg Atropine Sulfate (Atropine Sulfate 1 % Ophth [place]aya 2 Ml Bottle) 2 drop SUBLINGUAL BID [facility] Last Admin: 05/15/23 10:00 Dose: 2 drop Benzocaine (Benzocaine 20 % Oral Gel 9 Gm Tube) 1 appl MUCOUS MEM TID PRN PRN Reason: Pain Bisacodyl (Bisacodyl 10 Mg Supp.Rect) 10 mg [place] DAILY PRN PRN Reason: Constipation Cyanocobalamin (Cyanocobalamin (Vitamin B-12) 1,000 Mcg Tablet) 1,000 mcg PO DAILY [facility] Last Admin: 05/15/23 09:58 Dose: 1,000 mcg Desmopressin Acetate (Desmopressin Acetate 0.2 Mg Tablet) 0.2 mg PO BID [facility] Last Admin: 05/15/23 09:58 Dose: 0.2 mg Desmopressin Acetate (Desmopressin Acetate 0.2 Mg Tablet) 0.2 mg PO Q24H PRN PRN Reason: EXCESSIVE SECRETIONS Docusate Sodium (Docusate Sodium 100 Mg Capsule) 100 mg PO DAILY PRN PRN Reason: Constipation Heparin Sodium (Porcine) (Heparin Sodium,Porcine 5,000 Unit/Ml Vial) 5,000 unit SUBCUT Q8H [facility] Last Admin: 05/15/23 06:19 Dose: 5,000 unit Ceftriaxone Sodium 1 gm/ (Sodium Chloride) 50 mls @ 100 mls/hr IV Q24H [facility] Last Infusion: 05/15/23 00:21 Dose: Infused Lactated Ringer's (Lr) 1,000 mls @ 80 mls/hr IVCONT .[id number] [facility] Last Admin: 05/15/23 00:26 Dose: 80 mls/hr Ondansetron HCl (Ondansetron Hcl 4 Mg/2 Ml Vial) 4 mg IVPUSH Q8H PRN PRN Reason: Nausea and Vomiting Pharmacy Consult (Consult Rx Perform Med Rec) 1 each MISCELLANE ONCE PRN PRN Reason: Consult order Pyridoxine HCl (Pyridoxine Hcl (Vitamin B6) 50 Mg Tablet) 200 mg PO DAILY [facility] Last Admin: 05/15/23 09:58 Dose: 200 mg Senna (Sennosides 8.6 Mg Tablet) 8.6 mg PO DAILY PRN PRN Reason: Constipation Sodium Chloride (0.9 % Sodium Chloride Flush 3 Ml Syringe) 3 ml IVFLUSH QSHIFT [facility] Last Admin: 05/15/23 07:18 Dose: Not Given Home Medications Medication Instructions Recorded Confirmed Last Taken Type acetaminophen 325 mg capsule 650 mg PO Q6H PRN Fever Or Pain 12/22/22 05/11/23 Unknown History aspirin 81 mg tablet,delayed 81 mg PO BID 12/22/22 05/11/23 Unknown History release bisacodyl 10 mg rectal suppository 10 mg [place] DAILY PRN Constipation 12/22/22 05/11/23 Unknown History calcium carbonate 500 mg calcium 500 mg PO Q6H PRN Heartburn 12/22/22 05/11/23 Unknown History (1,250 mg) chewable tablet cyanocobalamin (vitamin B-12) 500 1,000 mcg PO DAILY 12/22/22 05/11/23 Unknown History mcg tablet desmopressin 0.2 mg tablet 0.2 mg PO BID 12/22/22 05/11/23 Unknown History hyoscyamine sulfate 0.125 mg 0.125 mg sublingual BID 12/22/22 05/11/23 Unknown History sublingual tablet ibuprofen 200 mg tablet 400 mg PO Q8H PRN Pain, Moderate 12/22/22 05/11/23 Unknown History pyridoxine (vitamin B6) 200 mg 200 mg PO DAILY 12/22/22 05/11/23 Unknown History tablet,extended release sennosides 8.6 mg tablet (Senna 8.6 mg PO DAILY PRN Constipation 12/22/22 05/11/23 Unknown History Laxative) sodium phosphates 19 gram-7 118 ml [place] DAILY PRN Constipation 12/22/22 05/11/23 Unknown History gram/118 mL enema (Fleet Enema) atropine 1 % eye drops 2 drp sublingual BID 02/14/23 05/11/23 Unknown History benzocaine 10 % mucosal gel 1 appl mucous membrane TID PRN Pain 05/01/23 05/11/23 Unknown History (Anbesol (benzocaine)) desmopressin 0.2 mg tablet 0.2 mg PO Q24H PRN EXCESSIVE 05/01/23 05/11/23 Unknown History SECRETIONS Physical Exam Vital Signs: Vital Signs: Last Vital Signs Temp 97.2 F 05/15/23 07:40 Pulse 67 05/15/23 07:40 Resp 17 05/15/23 07:40 BP 162/79 H 05/15/23 07:40 Pulse Ox 97 05/15/23 07:40 O2 Del Method Room Air 05/15/23 07:40 O2 Flow Rate 96 05/12/23 19:52 BMI result Body Mass Index 31.9 Const: General: cooperative, healthy appearing, comfortable and no acute distress Orientation/consciousness: patient oriented x3 HEENT: Face and sinus: Yes normal facial exam Mouth: moist mucous membranes Neck: Neck: Yes normal visual inspection, Yes full ROM and Yes trachea midline Chest: Chest palpation & inspection: normal inspection of the chest Resp: Effort & Inspection: normal respiratory effort, able to speak in complete sentences and no respiratory distress GI: Inspection: Yes normal to inspection Back/Spine/Pelvis: Cervical Spine: normal cervical lordosis Thoracic/Lumbar Spine: thoracic and lumbar spine normal to inspection Skin: General skin exam: no rashes or lesions noted Neuro: General: patient oriented x3, gait normal, tone normal and moves all extremities Extrem: General: Yes normal to inspection and Yes capillary refill normal Results Labs 05/12/23 06:19 05/15/23 08:49 Labs: Abnormal lab results 05/15/23 Range/Units 08:49 Chloride 109 H (96-108) mmol/L Anion Gap 9 L (12-20) BUN 33 H (9-16) mg/dL Creatinine 2.33 H (0.5-1.4) mg/dL Calcium 8.2 L (8.4-10.2) mg/dL BMP 05/15/23 08:49 Sodium 137 Potassium 3.8 Chloride 109 H Carbon Dioxide 23 BUN 33 H Creatinine 2.33 H Calcium 8.2 L Urine 05/11/23 Range/Units 03:44 Urine Color Dark Yellow Urine Appearance Turbid Urine pH 6.0 (5.0-9.0) Ur Specific [place] 1.015 (1.005-1.025) Urine Protein 300 (3+) H (Neg-Trace) mg/dL Urine Glucose (UA) Negative (Negative) mg/dL All other labs normal. Assessment and Plan (1) Pyelonephritis: Status: Acute (2) Urinary retention: Status: Acute (3) BOYD (acute kidney injury): Status: Acute Plan Conservative medical therapy Will continue to follow Time Spent With Patient Time: Total time managing care of this patient today ____ minutes. Procedures Date of Service Date of Service: 05/15/23
--- NOTE | 2023-05-15 12:20 | PM.PNNEP ---
Subjective Subjective Date of Service: 05/15/23 Interval history: Renal function improving; All recent data reviewed Physical Exam Vital Signs: Vital Signs: Last Vital Signs Temp 97.2 F 05/15/23 07:40 Pulse 67 05/15/23 07:40 Resp 17 05/15/23 07:40 BP 162/79 H 05/15/23 07:40 Pulse Ox 97 05/15/23 07:40 O2 Del Method Room Air 05/15/23 07:40 O2 Flow Rate 96 05/12/23 19:52 BMI result Body Mass Index 31.9 Const: General: no acute distress Eyes: EOM: EOMs intact bilaterally Resp: Auscultation: diminished lung sounds Cardio: Rate: regular rate GI: Palpation (GI): Soft to palpation Neuro: General: moves all extremities Objective Data Labs 05/12/23 06:19 05/15/23 08:49 Labs: Laboratory Results - last 24 hr 05/15/23 08:49 Sodium 137 Potassium 3.8 Chloride 109 H Carbon Dioxide 23 Anion Gap 9 L BUN 33 H Creatinine 2.33 H Estim Creat Clear Calc 41.8 Estimated GFR 29 Random Glucose 89 Calcium 8.2 L Microbiology Microbiology Results: Microbiology 05/11/23 Unknown Urine Catheterized - Murdock Catheter Urine Culture - Final Methicillin Res Staph Aureus Enterococcus faecalis 05/11/23 02:26 Blood - Venous Blood Culture - Preliminary No growth after 48 hours. 05/11/23 02:26 Blood - Venous Blood Culture - Preliminary No growth after 48 hours. Procedures Date of Service Date of Service: 05/15/23 Assessment & Plan Assessment and plan (1) BOYD (acute kidney injury): Status: Acute Assessment and Plan: Creatinine improving; Murdock catheter; Urology seen No need for renal replacement Continue with rest of current management Progress Note: Quality Stroke Does the patient have a stroke diagnosis?: No
--- NOTE | 2023-05-15 13:21 | HO.PM.IMPN ---
Subjective Subjective Date of Service: 05/16/23 Interval History: boyd,pyelonephritis (thought to be XPG pyelonephritis) Review of Systems no fevers asking for breakfast Physical Exam Vital Signs: Vital Signs: Last Vital Signs Temp 97.2 F 05/15/23 07:40 Pulse 67 05/15/23 07:40 Resp 17 05/15/23 07:40 BP 162/79 H 05/15/23 07:40 Pulse Ox 97 05/15/23 07:40 O2 Del Method Room Air 05/15/23 07:40 O2 Flow Rate 96 05/12/23 19:52 BMI result Body Mass Index 31.9 Appearance: Alert.? Oriented ,seems at his baseline.. cvs: rrr, [id number]. res: clear to auscultation ,no rhonchii or wheezing abd: no rebound or guarding ,nt, bs present. ext pulses present , no cyanosis . neuro: nonfocal. Objective Data Active Medications Acetaminophen (Acetaminophen 325 Mg Tablet) 650 mg PO Q6H PRN PRN Reason: Fever Or Pain Aspirin (Aspirin Enteric Coated 81 Mg Tablet.) 81 mg PO BID [facility] Last Admin: 05/15/23 09:58 Dose: 81 mg Documented By: COTEMA Atropine Sulfate (Atropine Sulfate 1 % Ophth Sumaya 2 Ml Bottle) 2 drop SUBLINGUAL BID [facility] Last Admin: 05/15/23 10:00 Dose: 2 drop Documented By: COTEMA Benzocaine (Benzocaine 20 % Oral Gel 9 Gm Tube) 1 appl MUCOUS MEM TID PRN PRN Reason: Pain Bisacodyl (Bisacodyl 10 Mg Supp.Rect) 10 mg [place] DAILY PRN PRN Reason: Constipation Cyanocobalamin (Cyanocobalamin (Vitamin B-12) 1,000 Mcg Tablet) 1,000 mcg PO DAILY [facility] Last Admin: 05/15/23 09:58 Dose: 1,000 mcg Documented By: COTEMA Desmopressin Acetate (Desmopressin Acetate 0.2 Mg Tablet) 0.2 mg PO BID [facility] Last Admin: 05/15/23 09:58 Dose: 0.2 mg Documented By: COTEMA Desmopressin Acetate (Desmopressin Acetate 0.2 Mg Tablet) 0.2 mg PO Q24H PRN PRN Reason: EXCESSIVE SECRETIONS Docusate Sodium (Docusate Sodium 100 Mg Capsule) 100 mg PO DAILY PRN PRN Reason: Constipation Heparin Sodium (Porcine) (Heparin Sodium,Porcine 5,000 Unit/Ml Vial) 5,000 unit SUBCUT Q8H [facility] Last Admin: 05/15/23 06:19 Dose: 5,000 unit Documented By: MARLON Ceftriaxone Sodium 1 gm/ (Sodium Chloride) 50 mls @ 100 mls/hr IV Q24H [facility] Last Infusion: 05/15/23 00:21 Dose: 0 mls/hr Documented By: MARLON Ondansetron HCl (Ondansetron Hcl 4 Mg/2 Ml Vial) 4 mg IVPUSH Q8H PRN PRN Reason: Nausea and Vomiting Pharmacy Consult (Consult Rx Perform Med Rec) 1 each MISCELLANE ONCE PRN PRN Reason: Consult order Pyridoxine HCl (Pyridoxine Hcl (Vitamin B6) 50 Mg Tablet) 200 mg PO DAILY [facility] Last Admin: 05/15/23 09:58 Dose: 200 mg Documented By: ESTRELLA Senna (Sennosides 8.6 Mg Tablet) 8.6 mg PO DAILY PRN PRN Reason: Constipation Sodium Chloride (0.9 % Sodium Chloride Flush 3 Ml Syringe) 3 ml IVFLUSH QSHIFT [facility] Last Admin: 05/15/23 07:18 Dose: Not Given Documented By: ESTRELLA Non-Admin Reason: IV Running Labs 05/12/23 06:19 05/15/23 08:49 Labs: Laboratory Results - last 24 hr 05/15/23 08:49 Anion Gap 9 L Estim Creat Clear Calc 41.8 Estimated GFR 29 Random Glucose 89 Calcium 8.2 L Microbiology Microbiology Results: Microbiology 05/11/23 Unknown Urine Culture - Final Urine Catheterized - Murdock Catheter Methicillin Res Staph Aureus Enterococcus faecalis Assessment and Plan (1) Urinary retention: Status: Acute (2) BOYD (acute kidney injury): Status: Acute (3) Pyelonephritis: Status: Acute Plan 58-year-old male comes in from facility with complaints of inability to urinate found to have urinary retention, as well as acute pyelonephritis acute pyelonephritis(thought to be XPG)/cystitis/UTI - will treat with IV antibiotics, CT findings as above blood cultures -neg @48hrs ,urine culture -enteroccoci/mrsa - no evidence of obstructing calculi at this time, stent in place seen by urology-no acute intervention change antibiotics to vanco/ id eval urinary retension- Murdock catheter in place BOYD- secondary to above. imrpoving slowly cr is still3.1 baseline cr is betwem 1.0 -1.4 - will start with IV fluids - follow BMP overweight -encourage to lose weight. DVT prophylaxis:? Lovenox acute pyelonephritis/boyd-need IV antibiotics and hydration, need close monitoring of renal function and electrolytes. Time Spent With Patient Time: Total time managing care of this patient today ____ minutes. Quality Stroke Does the patient have a stroke diagnosis?: No VTE Prior VTE?: No VTE Risk Level:: Medical - moderate - high VTE Device Contraindication: Treatment Not Indicated VTE Drug Contraindication: N/A - Med Ordered
--- NOTE | 2023-05-15 14:14 | MHC.SPEECHCO ---
METAL SPRAY OPERATOR continues to recommend Puree Solids (NDD1) and [place]-Thick Liquids. Medications crushed in Puree. Strict aspiration precautions apply. Pt may benefit from Chest X-Ray if swallowing difficulties worsen or persist.
[2023-05-15] MEDS: Linezolid/D5W 600 MG/300 ML PIGGYBACK 300 MG IV (15:22)
[2023-05-15 15:29] VITALS: BP 169/91; PULSE 63; RESP 20; TEMP 36.2; O2SAT 100
[2023-05-15 19:18] VITALS: BP 135/93; PULSE 65; RESP 17; TEMP 36.2; O2SAT 97
[2023-05-15] MEDS: 0.9 % Sodium Chloride Flush 3 ML SYRINGE IVFLUSH (20:06)
[2023-05-15 22:33] VITALS: RESP 17
[2023-05-15] MEDS: cefTRIAXone sodium 1 GM in 0.9 % Sodium Chloride 50 ML IV (23:13)
[2023-05-16] MEDS: Linezolid/D5W 600 MG/300 ML PIGGYBACK 300 MG IV ×2 (02:24→14:54)
[2023-05-16 03:47] VITALS: BP 169/97; PULSE 61; RESP 16; TEMP 36.1; O2SAT 99
[2023-05-16] MEDS: Heparin Sodium,Porcine 5,000 UNIT/ML VIAL 5000 UNIT SUBCUT ×3 (06:26→21:08)
[2023-05-16 07:31] VITALS: BP 152/78; PULSE 62; RESP 16; TEMP 36.4; O2SAT 98
[2023-05-16] MEDS: Desmopressin Acetate 0.2 MG TABLET PO ×2 (09:37→21:07)
[2023-05-16] MEDS: Cyanocobalamin (Vitamin B-12) 1,000 MCG TABLET 1000 MCG PO (09:37)
[2023-05-16] MEDS: Pyridoxine HCl (Vitamin B6) 50 MG TABLET 200 MG PO (09:37)
[2023-05-16] MEDS: Aspirin Enteric Coated 81 MG TABLET.DR PO ×2 (09:37→21:07)
[2023-05-16] MEDS: 0.9 % Sodium Chloride Flush 3 ML SYRINGE IVFLUSH ×3 (09:37→21:08)
[2023-05-16] MEDS: Atropine Sulfate 1 % Ophth Sol 2 ML BOTTLE 2 DROP SUBLINGUAL ×2 (09:39→21:08)
--- NOTE | 2023-05-16 12:05 | MHC.CM.PN ---
CM continues to follow patient for d/c planning needs. Current plan to return to [facility] via BLS when medically stable.
--- NOTE | 2023-05-16 12:16 | PM.PNNEP ---
Subjective Subjective Date of Service: 05/16/23 Interval history: Events noted. All recent data reviewed Physical Exam Vital Signs: Vital Signs: Last Vital Signs Temp 97.5 F 05/16/23 07:31 Pulse 62 05/16/23 07:31 Resp 16 05/16/23 07:31 BP 152/78 H 05/16/23 07:31 Pulse Ox 98 05/16/23 07:31 O2 Del Method Room Air 05/16/23 07:31 O2 Flow Rate 96 05/12/23 19:52 BMI result Body Mass Index 31.9 Const: General: no acute distress Eyes: EOM: EOMs intact bilaterally Resp: Auscultation: diminished lung sounds Cardio: Rate: regular rate GI: Palpation (GI): Soft to palpation Neuro: General: moves all extremities Objective Data Labs 05/12/23 06:19 05/15/23 08:49 Microbiology Microbiology Results: Microbiology 05/11/23 02:26 Blood - Venous Blood Culture - Final No growth after 5 days. 05/11/23 02:26 Blood - Venous Blood Culture - Final No growth after 5 days. 05/11/23 Unknown Urine Catheterized - Murdock Catheter Urine Culture - Final Methicillin Res Staph Aureus Enterococcus faecalis Procedures Date of Service Date of Service: 05/16/23 Assessment & Plan Assessment and plan (1) BOYD (acute kidney injury): Status: Acute Assessment and Plan: Creatinine improving; Murdock catheter; Urology seen No need for renal replacement; Labs AM Continue with rest of current management Progress Note: Quality Stroke Does the patient have a stroke diagnosis?: No
--- NOTE | 2023-05-16 14:17 | P.CNID_ITS ---
History of Present Illness Data of Consult Service Date: 05/15/23 Requesting physician: Logan Kearns Primary Care Provider: DO JUANCHO Liu Reason for consult: enterococcus,MRSA urine He presents with urinary hesitancy for last day. He had right ureteral stent on 05/07. He has nephrolithiasis. Urine culture MRSA and enterococcus. 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 Combined forms of age-related cataract, bilateral Constipation, unspecified Deficiency, saccadic eye movements Diabetes insipidus Dysarthria and anarthria Dysphagia, oral phase Hemangioma of skin and subcutaneous tissue Hypertension Insomnia, unspecified Melanocytic nevi, unspecified Morbid (severe) obesity due to excess calories Muscle weakness (generalized) Obstructive sleep apnea (adult) (pediatric) Other abnormalities of gait and mobility Other chronic pain Other forms of nystagmus Other melanin hyperpigmentation Personal history of (healed) other pathological fracture Personal history of other malignant neoplasm of skin Resides in [facility] facility Seborrheic dermatitis, unspecified Sensorineural hearing loss, bilateral Unsteadiness on feet Vitamin B deficiency, unspecified Vitamin B12 deficiency anemia, unspecified Family History Family history: reviewed and not pertinent Surgical History Surgical History Bariatric surgery status Hx of cystoscopy Other specified postprocedural states Presence of right artificial hip joint Vasectomy status Social History Social History Household Members: None Household Members Other:: [facility] Housing: Long Term Housing Other:: [facility] Are you a primary intensive care unit registered nurse to a significant other at home: No Do you presently have visiting nurse or other home services: No Alcohol intake: never Patient Tobacco Use Status: Never used Tobacco Advance Directives Date on File: 05/01/23 service: No Meds Allergies Allergy/AdvReac Type Severity Reaction Status Date / Time No Known Allergies Allergy Verified 05/11/23 04:34 Active Medications: Current Medications Acetaminophen (Acetaminophen 325 Mg Tablet) 650 mg PO Q6H PRN PRN Reason: Fever Or Pain Aspirin (Aspirin Enteric Coated 81 Mg Tablet.Dr) 81 mg PO BID [facility] Last Admin: 05/16/23 09:37 Dose: 81 mg Atropine Sulfate (Atropine Sulfate 1 % Ophth Sumaya 2 Ml Bottle) 2 drop SUBLINGUAL BID [facility] Last Admin: 05/16/23 09:39 Dose: 2 drop Benzocaine (Benzocaine 20 % Oral Gel 9 Gm Tube) 1 appl MUCOUS MEM TID PRN PRN Reason: Pain Bisacodyl (Bisacodyl 10 Mg Supp.Rect) 10 mg SC DAILY PRN PRN Reason: Constipation Cyanocobalamin (Cyanocobalamin (Vitamin B-12) 1,000 Mcg Tablet) 1,000 mcg PO DAILY [facility] Last Admin: 05/16/23 09:37 Dose: 1,000 mcg Desmopressin Acetate (Desmopressin Acetate 0.2 Mg Tablet) 0.2 mg PO BID [facility] Last Admin: 05/16/23 09:37 Dose: 0.2 mg Desmopressin Acetate (Desmopressin Acetate 0.2 Mg Tablet) 0.2 mg PO Q24H PRN PRN Reason: EXCESSIVE SECRETIONS Last Admin: 05/15/23 14:32 Dose: 0.2 mg Docusate Sodium (Docusate Sodium 100 Mg Capsule) 100 mg PO DAILY PRN PRN Reason: Constipation Heparin Sodium (Porcine) (Heparin Sodium,Porcine 5,000 Unit/Ml Vial) 5,000 unit SUBCUT Q8H [facility] Last Admin: 05/16/23 06:26 Dose: 5,000 unit Linezolid (Zyvox/D5w) 600 mg in 300 mls @ 300 mls/hr IV Q12H [facility] Last Infusion: 05/16/23 03:30 Dose: Infused Ondansetron HCl (Ondansetron Hcl 4 Mg/2 Ml Vial) 4 mg IVPUSH Q8H PRN PRN Reason: Nausea and Vomiting Pharmacy Consult (Consult Rx Perform Med Rec) 1 each MISCELLANE ONCE PRN PRN Reason: Consult order Pyridoxine HCl (Pyridoxine Hcl (Vitamin B6) 50 Mg Tablet) 200 mg PO DAILY [facility] Last Admin: 05/16/23 09:37 Dose: 200 mg Senna (Sennosides 8.6 Mg Tablet) 8.6 mg PO DAILY PRN PRN Reason: Constipation Sodium Chloride (0.9 % Sodium Chloride Flush 3 Ml Syringe) 3 ml IVFLUSH QSHIFT [facility]ERRANCE Last Admin: 05/16/23 09:37 Dose: 3 ml Home Medications Medication Instructions Recorded Confirmed Last Taken Type acetaminophen 325 mg capsule 650 mg PO Q6H PRN Fever Or Pain 12/22/22 05/11/23 Unknown History aspirin 81 mg tablet,delayed 81 mg PO BID 12/22/22 05/11/23 Unknown History release bisacodyl 10 mg rectal suppository 10 mg SC DAILY PRN Constipation 12/22/22 05/11/23 Unknown History calcium carbonate 500 mg calcium 500 mg PO Q6H PRN Heartburn 12/22/22 05/11/23 Unknown History (1,250 mg) chewable tablet cyanocobalamin (vitamin B-12) 500 1,000 mcg PO DAILY 12/22/22 05/11/23 Unknown History mcg tablet desmopressin 0.2 mg tablet 0.2 mg PO BID 12/22/22 05/11/23 Unknown History hyoscyamine sulfate 0.125 mg 0.125 mg sublingual BID 12/22/22 05/11/23 Unknown History sublingual tablet ibuprofen 200 mg tablet 400 mg PO Q8H PRN Pain, Moderate 12/22/22 05/11/23 Unknown History pyridoxine (vitamin B6) 200 mg 200 mg PO DAILY 12/22/22 05/11/23 Unknown History tablet,extended release sennosides 8.6 mg tablet (Senna 8.6 mg PO DAILY PRN Constipation 12/22/22 05/11/23 Unknown History Laxative) sodium phosphates 19 gram-7 118 ml SC DAILY PRN Constipation 12/22/22 05/11/23 Unknown History gram/118 mL enema (Fleet Enema) atropine 1 % eye drops 2 drp sublingual BID 02/14/23 05/11/23 Unknown History benzocaine 10 % mucosal gel 1 appl mucous membrane TID PRN Pain 05/01/23 05/11/23 Unknown History (Anbesol (benzocaine)) desmopressin 0.2 mg tablet 0.2 mg PO Q24H PRN EXCESSIVE 05/01/23 05/11/23 Unknown History SECRETIONS Physical Exam Vital Signs: Vital Signs: Last Vital Signs Temp 97.5 F 05/16/23 07:31 Pulse 62 05/16/23 07:31 Resp 16 05/16/23 07:31 BP 152/78 H 05/16/23 07:31 Pulse Ox 98 05/16/23 07:31 O2 Del Method Room Air 05/16/23 07:31 O2 Flow Rate 96 05/12/23 19:52 BMI result Body Mass Index 31.9 Const: General: cooperative HEENT: Head: Yes normal to inspection Face and sinus: Yes normal facial exam Mouth: Normal oral and palatal mucosa present Teeth and gingiva: dentition normal Eyes: General: appearance normal, both eyes and all related structures Pupils: Equal, round and reactive pupils present Resp: Effort & Inspection: normal respiratory effort Cardio: Rate: regular rate Rhythm: regular rhythm GI: Palpation (GI): Soft to palpation and nontender : General: Yes no CVA tenderness Back/Spine/Pelvis: Back: no CVA tenderness Skin: General skin exam: no rashes or lesions noted Neuro: General: moves all extremities Cranial nerves: Yes Equal, round and reactive pupils present Extrem: General: Yes normal to inspection Psych: Appearance: grossly normal Results Labs 05/12/23 06:19 05/15/23 08:49 Microbiology Microbiology Results: Microbiology 05/11/23 02:26 Blood - Venous Blood Culture - Final No growth after 5 days. 05/11/23 02:26 Blood - Venous Blood Culture - Final No growth after 5 days. 05/11/23 Unknown Urine Catheterized - Murdock Catheter Urine Culture - Final Methicillin Res Staph Aureus Enterococcus faecalis Assessment and Plan (1) BOYD (acute kidney injury): Status: Acute (2) Pyelonephritis: Status: Acute He has probable infection with MRSA and enterococcus. He has no fever or chills and is feeling better. He has nephrollithiasis. (3) Urinary retention: Status: Acute Plan Linezolid,may start IV but then switch to po for total 14 days as organisms may be colonizing or infecting patient or both. Followup Urology. Time Spent With Patient Time: Total time managing care of this patient today ____ minutes.
--- NOTE | 2023-05-16 14:39 | HO.PM.IMPN ---
Subjective Subjective Date of Service: 05/16/23 Interval History: boyd,pyelonephritis (thought to be XPG pyelonephritis) uretal stent on 05/07 (outpatient) Review of Systems no fevers denies new c/o Physical Exam Vital Signs: Vital Signs: Last Vital Signs Temp 97.5 F 05/16/23 07:31 Pulse 62 05/16/23 07:31 Resp 16 05/16/23 07:31 BP 152/78 H 05/16/23 07:31 Pulse Ox 98 05/16/23 07:31 O2 Del Method Room Air 05/16/23 07:31 O2 Flow Rate 96 05/12/23 19:52 BMI result Body Mass Index 31.9 Appearance: Alert.? Oriented ,seems at his baseline.. cvs: rrr, [id number]. res: clear to auscultation ,no rhonchii or wheezing abd: no rebound or guarding ,nt, bs present. ext pulses present , no cyanosis . neuro: nonfocal. Objective Data Active Medications Acetaminophen (Acetaminophen 325 Mg Tablet) 650 mg PO Q6H PRN PRN Reason: Fever Or Pain Aspirin (Aspirin Enteric Coated 81 Mg Tablet.) 81 mg PO BID [facility] Last Admin: 05/16/23 09:37 Dose: 81 mg Documented By: AJ Atropine Sulfate (Atropine Sulfate 1 % Oph Sumaya 2 Ml Bottle) 2 drop SUBLINGUAL BID [facility] Last Admin: 05/16/23 09:39 Dose: 2 drop Documented By: AJ Benzocaine (Benzocaine 20 % Oral Gel 9 Gm Tube) 1 appl MUCOUS MEM TID PRN PRN Reason: Pain Bisacodyl (Bisacodyl 10 Mg Supp.Rect) 10 mg OK DAILY PRN PRN Reason: Constipation Cyanocobalamin (Cyanocobalamin (Vitamin B-12) 1,000 Mcg Tablet) 1,000 mcg PO DAILY [facility] Last Admin: 05/16/23 09:37 Dose: 1,000 mcg Documented By: AJ Desmopressin Acetate (Desmopressin Acetate 0.2 Mg Tablet) 0.2 mg PO BID [facility] Last Admin: 05/16/23 09:37 Dose: 0.2 mg Documented By: AJ Desmopressin Acetate (Desmopressin Acetate 0.2 Mg Tablet) 0.2 mg PO Q24H PRN PRN Reason: EXCESSIVE SECRETIONS Last Admin: 05/15/23 14:32 Dose: 0.2 mg Documented By: COTEMA Docusate Sodium (Docusate Sodium 100 Mg Capsule) 100 mg PO DAILY PRN PRN Reason: Constipation Heparin Sodium (Porcine) (Heparin Sodium,Porcine 5,000 Unit/Ml Vial) 5,000 unit SUBCUT Q8H [facility] Last Admin: 05/16/23 06:26 Dose: 5,000 unit Documented By: KELLY Linezolid (Zyvox/D5w) 600 mg in 300 mls @ 300 mls/hr IV Q12H [facility] Last Infusion: 05/16/23 03:30 Dose: 0 mls/hr Documented By: KELLY Ondansetron HCl (Ondansetron Hcl 4 Mg/2 Ml Vial) 4 mg IVPUSH Q8H PRN PRN Reason: Nausea and Vomiting Pharmacy Consult (Consult Rx Perform Med Rec) 1 each MISCELLANE ONCE PRN PRN Reason: Consult order Pyridoxine HCl (Pyridoxine Hcl (Vitamin B6) 50 Mg Tablet) 200 mg PO DAILY [facility] Last Admin: 05/16/23 09:37 Dose: 200 mg Documented By: AJ Senna (Sennosides 8.6 Mg Tablet) 8.6 mg PO DAILY PRN PRN Reason: Constipation Sodium Chloride (0.9 % Sodium Chloride Flush 3 Ml Syringe) 3 ml IVFLUSH QSHIFT [facility] Last Admin: 05/16/23 09:37 Dose: 3 ml Documented By: AJ Labs 05/12/23 06:19 05/15/23 08:49 Microbiology Microbiology Results: Microbiology 05/11/23 02:26 Blood Culture - Final Blood - Venous No growth after 5 days. 05/11/23 02:26 Blood Culture - Final Blood - Venous No growth after 5 days. 05/11/23 Unknown Urine Culture - Final Urine Catheterized - Murdock Catheter Methicillin Res Staph Aureus Enterococcus faecalis Assessment and Plan (1) BOYD (acute kidney injury): Status: Acute (2) Pyelonephritis: Status: Acute Plan 58-year-old male comes in from facility with complaints of inability to urinate found to have urinary retention, as well as acute pyelonephritis acute pyelonephritis(thought to be XPG)/cystitis/UTI - will treat with IV antibiotics, CT findings as above blood cultures -neg @48hrs ,urine culture -enteroccoci/mrsa - no evidence of obstructing calculi at this time, stent in place seen by urology-no acute intervention change antibiotics to linezolid started on 05/15/13-mrsa/enterococcus senstive . id eval,urology follow up ?urinary retension- Murdock catheter in place BOYD- secondary to above. imrpoving slowly cr is still3.1 baseline cr is betwem 1.0 -1.4,continue IV fluids follow BMP overweight -encourage to lose weight. DVT prophylaxis:? Lovenox acute pyelonephritis/boyd-need? IV antibiotics and hydration, need close monitoring of renal function and electrolytes. Time Spent With Patient Time: Total time managing care of this patient today ____ minutes. Quality Stroke Does the patient have a stroke diagnosis?: No VTE Prior VTE?: No VTE Risk Level:: Medical - moderate - high VTE Device Contraindication: Treatment Not Indicated VTE Drug Contraindication: N/A - Med Ordered
[2023-05-16 16:00] VITALS: BP 140/70; PULSE 57; RESP 17; TEMP 36.2; O2SAT 97
--- NOTE | 2023-05-16 17:25 | MHC.SL.SWA ---
Risk of Aspiration Due to: Neurological Condition Dysphasia Diet Status: No change Liquid Consistency and Strategies for Safe Swallow: Liquid Intake Recommendation: [place] Thick Liquid Intake Strategies: Small Sips No Straws Solid Food Consistency: Dietary Recommendations: Pureed (NDD1) Additional Modifications to Solid Foods: Moisten w/ sauce/gravy Oral Medication Intake: Crushed with Puree Please contact the pharmacy regarding appropriate crushable or liquid drug formulations that are available whenever modified delivery is recommended. Compensatory Strategies and Precautions to be Taken for Safe Swallow: Sitting Upright (90 deg) No Straw Liquids from Cup Liquids from Spoon Small Bites and Sips Alternate Liquids/Solids Rate of Ingestion Change Supervision While Eating and Drinking for Safe Swallow: Total Supervision (1:1) Foods to Avoid: Mixed consistencies (soups with solids, cereals with milk). Difficult to chew solids. Dry, crunchy consistencies. Swallowing Recommended Treatments: Compens. Strategy Educat. Recommendation for Speech: Inpatient Speech Therapy Recommend patient continue w/ PUREE solids (NDD1) with NECTAR THICK liquids, pills crushed in puree. Patient requires direct supervision during meals, with cues to take small bites and sips, and cues to swallow before adding more food to mouth. Patient noted to have marked delay initiating swallow on solids, closely observe that patient has swallowed before more food is added to mouth. Aspiration precautions apply. REAL ESTATE ADMINISTRATOR to continue to follow and upgrade to patient's baseline (NDD2, thin liquids) if warranted. Security Flex Utility Officer Clinican/Clinical Fellow: No Supervisory Statement: I have reviewed and agree with the student/clinical fellow's documentation: N/A Speech Language Pathologist: Peggy Puckett M.A., [facility]-REAL ESTATE ADMINISTRATOR
[2023-05-16 19:42] VITALS: BP 172/83; PULSE 61; RESP 17; TEMP 36.1; O2SAT 96
[2023-05-17] MEDS: Linezolid/D5W 600 MG/300 ML PIGGYBACK 300 MG IV ×2 (02:52→13:50)
[2023-05-17 02:54] VITALS: BP 161/92; PULSE 60; RESP 17; TEMP 36.4; O2SAT 98
[2023-05-17 03:50] VITALS: PULSE 61; RESP 18; O2SAT 98
[2023-05-17] MEDS: Heparin Sodium,Porcine 5,000 UNIT/ML VIAL 5000 UNIT SUBCUT (05:56)
[2023-05-17 07:45] VITALS: BP 179/88; PULSE 64; RESP 18; TEMP 36; O2SAT 94
[2023-05-17] MEDS: Aspirin Enteric Coated 81 MG TABLET.DR PO (09:46)
[2023-05-17] MEDS: Pyridoxine HCl (Vitamin B6) 50 MG TABLET 200 MG PO (09:46)
[2023-05-17] MEDS: Cyanocobalamin (Vitamin B-12) 1,000 MCG TABLET 1000 MCG PO (09:46)
[2023-05-17] MEDS: Desmopressin Acetate 0.2 MG TABLET PO ×2 (09:46)
[2023-05-17] MEDS: 0.9 % Sodium Chloride Flush 3 ML SYRINGE IVFLUSH (09:47)
[2023-05-17] MEDS: Atropine Sulfate 1 % Ophth Sol 2 ML BOTTLE 2 DROP SUBLINGUAL (09:47)
[2023-05-17 10:47] LABS: Hematocrit 29.5 % (42.0-52.0); Hemoglobin 9.4 g/dl (14.0-18.0); Mean Corpuscular HGB Conc 31.9 g/dl (31.0-36.0); Mean Corpuscular Hemoglobin 28.8 pg (27.0-33.0); Mean Corpuscular Volume 90.5 fL (80.0-98.0); Mean Platelet Volume 9.5 fL (9.4-12.4); Platelet Count 387 X10*3/uL (160-400); Red Blood Count 3.26 X10*6/uL (4.60-5.80); Red Cell Distribution Width 13.5 % (11.0-16.0); White Blood Count 11.3 X10*3/uL (4.8-10.8)
[2023-05-17 11:00] LABS: Anion Gap 9 (12-20); Blood Urea Nitrogen 18 mg/dL (9-16); Calcium 8.4 mg/dL (8.4-10.2); Carbon Dioxide 24 mmol/L (22-29); Chloride 109 mmol/L (96-108); Creatinine Clr Calc Pharmacy 58.7; Estimated Glomerular Filt Rate 43; Glucose Random 92 mg/dL (60-115); Sodium 138 mmol/L (135-145)
--- NOTE | 2023-05-17 12:22 | PM.PNNEP ---
Subjective Subjective Date of Service: 05/17/23 Interval history: Serum creatinine improving. All recent data reviewed Physical Exam Vital Signs: Vital Signs: Last Vital Signs Temp 96.8 F 05/17/23 07:45 Pulse 64 05/17/23 07:45 Resp 18 05/17/23 07:45 BP 179/88 H 05/17/23 07:45 Pulse Ox 94 05/17/23 07:45 O2 Del Method CPAP 05/17/23 07:45 O2 Flow Rate 96 05/12/23 19:52 BMI result Body Mass Index 31.9 Const: General: comfortable Neck: Neck: Yes supple Resp: Auscultation: diminished lung sounds Cardio: Rate: regular rate GI: Palpation (GI): Soft to palpation Neuro: General: moves all extremities Objective Data Labs 05/17/23 10:11 05/17/23 10:11 Labs: Laboratory Results - last 24 hr 05/17/23 05/17/23 10:11 10:11 WBC 11.3 H RBC 3.26 L Hgb 9.4 L Hct 29.5 L MCV 90.5 MCH 28.8 MCHC 31.9 RDW 13.5 Plt Count 387 D MPV 9.5 Absolute Nucleated RBC 0.000 Nucleated RBC % (auto) 0.0 Sodium 138 Potassium 4.0 Chloride 109 H Carbon Dioxide 24 Anion Gap 9 L BUN 18 H Creatinine 1.66 H Estim Creat Clear Calc 58.7 Estimated GFR 43 Random Glucose 92 Calcium 8.4 Microbiology Microbiology Results: Microbiology 05/11/23 02:26 Blood - Venous Blood Culture - Final No growth after 5 days. 05/11/23 02:26 Blood - Venous Blood Culture - Final No growth after 5 days. 05/11/23 Unknown Urine Catheterized - Murdock Catheter Urine Culture - Final Methicillin Res Staph Aureus Enterococcus faecalis Procedures Date of Service Date of Service: 05/17/23 Assessment & Plan Assessment and plan (1) BOYD (acute kidney injury): Status: Acute Assessment and Plan: Creatinine improving; Murdock catheter; Urology seen Continue with rest of current management Time Spent With Patient Time: . Progress Note: Quality Stroke Does the patient have a stroke diagnosis?: No
--- NOTE | 2023-05-17 12:59 | PM.DS ---
DS: Providers Provider Date of Service: 05/17/23 Date of admission: 05/11/23 04:53 Primary care physician: Med Pacheco DO Consults: 05/11/23 06:40 Consult to Urology Routine Consulting Provider: Wero Lane Reason for consultation: Acute pyelonephritis with a stent in place Has provider been notified: No 05/11/23 08:52 Consult to Nephrology Routine Consulting Provider: Anoop Curry Reason for consultation: boyd/pyelonephritis Has provider been notified: No 05/15/23 13:27 Consult to Infectious Diseases Routine Consulting Provider: [facility] [place] Infectious Disease Reason for consultation: enterococus/mrsa uti Has provider been notified: No DS: Diagnosis Discharge Diagnosis (1) BOYD (acute kidney injury): Status: Acute DS: Summary Hospital Course Hospital Course: from initial hpi: 58-year-old male with past medical history of cerebral ataxia disease, hypertension, diabetes, comes in from a facility, with inability to urinate.? Patient is a poor historian, unable to get any more history from him as a facility did not send any documents with the patient, he seems to may have some underlying disability, states that he has problems with urine he keeps pointing to the Mcclure catheter back, when asked him if he has any dysuria or urgency, he denies, he denies any pain, but he says could not pee could not pee. Unable to obtain complete review of systems.? It appears the patient had a recent ureteral stents placement for history of staghorn calculus, 1 on the left eye was removed, and now a new 1 in the right displaced few days ago. On arrival to the ED patient hemodynamically stable with slightly elevated blood pressure Labs are significant for WBC count of 17.5, hemoglobin of 10.8, hematocrit 32.9, sodium of 135, bicarb of 17, creatinine of 5.71 with no baseline, BUN 63, UA positive for leukocyte Estrace, nitrites, WBC, as well as bacteria Abdomen pelvic CT shows significant abnormalities of the right kidney with multiple bilateral renal calculi and loss of the expected renal contour as well as heterogeneous renal parenchymal and perinephric stranding infectious etiology is considered A Mcclure catheter was placed, patient started on IV antibiotics will be admitted for further management hospital course: patient was admitted for acute pyelonephritis with MRSA, E faecalis. BOYD due to urinary obstruction. mcclure placed, creatinine improved to 1.66. seen by ID who recommended 14 days zyvox. for diabetes inspidus continued on desmopressin. patient medically stable, [facility] be [facility]. Time Spent with Patient Time attestation: Total time managing care of this patient today ____ minutes. Discharge coordination time: Greater than 30 minutes Quality: Safe Use of Opioids Does Pt have an Active Cancer Diagnosis on the Problem List?: No Quality: Stroke Does the patient have a stroke diagnosis?: No Physical Exam Vital Signs: Vital Signs: Last Vital Signs Temp 96.8 F 05/17/23 07:45 Pulse 64 05/17/23 07:45 Resp 18 05/17/23 07:45 BP 179/88 H 05/17/23 07:45 Pulse Ox 94 05/17/23 07:45 O2 Del Method CPAP 05/17/23 07:45 O2 Flow Rate 96 05/12/23 19:52 BMI result Body Mass Index 31.9 Const: General: comfortable Neck: Neck: Yes supple Resp: Auscultation: diminished lung sounds Cardio: Rate: regular rate GI: Palpation (GI): Soft to palpation Neuro: General: moves all extremities DS: Data Data Completed and Pending Labs on day of discharge: Laboratory Results - last 24 hr 05/17/23 05/17/23 10:11 10:11 WBC 11.3 H RBC 3.26 L Hgb 9.4 L Hct 29.5 L MCV 90.5 MCH 28.8 MCHC 31.9 RDW 13.5 Plt Count 387 D MPV 9.5 Absolute Nucleated RBC 0.000 Nucleated RBC % (auto) 0.0 Sodium 138 Potassium 4.0 Chloride 109 H Carbon Dioxide 24 Anion Gap 9 L BUN 18 H Creatinine 1.66 H Estim Creat Clear Calc 58.7 Estimated GFR 43 Random Glucose 92 Calcium 8.4 Discharge Plan Discharge Anticipated Discharge Date/Time: 05/17/23 12:51 Patient Disposition: Xfer [facility] Discharge Diagnosis: uti Referrals: [facility] [Outside] - 1 Week Med Pacheco DO [Primary Care Provider] - 1 Week Discharge Medications: New linezolid [Zyvox] 600 mg tablet 600 mg PO BID Qty: 28 0RF Continued tramadol 50 mg tablet 50 mg PO Q6H PRN (Reason: pain (scale score 1-3)) Qty: 8 0RF Anbesol (benzocaine) 10 % Gel 1 appl MUCOUS MEMBRANE TID PRN (Reason: Pain) desmopressin 0.2 mg tablet 0.2 mg PO Q24H PRN (Reason: EXCESSIVE SECRETIONS ) acetaminophen 325 mg capsule 650 mg PO Q6H PRN (Reason: Fever Or Pain) aspirin 81 mg tablet,delayed release (DR/EC) 81 mg PO BID bisacodyl 10 mg suppository 10 mg MT DAILY PRN (Reason: Constipation) cyanocobalamin (vitamin B-12) 500 mcg tablet 1,000 mcg PO DAILY desmopressin 0.2 mg tablet 0.2 mg PO BID Fleet Enema 19-7 gram/118 mL enema 118 ml MT DAILY PRN (Reason: Constipation) hyoscyamine sulfate 0.125 mg tablet, sublingual 0.125 mg sublingual BID pyridoxine (vitamin B6) 200 mg tablet extended release 200 mg PO DAILY sennosides [Senna Laxative] 8.6 mg tablet 8.6 mg PO DAILY PRN (Reason: Constipation) calcium carbonate 500 mg calcium (1,250 mg) tablet,chewable 500 mg PO Q6H PRN (Reason: Heartburn) atropine 1 % drops 2 drp sublingual BID Discontinued naproxen 500 mg tablet 500 mg PO BID PRN (Reason: pain) 7 Days Qty: 14 0RF Rx Instructions: END DATE: 05/14/23 ibuprofen 200 mg tablet 400 mg PO Q8H PRN (Reason: Pain, Moderate) Discharge Orders: Discharge Order (Routine); Ordered 05/17/23 Ordered By: Severo Flores Diet: Advance to usual diet Activity on Discharge: As tolerated Stand Alone Forms: Patient Portal Discharge page Care Plan Goals: recovery Health Concerns: uti, urinary retention Plan of Treatment: zyvoxi 14 days, follow up urology Assessment: see above
--- NOTE | 2023-05-17 13:20 | MHC.SL.SWA ---
Speech Pathologist Impression: Risk of Aspiration Due to: Neurological Condition Dysphasia Diet Status: Recommend patient continue w/ PUREE solids (NDD1) with NECTAR THICK liquids, pills crushed in puree. Patient requires direct supervision during meals, with cues to take small bites and sips, and cues to swallow before adding more food to mouth. Patient noted to have marked delay initiating swallow on solids, closely observe that patient has swallowed before more food is added to mouth. Aspiration precautions apply. REHABILITATION TEACHER to continue to follow and upgrade to patient's baseline if warranted. Liquid Consistency and Strategies for Safe Swallow: Liquid Intake Recommendation: Kendall Thick Liquid Intake Strategies: Small Sips No Straws Solid Food Consistency: Dietary Recommendations: Pureed (NDD1) Additional Modifications to Solid Foods: Moisten w/ sauce/gravy Oral Medication Intake: Crushed with Puree Please contact the pharmacy regarding appropriate crushable or liquid drug formulations that are available whenever modified delivery is recommended. Compensatory Strategies and Precautions to be Taken for Safe Swallow: Sitting Upright (90 deg) No Straw Liquids from Cup Liquids from Spoon Small Bites and Sips Alternate Liquids/Solids Rate of Ingestion Change Supervision While Eating and Drinking for Safe Swallow: Total Supervision (1:1) Foods to Avoid: Mixed consistencies (soups with solids, cereals with milk). Difficult to chew solids. Dry, crunchy consistencies. Swallowing Recommended Treatments: Compens. Strategy Educat. Recommendation for Speech: Inpatient Speech Therapy Comment: Patient seen at lunch, patient had tray in front of him with no supervision in room, had put some pepper on food, and requested salt. REHABILITATION TEACHER assisted patient with salting food and 1-1 feeding during lunch with which patient was very cooperative. Patient took bisque soup which was close to honey thick consistency by tsp, noted disorganized tongue pumping during oral phase, periodic delays initiating swallow, and some periodic throat clearing during ingestion 2/3 of soup. Patient requested potatoes and initially tolerated a blend of pureed chicken with potatoes by tsp, again producing highly disorganized oral phase, and range of delay of swallow from mild to moderate. Patient again occasionally throat clears and splutters, but no coughing noted today. Patient then refused any more of the chicken (commented it's disgusting ). Patient given sips of NT liquid alternately with bites of food, produced more timely oral and pharyngeal phase of swallow, had one brief spell of coughing after repeat sip of liquid. Patient appears to be tolerating these consistencies well, recommend continue on Puree with NT liquids, pills crushed in puree. Patient continues to require direct supervision with some direct assistance during all meals. Frequency/Duration: Date Range for Service Req: Timeline to reassess: Full Service Supervisor Clinican/Clinical Fellow: No Supervisory Statement: I have reviewed and agree with the student/clinical fellow's documentation: N/A Speech Language Pathologist: Lilia Johnson M.A., CCC-REHABILITATION TEACHER
--- NOTE | 2023-05-17 13:39 | MHC.CM.PN ---
IMM 05/17/23 Patient is discharged today. He will return to [facility] via BLS. Transport is booked for 2:30pm filler picker.
== END 2023-05-17 15:19 | disposition skilled nursing facility (03) | DRG 683 ==
LOC: HO.ED 05-11 01:49 → HO.EDOVER 05-11 05:16 → HO.S3 05-11 13:16
PROVIDERS: Internal Medicine; Physician Assistant; Admitting Provider Internal Medicine; Emergency Provider Internal Medicine; PCP Hospitalist; Visit Provider Internal Medicine
DX: N17.9 Acute kidney failure, unspecified (principal); E23.2 Diabetes insipidus; N20.1 Calculus of ureter; N10 Acute pyelonephritis; G47.33 Obstructive sleep apnea (adult) (pediatric); B95.2 Enterococcus as the cause of diseases classified elsewhere; E66.3 Overweight; Z68.31 Body mass index [BMI] 31.0-31.9, adult; R33.9 Retention of urine, unspecified; Z71.3 Dietary counseling and surveillance; B95.62 Methicillin resistant Staphylococcus aureus infection as the cause of diseases classified elsewhere; Z87.442 Personal history of urinary calculi; Z98.84 Bariatric surgery status; Z79.82 Long term (current) use of aspirin; Z79.899 Other long term (current) drug therapy
CPT/HCPCS: 36415; 74176; 80048; 80076; 81001; 83605; 85025; 85027; 87040; 87086; 87088; 87186; 87507; 92526; 92610; 94660; 99285; C1758; J0696; J1643; J2020

== ENCOUNTER → 2023-05-11 04:53 | Outpatient (BNV) | payer MEDICARE, BC, SELFPAY | PROVIDERS: Admitting Provider Internal Medicine; Emergency Provider Internal Medicine; PCP Hospitalist; Visit Provider Urology | DX: N17.9 Acute kidney failure, unspecified (principal); N12 Tubulo-interstitial nephritis, not specified as acute or chronic; R33.9 Retention of urine, unspecified | CPT/HCPCS: 99222 ==

== ENCOUNTER → 2023-05-11 04:53 | Outpatient (BNV) | payer MEDICARE, BC, SELFPAY | PROVIDERS: Admitting Provider Internal Medicine; Emergency Provider Internal Medicine; PCP Hospitalist; Visit Provider Internal Medicine | DX: N17.9 Acute kidney failure, unspecified (principal) | CPT/HCPCS: 99223; 99231; 99232; 99239; 99499 ==

== ENCOUNTER → 2023-05-11 04:53 | Outpatient (BNV) | payer MEDICARE, BC, SELFPAY | PROVIDERS: Admitting Provider Internal Medicine; Emergency Provider Internal Medicine; PCP Hospitalist; Visit Provider Internal Medicine | DX: N17.9 Acute kidney failure, unspecified (principal); N12 Tubulo-interstitial nephritis, not specified as acute or chronic; R33.9 Retention of urine, unspecified | CPT/HCPCS: 99221 ==

== ENCOUNTER 2023-06-06 10:30 | Outpatient (AMB) | payer MEDICARE, MEDICAID, SELFPAY ==
--- NOTE | 2023-06-06 11:05 | MHC.OFFVIS ---
Intake Intake Visit Reasons: S/P Cysto special Cutting Machine Operator Helper Required: No Accompanied by: REMOTE SENSING ANALYST Allergies No Known Allergies Allergy (Verified 06/06/23 19:58) Medication List - Last Reconciled 06/06/23 by AILYN Isaac acetaminophen 650 mg PO Q6H PRN aspirin 81 mg PO BID atropine 1% 2 drps sublingual BID benzocaine 10% (Anbesol (benzocaine)) 1 appl mucous membrane TID PRN bisacodyl (Dulcolax (bisacodyl)) 10 mg (2 x 5 mg) PO ONCE 1 day bisacodyl 10 mg MD DAILY PRN calcium carbonate 500 mg PO Q6H PRN cyanocobalamin (vitamin B-12) 1,000 mcg PO DAILY desmopressin 0.2 mg PO Q24H PRN desmopressin 0.2 mg PO BID hyoscyamine sulfate 0.125 mg sublingual BID linezolid (Zyvox) 600 mg PO BID polyethylene glycol 3350 (Miralax) 238 grams PO ONCE 1 day pyridoxine (vitamin B6) ER 200 mg PO DAILY sennosides (Senna Laxative) 8.6 mg PO DAILY PRN sodium phosphates 19-7 gram/118 mL (Fleet Enema) 118 mL MD DAILY PRN tramadol 50 mg PO Q6H PRN HPI HPI Comments History of Present Illness Details Ayo is a pleasant 58 year old male patient of Dr. Pacheco who is accompanied by one of the staff members Candice from the facility in which he resides ([facility]). He has a past medical history of a toxic gait, vertigo, cerebellar ataxia, constipation, diabetes insipidus, hypertension, insomnia, obesity, muscle weakness, obstructive sleep apnea, chronic pain, nystagmus, hearing loss, vitamin-B deficiency. Of note, patient is s/p cystoscopy, right retrograde, right dilatation of uteric orifice under fluroscopy, dilatation of proximal right ureteric narrowing, right ureteroscopy, laser lithotripsy and right-sided stent placement with Dr. Lane on 05/07. He presents to the office today for cystoscopy with right-sided stent removal. In review of patient's chart it appears approximately 1 week after surgical intervention of 1.2 cm right renal pelvic stone patient presented to the emergency room for acute on chronic renal insult. On initial evaluation elevated white count and urinary retention. Imaging noted infected perinephric collection is a possibility. At which time the patient was treated with fluids and antibiotics. Patient had also underwent cystoscopy, left retrograde, left dilatation of uteric orifice under fluroscopy, serial dilatation of left proximal uteric stricture, left ureteroscopy, laser lithotripsy, and left stent placement on 04/30. The left sided ureteral stent was removed during surgical procedure on 05/07. PSA 02/20--0.3. Unable to obtain urine for urinalysis today. However PVR 0 mL. He reports always having had urinary frequency and urgency as he suffers from a diabetes insipidus however has been having more incontinent episodes but also utilizes urinal when possible. He otherwise denies hematuria, dysuria, foul smelling urine, flank pain, fever, and or chills. Discussed at length surveillance monitoring and importance of drinking plenty of water daily however patient reports he loves to drink coffee all day long. In office cystoscopy performed and right ureteral stent removed. Patient otherwise denies any other issues or concerns at this time. [facility] Medical History Alternating exotropia Ataxic gait Benign paroxysmal vertigo, right ear 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 Combined forms of age-related cataract, bilateral Constipation, unspecified Deficiency, saccadic eye movements Diabetes insipidus Dysarthria and anarthria Dysphagia, oral phase Hemangioma of skin and subcutaneous tissue Hypertension Insomnia, unspecified Melanocytic nevi, unspecified Morbid (severe) obesity due to excess calories Muscle weakness (generalized) Obstructive sleep apnea (adult) (pediatric) Other abnormalities of gait and mobility Other chronic pain Other forms of nystagmus Other melanin hyperpigmentation Personal history of (healed) other pathological fracture Personal history of other malignant neoplasm of skin Resides in [facility] facility Seborrheic dermatitis, unspecified Sensorineural hearing loss, bilateral Unsteadiness on feet Vitamin B deficiency, unspecified Vitamin B12 deficiency anemia, unspecified Surgical History Bariatric surgery status Hx of cystoscopy Other specified postprocedural states Presence of right artificial hip joint Vasectomy status Social History Household Members: None Household Members Other:: [facility] Housing: [facility] Other:: [facility] Are you a primary rn progressive care to a significant other at home: No Do you presently have visiting nurse or other home services: No Alcohol intake: never Patient Tobacco Use Status: Never used Tobacco Advance Directives Date on File: 05/01/23 service: No Review of Systems Const Reports as per HPI Eyes Reports as per HPI ENT Reports no additional complaints Card Reports as per HPI Resp Reports as per HPI GI Reports no additional complaints Reports as per HPI Musc Reports as per HPI and Reports muscle weakness Neuro Reports as per HPI Psych Reports as per HPI Endo Reports as per HPI Physical Exam Const General: cooperative, comfortable, no acute distress, well developed, alert and awake Nutritional Appearance: overweight Orientation/consciousness: oriented to person Limitations: wheelchair HEENT Head: Yes normal to inspection Neck Neck: Yes normal visual inspection and Yes trachea midline Chest Chest palpation & inspection: normal inspection of the chest Resp Effort & Inspection: normal respiratory effort and able to speak in complete sentences Cardio Rate: regular rate GI Inspection: Yes normal to inspection (round ) Skin Other: bilateral lower leg edema; TEDs noted to bilateral lower extremities Neuro General: oriented to person Extrem General: Yes normal to inspection Psych Speech and movement: Slowed speech present (Psych), Pressured speech present and Slowed movement present (Neuro) Insight: Fair insight present (Psych) and Limited insight present (Psych) Judgement: Fair judgement present (Psych) and Limited judgement present (Psych) Office Procedures Cystoscopy Consent Discussed risk and benefit or proposed procedure with the patient. Information consent for procedure given to the patient. Discussed technical aspects, risks, benefits and alternatives in full. Addressed all of the patient's questions and concerns regarding the procedure. The patient demonstrated knowledge and understanding. They wish to proceed with this procedure. Preparation The patient was prepped in the usual manner. A machine heel seat fitter was present and in the room. Genitalia was prepped with betadine solution in a sterile manner. Lidocaine Jelly 2% was placed into the urethra and 16Fr flexible Olympus cystoscope was inserted into the meatus after adequate lubrication. Procedure A well lubricated 16 Guamanian cystoscope was placed No abnormality noted of urethra during placement Indwelling stent seen within bladder emerging from right ureteric orifices The stent was grasped with a 3 prong grasper and removed without difficulty The patient tolerated the procedure well [id number] with stent removal DISPOSABLE SCOPE URO-G FLEXIBLE SCOPE Procedure code (CPT) selection complete [id number] with stent removal DISPOSABLE SCOPE URO-G FLEXIBLE SCOPE Procedure code (CPT) selection complete Office Meds lidocaine HCl Performing Provider: AILYN Isaac Administered by: Jacquelin Rhodes RN on 06/06/23 11:10 Dose Route Admin Location Lot Number Expiration Date NDC [employer] 10 mL intra-urethral nitrofurantoin monohyd/m-cryst 100 mg Performing Provider: AILYN Isaca Administered by: Jacquelin Rhodes RN on 06/06/23 11:10 Dose Route Admin Location Lot Number Expiration Date NDC [employer] 100 mg PO naproxen Performing Provider: AILYN Isaac Administered by: Jacquelin Rhodes RN on 06/06/23 11:10 Dose Route Admin Location Lot Number Expiration Date NDC [employer] 500 mg PO Assessment & Plan Assessment & Plan (1) Staghorn kidney stones: Code(s): N20.0 - Calculus of kidney (2) Urinary incontinence, urge: Code(s): N39.41 - Urge incontinence (3) Urinary frequency: Code(s): R35.0 - Frequency of micturition Plan Unable to obtain urine for urinalysis; patient unable to give urine sample however, PVR 0 mL In office cystoscopy performed and right ureteral stent removed; as noted above Discussed at length importance of drinking plenty of water daily and avoiding coffee consumption all day long Discussed at length potential causes for nephrolithiasis. Continue with scheduled toileting Will obtain renal ultrasound in 3 months Follow-up in 3 months with imaging to be completed prior; or sooner with any issues, concerns, and or questions. Orders: Orders AMB Cystoscopy Today N20.0 - Calculus of kidney US renal BI 3 Months N20.0 - Calculus of kidney Patient Instructions: The patient had an opportunity to ask questions regarding the treatment plan. All questions were answered. Physical exam, labs, and imaging were discussed and reviewed in detail. As well as risks, benefits, and discussion of treatment choices. No major barriers to understanding were identified. The patient expressed understanding and agreement with the above treatment plan. The patient was made aware they should contact our office by phone for worsening of their current condition, the appearance of new symptoms, or with any questions or concerns. Compliance is encouraged with any medications and follow up testing that is ordered. It is a privilege to be allowed the opportunity to participate in? your urological care.? Again, if you have any questions or concerns If you have any questions or concerns please do not hesitate to contact me. The office is [phone]. This note is constructed using voice recognition software. While every effort has been made to ensure accuracy specimen processor errors may have been included. Yours sincerely, CLAUDINE Isaac-VERONICA Coding Level of Care Code Est Pt Level 3 (41054) Diagnoses Staghorn kidney stones N20.0 Urinary incontinence, urge N39.41 Urinary frequency R35.0 CPT Codes Cystoscopy - CPT: 63838-[id number] with stent removal ([id number])
== END 2023-06-06 11:39 | disposition home or self-care (01) ==
PROVIDERS: PCP Hospitalist; Visit Provider Nurse Practitioner Family
DX: N20.0 Calculus of kidney (principal); N39.41 Urge incontinence; R35.0 Frequency of micturition; Z96.0 Presence of urogenital implants
CPT/HCPCS: 52310

== ENCOUNTER → 2023-06-06 10:30 | Outpatient (BNVA) | payer MEDICARE, MEDICAID, SELFPAY | PROVIDERS: PCP Hospitalist; Visit Provider Nurse Practitioner Family | DX: N20.0 Calculus of kidney (principal); N39.41 Urge incontinence; R35.0 Frequency of micturition | CPT/HCPCS: 52310 ==

== ENCOUNTER 2023-06-08 11:35 | Emergency (ER) | payer MEDICARE, MEDICAID, SELFPAY ==
[2023-06-08] VITALS (13 sets, daily range): BP systolic 122–177; BP diastolic 63–90; PULSE 64–82; RESP 13–17; TEMP 36.4–36.8; O2SAT 96–100; BMI 32.0
[2023-06-08 12:54] LABS: MANUAL DIFF FLAG NO
[2023-06-08 12:56] LABS: Basophils Absolute Auto 0.1 X10*3/uL (0.0-0.2); Basophils Percent Auto 0.4 % (0-2); Eosinophils Absolute Auto 0.2 X10*3/uL (0.0-0.4); Eosinophils Percent Auto 1.8 % (0-4); Hematocrit 23.4 % (42.0-52.0); Hemoglobin 7.7 g/dl (14.0-18.0); Imm Gran Abs Auto 0.25 X10*3/uL (0.00-0.03); Imm Gran Pct Auto 2.2 % (0.0-0.4); Lymphocytes Percent Auto 18.3 % (20-40); Mean Corpuscular HGB Conc 32.9 g/dl (31.0-36.0); Mean Corpuscular Hemoglobin 28.3 pg (27.0-33.0); Mean Platelet Volume 9.3 fL (9.4-12.4); Monocytes Percent Auto 9.3 % (2-11); NRBC Pct Auto 0.2 /100WBC (0.0-0.2); Neutrophils Absolute Auto 7.6 x10*3/uL (2.0-8.3); Platelet Count 245 X10*3/uL (160-400); Red Blood Count 2.72 X10*6/uL (4.60-5.80); Red Cell Distribution Width 13.2 % (11.0-16.0); White Blood Count 11.2 X10*3/uL (4.8-10.8)
--- NOTE | 2023-06-08 13:00 | ED_ITS ---
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 Patient w/o complaints at this time. Poor historian but tells me he feels fine. Denies weakness, dizziness, fevers, chills, hematemesis, n/v Related Data Home Medications Medication Instructions Recorded Confirmed acetaminophen 325 mg capsule 650 mg PO Q6H PRN Fever Or Pain 12/22/22 05/11/23 aspirin 81 mg tablet,delayed 81 mg PO BID 12/22/22 05/11/23 release bisacodyl 10 mg rectal suppository 10 mg AZ DAILY PRN Constipation 12/22/22 05/11/23 calcium carbonate 500 mg calcium 500 mg PO Q6H PRN Heartburn 12/22/22 05/11/23 (1,250 mg) chewable tablet cyanocobalamin (vitamin B-12) 500 1,000 mcg PO DAILY 12/22/22 05/11/23 mcg tablet desmopressin 0.2 mg tablet 0.2 mg PO BID 12/22/22 05/11/23 hyoscyamine sulfate 0.125 mg 0.125 mg sublingual BID 12/22/22 05/11/23 sublingual tablet pyridoxine (vitamin B6) 200 mg 200 mg PO DAILY 12/22/22 05/11/23 tablet,extended release sennosides 8.6 mg tablet (Senna 8.6 mg PO DAILY PRN Constipation 12/22/22 05/11/23 Laxative) sodium phosphates 19 gram-7 118 ml AZ DAILY PRN Constipation 12/22/22 05/11/23 gram/118 mL enema (Fleet Enema) atropine 1 % eye drops 2 drp sublingual BID 02/14/23 05/11/23 benzocaine 10 % mucosal gel 1 appl mucous membrane TID PRN Pain 05/01/23 05/11/23 (Anbesol (benzocaine)) desmopressin 0.2 mg tablet 0.2 mg PO Q24H PRN EXCESSIVE 05/01/23 05/11/23 SECRETIONS Previous Rx's Medication Instructions Recorded tramadol 50 mg tablet 50 mg PO Q6H PRN pain (scale score 05/07/23 1-3) #8 tabs linezolid 600 mg tablet (Zyvox) 600 mg PO BID #28 tabs 05/17/23 bisacodyl 5 mg tablet,delayed 10 mg (2 x 5 mg) PO ONCE 1 day #2 06/05/23 release (Dulcolax (bisacodyl)) tabs polyethylene glycol 3350 17 238 g PO ONCE 1 day #238 grams 06/05/23 gram/dose oral powder (Miralax) Allergies Allergy/AdvReac Type Severity Reaction Status Date / Time No Known Allergies Allergy Verified 06/08/23 12:01 Review of Systems 2 Review of Systems: Constitutional : No Weight loss, No Fever, No Chills, No Fatigue, No Malaise ENT/Mouth : No sore throat, No Rhinorrhea Eyes: No Eye Pain, No Swelling, No Redness Cardiovascular : No Chest Pain, No SOB, No Dyspnea on Exertion, No Orthopnea, No Edema, No Palpitations Respiratory : No Cough, No Sputum, No Wheezing Gastrointestinal : No Nausea, No Vomiting, No Diarrhea, No Constipation, No abdominal Pain, No Hematochezia, No Melena Genitourinary : No Dysuria, No Urinary Frequency, No Hematuria, Musculoskeletal : No joint pain, No Myalgias, No Joint Swelling Skin : No Skin Lesions, No rash Neuro : No Weakness, No Numbness, No Dizziness, No Headache Psych : No Anxiety/Panic, No Depression All other systems reviewed and are negative Yes all other systems are reviewed and are negative [facility] Past Medical History Attestation statement: The following information was validated with the patient. Source: old records reviewed and nursing notes reviewed Medical History Alternating exotropia Ataxic gait Benign paroxysmal vertigo, right ear 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 Combined forms of age-related cataract, bilateral Constipation, unspecified Deficiency, saccadic eye movements Diabetes insipidus Dysarthria and anarthria Dysphagia, oral phase Hemangioma of skin and subcutaneous tissue Hypertension Insomnia, unspecified Melanocytic nevi, unspecified Morbid (severe) obesity due to excess calories Muscle weakness (generalized) Obstructive sleep apnea (adult) (pediatric) Other abnormalities of gait and mobility Other chronic pain Other forms of nystagmus Other melanin hyperpigmentation Personal history of (healed) other pathological fracture Personal history of other malignant neoplasm of skin [facility] in [facility] Seborrheic dermatitis, unspecified Sensorineural hearing loss, bilateral Unsteadiness on feet Vitamin B deficiency, unspecified Vitamin B12 deficiency anemia, unspecified Surgical History Bariatric surgery status Hx of cystoscopy Other specified postprocedural states Presence of right artificial hip joint Vasectomy status Social History Social History Household Members: None [facility]hold Members [facility]:: [facility] Housing: Retirement Housing Other:: [facility] Are you a primary care mgr to a significant other at home: No Do you presently have visiting nurse or other home services: No Alcohol intake: never Patient Tobacco Use Status: Never used Tobacco Advance Directives: Yes Advance Directives on File: Yes Advance Directives Date on File: 05/01/23 service: No Physical Exam ED Vital Signs: Vital Signs - 24 hr 06/08/23 11:48 06/08/23 12:10 06/08/23 14:06 Temperature 98.1 F Pulse Rate 65 64 75 Respiratory Rate 16 16 16 Blood Pressure 153/81 H 149/74 H 132/88 Pulse Oximetry 96 100 99 Oxygen Delivery Method Room Air Room Air Room Air 06/08/23 15:23 Temperature 98.2 F Pulse Rate 72 Respiratory Rate 16 Blood Pressure 144/75 H Pulse Oximetry 96 Oxygen Delivery Method Room Air BMI result Body Mass Index 32.0 vss Appearance: Alert.? Oriented X3.? No acute distress.? Head: Normocephalic, atraumatic, no step-offs or deformities Eyes: Pupils equal, round and reactive to light.? ENT: Pharynx normal.? Neck: Normal inspection.? Neck supple.? CVS: Normal heart rate and rhythm.? Pulses normal.? Respiratory: No respiratory distress.? Breath sounds normal.? Abdomen: Soft and nontender.? Skin: Skin warm and dry.? Normal skin color.? Normal skin turgor.? Extremities: No lower extremity edema.? No calf ttp. global weakness Rectal: normal exam, no neela blood noted, normal rectal tone. No signs of internal external hemorrhoid no fissures. Neuro: Oriented X 3.? No motor deficit.? No sensory deficit. CN 2-12 intact Course Reevaluation(s) Reevaluation #1: CBC within evident normocytic anemia, hemoglobin of 7.7, hematocrit 23.4, chemistry no acute findings requiring intervention. UA without infection, no noted red blood cells in urine. OBS negative. Time: 14:45 Reevaluation #2: I did discuss this case with my attending who tells me he would not transfuse for a hemoglobin of 7.7 and hematocrit 23.4 without active bleeding. No abdominal tenderness on exam, no signs of trauma, no indication for scan of head, neck, chest, abdomen or pelvis. UA without infection and no blood. No recent surgical procedures. Patient has not yet had a colonoscopy. My attending recommends to stop aspirin for a few days, repeat CBC in 24 hours and no transfusion at this time. Will reach out to patient's primary care provider at [facility]. Time: 14:53 Reevaluation #3: I spoke to patient's primary care provider Dr. Pacheco recommends 1 unit packed red blood cells, repeat CBC and then return to [facility], his plan was to do an outpatient transfusion and then take back to [facility] but that was not possible therefore intent was to send here for transfusion. I agree that this is appropritate went over this with patient and got consent went over consent with him he said yes no questions didnt sign but verbal consent obtained w/ witness insulation cupola chargerEMELINA Benoit Time: 15:11 Additional Reevaluation(s): Sign out tonight provider Alexus HUYNH pending transfusion , repeat cbc, and dispo Medical Decision Making Medical Decision Making [facility] Narrative: 1350 58-year-old male [facility] from [facility] with abnormal labs, was noted to have low H&H this morning. No reports of bleeding. No medical complaints. No abdominal pain. Physical exam benign. Concerns for possible low GI bleed. No signs of hemorrhaging at this time, unlikely internal bleeding, patient not on blood thinners. Will rule out anemia, electrolyte abnormalities. Will rule out internal and external hemorrhoids and anal fissures/fistula Plan at this time labs, urine, OBS Differential Diagnosis Differential Diagnoses: The differential diagnosis associated with the presentation includes Concerns for possible low GI bleed. No signs of hemorrhaging at this time, unlikely internal bleeding, patient not on blood thinners. Will rule out anemia, electrolyte abnormalities.Will rule out internal and external hemorrhoids and anal fissures/fistula Admission/Observation Consideration of admission/observation: Escalation of care including admission/observation considered possible. Lab Data MDM Lab Attestation statement: I reviewed the patient's lab results. 06/08/23 12:49 06/08/23 12:49 Labs: Lab Results 06/08/23 06/08/23 06/08/23 Range/Units 12:49 14:03 14:20 WBC 11.2 H (4.8-10.8) X10*3/uL RBC 2.72 L (4.60-5.80) X10*6/uL Hgb 7.7 L (14.0-18.0) g/dl Hct 23.4 L D (42.0-52.0) % MCV 86.0 (80.0-98.0) fL MCH 28.3 (27.0-33.0) pg MCHC 32.9 (31.0-36.0) g/dl RDW 13.2 (11.0-16.0) % Plt Count 245 D (160-400) X10*3/uL MPV 9.3 L (9.4-12.4) fL Immature Gran % (Auto) 2.2 H (0.0-0.4) % Neut % (Auto) 68.0 (45-73) % Lymph % (Auto) 18.3 L (20-40) % [place] % (Auto) 9.3 (2-11) % Eos % (Auto) 1.8 (0-4) % Baso % (Auto) 0.4 (0-2) % Lymph # (Auto) 2.0 (1.2-4.9) X10*3/uL [place] # (Auto) 1.0 (0.1-1.2) X10*3/uL Eos # (Auto) 0.2 (0.0-0.4) X10*3/uL Baso # (Auto) 0.1 (0.0-0.2) X10*3/uL Abs Immat Gran (auto) 0.25 H (0.00-0.03) X10*3/uL Absolute Neuts (auto) 7.6 (2.0-8.3) x10*3/uL Absolute Nucleated RBC 0.020 H (0.0-0.012) X10*3/uL Nucleated RBC % (auto) 0.2 (0.0-0.2) /100WBC Sodium 145 (135-145) mmol/L Potassium 4.5 (3.3-5.1) mmol/L Chloride 114 H (96-108) mmol/L Carbon Dioxide 25 (22-29) mmol/L Anion Gap 11 L (12-20) BUN 10 (9-16) mg/dL Creatinine 1.40 (0.5-1.4) mg/dL Estim Creat Clear Calc 69.7 Estimated GFR 52 Random Glucose 94 (60-115) mg/dL Calcium 8.8 (8.4-10.2) mg/dL Magnesium 1.9 (1.6-2.6) mg/dL Total Bilirubin 0.7 (0.0-1.0) mg/dL AST 11 (5-37) U/L ALT 9 (0-40) U/L Alkaline Phosphatase 106 (39-117) U/L Total Protein 6.3 L (6.5-8.0) g/dL Albumin 2.8 L (3.5-5.0) g/dL Urine Color Yellow Urine Appearance Clear Urine pH 6.0 (5.0-9.0) Ur Specific [place] <= 1.005 (1.005-1.025) Urine Protein Negative (Neg-Trace) mg/dL Urine Glucose (UA) Negative (Negative) mg/dL Urine Ketones Negative (Negative) mg/dL Urine Blood Negative (Negative) Urine Nitrite Negative (Negative) Ur Leukocyte Esterase Moderate (2+) H (Negative) Urine RBC 0-2 (0-2) /HPF Urine WBC 11-20 H (0-5) /HPF Ur Squamous Epith Cells 0-2 (0-2) /HPF Urine Bacteria None Seen (None Seen) Hyaline Casts 0-2 (0-2) /LPF Stool Occult Blood NEGATIVE (NEGATIVE) Blood Type A Negative Antibody Screen NEGATIVE Crossmatch See Detail Core Measures AMI core measures followed: Yes Measure exclusions: not indicated Critical Care Time Critical Care Time Critical Care Time: Yes Total Critical Care Time: 45 Attestation: I attest to this time spent taking care of the patient, obtaining history, physical, reviewing labs, imaging, speaking to my attending, speaking to specialist. Discharge Plan Discharge Clinical Impression: Normocytic anemia Patient Disposition: Xfer Other Transfer Details: [facility] Instructions: Anemia (ED) Additional Instructions: Take your medications as prescribed. If you were prescribed antibiotics today, it is important that you take your medication to their entirety, do not skip any doses, do not finish them early. Follow-up with your primary care provider this week. Return to the emergency department with new or worsening symptoms. Such as fevers, chills, chest pain, shortness of breath, nausea, vomiting, dizziness, headache, vision changes, lethargy In case of emergency call 911 Please hold aspirin for the next 3 days. Repeat CBC in 24 hours. Prescriptions: No Action bisacodyl [Dulcolax (bisacodyl)] 5 mg tablet,delayed release (DR/EC) 10 mg PO ONCE 1 Days Qty: 2 0RF Rx Instructions: take at noon the day before colonoscopy polyethylene glycol 3350 [Miralax] 17 gram/dose powder 238 g PO ONCE 1 Days Qty: 238 0RF Rx Instructions: Take as directed by mouth the day before your procedure. tramadol 50 mg tablet 50 mg PO Q6H PRN (Reason: pain (scale score 1-3)) Qty: 8 0RF Anbesol (benzocaine) 10 % Gel 1 appl MUCOUS MEMBRANE TID PRN (Reason: Pain) desmopressin 0.2 mg tablet 0.2 mg PO Q24H PRN (Reason: EXCESSIVE SECRETIONS ) linezolid [Zyvox] 600 mg tablet 600 mg PO BID Qty: 28 0RF acetaminophen 325 mg capsule 650 mg PO Q6H PRN (Reason: Fever Or Pain) aspirin 81 mg tablet,delayed release (DR/EC) 81 mg PO BID bisacodyl 10 mg suppository 10 mg AZ DAILY PRN (Reason: Constipation) cyanocobalamin (vitamin B-12) 500 mcg tablet 1,000 mcg PO DAILY desmopressin 0.2 mg tablet 0.2 mg PO BID Fleet Enema 19-7 gram/118 mL enema 118 ml AZ DAILY PRN (Reason: Constipation) hyoscyamine sulfate 0.125 mg tablet, sublingual 0.125 mg sublingual BID pyridoxine (vitamin B6) 200 mg tablet extended release 200 mg PO DAILY sennosides [Senna Laxative] 8.6 mg tablet 8.6 mg PO DAILY PRN (Reason: Constipation) calcium carbonate 500 mg calcium (1,250 mg) tablet,chewable 500 mg PO Q6H PRN (Reason: Heartburn) atropine 1 % drops 2 drp sublingual BID Referrals: Med Pacheco DO [Primary Care Provider] - 1 day
[2023-06-08 13:12] LABS: Alanine Aminotransferase 9 U/L (0-40); Albumin Level 2.8 g/dL (3.5-5.0); Alkaline Phosphatase 106 U/L (39-117); Anion Gap 11 (12-20); Aspartate Amino Transferase 11 U/L (5-37); Bilirubin Total 0.7 mg/dL (0.0-1.0); Blood Urea Nitrogen 10 mg/dL (9-16); Calcium 8.8 mg/dL (8.4-10.2); Carbon Dioxide 25 mmol/L (22-29); Chloride 114 mmol/L (96-108); Creatinine Clr Calc Pharmacy 69.7; Estimated Glomerular Filt Rate 52; Glucose Random 94 mg/dL (60-115); Magnesium 1.9 mg/dL (1.6-2.6); Potassium 4.5 mmol/L (3.3-5.1); Sodium 145 mmol/L (135-145); Total Protein 6.3 g/dL (6.5-8.0)
--- NOTE | 2023-06-08 13:16 | PC.NURSE ---
condom cath applied to obtain urine spec and pt comfort, pt denies pain, no acute distress, resting comfortably.
[2023-06-08 14:13] LABS: Appearance Urine Clear; Color Urine Yellow; Glucose Urine UA Negative (Negative); Leukocyte Esterase Urine Moderate (2+) (Negative); Nitrite Urine Negative (Negative); Specific Gravity - Urine <= 1.005 (1.005-1.025); UMIC TRIGGER UACC YES; Urine Blood Negative (Negative); Urine Ketones Negative (Negative); Urine Protein Negative (Neg-Trace)
[2023-06-08 14:27] LABS: Bacteria Urine None Seen (None Seen); Hyaline Casts Urine 0-2 /LPF (0-2); RBC Urine 0-2 /HPF (0-2); Squamous Epithelial Cell Urine 0-2 /HPF (0-2); UACC Culture Trigger YES
[2023-06-08 14:34] LABS: OBS Int Ctl Valid YES; OBS1 NEGATIVE (NEGATIVE)
--- NOTE | 2023-06-08 15:49 | MHC.EDTECH ---
THIS PCT ASSUMED CARE OF PT AT 1500 ,VITALS SIGN TAKEN AND SECOND TYPE AND SCREEN DRAWN AND SENT TO LAB ,PT AWAKE AND IS COMFORTABLE WATCHING TELEVISION .
[2023-06-08 20:22] LABS: Basophils Absolute Auto 0.1 X10*3/uL (0.0-0.2); Basophils Percent Auto 0.7 % (0-2); Eosinophils Absolute Auto 0.2 X10*3/uL (0.0-0.4); Eosinophils Percent Auto 1.6 % (0-4); Hemoglobin 8.9 g/dl (14.0-18.0); Imm Gran Abs Auto 0.22 X10*3/uL (0.00-0.03); Imm Gran Pct Auto 1.8 % (0.0-0.4); Lymphocytes Absolute Auto 2.2 X10*3/uL (1.2-4.9); Lymphocytes Percent Auto 17.3 % (20-40); MANUAL DIFF FLAG SCAN; Mean Corpuscular HGB Conc 34.2 g/dl (31.0-36.0); Mean Corpuscular Hemoglobin 29.5 pg (27.0-33.0); Mean Corpuscular Volume 86.1 fL (80.0-98.0); Mean Platelet Volume 10.2 fL (9.4-12.4); Monocytes Absolute Auto 1.3 X10*3/uL (0.1-1.2); Monocytes Percent Auto 10.2 % (2-11); NRBC Pct Auto 0.2 /100WBC (0.0-0.2); Neutrophils Absolute Auto 8.5 x10*3/uL (2.0-8.3); Neutrophils Percent Auto 68.4 % (45-73); PLT CLUMP 1; Red Blood Count 3.02 X10*6/uL (4.60-5.80); Red Cell Distribution Width 13.7 % (11.0-16.0); SCAN SMEAR FLAG 1
[2023-06-08 20:44] LABS: Platelet Count 262 X10*3/uL (160-400); SLIDE REVIEW VERIFIED; White Blood Count 12.5 X10*3/uL (4.8-10.8)
--- NOTE | 2023-06-08 22:00 | MHC.EDTECH ---
PATIENT WAS INCONTINENT OF URINE AND LOOSE BOWEL MOVEMENT ,CARE GIVEN AND BEDDING CHANGE ,PT IS HEADING BACK TO SNF .
--- NOTE | 2023-06-08 22:06 | PC.NURSE ---
RN-RN report called into [facility] pt transferring back via EMS.
== END 2023-06-08 22:08 | disposition other institution (70) ==
PROVIDERS: Physician Assistant; Emergency Provider Emergency Medicine; PCP Hospitalist
DX: D64.9 Anemia, unspecified (principal); I10 Essential (primary) hypertension; E11.9 Type 2 diabetes mellitus without complications; N39.41 Urge incontinence; Z79.899 Other long term (current) drug therapy
CPT/HCPCS: 36415; 36430; 80053; 81001; 82272; 83735; 85025; 86850; 86900; 86901; 86923; 87086; 96360; 96361; 99284; 99285; P9016

== ENCOUNTER 2023-06-18 07:38 | Outpatient (REF) | payer MEDICARE, MEDICAID, SELFPAY ==
--- NOTE | ~2023-06-18 | CT_ITS ---
EXAMINATION: CT CHEST WITHOUT CONTRAST CLINICAL INFORMATION: Pulmonary nodules COMPARISON: Previous chest and right rib x-rays May 2023 TECHNIQUE: Multidetector volumetric CT imaging of the chest was done. Axial MIP volume rendering provided. Sagittal and coronal reformatted images were obtained. This CT examination was performed using dose optimization techniques as appropriate, variously including the following: *Automated exposure control *Adjustment of mA and/or kV according to patient size (this includes techniques or standardized protocols for targeted exams where dose is matched to indication/reason for exam; i.e. extremities or head) *Use of iterative reconstruction technique DLP: 169 mGy-cm FINDINGS: LUNGS: Small calcified pulmonary nodules probably representing calcified granulomas, largest measuring 3 mm in the peripheral or subpleural right lower lobe axial image 373 and 4 mm in the right lower lobe axial image 397 series 5. MEDIASTINUM: Upper normal heart size. No pericardial effusion. Mild coronary artery calcification. Normal caliber thoracic aorta. Upper normal-sized pulmonary arteries. No enlarged hilar or mediastinal lymph nodes. CORONARY ARTERY CALCIFICATION: Mild PLEURA: There is no pleural effusion. No pleural mass or thickening. AXILLA: No lymphadenopathy. Bilateral gynecomastia. UPPER ABDOMEN: Surgical changes to the stomach. Fullness of both adrenal glands. Low-attenuation lesion in the anterior segment of the right lobe of the liver near the gallbladder measuring 2 cm probably representing a cyst. Findings are similar to May [address] OSSEOUS STRUCTURES: Sclerotic densities in the right scapula and humeral head. These are nonspecific. This could represent benign bone islands. If There is a concern for sclerotic bony metastatic disease, bone scan would be recommended. Old bilateral anterior rib fractures. Old T12 vertebral body compression fracture. Cortical buckling of the anterior superior sternum questionable for changes related to old trauma as well. Degenerative changes of the spine.. CT/CT chest wo IV con IMPRESSION: Small calcified pulmonary nodules largest measuring 3 mm which probably represent calcified granulomas. No suspicious pulmonary nodule. Sclerotic densities in the right scapula and humeral head. These may represent bone islands. If there is concern for metastatic disease, follow-up bone scan would be recommended. Old T12 vertebral body compression fracture. Fleischner guidelines were followed.
== END 2023-06-18 07:39 | disposition home or self-care (01) ==
LOC: HO.CT 07:38
PROVIDERS: PCP Hospitalist; Visit Provider Nurse Practitioner Family
DX: R91.8 Other nonspecific abnormal finding of lung field (principal)
CPT/HCPCS: 71250

== ENCOUNTER 2023-07-20 13:35 | Outpatient (REF) | payer MEDICARE, MEDICAID, SELFPAY ==
--- NOTE | ~2023-07-20 | XR_ITS ---
EXAMINATION: XR CHEST 2 VIEWS CLINICAL INFORMATION: Shortness of breath. COMPARISON: Chest radiograph dated 05/01/2023. TECHNIQUE: Frontal and lateral views of the chest were obtained. FINDINGS: The heart, great vessels, pulmonary vasculature and mediastinum are normal. The lungs show no focal infiltrate, effusion or pneumothorax. Left base plate-like atelectasis has resolved in the interim. There is no acute osseous abnormality. XR/XR chest 2V IMPRESSION: No active cardiopulmonary disease.
== END 2023-07-20 13:36 | disposition home or self-care (01) ==
LOC: HO.XRAY 13:35
PROVIDERS: PCP Hospitalist; Visit Provider Hospitalist
DX: R06.02 Shortness of breath (principal)
CPT/HCPCS: 71046

== ENCOUNTER → 2023-08-07 12:49 | Outpatient (BNV) | payer MEDICARE, SELFPAY | PROVIDERS: PCP Hospitalist; Visit Provider Internal Medicine Gastroenterology | DX: Z12.11 Encounter for screening for malignant neoplasm of colon (principal); Q43.8 Other specified congenital malformations of intestine; K64.0 First degree hemorrhoids | CPT/HCPCS: G0121 ==

== ENCOUNTER → 2023-08-07 12:49 | Day surgery (SDC) | payer MEDICARE, SELFPAY ==
[2023-08-03 14:43] VITALS: BMI 32.8
--- NOTE | 2023-08-06 10:41 | HO.ANESPROP2 ---
Documented by User: Cinthia Rey NP 08/06/23 10:45 HPI - Anesthesia Eval Consult details Narrative: 58yo M for Colonoscopy SNF resident s/p cysto, etc 05/2023 with GA-LMA 4 [facility] Active Problems Active Problems: All Active Problems (Updated 06/09/23 @ 00:01 by Background Dasandeeon) Pyelonephritis (Acute) Urinary retention (Acute) Acute bacterial pyelonephritis (Acute) BOYD (acute kidney injury) (Acute) Multiple pulmonary nodules (Acute) Staghorn kidney stones (Acute) Urinary frequency (Acute) Urinary incontinence, urge (Acute) Alternating exotropia (Acute) 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 (Acute) Seborrheic dermatitis, unspecified (Acute) Insomnia, unspecified (Acute) Hypertension (Acute) Diabetes insipidus (Acute) Past Medical History Medical History Resides in senior living facility Personal history of (healed) other pathological fracture Other abnormalities of gait and mobility Unsteadiness on feet Dysphagia, oral phase Constipation, unspecified Sensorineural hearing loss, bilateral Benign paroxysmal vertigo, right ear Deficiency, saccadic eye movements Other forms of nystagmus Insomnia, unspecified Vitamin B deficiency, unspecified Vitamin B12 deficiency anemia, unspecified Alternating exotropia Combined forms of age-related cataract, bilateral Personal history of other malignant neoplasm of skin Other melanin hyperpigmentation Seborrheic dermatitis, unspecified Melanocytic nevi, unspecified Hemangioma of skin and subcutaneous tissue Hypertension Diabetes insipidus Other chronic pain Obstructive sleep apnea (adult) (pediatric) Dysarthria and anarthria Muscle weakness (generalized) 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 Ataxic gait Morbid (severe) obesity due to excess calories Family History Family history of problems with anesthesia: No Surgical History Surgical History Hx of cystoscopy Other specified postprocedural states Bariatric surgery status Vasectomy status Presence of right artificial hip joint History of Problems with Anesthesia: No Social History Social History Household Members: None Household Members Other:: [facility] Housing: Prison Housing Other:: resides at [facility] Are you a primary college and career counselor to a significant other at home: No Do you presently have visiting nurse or other home services: Yes ([facility] staff) Alcohol intake: never Patient Tobacco Use Status: Never used Tobacco Advance Directives Date on File: 05/01/23 service: No Meds Allergies Allergy/AdvReac Type Severity Reaction Status Date / Time No Known Allergies Allergy Verified 06/08/23 12:01 Home Medications Medication Instructions Recorded Confirmed Last Taken Type acetaminophen 325 mg capsule 650 mg PO Q6H PRN Fever Or Pain 12/22/22 08/03/23 Unknown History aspirin 81 mg tablet,delayed 81 mg PO BID 12/22/22 08/03/23 Unknown History release bisacodyl 10 mg rectal suppository 10 mg GA DAILY PRN Constipation 12/22/22 08/03/23 Unknown History calcium carbonate 500 mg calcium 500 mg PO Q6H PRN Heartburn 12/22/22 08/03/23 Unknown History (1,250 mg) chewable tablet cyanocobalamin (vitamin B-12) 500 1,000 mcg PO DAILY 12/22/22 08/03/23 Unknown History mcg tablet desmopressin 0.2 mg tablet 0.2 mg PO BID 12/22/22 08/03/23 Unknown History hyoscyamine sulfate 0.125 mg 0.125 mg sublingual BID 12/22/22 08/03/23 Unknown History sublingual tablet pyridoxine (vitamin B6) 200 mg 200 mg PO DAILY 12/22/22 08/03/23 Unknown History tablet,extended release sennosides 8.6 mg tablet (Senna 8.6 mg PO DAILY PRN Constipation 12/22/22 08/03/23 Unknown History Laxative) sodium phosphates 19 gram-7 118 ml GA DAILY PRN Constipation 12/22/22 08/03/23 Unknown History gram/118 mL enema (Fleet Enema) atropine 1 % eye drops 2 drp sublingual BID 02/14/23 08/03/23 Unknown History benzocaine 10 % mucosal gel 1 appl mucous membrane TID PRN Pain 05/01/23 08/03/23 Unknown History (Anbesol (benzocaine)) desmopressin 0.2 mg tablet 0.2 mg PO Q24H PRN EXCESSIVE 05/01/23 08/03/23 Unknown History SECRETIONS Exam Exam Date and Time: August 06, 2023 1041 Height,Weight and Vital Signs: Height 5 ft 11 in Weight 106.594 kg Pertinent Lab Results Pertinent Lab Results: Laboratory Tests 06/08/23 06/08/23 12:49 20:16 WBC 12.5 H Hgb 8.9 L Hct 26.0 L Plt Count 262 Sodium 145 Potassium 4.5 Chloride 114 H Carbon Dioxide 25 BUN 10 Creatinine 1.40 Assessment and Plan Assessment Anesthesia Assessment: Chart Reviewed Final Anesthetic Review Family History of Problems with Anesthesia: No History of Problems with Anesthesia: No Documented by User: Norah Quinn MD 08/07/23 14:33 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 (Acute) Seborrheic dermatitis, unspecified (Acute) Insomnia, unspecified (Acute) Hypertension (Acute) Diabetes insipidus (Acute) Past Medical History Medical History Resides in senior living facility Personal history of (healed) other pathological fracture Other abnormalities of gait and mobility Unsteadiness on feet Dysphagia, oral phase Constipation, unspecified Sensorineural hearing loss, bilateral Benign paroxysmal vertigo, right ear Deficiency, saccadic eye movements Other forms of nystagmus Insomnia, unspecified Vitamin B deficiency, unspecified Vitamin B12 deficiency anemia, unspecified Alternating exotropia Combined forms of age-related cataract, bilateral Personal history of other malignant neoplasm of skin Other melanin hyperpigmentation Seborrheic dermatitis, unspecified Melanocytic nevi, unspecified Hemangioma of skin and subcutaneous tissue Hypertension Diabetes insipidus Other chronic pain Obstructive sleep apnea (adult) (pediatric) Dysarthria and anarthria Muscle weakness (generalized) 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 Housing: Prison Housing Other:: resides at [facility] Are you a primary college and career counselor to a significant other at home: No Do you presently have visiting nurse or other home services: Yes ([facility] staff) Alcohol intake: never Patient Tobacco Use Status: Never used Tobacco Advance Directives Date on File: 05/01/23 service: No Meds Allergies Allergy/AdvReac Type Severity Reaction Status Date / Time No Known Allergies Allergy Verified 06/08/23 12:01 Home Medications Medication Instructions Recorded Confirmed Last Taken Type acetaminophen 325 mg capsule 650 mg PO Q6H PRN Fever Or Pain 12/22/22 08/03/23 Unknown History aspirin 81 mg tablet,delayed 81 mg PO BID 12/22/22 08/03/23 Unknown History release bisacodyl 10 mg rectal suppository 10 mg GA DAILY PRN Constipation 12/22/22 08/03/23 Unknown History calcium carbonate 500 mg calcium 500 mg PO Q6H PRN Heartburn 12/22/22 08/03/23 Unknown History (1,250 mg) chewable tablet cyanocobalamin (vitamin B-12) 500 1,000 mcg PO DAILY 12/22/22 08/03/23 Unknown History mcg tablet desmopressin 0.2 mg tablet 0.2 mg PO BID 12/22/22 08/03/23 Unknown History hyoscyamine sulfate 0.125 mg 0.125 mg sublingual BID 12/22/22 08/03/23 Unknown History sublingual tablet pyridoxine (vitamin B6) 200 mg 200 mg PO DAILY 12/22/22 08/03/23 Unknown History tablet,extended release sennosides 8.6 mg tablet (Senna 8.6 mg PO DAILY PRN Constipation 12/22/22 08/03/23 Unknown History Laxative) sodium phosphates 19 gram-7 118 ml GA DAILY PRN Constipation 12/22/22 08/03/23 Unknown History gram/118 mL enema (Fleet Enema) atropine 1 % eye drops 2 drp sublingual BID 02/14/23 08/03/23 Unknown History benzocaine 10 % mucosal gel 1 appl mucous membrane TID PRN Pain 05/01/23 08/03/23 Unknown History (Anbesol (benzocaine)) desmopressin 0.2 mg tablet 0.2 mg PO Q24H PRN EXCESSIVE 05/01/23 08/03/23 Unknown History SECRETIONS Exam Height,Weight and Vital Signs: Height 5 ft 11 in Weight 106.594 kg Vital Signs Temp Pulse Resp BP Pulse Ox O2 Del Method 08/07/23 13:49 97.9 F 68 18 114/63 97 Room Air Airway Mallampati Class: IV TM Dist: >3cm Neck ROM: Full Loose/Missing/Broken Teeth: Yes (No teeth top. Many missing teeth bottom. Some broken teeth. Denies loose teeth) Heart: RRR Lungs: CTAB Assessment and Plan Assessment Anesthesia Assessment: Anesthesia Plan Discussed Final Anesthetic Review NPO: Yes ASA Class: III Final Preanesthetic Review: No Changes in Pt Med Stat, Meds/Allgs Chart Reviewed, Consent Obtained/Reviewed and Anes Risks/Benef Reviewed Patient Risk: Intermediate Procedure Risk: Low Assessment/Block/Sedation in SS: Assess/Block/Sedation-SS Anesthetic Plan Anesthetic Plan: MAC: Disposition: Standard PACU
[2023-08-07] MEDS: Sodium Phosphate,Mono-Dibasic 133 ML ENEMA PR (13:00)
--- NOTE | 2023-08-07 13:13 | MHC.SHP ---
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 Combined forms of age-related cataract, bilateral Constipation, unspecified Deficiency, saccadic eye movements Diabetes insipidus Dysarthria and anarthria Dysphagia, oral phase H) History of Previous Operations: Relevant previous surgery/procedure and date(s) (Bariatric surgery status Other specified postprocedural states Presence of right artificial hip joint Vasectomy status) Allergies: Allergies Allergy/AdvReac Type Severity Reaction Status Date / Time No Known Allergies Allergy Verified 06/08/23 12:01 Review of Systems Sugical H&P ROS: Negative: Constitution, Cardiovascular, Respiratory, Neurological, Psychiatric, Hem-Onc, Allergic/Immunologic, Gastrointestinal, Genitourinary, Musculoskeletal, Integumentary, Endocrine and Eyes/Ears/Nose/Throat Exam Surgical H&P Exam: Normal: HEENT, Normal: Heart, Normal: Lungs, Normal: Extremities, Normal: Abdomen and Normal: Skin and Significant Findings: Neurological (flat affect, tremor ) Plan Diagnosis/Plan: Unchanged I have reviewed the history and physical and performed a pertinent physical examination on my patient. No changes have occurred unless specified. Time Spent With Patient Time: Total time managing care of this patient today ____ minutes.
[2023-08-07 13:49] VITALS: BP 114/63; PULSE 68; RESP 18; TEMP 36.6; O2SAT 97
[2023-08-07] MEDS: Lactated Ringers 1,000 ML 100 ML IVCONT (13:54)
--- NOTE | 2023-08-07 14:55 | P.OP_ITS ---
Operative Note Operative Note Date of Service: 08/07/23 Narrative: Operative Information Procedure Description: Colonoscopy Indication: screening Anesthesia: MAC COLONOSCOPY Instrument: Olympus variable stiffness ADULT scope 190L Colonoscopy Monitoring: Vital signs and clinical assessment, continuous EKG monitoring, Pulse oximetry, Carbon Dioxide monitoring and blood pressure monitoring were done throughout the procedure. Colon withdrawal time was 30 minutes. Procedure: The patient was placed in the left lateral decubitis position and pre-procedure medications were administered. After a digital rectal examination of the ano-rectum, the video colonoscope was inserted into the rectum and advanced through the colon to the distal ascending colon The colonoscope was slowly withdrawn in a retrograde panoramic fashion and the colon mucosa was carefully examined including a retroflexed view of the rectum. Findings and interventions are described below. Procedure Difficulty: v difficult due to redundant colon, moved on back Findings: Terminal Ileum- unable to reach Cecum: unable to reach Ascending Colon: proximal area not reached Transverse Colon -normal Descending Colon:normal Sigmoid Colon: mdoerate diverticulosis Rectum: Retroflexion with small internal hemorrhoids, grade I Anorectum - normal Colon preparation: [place] Bowel Preparation Scale Right colon; 2 Transverse colon: 2 Left colon; 2 (0 = Unprepared colon segment with mucosa not seen due to solid stool that cannot be cleared. 1 = Portion of mucosa of the colon segment seen, but other areas of the colon segment not well seen due to staining, residual stool and/or opaque liquid. 2 = Minor amount of residual staining, small fragments of stool and/or opaque liquid, but mucosa of colon segment seen well. 3 = Entire mucosa of colon segment seen well with no residual staining, small fr agments of stool or opaque liquid) Impression and Post Procedure Diagnosis: incomplete colonoscopy redundant colon diverticulosis Plan: High fiber diet leaflet Avoid straining at stool, epsom salts and sitz bath, anusol supps or cream Left VM with Carey, daughter and HCP --discuss next step, re: repeat colonoscopy with abdominal binder vs Ct colonography Above findings were reviewed with the patient and relevant handouts were provided if indicated.
[2023-08-07 15:02] VITALS: BP 126/76; PULSE 65; RESP 16; TEMP 36.4; O2SAT 99
[2023-08-07 15:17] VITALS: BP 139/83; PULSE 66; RESP 16; TEMP 36.4; O2SAT 97
== END | disposition home or self-care (01) ==
PROVIDERS: PCP Hospitalist; Visit Provider Internal Medicine Gastroenterology
PROC: 0DJD8ZZ Inspection of Lower Intestinal Tract, Via Natural or Artificial Opening Endoscopic (ICD-10-PCS; CPT 45378; principal; 2023-08-07 13:30)
DX: Z12.11 Encounter for screening for malignant neoplasm of colon (principal); K57.30 Diverticulosis of large intestine without perforation or abscess without bleeding; K64.0 First degree hemorrhoids; K59.00 Constipation, unspecified; I10 Essential (primary) hypertension; E11.9 Type 2 diabetes mellitus without complications; G47.33 Obstructive sleep apnea (adult) (pediatric); F17.210 Nicotine dependence, cigarettes, uncomplicated
CPT/HCPCS: G0121

== ENCOUNTER 2023-08-21 11:22 | Outpatient (AMB) | payer MEDICARE, SELFPAY ==
--- NOTE | 2023-08-21 11:23 | MHC.OFFVIS ---
Intake Vital Signs 08/21/23 11:30 Height 5 ft 11 in BP 129/64 Blood Pressure Location Lt brachial Position Sitting Pulse 66 Intake Visit Reasons: S/P [place] screening/ Dr. Carrington Intake Note: Ayo presents in the office as a follow up colonoscopy. CC: He states that he is just here today for a follow up. Allergies No Known Allergies Allergy (Verified 09/05/23 10:33) HPI S/P [place] screening/ Dr. Carrington HPI Details LAST VISIT Screen for colon cancer Patient denies any GI, cardiac or respiratory symptoms.? Denies any issues with anesthesia in the past.? Denies any history of sleep apnea.? No history infectious diseases in the past or present.? Patient is on low-dose aspirin. No family or personal history of colon cancer or polyps.? Patient denies melena, hematochezia, unintentional weight loss or ribbon like stools.? Discussed with facility staff at length the pre-procedure,? prep, diet & medications as well as what to expect prior, during and after the procedure.?? Patient is wheelchair bound for the most part, however he is able to go to the bathroom. Patient also is wearing briefs. Patient will be able to tolerate MiraLax prep per facility staff. Patient is not on fluid restriction diet. Stressed the importance of good bowel prep. ?Recommended the use of Vaseline or Calmoseptine OTC & baby wipes with bowel movements to promote comfort.? ?Patient verbalizes understanding and agrees to plan of care.? He was given the opportunity to ask questions and all questions answered.? We will see him after the procedure.? Plan Medications New bisacodyl (Dulcolax (bisacodyl)) take 2 tabs at noon the day before your colonoscopy 10 mg (2 x 5 mg) PO ONCE 2 tabs 0RF 1 day Z12.11 - Encounter for screening for malignant neoplasm of colon polyethylene glycol 3350 (Miralax) As directed by gastroenterology department at [facility] 238 grams PO ONCE 238 grams 0RF Z12.11 - Encounter for screening for malignant neoplasm of colon COLONOSCOPY: Findings: Terminal Ileum- unable to reach Cecum: unable to reach Ascending Colon: proximal area not reached Transverse Colon -normal Descending Colon:normal Sigmoid Colon: mdoerate diverticulosis Rectum: Retroflexion with small internal hemorrhoids, grade I Anorectum - normal Colon preparation: [place] Bowel Preparation Scale Right colon; 2 Transverse colon: 2 Left colon; 2 (0 = Unprepared colon segment with mucosa not seen due to solid stool that cannot be cleared. 1 = Portion of mucosa of the colon segment seen, but other areas of the colon segment not well seen due to staining, residual stool and/or opaque liquid. 2 = Minor amount of residual staining, small fragments of stool and/or opaque liquid, but mucosa of colon segment seen well. 3 = Entire mucosa of colon segment seen well with no residual staining, small fragments of stool or opaque liquid) Impression and Post Procedure Diagnosis: incomplete colonoscopy redundant colon diverticulosis Plan: High fiber diet leaflet Avoid straining at stool, epsom salts and sitz bath, anusol supps or cream Left VM with Carey, daughter and HCP --discuss next step, re: repeat colonoscopy with abdominal binder vs Ct colonography TODAY'S VISIT Patient is here today for follow-up and to discuss colonoscopy results. As mentioned above in HPI incomplete colonoscopy. Cecum not reached. Otherwise no polyps. Redundant colon and diverticulosis found. Patient staff reports that patient has occasional trouble swallowing. Occasion you choking even when he is drinking fluids. Staff was told that patient was supposed to have nectar thick liquids. Recommendation was made in the past for patient to go for speech therapy, seen speech therapy daily for clearance and recommendation. [place] thick liquids as mentioned above as well as crash and puree other solid food. Patient does not empty his bowels completely occasionally take Senokot. Patient and staff member reports no melena, hematochezia. [facility] Medical History Resides in [facility] facility Personal history of (healed) other pathological fracture Other abnormalities of gait and mobility Unsteadiness on feet Dysphagia, oral phase Constipation, unspecified Sensorineural hearing loss, bilateral Benign paroxysmal vertigo, right ear Deficiency, saccadic eye movements Other forms of nystagmus Insomnia, unspecified Vitamin B deficiency, unspecified Vitamin B12 deficiency anemia, unspecified Alternating exotropia Combined forms of age-related cataract, bilateral Personal history of other malignant neoplasm of skin Other melanin hyperpigmentation Seborrheic dermatitis, unspecified Melanocytic nevi, unspecified Hemangioma of skin and subcutaneous tissue Hypertension Diabetes insipidus Other chronic pain Obstructive sleep apnea (adult) (pediatric) Dysarthria and anarthria Muscle weakness (generalized) 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 Ataxic gait Morbid (severe) obesity due to excess calories Surgical History Hx of colonoscopy Hx of cystoscopy Other specified postprocedural states Bariatric surgery status Vasectomy status Presence of right artificial hip joint Social History Household Members: None Household Members Other:: lives at [facility] Housing: Longterm Housing Other:: resides at [facility] Are you a primary account executive healthcare to a significant other at home: No Do you presently have visiting nurse or other home services: Yes ([facility] staff) Alcohol intake: never Comment: hurt right ribs during fall Patient Tobacco Use Status: Never used Tobacco Advance Directives Date on File: 05/01/23 service: No Review of Systems Const Denies weight gain and Denies weight loss ENT Reports no additional complaints, Reports dysphagia and Denies odynophagia Card Reports no additional complaints Resp Reports no additional complaints GI Denies abdominal pain, Denies belching, Denies melena, Denies bloating, Denies change in bowel habits, Reports constipation, Reports dysphagia, Denies excessive flatus, Denies dyspepsia, Denies heartburn, Denies diarrhea, Denies loose stools, Denies nausea, Denies odynophagia and Denies vomiting Reports no additional complaints Musc Reports no additional complaints Neuro Reports no additional complaints Psych Reports no additional complaints Endo Reports no additional complaints Physical Exam Vital Signs: Last Vital Signs Pulse 66 08/21/23 11:30 BP 129/64 08/21/23 11:30 Const General: cooperative, comfortable, no acute distress, well developed, alert and awake Nutritional Appearance: overweight Orientation/consciousness: oriented to person Limitations: wheelchair HEENT Head: Yes normal to inspection Neck Neck: Yes normal visual inspection and Yes trachea midline Chest Chest palpation & inspection: normal inspection of the chest Resp Effort & Inspection: normal respiratory effort and able to speak in complete sentences Cardio Rate: regular rate GI Inspection: Yes normal to inspection (round ) Palpation (GI): Soft to palpation, nontender and no guarding Auscultation: normal bowel sounds Skin Other: bilateral lower leg edema; TEDs noted to bilateral lower extremities Neuro General: oriented to person Extrem General: Yes normal to inspection Psych Speech and movement: Slowed speech present (Psych), Pressured speech present and Slowed movement present (Neuro) Insight: Fair insight present (Psych) and Limited insight present (Psych) Judgement: Fair judgement present (Psych) and Limited judgement present (Psych) Assessment & Plan Assessment & Plan (1) Redundant colon: Code(s): 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 Will do CT colonography 1st. Patient was encouraged to follow recommendation made by speech therapist back in May with nectar thick liquids and pureed food. Take 2 Senokot every evening. Will check CT colonography to evaluate the entire colon. Incomplete colonoscopy. Cecum not evaluated. However no polyps were found. Patient will return in 6 months, sooner on as needed basis. Thank you for allowing me to participate in his care Orders: Orders FL barium swallow modified 08/21/23 R13.10 - Dysphagia, unspecified CT colonography 08/21/23 Q43.8 - Other specified congenital malformations of intestine Medications: Changed From sennosides 8.6 mg PO DAILY PRN Constipation To sennosides (Senna Laxative) 17.2 mg (2 x 8.6 mg) PO DAILY 180 tabs 2RF Constipation Coding Level of Care Code Est Pt Level 3 (65690) Diagnoses Redundant colon Q43.8 Pharyngoesophageal dysphagia R13.14 Dysphagia type: pharyngoesophageal phase Chronic idiopathic constipation K59.04 Constipation type: chronic idiopathic constipation Time Spent (min) 30 Comment 20 minutes spent with patient and additional 10 minutes spent reviewing his records
[2023-08-21 11:30] VITALS: BP 129/64; PULSE 66
== END 2023-08-21 11:53 | disposition home or self-care (01) ==
PROVIDERS: PCP Hospitalist; Visit Provider Nurse Practitioner Family
DX: Q43.8 Other specified congenital malformations of intestine (principal); R13.14 Dysphagia, pharyngoesophageal phase; K59.04 Chronic idiopathic constipation
CPT/HCPCS: 99213

== ENCOUNTER → 2023-08-21 11:22 | Outpatient (BNVA) | payer MEDICARE, SELFPAY | PROVIDERS: PCP Hospitalist; Visit Provider Nurse Practitioner Family | DX: Q43.8 Other specified congenital malformations of intestine (principal); K59.04 Chronic idiopathic constipation; R13.14 Dysphagia, pharyngoesophageal phase | CPT/HCPCS: 99212 ==

== ENCOUNTER 2023-08-22 08:51 | Outpatient (REF) | payer MEDICARE, SELFPAY ==
--- NOTE | ~2023-08-22 | US_ITS ---
EXAMINATION: US RETROPERITONEAL LIMITED (RENAL ONLY) CLINICAL INFORMATION: Calculus of kidney. COMPARISON: CT abdomen and pelvis 05/11/2023. Ultrasound kidneys and bladder 01/17/2023. TECHNIQUE: Real-time imaging of the kidneys. Suboptimal views secondary to patient inability to suspend respirations status post CVA. FINDINGS: RIGHT KIDNEY: 9.2 x 5.8 x 4.6 cm (SAG x AP x TRV). Heterogeneous hypoechoic abnormal renal parenchymal pattern with loss of normal cortical medullary distinction. There are multiple echogenic foci likely nonobstructing stones the largest measure up to 1.1 cm. There is subcapsular fluid collection roughly 2.1 x 4.5 x 3 cm. LEFT KIDNEY: 9.5 x 5.1 x 7 cm (SAG x AP x TRV). Loss of normal cortical medullary distinction, might be sequela of prior renal injury. Multiple echogenic foci likely nonobstructing stones the largest measure to millimeter. US/US renal BI IMPRESSION: * Loss of normal renal parenchymal distinction and corticomedullary distinction suggesting bilateral diffuse renal disease possible prior renal injury. Please correlate with patient's clinical history. * Multiple bilateral nonobstructing kidney stones. No hydronephrosis. * Small subcapsular fluid collection right kidney 4.5 cm.
== END 2023-08-22 08:52 | disposition home or self-care (01) ==
LOC: HO.US 08:51
PROVIDERS: PCP Hospitalist; Referring Provider Hospitalist; Visit Provider Nurse Practitioner Family
DX: N20.0 Calculus of kidney (principal)
CPT/HCPCS: 76775

== ENCOUNTER 2023-08-29 13:20 | Outpatient (AMB) | payer MEDICARE, SELFPAY ==
--- NOTE | 2023-08-29 13:52 | A.OFFVIS_ITS ---
Intake Vital Signs 08/29/23 13:53 Height 5 ft 11 in BP 122/60 Blood Pressure Location Lt brachial Position Sitting Pulse 96 Pulse Source Pulse Oximeter Pulse Oximetry (%) 100 Oxygen Delivery Method Room Air Intake Visit Reasons: Obstructive sleep apnea Tire Changer Required: No Accompanied by: [employer] Employee Allergies No Known Allergies Allergy (Verified 08/29/23 13:55) Medication List - Last Reconciled 08/29/23 by Giovana Israel LPN acetaminophen 650 mg PO Q6H PRN aspirin 81 mg PO BID atropine 1% 2 drps sublingual BID benzocaine 10% (Anbesol (benzocaine)) 1 appl mucous membrane TID PRN bisacodyl 10 mg IN DAILY PRN calcium carbonate 500 mg PO Q6H PRN cyanocobalamin (vitamin B-12) 1,000 mcg PO DAILY desmopressin 0.2 mg PO Q24H PRN desmopressin 0.2 mg PO BID hyoscyamine sulfate 0.125 mg sublingual BID pyridoxine (vitamin B6) ER 200 mg PO DAILY sennosides (Senna Laxative) 17.2 mg (2 x 8.6 mg) PO DAILY sodium phosphates 19-7 gram/118 mL (Fleet Enema) 118 mL IN DAILY PRN tramadol 50 mg PO Q6H PRN HPI Obstructive sleep apnea HPI Details Ayo is a very pleasant 58 year old male, never smoker, with underlying pulmonary nodules, asthma and SABINE on CPAP therapy. He presents to office in a wheelchair, accompanied by a staff member from [facility], where he resides. He was intially referred by PCP after incidental finding of pulmonary nodules on abdominal CT. He was sent for dedicated chest CT and presents to review results today. He also reports prior history of asthma and mild dyspnea with dry cough. He notes cough occurs most often when eating and is currently being evaluated by GI with a MBSS in the near future. He also brought CPAP machine to review compliance but unfortunately unable to access as he has an older model. [facility] Medical History (Updated 08/29/23 @ 20:50 by Meryl Alonzo NP) Resides in [facility] facility Personal history of (healed) other pathological fracture Other abnormalities of gait and mobility Unsteadiness on feet Dysphagia, oral phase Constipation, unspecified Sensorineural hearing loss, bilateral Benign paroxysmal vertigo, right ear Deficiency, saccadic eye movements Other forms of nystagmus Insomnia, unspecified Vitamin B deficiency, unspecified Vitamin B12 deficiency anemia, unspecified Alternating exotropia Combined forms of age-related cataract, bilateral Personal history of other malignant neoplasm of skin Other melanin hyperpigmentation Seborrheic dermatitis, unspecified Melanocytic nevi, unspecified Hemangioma of skin and subcutaneous tissue Hypertension Diabetes insipidus Other chronic pain Obstructive sleep apnea (adult) (pediatric) Dysarthria and anarthria Muscle weakness (generalized) 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 Ataxic gait Morbid (severe) obesity due to excess calories Surgical History (Updated 08/21/23 @ 11:26 by ERICA Darling) Hx of colonoscopy Hx of cystoscopy Other specified postprocedural states Bariatric surgery status Vasectomy status Presence of right artificial hip joint Social History (Updated 08/29/23 @ 13:56 by Giovana Israel LPN) Household Members: None Household Members Other:: lives at [facility] Housing: Long Term Housing Other:: resides at [facility] Are you a primary health care / medical job titles to a significant other at home: No Do you presently have visiting nurse or other home services: Yes ([facility] staff) Alcohol intake: never Comment: hurt right ribs during fall Patient Tobacco Use Status: Never used Tobacco Advance Directives Date on File: 05/01/23 service: No Review of Systems Const Denies chills, Denies excessive sweating, Denies fever(s), Denies headache(s) and Denies night sweats Eyes Denies dry eyes, Denies irritation and Denies itchy eyes ENT Reports Normal hearing present, Denies headache(s), Denies nasal congestion, Denies nasal discharge, Denies post nasal drip and Denies sore throat Card Denies chest pain, Denies chest pain at rest, Denies chest pain with activity, Denies claudication, Denies leg edema, Denies orthopnea and Denies paroxysmal nocturnal dyspnea Resp Denies chest congestion, Denies excessive phlegm production, Denies pain on inspiration, Denies pain with cough, Denies stridor and Denies wheezing Musc Denies myalgias Neuro Reports Normal hearing present and Denies headache(s) Endo Denies excessive sweating Antonio/Lymph Denies lymphadenopathy Aller/Immun Denies itchy eyes, Denies seasonal rhinorrhea and Denies wheezing Physical Exam Vital Signs: Last Vital Signs Pulse 96 08/29/23 13:53 BP 122/60 08/29/23 13:53 Pulse Ox 100 08/29/23 13:53 Oxygen Delivery Method Room Air 08/29/23 13:53 Const General: cooperative, healthy appearing, comfortable, no acute distress, well developed and alert Nutritional Appearance: obese Orientation/consciousness: patient oriented x3 Limitations: wheelchair HEENT Head: Yes normal to inspection, Yes normocephalic and Yes atraumatic Ears: hearing grossly normal bilaterally and external ears normal Eyes General: appearance normal, both eyes and all related structures Eyelids: Yes eyelids normal Sclerae: sclerae normal EOM: EOMs intact bilaterally Neck Neck: Yes normal visual inspection Chest Chest palpation & inspection: normal inspection of the chest Resp Other: Diminished lung sounds Effort & Inspection: normal respiratory effort, able to speak in complete sentences, no audible wheezes, no cough, no stridor, not tachypneic, no tripod positioning and no use of accessory muscles Cardio Jugular venous distension: no JVD Rate: regular rate Rhythm: regular rhythm Skin Other: warm, dry Neuro General: patient oriented x3 Cranial nerves: Yes Normal hearing present Cognition (Neuro): normal cognition Extrem Other: moderate BLE edema Psych Appearance: grossly normal and well kempt Speech and movement: Normal speech and movement present and Clear speech present Affect: normal affect Attitude: cooperative Thought process: Normal thought process present Thought content: Normal thought content present Insight: Good insight present (Psych) Judgement: Good judgement present (Psych) Results Reviewed Results Reviewed: [place] [id number] CT Scan Report Signed Patient: Ayo Miranda MR#: [id number] : 1965 Acct:[id number] Age/Sex: 58 / M ADM Date: 06/18/23 Loc: HO.CT Attending Dr: Meryl Alonzo NP Ordering Physician: Meryl Alonzo NP Date of Service: 06/18/23 Procedure(s): CT chest wo IV con Accession Number(s): [id number] cc: Med Pacheco DO; Meryl Alonzo NP~ EXAMINATION: CT CHEST WITHOUT CONTRAST CLINICAL INFORMATION: Pulmonary nodules COMPARISON: Previous chest and right rib x-rays May 2023 TECHNIQUE: Multidetector volumetric CT imaging of the chest was done. Axial MIP volume rendering provided. Sagittal and coronal reformatted images were obtained. This CT examination was performed using dose optimization techniques as appropriate, variously including the following: *Automated exposure control *Adjustment of mA and/or kV according to patient size (this includes techniques or standardized protocols for targeted exams where dose is matched to indication/reason for exam; i.e. extremities or head) *Use of iterative reconstruction technique DLP: 169 mGy-cm FINDINGS: LUNGS: Small calcified pulmonary nodules probably representing calcified granulomas, largest measuring 3 mm in the peripheral or subpleural right lower lobe axial image 373 and 4 mm in the right lower lobe axial image 397 series 5. MEDIASTINUM: Upper normal heart size. No pericardial effusion. Mild coronary artery calcification. Normal caliber thoracic aorta. Upper normal-sized pulmonary arteries. No enlarged hilar or mediastinal lymph nodes. CORONARY ARTERY CALCIFICATION: Mild PLEURA: There is no pleural effusion. No pleural mass or thickening. AXILLA: No lymphadenopathy. Bilateral gynecomastia. UPPER ABDOMEN: Surgical changes to the stomach. Fullness of both adrenal glands. Low-attenuation lesion in the anterior segment of the right lobe of the liver near the gallbladder measuring 2 cm probably representing a cyst. Findings are similar to May [address] OSSEOUS STRUCTURES: Sclerotic densities in the right scapula and humeral head. These are nonspecific. This could represent benign bone islands. If There is a concern for sclerotic bony metastatic disease, bone scan would be recommended. Old bilateral anterior rib fractures. Old T12 vertebral body compression fracture. Cortical buckling of the anterior superior sternum questionable for changes related to old trauma as well. Degenerative changes of the spine.. CT/CT chest wo IV con IMPRESSION: Small calcified pulmonary nodules largest measuring 3 mm which probably represent calcified granulomas. No suspicious pulmonary nodule. Sclerotic densities in the right scapula and humeral head. These may represent bone islands. If there is concern for metastatic disease, follow-up bone scan would be recommended. Old T12 vertebral body compression fracture. Fleischner guidelines were followed. Assessment & Plan Assessment & Plan (1) Multiple pulmonary nodules: Code(s): R91.8 - Other nonspecific abnormal finding of lung field (2) Asthma: Code(s): J45.909 - Unspecified asthma, uncomplicated (3) Obstructive sleep apnea: Code(s): G47.33 - Obstructive sleep apnea (adult) (pediatric) Plan Reviewed chest CT which revealed multiple calcified pulmonary nodules largest measuring 3 mm which probably represent calcified granulomas. Will obtain a repeat chest CT in one year and if stable no need for further imaging, unless new symptoms develop. Patient reports compliance with CPAP however can not verify. Written instructions placed to [facility] to send DME information so we can obtain compliance report. On exam patient with diminished lung sounds and reports prior history of asthma. Will trial a nebulizer with albuterol BID. Will follow up in 6 weeks to review response to albuterol and review compliance report. All questions were answered and patient is in agreement of plan. Medications: New albuterol sulfate 2.5 mg (3 mL) inhalation BID PRN 180 mL 3RF shortness of breath or wheezing Coding Level of Care Code Est Pt Level 4 (18680) Diagnoses Multiple pulmonary nodules R91.8 Asthma J45.909 Obstructive sleep apnea G47.33
[2023-08-29 13:53] VITALS: BP 122/60; PULSE 96; O2SAT 100
== END 2023-08-29 14:37 | disposition home or self-care (01) ==
PROVIDERS: PCP Hospitalist; Visit Provider Nurse Practitioner Family
DX: R91.8 Other nonspecific abnormal finding of lung field (principal); J45.909 Unspecified asthma, uncomplicated; G47.33 Obstructive sleep apnea (adult) (pediatric)
CPT/HCPCS: 99214

== ENCOUNTER → 2023-08-29 13:20 | Outpatient (BNVA) | payer MEDICARE, SELFPAY | PROVIDERS: PCP Hospitalist; Visit Provider Nurse Practitioner Family | DX: G47.33 Obstructive sleep apnea (adult) (pediatric) (principal); J45.909 Unspecified asthma, uncomplicated; R91.8 Other nonspecific abnormal finding of lung field | CPT/HCPCS: 99212 ==

== ENCOUNTER 2023-09-05 09:47 | Outpatient (AMB) | payer MEDICARE, MEDICAID, SELFPAY ==
--- NOTE | 2023-09-05 10:09 | MHC.OFFVIS ---
Intake Intake Visit Reasons: 3m/US(set) Intake Note: Patient is Present for Follow Up US/PVR Urology Medication: Currently no urology medication Antibiotic Allergies: None Blood Thinners: Aspirin PVR: 267ml Compliants: Patient was unable to provide a urine specimen. Patient attempted to urinated in urinal but was not successful. Allergies No Known Allergies Allergy (Verified 09/05/23 10:33) Medication List - Last Reconciled 09/05/23 by AILYN Isaac acetaminophen 650 mg PO Q6H PRN albuterol sulfate 2.5 mg (3 mL) inhalation BID PRN aspirin 81 mg PO BID atropine 1% 2 drps sublingual BID benzocaine 10% (Anbesol (benzocaine)) 1 appl mucous membrane TID PRN bisacodyl 10 mg DE DAILY PRN calcium carbonate 500 mg PO Q6H PRN cyanocobalamin (vitamin B-12) 1,000 mcg PO DAILY desmopressin 0.2 mg PO Q24H PRN desmopressin 0.2 mg PO BID hyoscyamine sulfate 0.125 mg sublingual BID pyridoxine (vitamin B6) ER 200 mg PO DAILY sennosides (Senna Laxative) 17.2 mg (2 x 8.6 mg) PO DAILY sodium phosphates 19-7 gram/118 mL (Fleet Enema) 118 mL DE DAILY PRN tamsulosin (Flomax) 0.4 mg PO BEDTIME 30 days HPI HPI Comments History of Present Illness Details Ayo is a pleasant 58 year old male patient of Dr. Pacheco who is accompanied by one of the staff members from the facility in which he resides ([facility]). He has a past medical history of a toxic gait, vertigo, cerebellar ataxia, constipation, diabetes insipidus, hypertension, insomnia, obesity, muscle weakness, obstructive sleep apnea, chronic pain, nystagmus, hearing loss, vitamin-B deficiency. Of note, patient is s/p cystoscopy bilateral retrograde, dilatation of uteric orifice under fluroscopy, dilatation of proximal ureteric narrowing, ureteroscopy, laser lithotripsy and stent placement with Dr. Lane. The left side was done in March and the right side was done in May. He was last here approximately 3 months ago at which time he under went in office cystoscopy for right sided ureteral stent removal and a renal ultrasound was ordered for further assessment evaluation. These results were reviewed with the patient today. There are multiple echogenic foci likely nonobstructing stones on the right side the largest measuring up to 1.1 cm. There is a subcapsular fluid collection roughly 2.1 x 4.5 x 3 cm. Left side with multiple echogenic foci likely nonobstructing stones the largest measures [id number]. When asked patient reports to be doing and feeling well. He denies any bothersome urinary issues at this time. Unable to obtain urine for urinalysis however PVR 267 mL. Patient with baseline urinary incontinence and utilizes adult diapers. PSA 02/20--0.3. He reports always having had urinary frequency and urgency as he suffers from a diabetes insipidus but also utilizes urinal when possible. He otherwise denies hematuria, dysuria, foul smelling urine, flank pain, fever, and or chills. Discussed at length surveillance monitoring versus further surgical intervention. Discussed obtaining CT KUB for further assessment evaluation. Discussed importance of drinking plenty of water daily however patient reports he loves to drink coffee all day long. Patient otherwise denies any other issues or concerns at this time. [facility] Medical History Resides in [facility] facility Personal history of (healed) other pathological fracture Other abnormalities of gait and mobility Unsteadiness on feet Dysphagia, oral phase Constipation, unspecified Sensorineural hearing loss, bilateral Benign paroxysmal vertigo, right ear Deficiency, saccadic eye movements Other forms of nystagmus Insomnia, unspecified Vitamin B deficiency, unspecified Vitamin B12 deficiency anemia, unspecified Alternating exotropia Combined forms of age-related cataract, bilateral Personal history of other malignant neoplasm of skin Other melanin hyperpigmentation Seborrheic dermatitis, unspecified Melanocytic nevi, unspecified Hemangioma of skin and subcutaneous tissue Hypertension Diabetes insipidus Other chronic pain Obstructive sleep apnea (adult) (pediatric) Dysarthria and anarthria Muscle weakness (generalized) 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 Ataxic gait Morbid (severe) obesity due to excess calories Surgical History Hx of colonoscopy Hx of cystoscopy Other specified postprocedural states Bariatric surgery status Vasectomy status Presence of right artificial hip joint Social History Household Members: None Household Members Other:: lives at [facility] Housing: Senior Living Housing Other:: resides at [facility] Are you a primary daycare worker to a significant other at home: No Do you presently have visiting nurse or other home services: Yes ([facility] staff) Alcohol intake: never Comment: hurt right ribs during fall Patient Tobacco Use Status: Never used Tobacco Advance Directives Date on File: 05/01/23 service: No Review of Systems Const Reports as per [facility] Eyes Reports as per [facility] ENT Reports no additional complaints Card Reports as per [facility] Resp Reports as per [facility] GI Reports no additional complaints Reports as per [facility] Musc Reports as per [facility] Neuro Reports as per [facility] Psych Reports as per [facility] Endo Reports as per [facility] Physical Exam Const General: cooperative, comfortable, no acute distress, well developed, alert and awake Nutritional Appearance: overweight Orientation/consciousness: oriented to person Limitations: wheelchair HEENT Head: Yes normal to inspection Neck Neck: Yes normal visual inspection and Yes trachea midline Chest Chest palpation & inspection: normal inspection of the chest Resp Effort & Inspection: normal respiratory effort and able to speak in complete sentences Cardio Rate: regular rate GI Inspection: Yes normal to inspection (round ) Skin Other: bilateral lower leg edema; TEDs noted to bilateral lower extremities Neuro General: oriented to person Extrem General: Yes normal to inspection Psych Speech and movement: Slowed speech present (Psych), Pressured speech present and Slowed movement present (Neuro) Insight: Fair insight present (Psych) and Limited insight present (Psych) Judgement: Fair judgement present (Psych) and Limited judgement present (Psych) Office Procedures Post Void Residual Post Residual Void Post Void Residual (PVR): 267 [id number] Void Residual by ultrasound Results Reviewed Results Reviewed: Date of Service: 08/22/23 EXAMINATION: US RETROPERITONEAL LIMITED (RENAL ONLY) FINDINGS: RIGHT KIDNEY: 9.2 x 5.8 x 4.6 cm (SAG x AP x TRV). Heterogeneous hypoechoic abnormal renal parenchymal pattern with loss of normal cortical medullary distinction. There are multiple echogenic foci likely nonobstructing stones the largest measure up to 1.1 cm. There is subcapsular fluid collection roughly 2.1 x 4.5 x 3 cm. LEFT KIDNEY: 9.5 x 5.1 x 7 cm (SAG x AP x TRV). Loss of normal cortical medullary distinction, might be sequela of prior renal injury. Multiple echogenic foci likely nonobstructing stones the largest measure to millimeter. US/US renal BI IMPRESSION: * Loss of normal renal parenchymal distinction and corticomedullary distinction suggesting bilateral diffuse renal disease possible prior renal injury. Please correlate with patient's clinical history. * Multiple bilateral nonobstructing kidney stones. No hydronephrosis. * Small subcapsular fluid collection right kidney 4.5 cm. Assessment & Plan Assessment & Plan (1) Staghorn kidney stones: Code(s): N20.0 - Calculus of kidney (2) Incomplete bladder emptying: Code(s): R33.9 - Retention of urine, unspecified (3) Urinary incontinence: Code(s): R32 - Unspecified urinary incontinence Plan Unable to obtain urine for urinalysis as patient unable to void PVR 267 Recent renal ultrasound results reviewed with the patient today; as noted above. Discussed obtaining CT KUB for further assessment evaluation. Start Flomax as discussed and prescribed. Discussed at length importance of drinking plenty of water daily and avoiding coffee consumption all day long Discussed at length potential causes for nephrolithiasis. Continue with scheduled toileting Discussed at length incomplete bladder emptying as well as surveillance monitoring versus surgical intervention of nephrolithiasis Follow-up in 1 month with imaging to be completed prior; or sooner with any issues, concerns, and or questions. Orders: Orders AMB Post Void Residual by ultrasound Today R35.0 - Frequency of micturition CT kidney stone Today N20.0 - Calculus of kidney AMB Urinalysis Automated Today Z13.9 - Encounter for screening, unspecified Medications: New tamsulosin (Flomax) 0.4 mg PO BEDTIME 30 days 30 caps 1RF N40.0 - Benign prostatic hyperplasia without lower urinary tract symptoms Discontinued tramadol Discontinued Reason: Patient Completed Course 50 mg PO Q6H PRN 8 tabs 0RF pain (scale score 1-3) Patient Instructions: The patient had an opportunity to ask questions regarding the treatment plan. All questions were answered. Physical exam, labs, and imaging were discussed and reviewed in detail. As well as risks, benefits, and discussion of treatment choices. No major barriers to understanding were identified. The patient expressed understanding and agreement with the above treatment plan. The patient was made aware they should contact our office by phone for worsening of their current condition, the appearance of new symptoms, or with any questions or concerns. Compliance is encouraged with any medications and follow up testing that is ordered. It is a privilege to be allowed the opportunity to participate in? your urological care.? Again, if you have any questions or concerns If you have any questions or concerns please do not hesitate to contact me. The office is [phone]. This note is constructed using voice recognition software. While every effort has been made to ensure accuracy flotation tender errors may have been included. Yours sincerely, AILYN Isaac Coding Level of Care Code Est Pt Level 4 (82950) Diagnoses Staghorn kidney stones N20.0 Incomplete bladder emptying R33.9 Urinary incontinence R32 CPT Codes Post Residual Void - PVR CPT Code: 62456-Sbnz Void Residual by ultrasound ([id number])
== END 2023-09-05 12:20 | disposition home or self-care (01) ==
PROVIDERS: PCP Hospitalist; Visit Provider Nurse Practitioner Family
DX: N20.0 Calculus of kidney (principal); R33.9 Retention of urine, unspecified; R32 Unspecified urinary incontinence
CPT/HCPCS: 99214

== ENCOUNTER → 2023-09-05 09:47 | Outpatient (BNVA) | payer MEDICARE, MEDICAID, SELFPAY | PROVIDERS: PCP Hospitalist; Visit Provider Nurse Practitioner Family | DX: N20.0 Calculus of kidney (principal); R33.9 Retention of urine, unspecified; R32 Unspecified urinary incontinence | CPT/HCPCS: 51798; 99212 ==

== ENCOUNTER 2023-10-10 09:23 | Outpatient (AMB) | payer MEDICARE, SELFPAY ==
--- NOTE | 2023-10-10 09:29 | MHC.OFFVIS ---
Intake Vital Signs 10/10/23 09:30 BP 130/70 Blood Pressure Location Rt brachial Position Sitting Pulse 74 Pulse Source Pulse Oximeter Pulse Oximetry (%) 100 Oxygen Delivery Method Room Air Intake Visit Reasons: sabine : 6 week f/u Call Center Support Representative Required: No Pipe Stripper: Pipe Stripper offered & declined Accompanied by: Healthcare worker Allergies No Known Allergies Allergy (Verified 10/10/23 09:32) Medication List - Last Reconciled 10/10/23 by Giovana Israel LPN acetaminophen 650 mg PO Q6H PRN albuterol sulfate 2.5 mg (3 mL) inhalation BID PRN aspirin 81 mg PO BID atropine 1% 2 drps sublingual BID benzocaine 10% (Anbesol (benzocaine)) 1 appl mucous membrane TID PRN bisacodyl 10 mg [place] DAILY PRN calcium carbonate 500 mg PO Q6H PRN cyanocobalamin (vitamin B-12) 1,000 mcg PO DAILY desmopressin 0.2 mg PO Q24H PRN desmopressin 0.2 mg PO BID hyoscyamine sulfate 0.125 mg sublingual BID pyridoxine (vitamin B6) ER 200 mg PO DAILY sennosides (Senna Laxative) 17.2 mg (2 x 8.6 mg) PO DAILY sodium phosphates 19-7 gram/118 mL (Fleet Enema) 118 mL [place] DAILY PRN tamsulosin (Flomax) 0.4 mg PO BEDTIME 30 days HPI sabine : 6 week f/u HPI Details Ayo is a very pleasant 58 year old male, never smoker, with underlying pulmonary nodules, asthma and SABINE on CPAP therapy. He presents to office in a wheelchair, accompanied by a staff member from [facility], where he resides. He was intially referred by PCP after incidental finding of pulmonary nodules on abdominal CT. He continues to report mild dyspnea with dry cough. He again notes cough occurs most often when eating and is currently being evaluated by GI with a MBSS in the near future. Reviewed chart and no MBSS has been scheduled yet, order was placed August. Today he presents to review CPAP therapy. FORMERLY [facility] Medical History Resides in residential facility Personal history of (healed) other pathological fracture Other abnormalities of gait and mobility Unsteadiness on feet Dysphagia, oral phase Constipation, unspecified Sensorineural hearing loss, bilateral Benign paroxysmal vertigo, right ear Deficiency, saccadic eye movements Other forms of nystagmus Insomnia, unspecified Vitamin B deficiency, unspecified Vitamin B12 deficiency anemia, unspecified Alternating exotropia Combined forms of age-related cataract, bilateral Personal history of other malignant neoplasm of skin Other melanin hyperpigmentation Seborrheic dermatitis, unspecified Melanocytic nevi, unspecified Hemangioma of skin and subcutaneous tissue Hypertension Diabetes insipidus Other chronic pain Obstructive sleep apnea (adult) (pediatric) Dysarthria and anarthria Muscle weakness (generalized) 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 Ataxic gait Morbid (severe) obesity due to excess calories Surgical History Hx of colonoscopy Hx of cystoscopy Other specified postprocedural states Bariatric surgery status Vasectomy status Presence of right artificial hip joint Social History (Updated 10/10/23 @ 09:32 by Giovana Israel LPN) Household Members: None Household Members Other:: lives at [facility] Housing: Skilled Nursing Housing Other:: resides at [facility] Are you a primary child day care provider to a significant other at home: No Do you presently have visiting nurse or other home services: Yes ([facility] staff) Alcohol intake: never Comment: hurt right ribs during fall Patient Tobacco Use Status: Never used Tobacco Advance Directives Date on File: 05/01/23 service: No Review of Systems Const Denies chills, Denies excessive sweating, Denies fever(s), Denies headache(s) and Denies night sweats Eyes Denies dry eyes, Denies irritation and Denies itchy eyes ENT Reports Normal hearing present, Denies headache(s), Denies nasal congestion, Denies nasal discharge, Denies post nasal drip and Denies sore throat Card Denies chest pain, Denies chest pain at rest, Denies chest pain with activity, Denies claudication, Denies leg edema, Denies orthopnea and Denies paroxysmal nocturnal dyspnea Resp Denies chest congestion, Denies excessive phlegm production, Denies pain on inspiration, Denies pain with cough, Denies stridor and Denies wheezing Musc Denies myalgias Neuro Reports Normal hearing present and Denies headache(s) Endo Denies excessive sweating Antonio/Lymph Denies lymphadenopathy Aller/Immun Denies itchy eyes, Denies seasonal rhinorrhea and Denies wheezing Physical Exam Vital Signs: Last Vital Signs Pulse 74 10/10/23 09:30 BP 130/70 10/10/23 09:30 Pulse Ox 100 10/10/23 09:30 Oxygen Delivery Method Room Air 10/10/23 09:30 Const General: cooperative, healthy appearing, comfortable, no acute distress, well developed and alert Nutritional Appearance: obese Orientation/consciousness: patient oriented x3 Limitations: wheelchair HEENT Head: Yes normal to inspection, Yes normocephalic and Yes atraumatic Ears: hearing grossly normal bilaterally and external ears normal Eyes General: appearance normal, both eyes and all related structures Eyelids: Yes eyelids normal Sclerae: sclerae normal EOM: EOMs intact bilaterally Neck Neck: Yes normal visual inspection Chest Chest palpation & inspection: normal inspection of the chest Resp Other: Diminished lung sounds Effort & Inspection: normal respiratory effort, able to speak in complete sentences, no audible wheezes, no cough, no stridor, not tachypneic, no tripod positioning and no use of accessory muscles Cardio Jugular venous distension: no JVD Rate: regular rate Rhythm: regular rhythm Skin Other: warm, dry Neuro General: patient oriented x3 Cranial nerves: Yes Normal hearing present Cognition (Neuro): normal cognition Extrem Other: moderate BLE edema Psych Appearance: grossly normal and well kempt Speech and movement: Normal speech and movement present and Clear speech present Affect: normal affect Attitude: cooperative Thought process: Normal thought process present Thought content: Normal thought content present Insight: Good insight present (Psych) Judgement: Good judgement present (Psych) Assessment & Plan Assessment & Plan (1) Multiple pulmonary nodules: Code(s): R91.8 - Other nonspecific abnormal finding of lung field (2) Asthma: Code(s): J45.909 - Unspecified asthma, uncomplicated (3) Obstructive sleep apnea: Code(s): G47.33 - Obstructive sleep apnea (adult) (pediatric) Plan Patient reports compliance with CPAP however can not verify. Staff has reached out to [facility] to obtain CPAP therapy information and have not heard back yet, so unable to obtain compliance. Written instructions were placed to [facility] again to send DME information. Patient states he has been using nebulizer BID with moderate effect, advised to continue. In regards to cough with eating, he is awaiting MBSS, until resulted advised to continue recommended dysphagia diet. Will follow up after obtaining compliance report and MBSS. All questions were answered and patient is in agreement of plan. Coding Level of Care Code Est Pt Level 3 (08164) Diagnoses Multiple pulmonary nodules R91.8 Asthma J45.909 Obstructive sleep apnea G47.33
[2023-10-10 09:30] VITALS: BP 130/70; PULSE 74; O2SAT 100
== END 2023-10-10 09:55 | disposition home or self-care (01) ==
PROVIDERS: PCP Hospitalist; Visit Provider Nurse Practitioner Family
DX: R91.8 Other nonspecific abnormal finding of lung field (principal); J45.909 Unspecified asthma, uncomplicated; G47.33 Obstructive sleep apnea (adult) (pediatric)
CPT/HCPCS: 99213

== ENCOUNTER → 2023-10-10 09:23 | Outpatient (BNVA) | payer MEDICARE, SELFPAY | PROVIDERS: PCP Hospitalist; Visit Provider Nurse Practitioner Family | DX: G47.33 Obstructive sleep apnea (adult) (pediatric) (principal); R91.8 Other nonspecific abnormal finding of lung field; J45.909 Unspecified asthma, uncomplicated | CPT/HCPCS: 99212 ==

== ENCOUNTER 2023-11-22 09:01 | Outpatient (REF) | payer MEDICARE, SELFPAY ==
--- NOTE | ~2023-11-22 | CT_ITS ---
EXAMINATION: CT COLONOGRAPHY CLINICAL INFORMATION: Congenital malformation of intestines. Kidney stones. COMPARISON: None available. TECHNIQUE: Bowel preparation: Adequate. Colonic distention: CO2 mechanical insufflator used via enema tube with excellent distention. Acquisition: Low dose imaging targeted to colonic was performed in the supine and prone positions. Procedure: The procedure was well tolerated. Review: The acquired images were reviewed in axial, coronal and sagittal planes. Additional 3-D fly through images were reviewed at an independent workstation. This CT examination was performed using dose optimization techniques as appropriate, variously including the following: *Automated exposure control *Adjustment of mA and/or kV according to patient size (this includes techniques or standardized protocols for targeted exams where dose is matched to indication/reason for exam; i.e. extremities or head) *Use of iterative reconstruction technique DLP: 1054 mGy-cm FINDINGS: Colonic findings: Moderate volume of fluid remains within the colon. Although this is mobile between the supine and prone images, there are some regions where the bowel remains underdistended unfortunately. The colon is redundant and tortuous. On the prone images, the majority of the colon is in the left abdomen with normal-appearing appendix seen in the left lower quadrant. On the supine images the cecum is in the right midabdomen suggesting that this is a very redundant cecum rather than malrotated especially when compared to prior studies. I do not appreciate any obstructing lesions within the colon. No significant colonic mass or colonic polyp. No obvious colonic wall thickening or pericolonic inflammatory change. Non-colonic findings: Ill-defined nodular and branching airspace disease in the visualized lung bases. These changes are new from the 06/18/2023 study and an endobronchial infectious/inflammatory process would be suspected. Tiny calcified granuloma in the lateral aspect of the left lower lobe. Patient is status post Gerardo-en-Y gastric bypass surgery. Expected postoperative changes in the small bowel. Chronic markedly abnormal appearance to both kidneys are again seen. There is loss of the normal renal cortical medullary architecture with bilateral intrarenal calculi. Additionally there is very ill-defined fuzzy , pericapsular material present bilaterally in addition there is a plug the ill-defined appearance to bilateral adrenal glands. Interestingly this has appeared abnormal on several prior CT scans as well. Chronic appearing compression deformity of the T12 vertebral body is noted, similar to prior studies. Partially visualized orthopedic hardware in the right hip. CT/CT colonography IMPRESSION: 1. Redundant tortuous colon with the cecum in the right midabdomen. Although this is mobile between the supine and prone images, the majority of the colon is in the left abdomen with normal-appearing appendix seen in the left lower quadrant. On the supine images the cecum is in the right midabdomen suggesting that this is a very redundant cecum rather than malrotated especially when compared to prior studies. I do not appreciate any significant colonic mass or colonic polyp. 2. Chronic appearing and postoperative changes otherwise as described above. This critical result was discussed with Farheen Geiger APRN at 11/26/2023 2:14 PM and it was ascertained that the content and urgency of the report was understood at the time of direct communication.
== END 2023-11-22 09:02 | disposition home or self-care (01) ==
LOC: HO.CT 09:01
PROVIDERS: PCP Hospitalist; Visit Provider Nurse Practitioner Family
DX: Q43.8 Other specified congenital malformations of intestine (principal); N20.0 Calculus of kidney
CPT/HCPCS: 74261

== ENCOUNTER 2023-11-29 10:00 | Outpatient (AMB) | payer MEDICARE, SELFPAY ==
--- NOTE | 2023-11-29 10:34 | MHC.OFFVIS ---
Intake Intake Visit Reasons: follow up/CT(set) Intake Note: Patient presents today for follow up kidney stone, retention, and ct scan results Imagin11/22/23 Urology Medication: Tamsulosin Blood Thinners: Aspirin PVR: 0ml's Continuous Yarn Dyeing Machine Operator Required: No Accompanied by: PROFILER OPERATOR Allergies No Known Allergies Allergy (Verified 11/30/23 10:30) Medication List - Last Reconciled 11/30/23 by AILYN Isaac acetaminophen 650 mg PO Q6H PRN albuterol sulfate 2.5 mg (3 mL) inhalation BID PRN aspirin 81 mg PO BID atropine 1% 2 drps sublingual BID benzocaine 10% (Anbesol (benzocaine)) 1 appl mucous membrane TID PRN bisacodyl 10 mg [place] DAILY PRN bisacodyl (Dulcolax (bisacodyl)) 20 mg (4 x 5 mg) PO ONCE 1 day calcium carbonate 500 mg PO Q6H PRN cyanocobalamin (vitamin B-12) 1,000 mcg PO DAILY desmopressin 0.2 mg PO Q24H PRN desmopressin 0.2 mg PO BID hyoscyamine sulfate 0.125 mg sublingual BID polyethylene glycol 3350 (Miralax) 238 grams PO ONCE pyridoxine (vitamin B6) ER 200 mg PO DAILY sennosides (Senna Laxative) 17.2 mg (2 x 8.6 mg) PO DAILY sodium phosphates 19-7 gram/118 mL (Fleet Enema) 118 mL [place] DAILY PRN tamsulosin (Flomax) 0.4 mg PO BEDTIME 30 days HPI HPI Comments History of Present Illness Details Ayo is a pleasant 58 year old male patient of Dr. Pacheco who is accompanied by one of the staff members from the facility in which he resides ([facility]). He has a past medical history of a toxic gait, vertigo, cerebellar ataxia, constipation, diabetes insipidus, hypertension, insomnia, obesity, muscle weakness, obstructive sleep apnea, chronic pain, nystagmus, hearing loss, vitamin-B deficiency. He presents to the office today for follow-up of his nephrolithiasis. Of note, patient is s/p cystoscopy bilateral retrograde, dilatation of uteric orifice under fluroscopy, dilatation of proximal ureteric narrowing, ureteroscopy, laser lithotripsy and stent placement with Dr. Lane. The left side was done in March and the right side was done in May. He was last here approximately 3 months ago at which time recommendations were made for CT KUB to be performed for further assessment evaluation however it appears virtual CT colonoscopy was performed by GI and patient continues with bilateral nephrolithiasis. However when comparing to previous imaging it does appear right-sided nephrolithiasis has improved. He continues with left-sided stag horn calculi. Imaging reviewed with patient as well as Dr. Lane. Discussed at length further treatment options of nephrolithiasis with surveillance monitoring verses ureteroscopy. He continues with increased consumption of coffee daily. Discussed and stressed the importance of drinking water in relation to nephrolithiasis. He otherwise denies any bothersome urinary issues or concerns. He denies hematuria, dysuria, foul smelling urine, flank pain, fever, and or chills. Unable to obtain urine for urinalysis however PVR 0 mL. Patient otherwise denies any other issues or concerns at this time. FORMERLY [facility] Medical History Resides in nursing home facility Personal history of (healed) other pathological fracture Other abnormalities of gait and mobility Unsteadiness on feet Dysphagia, oral phase Constipation, unspecified Sensorineural hearing loss, bilateral Benign paroxysmal vertigo, right ear Deficiency, saccadic eye movements Other forms of nystagmus Insomnia, unspecified Vitamin B deficiency, unspecified Vitamin B12 deficiency anemia, unspecified Alternating exotropia Combined forms of age-related cataract, bilateral Personal history of other malignant neoplasm of skin Other melanin hyperpigmentation Seborrheic dermatitis, unspecified Melanocytic nevi, unspecified Hemangioma of skin and subcutaneous tissue Hypertension Diabetes insipidus Other chronic pain Obstructive sleep apnea (adult) (pediatric) Dysarthria and anarthria Muscle weakness (generalized) 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 Ataxic gait Morbid (severe) obesity due to excess calories Surgical History Hx of colonoscopy Hx of cystoscopy Other specified postprocedural states Bariatric surgery status Vasectomy status Presence of right artificial hip joint Social History Household Members: None Household Members Other:: lives at [facility] Housing: Alf Housing Other:: resides at [facility] Are you a primary care director to a significant other at home: No Do you presently have visiting nurse or other home services: Yes ([facility] staff) Alcohol intake: never Comment: hurt right ribs during fall Patient Tobacco Use Status: Never used Tobacco Advance Directives Date on File: 05/01/23 service: No Review of Systems Const Reports as per [facility] Eyes Reports as per [facility] ENT Reports no additional complaints Card Reports as per [facility] Resp Reports as per [facility] GI Reports no additional complaints Reports as per [facility] Musc Reports as per [facility] Neuro Reports as per [facility] Psych Reports as per [facility] Endo Reports as per HPI Physical Exam Const General: cooperative, comfortable, no acute distress, well developed, alert and awake Nutritional Appearance: overweight Orientation/consciousness: oriented to person Limitations: wheelchair HEENT Head: Yes normal to inspection Neck Neck: Yes normal visual inspection and Yes trachea midline Chest Chest palpation & inspection: normal inspection of the chest Resp Effort & Inspection: normal respiratory effort and able to speak in complete sentences Cardio Rate: regular rate GI Inspection: Yes normal to inspection (round ) Skin Other: bilateral lower leg edema; TEDs noted to bilateral lower extremities Neuro General: oriented to person Extrem General: Yes normal to inspection Psych Appearance: well kempt Speech and movement: Slowed speech present (Psych), Pressured speech present and Slowed movement present (Neuro) Attitude: cooperative Insight: Fair insight present (Psych) and Limited insight present (Psych) Judgement: Fair judgement present (Psych) and Limited judgement present (Psych) Assessment & Plan Assessment & Plan (1) Staghorn kidney stones: Code(s): N20.0 - Calculus of kidney (2) Urinary incontinence: Code(s): R32 - Unspecified urinary incontinence Plan: Ureteroscopy We discussed the nature of the decision and reasonable alternatives for performing ureteroscopy. Options such as medical therapy were discussed. Interventions include chemical dissolution, ESWL, ureteroscopy with laser lithotripsy and stent placement, PCNL. The relative uncertainties and benefits related to each alternate procedure were adequately discussed. General surgical risks including, but not limited to - pain, bleeding, infection, myocardial infarction, pulmonary embolus, deep vein thrombosis and cerebrovascular accident which may result in further hospitalization were discussed.? Full disclosure of the procedure as well as all major risks, benefits and complications were discussed including but not limited to damage to the urethra, bladder and kidney infection, damage to the ureter, stent migration or malposition, scarring to the renal pelvis, remnant stone fragments, subsequent stone passage with need for secondary procedures. The overall secondary procedure rate is approximately 10-15%.? The overall clearance rate is approximately 90-95%. Success of the procedure in the short-term does not necessarily guarantee that long-term success will be maintained. Suitable follow up will need to be maintained. The patient showed understanding of discussion and wishes to proceed with - cystoscopy, retrograde, ureteroscopy, possible lithotripsy/stone basketing and stent on the left side Plan Unable to obtain urine for urinalysis however PVR 0 mL. Discussed at length stone burden on most recent CT Imaging reviewed with Dr. Lane Discussed at length further treatment options with surveillance monitoring versus ureteroscopy; discussed risks and benefits of these treatment options at length. Discussed, stress, and educated on the importance of drinking water daily. Discussed and educated on affects of increased coffee with relation to nephrolithiasis. Patient with baseline incontinence due to decreased mobility and diabetes insipidus; continue with timed/scheduled voiding to assist with decreasing episodes of incontinence. Will schedule for left-sided ureteroscopy as discussed. Follow-up status post left-sided ureteroscopy per Dr. Lane's order; or sooner with any issues, concerns, and or questions. Orders: Orders AMB Post Void Residual by ultrasound 11/29/23 R33.9 - Retention of urine, unspecified Patient Instructions: The patient had an opportunity to ask questions regarding the treatment plan. All questions were answered. Physical exam, labs, and imaging were discussed and reviewed in detail. As well as risks, benefits, and discussion of treatment choices. No major barriers to understanding were identified. The patient expressed understanding and agreement with the above treatment plan. The patient was made aware they should contact our office by phone for worsening of their current condition, the appearance of new symptoms, or with any questions or concerns. Compliance is encouraged with any medications and follow up testing that is ordered. It is a privilege to be allowed the opportunity to participate in? your urological care.? Again, if you have any questions or concerns If you have any questions or concerns please do not hesitate to contact me. The office is [phone]. This note is constructed using voice recognition software. While every effort has been made to ensure accuracy mailing jogger errors may have been included. Yours sincerely, AILYN Isaac Coding Level of Care Code Est Pt Level 4 (63164) Diagnoses Staghorn kidney stones N20.0 Urinary incontinence R32
== END 2023-11-29 11:59 | disposition home or self-care (01) ==
LOC: HO.HUSH 10:01
PROVIDERS: PCP Hospitalist; Visit Provider Nurse Practitioner Family
DX: N20.0 Calculus of kidney (principal); R32 Unspecified urinary incontinence
CPT/HCPCS: 99214

== ENCOUNTER → 2023-11-29 10:00 | Outpatient (BNVA) | payer MEDICARE, SELFPAY | PROVIDERS: PCP Hospitalist; Visit Provider Nurse Practitioner Family | DX: N20.0 Calculus of kidney (principal); R32 Unspecified urinary incontinence | CPT/HCPCS: 99212 ==

== ENCOUNTER 2023-12-28 10:14 | Outpatient (REF) | payer MEDICARE, SELFPAY ==
--- NOTE | ~2023-12-28 | FL_ITS ---
EXAMINATION: Modified Barium Swallow CLINICAL INFORMATION: Dysphagia COMPARISON: None TECHNIQUE: Modified barium swallow was performed under lateral fluoroscopy with patient in standing position. Different consistency of barium was administered by the speech therapist. FINDINGS: Aspiration was observed with nectar thick and thin consistency barium. FLUOROSCOPY TIME: 6 minutes 4 seconds Number of Spot Images: 1 DOSE AREA PRODUCT: 5605 uGy-m2 (microgray-meter squared) FL/FL barium swallow modified IMPRESSION: Aspiration was observed with nectar thick and thin consistency barium. Refer to the speech therapy report for further clarification This procedure was performed by Ariel Hernandez PA-C, and supervised by Dr. Jimenez
--- NOTE | 2024-01-01 13:39 | MHC.SL.IMP ---
Date of Plan of Treatment: 12/28/23 Onset of Symptoms/Illness: 05/13/23 Date Treatment Started: 12/28/23 Admitting Diagnosis: Dysphagia Primary Speech & Language Diagnosis: R13.12 Oropharyngeal Phase Dysphagia Reason for Today's Visit: 11376 Modified Barium Swallow Study Pre-evaluation Dietary Consistencies: Pureed (NDD1) Pre-evaluation Liquid Consistency: [place] Thick Pre-evaluation Medication Administration: Crushed with Puree Medical History: Modified Barium Swallow Study Fluoroscopic Evaluation of Swallowing Function CPT Code 61398 Evaluation Year: 2023 Reason for Study: Difficulty swallowing Referring Physician: Farheen Geiger [facility] Evaluating Clinician: Dawn Knott MA, CCC-LAND [facility] Study Number: 1 Patient Name: Ayo Miranda Status: Outpatient, Wheelchair Age: 58 Gender: Male Medical History Medical History [facility] in [facility] facility Personal history of (healed) other pathological fracture Other abnormalities of gait and mobility Unsteadiness on feet Dysphagia, oral phase Constipation, unspecified Sensorineural hearing loss, bilateral Benign paroxysmal vertigo, right ear Deficiency, saccadic eye movements Other forms of nystagmus Insomnia, unspecified Vitamin B deficiency, unspecified Vitamin B12 deficiency anemia, unspecified Alternating exotropia Combined forms of age-related cataract, bilateral Personal history of other malignant neoplasm of skin Other melanin hyperpigmentation Seborrheic dermatitis, unspecified Melanocytic nevi, unspecified Hemangioma of skin and subcutaneous tissue Hypertension Diabetes insipidus Other chronic pain Obstructive sleep apnea (adult) (pediatric) Dysarthria and anarthria Muscle weakness (generalized) 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 Ataxic gait Morbid (severe) obesity due to excess calories Surgical History Hx of colonoscopy Hx of cystoscopy Other specified postprocedural states Bariatric surgery status Vasectomy status Presence of right artificial hip joint Current (pre-evaluation) Intake/Diet: Route: PO Diet Grade: Puree Liquid Consistencies: [place] Pre-Study Functional Oral Intake Scale (FOIS): 5- Total oral intake of multiple consistencies requiring special preparation Pain: None reported at time of study SUBJECTIVE: Patient is a 58 year old male referred for a modified barium swallow study by Farheen Geiger [facility] due to LTC staff reporting patient having choking episodes with intake of liquids. There is also ongoing concern regarding patient?s weight loss and refusal of meals. Patient is a LTR at [facility]. He is seen by the speech pathologist there, Silvana Pereira M.S., CCC-[facility]. Written documentation which was brought today to the patient?s appointment states that patient has displayed poor saliva management, difficulty coordinating respiration with swallowing, and has limited insight to his difficulties and implementation of strategies (pacing, taking small bites). He is currently on a pureed diet and nectar thick liquids as recommended upon his discharge from [facility] in May 2023. Prior to that hospitalization, patient was on a minced and moist diet and thin liquids, but was downgraded at [facility] as he was observed to cough and choke on this diet during his inpatient stay. Patient returns today for an MBSS to further evaluate the extent of his oropharyngeal dysphagia, to identify strategies, and to hopefully, identify some alternate food options. Food and Liquid Trials: Oral Impairment: Lip Closure: Did not test Oral Impairment: Tongue Control During Bolus Hold: Did not test Oral Impairment: Bolus Preparation/Mastication: 3=Minimal chewing/mashing with majority of bolus unchewed Oral Impairment: Bolus Transport/Lingual Motion: 4=Minimal to no tongue motion Oral Impairment: Oral Residue: 2=Residue collection on oral structures Oral Impairment:Initiation of Pharyngeal Swallow: 3=Bolus head in pyriforms Pharyngeal Impairment: Soft Palate Elevation: 0=No bolus between soft palate (SP)/pharyngeal wall (PW) Pharyngeal Impairment: Laryngeal Elevation: 1=Partial thyroid cartilage/arytenoids to epiglottic petiole movement Pharyngeal Impairment: Anterior Hyoid Excursion: 1=Partial anterior movement Pharyngeal Impairment: Epiglottic Movement: 1=Partial inversion Pharyngeal Impairment: Laryngeal Vestibular Closure:: 2=None: No inversion Pharyngeal Impairment: Pharyngeal Stripping Wave: 1=Present: diminished Pharyngeal Impairment: Pharyngeal Contraction: Did not test Pharyngeal Impairment: Pharyngoesophageal Segment Openin=Partial distention/partial duration: partial obstruction of flow Pharyngeal Impairment: Tongue Base (TB) Retraction: 3=Wide column of contrast/air between TB and posterior PW Pharyngeal Impairment: Pharyngeal Residue: 4=Minimal to no pharyngeal clearance Pharyngeal Impairment: Esophageal Clearance Upright Position: Did not test Impressions and Recommendations OBJECTIVE: Time-out: performed at 11:00 Evaluation Start: 10:30; Stop: 10:35 Patient Positioning: Seated 70-90 degrees Viewing Planes: LATERAL ONLY MBSImP ID: [id number] Results: Lip closure for intraoral bolus containment could not be assessed due to logistical reasons not related to physiologic impairment. Tongue control during bolus hold could not be assessed due to logistical reasons not related to physiologic impairment. Bolus preparation and mastication was only minimal chewing/mashing, with the majority of the bolus unchewed. Bolus transport/lingual motion yielded only minimal to no tongue motion. Oral residue was a collection on oral structures. Initiation of the pharyngeal swallow occurred when the bolus head was in the pyriform sinuses. Soft palate elevation resulted in no bolus between the soft palate and the pharyngeal wall. Laryngeal elevation was decreased, with partial superior movement of the thyroid cartilage/partial approximation of the arytenoids to the epiglottic petiole. Anterior hyoid excursion demonstrated partial anterior movement. Epiglottic movement resulted in partial inversion. Laryngeal vestibular closure was absent, resulting in a wide column of air/contrast within the laryngeal vestibule at the height of the swallow. Pharyngeal stripping wave was present, but diminished. Pharyngeal contraction could not be determined due to logistical reasons not related to physiologic impairment. Pharyngoesophageal segment opening demonstrated partial distension/partial duration, with partial obstruction of bolus flow. Tongue base retraction allowed a wide column of contrast or air between the retracted tongue base and the posterior pharyngeal wall. Pharyngeal residue resulted from minimal to no pharyngeal clearance. Esophageal clearance in the upright position could not be assessed due to logistical reasons not related to physiologic impairment. Oral Impairment Score: 12 (absence of score, component 1component 2) Pharyngeal Impairment Score: 14 (absence of score, component 13) Esophageal Impairment Score: --- (absence of score, component 17) Laryngeal Penetration and Aspiration: Neither penetration nor aspiration was observed in today's study with Honey-thick. Aspiration was observed in today's study. [place]-thick, Thin Contrast entered the airway, passed below the vocal folds, and were not ejected from the trachea despite effort. ASSESSMENT: This exam was performed by the speech pathologist and the radiologist. Pt was seated upright for lateral view and trialed thin, nectar thick, honey thick, pureed, ground (ground chicken), and regular solid (pb&j sandwich with crust removed) consistencies. Unable to visualize labial seal with imaging. Noted extremely slowed lingual movement with minimal posterior retraction. Also minimal to no chewing with patient swallowing solid food whole. Pharyngeal swallow trigger was significantly delayed, initiated at the level of the pyriform sinuses. Post-swallow, there was mild residue on the tongue and palate with intake of semi-solid and liquids. There was no nasopharyngeal reflux. Incomplete laryngeal elevation with partial epiglottic inversion. Minimal laryngeal vestibular closure with wide open airway. Noted aspiration during the swallow with trials of thin liquid and nectar thick liquid. Patient produced a spontaneous cough intermittently. A small amount of contrast entered the airway and passed below the vocal folds. No evidence of aspiration or penetration with intake of honey thick liquid and pureed solid, with good clearance of pharyngeal structures post-swallow. Patient was given a small bite size piece of a pb&j sandwich with crust removed. Patient did not chew at all and swallowed this piece of food whole, with entire bolus getting lodged in the vallecular space. At this point, patient put forth great effort, hunching his shoulders forward in an attempt to swallow with force. Patient was unable to regurgitate the bolus as requested. After several attempts, bolus then lodged in the pyriform and again at the PES before eventually clearing. Patient again swallowed bite of soft, ground food without chewing despite significant cues. Patient stated, ?No my gums don?t touch.? Patient refused to spit the bolus out from the oral cavity when instructed. Bolus lodged in the valleculae when swallowed and cleared with sips of honey thick liquid. Liquid Intake Recommendation: Honey Thick Liquid Intake Strategies: Small Sips, No Straws Dietary Recommendations: Pureed (NDD1) Medication Administration: Crushed with Puree Please contact the pharmacy regarding appropriate crushable or liquid drug formulations that are available whenever modified delivery is recommended. Compensatory Strategies Recommended: Sitting Upright (90 deg), Double Swallow, No Straw, Liquids from Cup, Liquids from Spoon, Small Bites and Sips, Rate of Ingestion Change, Oral Check Supervision during eating and or drinking: Total Assistance (1:1) Recommended Treatments: Compens. Strategy Educat. Recommendation for Speech Therapy: Speech Therapy through Rehab Facility Intake Recommendations: Route: PO Diet Grade: Puree Liquid Consistencies: Honey Post-Study Functional Oral Intake Scale (FOIS): 5- Total oral intake of multiple consistencies requiring special preparation This exam revealed SEVERELY impaired swallow in the oral and pharyngeal phases. Oral phase was significantly slowed, characterized by delayed initiation, minimal posterior tongue retraction, premature posterior escape with liquids, and no chewing of solid foods. Pharyngeal swallow trigger was significantly delayed. Patient demonstrated wide open airway and compromised airway protection. There was aspiration on thin and nectar thick consistencies during the swallow with intermittent coughing. Patient swallowed solid food whole despite significant cues and exhibited great difficulty clearing from the pharynx. Based on these observations, safest and least restrictive diet appears to be PUREED (NDD1) solids and HONEY THICK liquids. Patient will require direct supervision and close monitoring, as he is at increased risk of aspiration. Patient is recommended strict aspiration precautions to maximize safety: -Upright 90 degree position during feeding and for at least 30 minutes afterwards -Take small, individual bites/sips -Avoid taking quick, sequential sips -Avoid the use of straws -Dry swallow after each bite/sip (elicit with cuing or by presenting dry teaspoon) -Oral cavity to be cleared before taking more bites/sips -Daily oral care (before first meal and after each subsequent meal) Patient is recommended continued dysphagia treatment with a speech pathologist at his LTC facility for further education and support in regards to the MBSS results, recommended dietary textures, and recommended behavioral strategies. 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 The patient will tolerate the least restrictive diet with a safe/efficient swallow to maintain adequate nutrition and hydration. ? The patient and/or family will participate in further education for swallowing goals. Short Term Goals: ? Diet - The patient will tolerate a pureed diet with honey thick liquids without signs or symptoms of penetration/aspiration 100% of the time. - The patient will participate in therapeutic PO trials with the [facility]. ? Guidelines - The patient will comply with/recall the following guidelines/strategies 100% of the time with moderate cuing: Bolus Volume Change, Rate of Ingestion Change, Additional Swallow(s) per Bolus, No Straws. ? Education - The patient, family, caregiver, nurse will verbalize/demonstrate understanding of the results of this evaluation, the above recommendations, and the swallowing guidelines. Clinician - Supplemental, Miscellaneous Communication: It is important to note MBSS objective studies are snapshots in time and Patient function might vary with factors such as time of day or concomitant medical conditions. For this reason, the final treatment plan for this patient should rest with their medical care team. Additional recommendations should be considered with the totality of the Patient in mind. Thank for the opportunity to participate in the care of this patient. If you have any questions about the content of this report, please contact the Speech [facility] at [facility]. Education: Education regarding findings from today's study and plans for therapy were provided to Patient and family/caregiver (staff member from [facility]) through Verbal Instruction, Written Instruction. Understanding was expressed by the Patient and family/caregiver. Operations Forester Clinician/Clinical Fellow: No Supervisory Statement: N/A Speech Language Pathologist: Dawn Knott M.A., CCC-[facility]
== END 2023-12-28 10:15 | disposition home or self-care (01) ==
LOC: HO.XRAY 10:14
PROVIDERS: PCP Hospitalist; Visit Provider Nurse Practitioner Family
DX: R13.10 Dysphagia, unspecified (principal)
CPT/HCPCS: 74230; 92611

== ENCOUNTER → 2023-12-28 10:30 | Outpatient (BNV) | payer MEDICARE, SELFPAY | PROVIDERS: PCP Hospitalist; Visit Provider Physician Assistant Surgical | DX: R13.10 Dysphagia, unspecified (principal) | CPT/HCPCS: 74230 ==

== ENCOUNTER 2024-01-04 10:58 | Outpatient (AMB) | payer MEDICARE, SELFPAY ==
--- NOTE | 2024-01-04 11:05 | HO.NEPHOV_ITS ---
Vital Signs 01/04/24 11:06 Height 5 ft 11 in BP 112/72 Blood Pressure Location Rt brachial Position Sitting Intake Visit Reasons: Abnormal findings on diagnostic imaging/ Confirmed Transfer Coordinator Required: No Accompanied by: Other Relationship Allergies No Known Allergies Allergy (Verified 02/04/24 13:10) HPI Comments Details: I had the privilege of seeing Ayo who is a 58-year-old male with CKD as well as stag horn calculus among other morbidities who recently presented to ER with inability to urinate.??He recently had a recent ureteral stents placement for history of staghorn calculus. In the ER his WBC count was 17.5 with sodium of 135, bicarb of 17, creatinine of 5.71 .UA positive for leukocyte Estrace, nitrites, WBC, as well as bacteria. Abdomen pelvic CT shows significant abnormalities of the right kidney with multiple bilateral renal calculi and loss of the expected renal contour as well as heterogeneous renal parenchymal and perinephric stranding with an infectious etiology being considered. A Murdock catheter was placed, patient was started on IV antibiotics & was admitted for further management He had acute pyelonephritis with MRSA, E faecalis. His BOYD was due to urinary obstruction. creatinine improved to 1.66 and was discharged back to the facility. He is here for follow up. He denied any specific complaints. [facility]LY [facility], [facility] Medical History Hemorrhoids Diverticulosis Cataracts, bilateral Anemia Resides in residential facility Personal history of (healed) other pathological fracture Other abnormalities of gait and mobility Unsteadiness on feet Dysphagia, oral phase Constipation, unspecified Sensorineural hearing loss, bilateral Benign paroxysmal vertigo, right ear Deficiency, saccadic eye movements Other forms of nystagmus Insomnia, unspecified Vitamin B deficiency, unspecified Vitamin B12 deficiency anemia, unspecified Alternating exotropia Combined forms of age-related cataract, bilateral Personal history of other malignant neoplasm of skin Other melanin hyperpigmentation Seborrheic dermatitis, unspecified Melanocytic nevi, unspecified Hemangioma of skin and subcutaneous tissue Hypertension Diabetes insipidus Other chronic pain Obstructive sleep apnea (adult) (pediatric) Dysarthria and anarthria Muscle weakness (generalized) 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 Ataxic gait Morbid (severe) obesity due to excess calories Surgical History Hx of colonoscopy Hx of cystoscopy Other specified postprocedural states Bariatric surgery status Vasectomy status Presence of right artificial hip joint Social History Household Members: None Household Members Other:: [facility] Housing Other:: resides at [facility] Are you a primary childcare aide to a significant other at home: No Do you presently have visiting nurse or other home services: No Alcohol intake: never Comment: hurt right ribs during fall Patient Tobacco Use Status: Never used Tobacco Use of substances other than those prescribed or required for medical reasons: No Are you DNR?: Yes Advance Directives: No Advance Directives Information Provided: Yes Advance Directives on File: No Advance Directives Date on File: 05/01/23 service: No Physical Exam Vital Signs: Last Vital Signs BP 112/72 01/04/24 11:06 Const General: comfortable and no acute distress HEENT Head: Yes normocephalic Mouth: Normal oral and palatal mucosa present Eyes EOM: EOMs intact bilaterally Neck Neck: Yes supple Resp Auscultation: clear to auscultation bilaterally Cardio Jugular venous distension: no JVD Rate: regular rate GI Palpation (GI): Soft to palpation Auscultation: normal bowel sounds Skin General skin exam: no rashes or lesions noted Neuro General: moves all extremities Extrem General: Yes no pedal edema Results Reviewed Nephrology Results: No Data to Display Assessment & Plan Assessment & Plan (1) CKD stage 3b, GFR 30-44 ml/min: Code(s): N18.32 - Chronic kidney disease, stage 3b Category: Medical (2) Staghorn kidney stones: Code(s): N20.0 - Calculus of kidney Category: Medical Plan Ayo recently had BOYD which has been resolved. He has CKD 3 due to multifactorial etiology. Currently his renal functions are close to his baseline. He has stag horn calculus for which he is closely followed up by his Urologist. His urine output is good and his hemodynamics are stable. His volume status is optimal. He maintains good hydration. I did not make any medication changes today. Follow up blood work ordered. Orders: Orders Blood Urea Nitrogen 01/04/24 N18.32 - Chronic kidney disease, stage 3b Calcium 01/04/24 N18.32 - Chronic kidney disease, stage 3b Creatinine 01/04/24 N18.32 - Chronic kidney disease, stage 3b Electrolytes 01/04/24 N18.32 - Chronic kidney disease, stage 3b Parathyroid Hormone Intact 01/04/24 N18.32 - Chronic kidney disease, stage 3b Vitamin D 25-OH Total 01/04/24 N18.32 - Chronic kidney disease, stage 3b Coding Level of Care Code Est Pt Level 4 (26068) Diagnoses CKD stage 3b, GFR 30-44 ml/min N18.32 Staghorn kidney stones N20.0
[2024-01-04 11:06] VITALS: BP 112/72
== END 2024-01-04 11:32 | disposition home or self-care (01) ==
PROVIDERS: PCP Hospitalist; Visit Provider Internal Medicine Nephrology
DX: N18.32 Chronic kidney disease, stage 3b (principal); N20.0 Calculus of kidney
CPT/HCPCS: 99214

== ENCOUNTER → 2024-01-04 10:58 | Outpatient (BNVA) | payer MEDICARE, SELFPAY | PROVIDERS: PCP Hospitalist; Visit Provider Internal Medicine Nephrology | DX: N18.32 Chronic kidney disease, stage 3b (principal); N20.0 Calculus of kidney | CPT/HCPCS: 99212 ==

== ENCOUNTER 2024-01-15 09:40 | Outpatient (AMB) | payer MEDICARE, SELFPAY ==
--- NOTE | 2024-01-15 09:43 | MHC.OFFVIS ---
Intake Vital Signs 01/15/24 09:47 BP 118/64 Blood Pressure Location Rt brachial Position Sitting Pulse 63 Pulse Source Pulse Oximeter Pulse Oximetry (%) 100 Oxygen Delivery Method Room Air Intake Visit Reasons: sabine: 3 month f/u [employer]addle Truck Driver Required: No Chair Mender: Chair Mender offered & declined Accompanied by: health care worker Allergies No Known Allergies Allergy (Verified 01/15/24 09:50) Medication List - Last Reconciled 01/15/24 by Giovana Israel LPN acetaminophen 650 mg PO Q6H PRN albuterol sulfate 2.5 mg (3 mL) inhalation BID PRN aspirin 81 mg PO BID atropine 1% 2 drps sublingual BID benzocaine 10% (Anbesol (benzocaine)) 1 appl mucous membrane TID PRN bisacodyl 10 mg OK DAILY PRN calcium carbonate 500 mg PO Q6H PRN cyanocobalamin (vitamin B-12) 1,000 mcg PO DAILY desmopressin 0.2 mg PO Q24H PRN desmopressin 0.2 mg PO BID hyoscyamine sulfate 0.125 mg sublingual BID pyridoxine (vitamin B6) ER 200 mg PO DAILY sennosides (Senna Laxative) 17.2 mg (2 x 8.6 mg) PO DAILY sodium phosphates 19-7 gram/118 mL (Fleet Enema) 118 mL OK DAILY PRN tamsulosin (Flomax) 0.4 mg PO BEDTIME 30 days HPI sabine: 3 month f/u HPI Details Ayo is a very pleasant 58 year old male, never smoker, with underlying pulmonary nodules, asthma and SABINE on CPAP therapy. He presents to office in a wheelchair, accompanied by a staff member from [facility]. He was initially referred by PCP after incidental finding of pulmonary nodules on abdominal CT, dedicated chest CT revealed small calcified pulmonary nodules probably representing calcified granulomas, <3 mm of RLL. He continues to report mild dyspnea with dry cough, which only occurs when eating. He was sent by GI for MBSS which revealed severe swalling impairment and aspiration and recommended pureed solids and honey thick liquids. Of note, patient was drinking coffee out of a straw at todays visit with coughing noted afterwards. He also continues to report issues with CPAP therapy. Our office has attempted to to obtain compliance report on multiple occasions and have been unable to. Today he presents for routine follow up. PFSH Medical History (Reviewed 11/30/23 @ 10:[address] [facility] [place]) Resides in [facility] facility Personal history of (healed) other pathological fracture Other abnormalities of gait and mobility Unsteadiness on feet Dysphagia, oral phase Constipation, unspecified Sensorineural hearing loss, bilateral Benign paroxysmal vertigo, right ear Deficiency, saccadic eye movements Other forms of nystagmus Insomnia, unspecified Vitamin B deficiency, unspecified Vitamin B12 deficiency anemia, unspecified Alternating exotropia Combined forms of age-related cataract, bilateral Personal history of other malignant neoplasm of skin Other melanin hyperpigmentation Seborrheic dermatitis, unspecified Melanocytic nevi, unspecified Hemangioma of skin and subcutaneous tissue Hypertension Diabetes insipidus Other chronic pain Obstructive sleep apnea (adult) (pediatric) Dysarthria and anarthria Muscle weakness (generalized) 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 Ataxic gait Morbid (severe) obesity due to excess calories Surgical History Hx of colonoscopy Hx of cystoscopy Other specified postprocedural states Bariatric surgery status Vasectomy status Presence of right artificial hip joint Social History (Updated 01/15/24 @ 09:53 by Giovana Israel LPN) Household Members: None Household Members Other:: lives at [facility] Housing: Detention Housing Other:: resides at [facility] Are you a primary early breastfeeding care specialist to a significant other at home: No Do you presently have visiting nurse or other home services: Yes ([facility] staff) Alcohol intake: never Comment: hurt right ribs during fall Patient Tobacco Use Status: Never used Tobacco Smoked in Last 30 Days: No Advance Directives Date on File: 05/01/23 service: No Review of Systems Const Denies chills, Denies excessive sweating, Denies fever(s), Denies headache(s) and Denies night sweats Eyes Denies dry eyes, Denies irritation and Denies itchy eyes ENT Reports Normal hearing present, Denies headache(s), Denies nasal congestion, Denies nasal discharge, Denies post nasal drip and Denies sore throat Card Denies chest pain, Denies chest pain at rest, Denies chest pain with activity, Denies claudication, Denies leg edema, Denies orthopnea and Denies paroxysmal nocturnal dyspnea Resp Denies chest congestion, Denies excessive phlegm production, Denies pain on inspiration, Denies pain with cough, Denies stridor and Denies wheezing Musc Denies myalgias Neuro Reports Normal hearing present and Denies headache(s) Endo Denies excessive sweating Antonio/Lymph Denies lymphadenopathy Aller/Immun Denies itchy eyes, Denies seasonal rhinorrhea and Denies wheezing Physical Exam Vital Signs: Last Vital Signs Pulse 63 01/15/24 09:47 BP 118/64 01/15/24 09:47 Pulse Ox 100 01/15/24 09:47 Oxygen Delivery Method Room Air 01/15/24 09:47 Const General: cooperative, healthy appearing, comfortable, no acute distress, well developed and alert Nutritional Appearance: obese Orientation/consciousness: patient oriented x3 Limitations: wheelchair HEENT Head: Yes normal to inspection, Yes normocephalic and Yes atraumatic Ears: hearing grossly normal bilaterally and external ears normal Eyes General: appearance normal, both eyes and all related structures Eyelids: Yes eyelids normal Sclerae: sclerae normal EOM: EOMs intact bilaterally Neck Neck: Yes normal visual inspection Chest Chest palpation & inspection: normal inspection of the chest Resp Other: Diminished lung sounds Effort & Inspection: normal respiratory effort, able to speak in complete sentences, no audible wheezes, no cough, no stridor, not tachypneic, no tripod positioning and no use of accessory muscles Cardio Jugular venous distension: no JVD Rate: regular rate Rhythm: regular rhythm Skin Other: warm, dry Neuro General: patient oriented x3 Cranial nerves: Yes Normal hearing present Cognition (Neuro): normal cognition Extrem Other: moderate BLE edema Psych Appearance: grossly normal and well kempt Speech and movement: Normal speech and movement present and Clear speech present Affect: normal affect Attitude: cooperative Thought process: Normal thought process present Thought content: Normal thought content present Insight: Good insight present (Psych) Judgement: Good judgement present (Psych) Assessment & Plan Assessment & Plan (1) Loud snoring: Code(s): R06.83 - Snoring (2) Multiple pulmonary nodules: Code(s): R91.8 - Other nonspecific abnormal finding of lung field (3) Asthma: Code(s): J45.909 - Unspecified asthma, uncomplicated (4) Obstructive sleep apnea: Code(s): G47.33 - Obstructive sleep apnea (adult) (pediatric) (5) Dysphagia: Code(s): R13.10 - Dysphagia, unspecified Plan Patient reports compliance with CPAP however can not verify. Our office has reached out to [facility] to obtain CPAP therapy information/compliance on multiple occasions, but we have been unable to obtain. Patient reports issues with equipment and have not been able to use on many occasions as equipment has been faulty. Written instructions were placed to [facility] again to send DME information. Will send for updated sleep study in attempt to better manage CPAP therapy. In regards to cough with eating and dysphagia, MBSS recommended pureed diet and honey thick liquids ,advised to continue recommended dysphagia diet. Will follow up sleep study. All questions were answered and patient is in agreement of plan. Orders: Orders RT home sleep study Today R06.83 - Snoring Coding Level of Care Code Est Pt Level 3 (75466) Diagnoses Loud snoring R06.83 Multiple pulmonary nodules R91.8 Asthma J45.909 Obstructive sleep apnea G47.33 Dysphagia R13.10
[2024-01-15 09:47] VITALS: BP 118/64; PULSE 63; O2SAT 100
== END 2024-01-15 10:17 | disposition home or self-care (01) ==
PROVIDERS: PCP Hospitalist; Visit Provider Nurse Practitioner Family
DX: R06.83 Snoring (principal); R91.8 Other nonspecific abnormal finding of lung field; J45.909 Unspecified asthma, uncomplicated; G47.33 Obstructive sleep apnea (adult) (pediatric); R13.10 Dysphagia, unspecified
CPT/HCPCS: 99213

== ENCOUNTER → 2024-01-15 09:40 | Outpatient (BNVA) | payer MEDICARE, SELFPAY | PROVIDERS: PCP Hospitalist; Visit Provider Nurse Practitioner Family | DX: R91.8 Other nonspecific abnormal finding of lung field (principal); J45.909 Unspecified asthma, uncomplicated; G47.33 Obstructive sleep apnea (adult) (pediatric); R13.10 Dysphagia, unspecified; R06.83 Snoring | CPT/HCPCS: 99212 ==

== ENCOUNTER 2024-02-01 11:55 | Outpatient (AMB) | payer MEDICARE, SELFPAY ==
--- NOTE | 2024-02-01 11:57 | MHC.OFFVIS ---
Intake Visit Reasons: H&P Cysto Special Allergies No Known Allergies Allergy (Verified 02/04/24 13:10) HPI Comments Details: Ayo is a pleasant male. He has a patient of Dr. Pacheco. He is a resident of [facility]. He is seen for following urologic conditions - nephrolithiasis Telemedicine Evaluation 15 min Consultation [employer] Video attempted Discussed upcoming procedure with caregiver. Planned left ureteroscopy with laser lithotripsy Nephrolithiasis Plan for left procedure Interventions - ureteroscopy performed in March and May of 2023 Imaging - multiple stones bilateral PFSH Medical History Hemorrhoids Diverticulosis Cataracts, bilateral Anemia Resides in care home facility Personal history of (healed) other pathological fracture Other abnormalities of gait and mobility Unsteadiness on feet Dysphagia, oral phase Constipation, unspecified Sensorineural hearing loss, bilateral Benign paroxysmal vertigo, right ear Deficiency, saccadic eye movements Other forms of nystagmus Insomnia, unspecified Vitamin B deficiency, unspecified Vitamin B12 deficiency anemia, unspecified Alternating exotropia Combined forms of age-related cataract, bilateral Personal history of other malignant neoplasm of skin Other melanin hyperpigmentation Seborrheic dermatitis, unspecified Melanocytic nevi, unspecified Hemangioma of skin and subcutaneous tissue Hypertension Diabetes insipidus Other chronic pain Obstructive sleep apnea (adult) (pediatric) Dysarthria and anarthria Muscle weakness (generalized) 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 Ataxic gait Morbid (severe) obesity due to excess calories Surgical History Hx of colonoscopy Hx of cystoscopy Other specified postprocedural states Bariatric surgery status Vasectomy status Presence of right artificial hip joint Social History Household Members: None Household Members Other:: lives at [facility] Housing: Jail Housing Other:: resides at [facility] Are you a primary acute care registered nurse to a significant other at home: No Do you presently have visiting nurse or other home services: No Alcohol intake: never Comment: hurt right ribs during fall Patient Tobacco Use Status: Never used Tobacco Use of substances other than those prescribed or required for medical reasons: No Are you DNR?: Yes Advance Directives: No Advance Directives Information Provided: Yes Advance Directives on File: No Advance Directives Date on File: 05/01/23 service: No Review of Systems Const All systems reviewed & are unremarkable except as noted in HPI and below Reports no additional complaints Resp Reports no additional complaints GI Reports no additional complaints Reports as per HPI Musc Reports no additional complaints Physical Exam Telemedicine evaluation Appropriate responses Regular breathing rate and rhythm HEENT Head: Yes normal to inspection Ears: hearing grossly normal bilaterally Eyes General: appearance normal, both eyes and all related structures Neck Neck: Yes normal visual inspection Chest Chest palpation & inspection: normal inspection of the chest Resp Effort & Inspection: normal respiratory effort and able to speak in complete sentences Telehealth Telehealth Location of provider rendering services: practice address Location of patient: address on file Patient Identification confirmed using: Name, : Yes Telehealth method: voice only Patient verbally consented to treatment: Yes Patient verbally consented to billing insurance company: Yes Patient informed of any privacy concerns related to visit: Yes Assessment & Plan Assessment & Plan (1) Staghorn kidney stones: Code(s): N20.0 - Calculus of kidney Category: Medical Plan Plan procedure Risks, benefits and alternatives to therapy were discussed. These include but are not limited to infection, bleeding, damage to local organs and tissues, need for further interventions. Anesthetic risks regarding cardiac arrhythmia, blood clots, and potential mortality were discussed. The patient understands the typical recovery time and the outpatient nature of the procedure. After consideration of these risks the patient gives full informed consent and they wish to move ahead with the procedure. Left-sided ureteroscopy with laser lithotripsy Patient Instructions: Imaging studies, laboratory and physical exam results were discussed and reviewed in detail. No major barriers to patient understanding were identified. An opportunity to ask questions regarding the treatment plan was provided. All questions were answered. The patient expressed understanding and agreement with the above treatment plan. The patient is aware they should contact our office by phone for worsening of their current condition or the appearance of new urologic symptoms. Compliance is encouraged with any medications and followup testing that is ordered. It is a privilege to participate in the urologic care of your patient. If you have any questions or concerns regarding treatment for the above conditions, or other urologic issues, please do not hesitate to contact me. The office telephone contact is [phone]. This note is constructed using voice recognition software. While every effort has been made to ensure accuracy restaurant supervisor errors may have been included. Yours sincerely, Dr Wero Lane MD, [facility] - Urology Providers of Expert, Compassionate Care for the Genitourinary System Coding Level of Care Code Tele Est Pt Level 3 (88740) Diagnoses Staghorn kidney stones N20.0
== END 2024-02-01 13:21 | disposition home or self-care (01) ==
LOC: HO.HUSH 11:55
PROVIDERS: PCP Hospitalist; Visit Provider Urology
DX: N20.0 Calculus of kidney (principal)
CPT/HCPCS: 99442

== ENCOUNTER → 2024-02-01 11:55 | Outpatient (BNVA) | payer MEDICARE, SELFPAY | PROVIDERS: PCP Hospitalist; Visit Provider Urology ==

== ENCOUNTER 2024-02-04 10:48 | Day surgery (SDC) | payer MEDICARE, SELFPAY ==
--- NOTE | 2024-02-01 10:44 | P.CONAN_ITS ---
Documented by User: Cinthia Rey NP 02/01/24 10:48 HPI - Anesthesia Eval Consult details Narrative: 58yo M for Left Cystoscopy, Ureteroroscopy, Retro, Laser, possible stent DNR (guardian did not reverse [facility] resident s/p colo 08/2023 with MAC s/p cysto 05/2023 with GA-LMA 4 PMFSH Active Problems Active Problems: All Active Problems Dysphagia (Acute) Loud snoring (Acute) Daytime somnolence (Acute) CKD stage 3b, GFR 30-44 ml/min (Acute) Urinary incontinence (Acute) Incomplete bladder emptying (Acute) Obstructive sleep apnea (Acute) Asthma (Acute) Pyelonephritis (Acute) Urinary retention (Acute) Acute bacterial pyelonephritis (Acute) BOYD (acute kidney injury) (Acute) Multiple pulmonary nodules (Acute) Staghorn kidney stones (Acute) Urinary frequency (Acute) Urinary incontinence, urge (Acute) Alternating exotropia (Acute) 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 (Acute) Seborrheic dermatitis, unspecified (Acute) Insomnia, unspecified (Acute) Hypertension (Acute) Diabetes insipidus (Acute) Past Medical History Medical History Hemorrhoids Diverticulosis Cataracts, bilateral Anemia Resides in custodial facility Personal history of (healed) other pathological fracture Other abnormalities of gait and mobility Unsteadiness on feet Dysphagia, oral phase Constipation, unspecified Sensorineural hearing loss, bilateral Benign paroxysmal vertigo, right ear Deficiency, saccadic eye movements Other forms of nystagmus Insomnia, unspecified Vitamin B deficiency, unspecified Vitamin B12 deficiency anemia, unspecified Alternating exotropia Combined forms of age-related cataract, bilateral Personal history of other malignant neoplasm of skin Other melanin hyperpigmentation Seborrheic dermatitis, unspecified Melanocytic nevi, unspecified Hemangioma of skin and subcutaneous tissue Hypertension Diabetes insipidus Other chronic pain Obstructive sleep apnea (adult) (pediatric) Dysarthria and anarthria Muscle weakness (generalized) 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 Ataxic gait Morbid (severe) obesity due to excess calories Family History Family history of problems with anesthesia: No Surgical History Surgical History Hx of colonoscopy Hx of cystoscopy Other specified postprocedural states Bariatric surgery status Vasectomy status Presence of right artificial hip joint History of Problems with Anesthesia: No Social History Social History Household Members: None Household Members Other:: [facility] at [facility] [place] Housing: Correction Housing Other:: resides at [facility] Are you a primary patient care technician instructor to a significant other at home: No Do you presently have visiting nurse or other home services: No Alcohol intake: never Comment: hurt right ribs during fall Patient Tobacco Use Status: Never used Tobacco Use of substances other than those prescribed or required for medical reasons: No Are you DNR?: Yes Advance Directives: No Advance Directives Information Provided: Yes Advance Directives on File: No Advance Directives Date on File: 05/01/23 service: No Meds Allergies Allergy/AdvReac Type Severity Reaction Status Date / Time No Known Allergies Allergy Verified 02/04/24 13:10 Home Medications ?Medication ?Instructions ?Recorded ?Confirmed ?Last Taken ?Type acetaminophen 325 mg capsule 650 mg PO Q6H PRN Fever Or Pain 12/22/22 01/15/24 Unknown History aspirin 81 mg tablet,delayed 81 mg PO BID 12/22/22 01/15/24 Unknown History release bisacodyl 10 mg rectal suppository 10 mg MA DAILY PRN Constipation 12/22/22 01/15/24 Unknown History calcium carbonate 500 mg PO Q6H PRN Heartburn 12/22/22 01/15/24 Unknown History cyanocobalamin (vitamin B-12) 500 1,000 mcg PO DAILY 12/22/22 01/15/24 Unknown History mcg tablet desmopressin 0.2 mg tablet 0.2 mg PO BID 12/22/22 01/15/24 Unknown History hyoscyamine sulfate 0.125 mg 0.125 mg sublingual BID 12/22/22 01/15/24 Unknown History sublingual tablet pyridoxine (vitamin B6) 200 mg 200 mg PO DAILY 12/22/22 01/15/24 Unknown History tablet,extended release sodium phosphates 19 gram-7 118 ml MA DAILY PRN Constipation 12/22/22 01/15/24 Unknown History gram/118 mL enema (Fleet Enema) atropine 1 % eye drops 2 drp sublingual BID 02/14/23 01/15/24 Unknown History benzocaine 10 % mucosal gel 1 appl mucous membrane TID PRN Pain 05/01/23 01/15/24 Unknown History (Anbesol (benzocaine)) desmopressin 0.2 mg tablet 0.2 mg PO Q24H PRN EXCESSIVE 05/01/23 01/15/24 Unknown History SECRETIONS Exam Height,Weight and Vital Signs: Height 5 ft 11 in Pertinent Lab Results Pertinent Lab Results: Laboratory Tests 06/08/23 06/08/23 12:49 20:16 WBC 12.5 H Hgb 8.9 L Hct 26.0 L Plt Count 262 Sodium 145 Potassium 4.5 Chloride 114 H Carbon Dioxide 25 BUN 10 Creatinine 1.40 Assessment and Plan Assessment Anesthesia Assessment: Chart Reviewed Final Anesthetic Review Family History of Problems with Anesthesia: No History of Problems with Anesthesia: No Documented by User: Kathleen Fan MD 02/04/24 14:10 [facility] Past Medical History Medical History Hemorrhoids Diverticulosis Cataracts, bilateral Anemia Resides in custodial facility Personal history of (healed) other pathological fracture Other abnormalities of gait and mobility Unsteadiness on feet Dysphagia, oral phase Constipation, unspecified Sensorineural hearing loss, bilateral Benign paroxysmal vertigo, right ear Deficiency, saccadic eye movements Other forms of nystagmus Insomnia, unspecified Vitamin B deficiency, unspecified Vitamin B12 deficiency anemia, unspecified Alternating exotropia Combined forms of age-related cataract, bilateral Personal history of other malignant neoplasm of skin Other melanin hyperpigmentation Seborrheic dermatitis, unspecified Melanocytic nevi, unspecified Hemangioma of skin and subcutaneous tissue Hypertension Diabetes insipidus Other chronic pain Obstructive sleep apnea (adult) (pediatric) Dysarthria and anarthria Muscle weakness (generalized) 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 Ataxic gait Morbid (severe) obesity due to excess calories Surgical History Surgical History Hx of colonoscopy Hx of cystoscopy Other specified postprocedural states Bariatric surgery status Vasectomy status Presence of right artificial hip joint Social History Social History Household Members: None Household Members Other:: lives at [facility] Housing: Correction Housing Other:: resides at [facility] Are you a primary patient care technician instructor to a significant other at home: No Do you presently have visiting nurse or other home services: No Alcohol intake: never Comment: hurt right ribs during fall Patient Tobacco Use Status: Never used Tobacco Use of substances other than those prescribed or required for medical reasons: No Are you DNR?: Yes Advance Directives: No Advance Directives Information Provided: Yes Advance Directives on File: No Advance Directives Date on File: 05/01/23 service: No Meds Allergies Allergy/AdvReac Type Severity Reaction Status Date / Time No Known Allergies Allergy Verified 02/04/24 13:10 Home Medications ?Medication ?Instructions ?Recorded ?Confirmed ?Last Taken ?Type acetaminophen 325 mg capsule 650 mg PO Q6H PRN Fever Or Pain 12/22/22 01/15/24 Unknown History aspirin 81 mg tablet,delayed 81 mg PO BID 12/22/22 01/15/24 Unknown History release bisacodyl 10 mg rectal suppository 10 mg MA DAILY PRN Constipation 12/22/22 01/15/24 Unknown History calcium carbonate 500 mg PO Q6H PRN Heartburn 12/22/22 01/15/24 Unknown History cyanocobalamin (vitamin B-12) 500 1,000 mcg PO DAILY 12/22/22 01/15/24 Unknown History mcg tablet desmopressin 0.2 mg tablet 0.2 mg PO BID 12/22/22 01/15/24 Unknown History hyoscyamine sulfate 0.125 mg 0.125 mg sublingual BID 12/22/22 01/15/24 Unknown History sublingual tablet pyridoxine (vitamin B6) 200 mg 200 mg PO DAILY 12/22/22 01/15/24 Unknown History tablet,extended release sodium phosphates 19 gram-7 118 ml MA DAILY PRN Constipation 12/22/22 01/15/24 Unknown History gram/118 mL enema (Fleet Enema) atropine 1 % eye drops 2 drp sublingual BID 02/14/23 01/15/24 Unknown History benzocaine 10 % mucosal gel 1 appl mucous membrane TID PRN Pain 05/01/23 01/15/24 Unknown History (Anbesol (benzocaine)) desmopressin 0.2 mg tablet 0.2 mg PO Q24H PRN EXCESSIVE 05/01/23 01/15/24 Unknown History SECRETIONS Exam Airway Mallampati Class: II (edentulous) TM Dist: >3cm Neck ROM: Limited Loose/Missing/Broken Teeth: Yes, Upper and Lower Heart: RRR Lungs: CTA Assessment and Plan Assessment Anesthesia Assessment: Anesthesia Plan Discussed Final Anesthetic Review NPO: Yes ASA Class: III Final Preanesthetic Review: Meds/Allgs Chart Reviewed, Consent Obtained/Reviewed and Anes Risks/Benef Reviewed Patient Risk: Intermediate Procedure Risk: Low Anesthetic Plan Anesthetic Plan: GA Disposition: Standard PACU
[2024-02-04] VITALS (8 sets, daily range): BP systolic 109–123; BP diastolic 63–84; PULSE 54–65; RESP 14–18; TEMP 36.2–36.6; O2SAT 99–100; BMI 25.9
--- NOTE | ~2024-02-04 | FL_ITS ---
EXAMINATION: Intraoperative fluoroscopy CLINICAL INFORMATION: Left stone COMPARISON: CT: October the right 2023 and renal ultrasound 08/22/2023 TECHNIQUE: Intraoperative fluoroscopy was provided for use by Dr. Lane. A total of 3 images were saved to PACS. A radiologist was not present during imaging. Today's dictation is only for administrative purposes to document intraoperative fluoroscopic usage. TOTAL FLUOROSCOPIC TIME: 1 minute and 35 seconds DAP: 25.3 mGy FL/FL guidance in OR FINDINGS~\^^ Intraoperative fluoroscopy provided for use by Dr. Lane. Please see operative note for detailed findings.
[2024-02-04] MEDS: Lactated Ringers 1,000 ML 100 ML IVCONT (13:07)
[2024-02-04 13:16] LABS: Glucose, Whole Blood 66 mg/dL (60-115)
[2024-02-04] MEDS: Dextrose 5 % 1,000 ML 50 ML IVCONT (13:39)
--- NOTE | 2024-02-04 14:26 | MHC.SHP ---
Pre-Procedural Eval Section A - 24 Hr Update-Section A only Date of Service: 02/04/24 The patient is an INPATIENT: No Changes since office visit: No Cold of Flu in the past 2 weeks, No New Medical Problems, No Changes in Medication and No Patient answered all questions The patient has been examined within 24 hours of the surgical procedure. The History & Physical has been completed within 30 days and I have reviewed it.: Yes Section B - Complete if H&P > 30 days Chief Complaint: Calculus of kidney Allergies: Allergies Allergy/AdvReac Type Severity Reaction Status Date / Time No Known Allergies Allergy Verified 02/04/24 13:10 Review of Systems Sugical H&P ROS: Negative: Constitution, Cardiovascular, Respiratory, Neurological, Psychiatric, Hem-Onc, Allergic/Immunologic, Gastrointestinal, Genitourinary, Musculoskeletal, Integumentary, Endocrine and Eyes/Ears/Nose/Throat Exam Surgical H&P Exam: Normal: HEENT, Normal: Heart, Normal: Lungs, Normal: Extremities, Normal: Abdomen, Normal: Skin and Normal: Neurological Plan Diagnosis/Plan: Unchanged (Cystoscopy, left retrograde, left ureteroscopy with laser lithotripsy) I have reviewed the history and physical and performed a pertinent physical examination on my patient. No changes have occurred unless specified. Time Spent With Patient Time: Total time managing care of this patient today ____ minutes.
[2024-02-04 15:38] LABS: Glucose, Whole Blood 85 mg/dL (60-115)
[2024-02-04] MEDS: Phenazopyridine HCL 100 MG TABLET PO (16:08)
--- NOTE | 2024-02-12 15:16 | P.OP_ITS ---
Operative Note Operative Note Date of Service: 02/04/24 Narrative: PreOperative Diagnosis: Left renal stones Post Operative Diagnosis: Left renal stone Left proximal ureteric stricture Procedure: - cystoscopy, left retrograde - left dilatation of ureteric orifice under fluoroscopy - left ureteroscopy, dilatation of left proximal ureteric stricture, - left stent placement Surgeon: Dr Wero Lane Anesthesia: General Indications for procedure: Stone on imaging Procedure: After informed consent was verified patient was brought to the operating placed in supine position. Anesthesia was administered per protocol. Patient was placed in modified dorsal lithotomy position and prepped and draped in a sterile fashion. Safety pause time-out and side of surgery confirmed. Antibiotics confirmed. 22 Icelandic cystoscope was inserted per urethra. Bladder was normal in its entirety. Both ureteric orifices were in normal position. The left ureteric orifice was cannulated and a retrograde examination was performed. Tortuous proximal ureter with mild hydronephrosis. A Sensor guidewire was placed up to the level of the renal pelvis under fluoroscopy. The rigid cystoscope was removed and the inner cannula of ureteric access sheath was used under fluoroscopy to dilate the ureteric orifice. The ureteric access sheath was placed and the inner cannula with access wire removed. The digital flexible ureteral scope was placed. Advanced. Proximal ureteric narrowing in unable to place a digital scope. S ensor guidewire placed. Using ureteric dilators the area was dilated up to 10 Icelandic. The ureteral scope was placed up into the renal pelvis. Renal pelvis was irrigated. Small amounts of stone debris were encountered and flushed. Decision was made to place a stent. The ureteral scope was removed. At the completion of the stone procedure a Sensor wire was placed back into the renal pelvis. The access sheath was removed. The rigid cystoscope was backloaded over the wire and advanced into the bladder. A 7 Icelandic by 28 cm double-J stent was placed into the renal pelvis and bladder under a combination of fluoroscopy and direct visualization. The bladder was emptied. The patient tolerated the procedure well and was extubated in the operating room, and transferred in stable condition to the recovery area. Pathology: None Drains: Stent as above
== END 2024-02-04 16:42 | disposition home or self-care (01) ==
PROVIDERS: PCP Hospitalist; Visit Provider Urology
PROC: (CPT 52344; principal; 2024-02-04 12:20)
DX: N20.0 Calculus of kidney (principal); N13.5 Crossing vessel and stricture of ureter without hydronephrosis; R32 Unspecified urinary incontinence; R39.15 Urgency of urination; E23.2 Diabetes insipidus; I10 Essential (primary) hypertension; G32.81 Cerebellar ataxia in diseases classified elsewhere; R26.0 Ataxic gait; R42 Dizziness and giddiness; G89.29 Other chronic pain; M62.81 Muscle weakness (generalized); R47.1 Dysarthria and anarthria; J45.909 Unspecified asthma, uncomplicated; G47.33 Obstructive sleep apnea (adult) (pediatric); Z79.899 Other long term (current) drug therapy; Z79.82 Long term (current) use of aspirin; Z66 Do not resuscitate; E66.01 Morbid (severe) obesity due to excess calories; Z98.52 Vasectomy status; Z98.84 Bariatric surgery status
CPT/HCPCS: 52344; 52332; 82947; C1758; C1769; C1894; C2617; J0131; J1100; J1956; J2405; J2704; J3010; Q9967

== ENCOUNTER → 2024-02-04 10:48 | Outpatient (BNV) | payer MEDICARE, SELFPAY | PROVIDERS: PCP Hospitalist; Visit Provider Urology | DX: N20.0 Calculus of kidney (principal) | CPT/HCPCS: 52332; 74420 ==

== ENCOUNTER 2024-02-12 14:38 | Outpatient (AMB) | payer MEDICARE, SELFPAY ==
--- NOTE | 2024-02-12 15:05 | MHC.OFFVIS ---
Intake Visit Reasons: Stent Removal Intake Note: Patient is Present for Cystoscopy and stent removal Urology Med: Vitamin b6, Tamsulosin Antibiotic Allergy:None Blood Thinner:Aspirin URO- G Disposable Cystoscope lot: [id number] exp:11/01/2026 Allergies No Known Allergies Allergy (Verified 02/04/24 13:10) Medication List - Last Reconciled 02/12/[address] MD acetaminophen 650 mg PO Q6H PRN albuterol sulfate 2.5 mg (3 mL) inhalation BID PRN aspirin 81 mg PO BID atropine 1% 2 drps sublingual BID benzocaine 10% (Anbesol (benzocaine)) 1 appl mucous membrane TID PRN bisacodyl 10 mg IN DAILY PRN calcium carbonate 500 mg PO Q6H PRN cyanocobalamin (vitamin B-12) 1,000 mcg PO DAILY desmopressin 0.2 mg PO Q24H PRN desmopressin 0.2 mg PO BID hyoscyamine sulfate 0.125 mg sublingual BID pyridoxine (vitamin B6) ER 200 mg PO DAILY sennosides (Senna Laxative) 17.2 mg (2 x 8.6 mg) PO DAILY sodium phosphates 19-7 gram/118 mL (Fleet Enema) 118 mL IN DAILY PRN tamsulosin (Flomax) 0.4 mg PO BEDTIME 30 days HPI Comments Details: Ayo is a pleasant male. He has a patient of Dr. Pacheco. He is a resident of [facility]. He is seen for following urologic conditions - nephrolithiasis - left hydronephrosis - chronic cystitis Here for stent removal Able to place him on examination table Six-month follow-up imaging Chronic cystitis with incomplete bladder emptying. Suggest vitamin-C with methenamine. Left hydronephrosis Narrowing left proximal ureter Ureteroscopy with dilatation 02/21 Nephrolithiasis Plan for left procedure Interventions - ureteroscopy performed in March and May of 2023 Imaging - multiple stones bilateral PFSH Medical History Hemorrhoids Diverticulosis Cataracts, bilateral Anemia Resides in [place] Personal history of (healed) other pathological fracture Other abnormalities of gait and mobility Unsteadiness on feet Dysphagia, oral phase Constipation, unspecified Sensorineural hearing loss, bilateral Benign paroxysmal vertigo, right ear Deficiency, saccadic eye movements Other forms of nystagmus Insomnia, unspecified Vitamin B deficiency, unspecified Vitamin B12 deficiency anemia, unspecified Alternating exotropia Combined forms of age-related cataract, bilateral Personal history of other malignant neoplasm of skin Other melanin hyperpigmentation Seborrheic dermatitis, unspecified Melanocytic nevi, unspecified Hemangioma of skin and subcutaneous tissue Hypertension Diabetes insipidus Other chronic pain Obstructive sleep apnea (adult) (pediatric) Dysarthria and anarthria Muscle weakness (generalized) 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 Ataxic gait Morbid (severe) obesity due to excess calories Surgical History Hx of colonoscopy Hx of cystoscopy Other specified postprocedural states Bariatric surgery status Vasectomy status Presence of right artificial hip joint Social History Household Members: None Household Members Other:: lives at [facility] Housing: Senior Living Housing Other:: resides at [facility] Are you a primary home care music therapist to a significant other at home: No Do you presently have visiting nurse or other home services: No Alcohol intake: never Comment: hurt right ribs during fall Patient Tobacco Use Status: Never used Tobacco Advance Directives Date on File: 05/01/23 service: No Review of Systems Const Denies chills and Denies fever(s) Card Reports no additional complaints and Denies syncope Resp Denies cough GI Denies abdominal pain and Denies heartburn Reports as per HPI and Denies change in libido Neuro Denies syncope Psych Denies change in libido Endo Denies change in libido Physical Exam Const General: cooperative, healthy appearing, comfortable and no acute distress Orientation/consciousness: patient oriented x3 HEENT Face and sinus: Yes normal facial exam Mouth: moist mucous membranes Neck Neck: Yes normal visual inspection, Yes full ROM and Yes trachea midline Chest Chest palpation & inspection: normal inspection of the chest Resp Effort & Inspection: normal respiratory effort, able to speak in complete sentences and no respiratory distress GI Inspection: Yes normal to inspection Back/Spine/Pelvis Cervical Spine: normal cervical lordosis Thoracic/Lumbar Spine: thoracic and lumbar spine normal to inspection Skin General skin exam: no rashes or lesions noted Neuro General: patient oriented x3, gait normal, tone normal and moves all extremities Extrem General: Yes normal to inspection and Yes capillary refill normal Office Procedures Cystoscopy Consent Discussed risk and benefit or proposed procedure with the patient. Information consent for procedure given to the patient. Discussed technical aspects, risks, benefits and alternatives in full. Addressed all of the patient's questions and concerns regarding the procedure. The patient demonstrated knowledge and understanding. They wish to proceed with this procedure. Preparation The patient was prepped in the usual manner. A pocket grinder operator was present and in the room. Genitalia was prepped with betadine solution in a sterile manner. Lidocaine Jelly 2% was placed into the urethra and 16Fr flexible Olympus cystoscope was inserted into the meatus after adequate lubrication. Procedure A well lubricated 16 Divehi cystoscope was placed No abnormality noted of urethra during placement Indwelling stent seen within bladder emerging from left ureteric orifices The stent was grasped with a 3 prong grasper and removed without difficulty The patient tolerated the procedure well [id number] with stent removal DISPOSABLE SCOPE URO-G FLEXIBLE SCOPE Procedure code (CPT) selection complete Office Meds lidocaine HCl 2 % mucosal jelly in applicator Performing Provider: Wero Lane MD Performing Location: [facility] Administered by: Jacquelin Chao RN on 02/12/24 15:30 Dose Route Admin Location Dispensed Lot Number Expiration Date ND [employer] 10 mL intra-urethral 10 mL nitrofurantoin monohydrate/macrocrystals 100 mg capsule Performing Provider: Wero Lane MD Performing Location: [facility] Administered by: Jacquelin Chao RN on 02/12/24 15:30 Dose Route Admin Location Dispensed Lot Number Expiration Date NDC [employer] 100 mg PO 1 cap naproxen 500 mg tablet Performing Provider: Wero Lane MD Performing Location: [facility] Administered by: Jacquelin Chao RN on 02/12/24 15:30 Dose Route Admin Location Dispensed Lot Number Expiration Date NDC [employer] 500 mg PO 1 tab Assessment & Plan Assessment & Plan (1) Chronic cystitis: Code(s): N30.20 - Other chronic cystitis without hematuria Category: Medical Plan Six-month follow-up ultrasound Orders: Orders AMB Cystoscopy Today N20.0 - Calculus of kidney Medications: New ascorbic acid (vitamin C) 1 g PO DAILY 90 days 90 tabs 1RF N30.20 - Other chronic cystitis without hematuria, N39.0 - Urinary tract infection, site not specified methenamine hippurate 1 g PO DAILY 90 days 90 tabs 1RF N30.20 - Other chronic cystitis without hematuria, N39.0 - Urinary tract infection, site not specified Patient Instructions: Imaging studies, laboratory and physical exam results were discussed and reviewed in detail. No major barriers to patient understanding were identified. An opportunity to ask questions regarding the treatment plan was provided. All questions were answered. The patient expressed understanding and agreement with the above treatment plan. The patient is aware they should contact our office by phone for worsening of their current condition or the appearance of new urologic symptoms. Compliance is encouraged with any medications and followup testing that is ordered. It is a privilege to participate in the urologic care of your patient. If you have any questions or concerns regarding treatment for the above conditions, or other urologic issues, please do not hesitate to contact me. The office telephone contact is [phone]. This note is constructed using voice recognition software. While every effort has been made to ensure accuracy transcription coordinator errors may have been included. Yours sincerely, Dr Wero Lane MD, [facility] - Urology Providers of Expert, Compassionate Care for the Genitourinary System Coding Level of Care Code Est Pt Level 4 (05828) Diagnoses Chronic cystitis N30.20 CPT Codes Cystoscopy - CPT: 62141-[id number] with stent removal ([id number])
== END 2024-02-12 15:40 | disposition home or self-care (01) ==
PROVIDERS: PCP Hospitalist; Visit Provider Urology
DX: N30.20 Other chronic cystitis without hematuria (principal); Z96.0 Presence of urogenital implants
CPT/HCPCS: 52310; 99214

== ENCOUNTER → 2024-02-12 14:38 | Outpatient (BNVA) | payer MEDICARE, SELFPAY | PROVIDERS: PCP Hospitalist; Visit Provider Urology | DX: Z48.816 Encounter for surgical aftercare following surgery on the genitourinary system (principal); N30.20 Other chronic cystitis without hematuria | CPT/HCPCS: 52310; 99212 ==

== ENCOUNTER 2024-02-19 11:01 | Outpatient (AMB) | payer MEDICARE, SELFPAY ==
--- NOTE | 2024-02-19 11:04 | A.OFFVIS_ITS ---
Vital Signs 02/19/24 11:08 Height 5 ft 11 in Weight 186 lb BMI 25.9 BP 119/71 Blood Pressure Location Lt brachial Position Sitting Pulse 60 Intake Visit Reasons: 6 month follow up Intake Note: Ayo presents in the office as a 6 month follow up. CC: No concerns today. Water Filterer Required: No Allergies No Known Allergies Allergy (Verified 02/19/24 11:08) HPI HPI 6 month follow up: Details: LAST VISIT Redundant colon Dysphagia Constipation Plan Patient will be sent for barium swallow with speech therapy. Will do CT colonography 1st. Patient was encouraged to follow recommendation made by speech therapist back in May with nectar thick liquids and pureed food. Take 2 Sen okot every evening. Will check CT colonography to evaluate the entire colon. Incomplete colonoscopy. Cecum not evaluated. However no polyps were found. Patient will return in 6 months, sooner on as needed basis. ? Thank you for allowing me to participate in his care Orders Orders FL barium swallow modified 08/21/[address] colonography 08/21/23 Q43.8 Medications Changed Changed From sennosides 8.6 mg PO DAILY PRN Constipation Changed To sennosides (Senna Laxative) 17.2 mg (2 x 8.6 mg) PO DAILY 180 tabs 2RF Constipation TODAY'S VISIT Patient is here today for follow-up and to discuss colonography results. Patient is accompanied by senior living staff. Called made to speak to nurse as stop member did not know how patient was doing. Patient is not a good histori an. Ongoing trouble swallowing for the past year or so. As per speech therapy recommendation patient is on ground food and nectar thick liquids. Patient states that speech therapy works with him few times a week. However patient is drinking his nectar thick coffee through a straw and he is having trouble swallowing and almost choking couple times. Patient was encouraged to stop drinking through this dry will send a message to senior living staff. Patient reports that he is moving his bowels, however occasionally he will feel like he is constipated. Colonography done and redundant colon seen. The whole entire colon was almost in the left side of his abdomen with cecum in the right upper abdomen. Patient reports occasional acid reflux and denies any dyspepsia. Patient lost 55 lb in 1 year due to diet change. Patient does not like pureed food and he frequently will refused meal. Patient denies any abdominal pain or discomfort occasional cramping when constipated. Patient denies any nausea or vomiting. Staff reports no melena, hematochezia [facility] Medical History Hemorrhoids Diverticulosis Cataracts, bilateral Anemia Resides in half-way facility Personal history of (healed) other pathological fracture Other abnormalities of gait and mobility Unsteadiness on feet Dysphagia, oral phase Constipation, unspecified Sensorineural hearing loss, bilateral Benign paroxysmal vertigo, right ear Deficiency, saccadic eye movements Other forms of nystagmus Insomnia, unspecified Vitamin B deficiency, unspecified Vitamin B12 deficiency anemia, unspecified Alternating exotropia Combined forms of age-related cataract, bilateral Personal history of other malignant neoplasm of skin Other melanin hyperpigmentation Seborrheic dermatitis, unspecified Melanocytic nevi, unspecified Hemangioma of skin and subcutaneous tissue Hypertension Diabetes insipidus Other chronic pain Obstructive sleep apnea (adult) (pediatric) Dysarthria and anarthria Muscle weakness (generalized) 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 Ataxic gait Morbid (severe) obesity due to excess calories Surgical History Hx of colonoscopy Hx of cystoscopy Other specified postprocedural states Bariatric surgery status Vasectomy status Presence of right artificial hip joint Social History Household Members: None [facility] Members Other:: [facility] Housing: Residential Housing Other:: resides at [facility] Are you a primary career professional to a significant other at home: No Do you presently have visiting nurse or other home services: No Alcohol intake: never Comment: hurt right ribs during fall Patient Tobacco Use Status: Never used Tobacco Advance Directives Date on File: 05/01/23 service: No Review of Systems Const Denies weight gain and Denies weight loss ENT Reports no additional complaints, Reports dysphagia and Denies odynophagia Card Reports no additional complaints Resp Reports no additional complaints GI Denies abdominal pain, Denies belching, Denies melena, Denies bloating, Denies change in bowel habits, Reports constipation, Reports dysphagia, Denies excessive flatus, Denies dyspepsia, Reports heartburn, Denies diarrhea, Denies loose stools, Denies nausea, Denies odynophagia and Denies vomiting Reports no additional complaints Musc Reports no additional complaints Neuro Reports no additional complaints Psych Reports no additional complaints Endo Reports no additional complaints Physical Exam Vital Signs: Last Vital Signs Pulse 60 02/19/24 11:08 BP 119/71 02/19/24 11:08 BMI result Body Mass Index 25.9 Const Other: Patient is sitting in the wheelchair General: comfortable, alert and awake Nutritional Appearance: overweight Orientation/consciousness: oriented to person Limitations: wheelchair HEENT Head: Yes normal to inspection Neck Neck: Yes normal visual inspection and Yes trachea midline Chest Chest palpation & inspection: normal inspection of the chest Resp Effort & Inspection: normal respiratory effort and able to speak in complete sentences Cardio Rate: regular rate GI Inspection: Yes normal to inspection (round ) Palpation (GI): Soft to palpation, nontender and no guarding Auscultation: normal bowel sounds Skin Other: bilateral lower leg edema; TEDs noted to bilateral lower extremities Neuro General: oriented to person Extrem General: Yes normal to inspection Psych Speech and movement: Slowed speech present (Psych), Pressured speech present and Slowed movement present (Neuro) Insight: Fair insight present (Psych) and Limited insight present (Psych) Judgement: Fair judgement present (Psych) and Limited judgement present (Psych) Results Reviewed Results Reviewed: COLONOSCOPY: IMPRESSION: 1. Redundant tortuous colon with the cecum in the right midabdomen. Although this is mobile between the supine and prone images, the majority of the colon is in the left abdomen with normal-appearing appendix seen in the left lower quadrant. On the supine images the cecum is in the right midabdomen suggesting that this is a very redundant cecum rather than malrotated especially when compared to prior studies. I do not appreciate any significant colonic mass or colonic polyp. 2. Chronic appearing and postoperative changes otherwise as described above. Assessment & Plan Assessment & Plan (1) Redundant colon: Code(s): Q43.8 - Other specified congenital malformations of intestine (2) Dysphagia: Code(s): R13.10 - Dysphagia, unspecified Qualifiers: Dysphagia type: oropharyngeal phase Qualified Code(s): R13.12 - Dysphagia, oropharyngeal phase (3) Constipation: Code(s): K59.00 - Constipation, unspecified Qualifiers: Constipation type: chronic idiopathic constipation Qualified Code(s): K59.04 - Chronic idiopathic constipation (4) GERD (gastroesophageal reflux disease): Code(s): K21.9 - Gastro-esophageal reflux disease without esophagitis Qualifiers: Esophagitis presence: esophagitis presence not specified Qualified Code(s): K21.9 - Gastro-esophageal reflux disease without esophagitis Plan Will start patient on pantoprazole. Avoid dietary triggers and late night snacking. Staying upright for minimum 3 hours after meals discussed with patient. Continue recommendation given by speech therapy. Avoid using strong drinking nectar thick liquid. Patient was observed to choke when drinking through the strap. Discussed with nurse from senior living about the importance of having patient move his bowels daily to prevent bowel obstruction. We will send him for upper endoscopy. He is agreeable to this plan and verbalizes understanding of instructions. He was given the opportunity to ask questions and all questions answered. Thank you for allowing me to participate in his care Medications: New pantoprazole take one tablet half an hour before breakfast 40 mg PO DAILY 90 tabs 2RF K21.9 - Gastro-esophageal reflux disease without esophagitis Coding Level of Care Code Est Pt Level 4 (21690) Diagnoses Redundant colon Q43.8 Oropharyngeal dysphagia R13.12 Dysphagia type: oropharyngeal phase Chronic idiopathic constipation K59.04 Constipation type: chronic idiopathic constipation Gastroesophageal reflux disease, unspecified whether esophagitis present K21.9 Esophagitis presence: esophagitis presence not specified Time Spent (min) 40 Comment 25 minutes spent with patient and additional 15 spent reviewing his records
[2024-02-19 11:08] VITALS: BP 119/71; PULSE 60; BMI 25.9
== END 2024-02-19 11:48 | disposition home or self-care (01) ==
PROVIDERS: PCP Hospitalist; Visit Provider Nurse Practitioner Family
DX: Q43.8 Other specified congenital malformations of intestine (principal); R13.12 Dysphagia, oropharyngeal phase; K59.04 Chronic idiopathic constipation; K21.9 Gastro-esophageal reflux disease without esophagitis
CPT/HCPCS: 99214

== ENCOUNTER → 2024-02-19 11:01 | Outpatient (BNVA) | payer MEDICARE, SELFPAY | PROVIDERS: PCP Hospitalist; Visit Provider Nurse Practitioner Family | DX: K59.04 Chronic idiopathic constipation (principal); K21.9 Gastro-esophageal reflux disease without esophagitis; R13.12 Dysphagia, oropharyngeal phase; Q43.8 Other specified congenital malformations of intestine | CPT/HCPCS: 99212 ==

== ENCOUNTER → 2024-03-10 11:31 | Outpatient (REF) | payer MEDICARE, SELFPAY | LOC: HO.SL 11:31 | PROVIDERS: PCP Hospitalist; Visit Provider Nurse Practitioner Family | DX: G47.33 Obstructive sleep apnea (adult) (pediatric) (principal); R06.83 Snoring | CPT/HCPCS: 95806 ==

== ENCOUNTER → 2024-03-10 13:03 | Outpatient (BNV) | payer MEDICARE, SELFPAY | PROVIDERS: PCP Hospitalist; Visit Provider Internal Medicine | DX: G47.10 Hypersomnia, unspecified (principal); R06.83 Snoring | CPT/HCPCS: 95806 ==

== ENCOUNTER 2024-03-21 08:56 | Outpatient (AMB) | payer MEDICARE, SELFPAY ==
[2024-03-21 08:57] VITALS: BP 110/64; PULSE 64; O2SAT 100
--- NOTE | 2024-03-21 08:57 | MHC.OFFVIS ---
Vital Signs 03/21/24 08:57 Height 5 ft 11 in BMI Reason not done Patient refused/unable BP 110/64 Blood Pressure Location Rt brachial Position Sitting Pulse 64 Pulse Source Pulse Oximeter Pulse Oximetry (%) 100 Oxygen Delivery Method Room Air Intake Visit Reasons: sleep apnea Allergies No Known Allergies Allergy (Verified 03/21/24 09:01) HPI HPI sleep apnea: Details: Ayo is a very pleasant 59 year old male, never smoker, with underlying pulmonary nodules, asthma and SABINE on CPAP therapy. He presents to office in a wheelchair, accompanied by a staff member from [facility]. He was initially referred by PCP after incidental finding of pulmonary nodules on abdominal CT, dedicated chest CT revealed small calcified pulmonary nodules probably representing calcified granulomas, <3 mm of RLL. Repeat scan for 1 year entered. He continues to report mild dyspnea with dry cough, which only occurs when eating. He was sent by GI for MBSS which revealed severe swallowing impairment and aspiration and recommended pureed solids and honey thick liquids. Patient again noted to be drinkning out of a straw at todays visit with coughing noted afterwards. He also continues to report issues with CPAP therapy, stating the machine has been malfunctioning and mask has broken. We obtained compliance report from November to December 2023, which we reviewed today, after many months of persistently requesting from [facility]. FORMERLY [facility], [facility] Medical History Hemorrhoids Diverticulosis Cataracts, bilateral Anemia Resides in [facility] facility Personal history of (healed) other pathological fracture Other abnormalities of gait and mobility Unsteadiness on feet Dysphagia, oral phase Constipation, unspecified Sensorineural hearing loss, bilateral Benign paroxysmal vertigo, right ear Deficiency, saccadic eye movements Other forms of nystagmus Insomnia, unspecified Vitamin B deficiency, unspecified Vitamin B12 deficiency anemia, unspecified Alternating exotropia Combined forms of age-related cataract, bilateral Personal history of other malignant neoplasm of skin Other melanin hyperpigmentation Seborrheic dermatitis, unspecified Melanocytic nevi, unspecified Hemangioma of skin and subcutaneous tissue Hypertension Diabetes insipidus Other chronic pain Obstructive sleep apnea (adult) (pediatric) Dysarthria and anarthria Muscle weakness (generalized) 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 Ataxic gait Morbid (severe) obesity due to excess calories Surgical History Hx of colonoscopy Hx of cystoscopy Other specified postprocedural states Bariatric surgery status Vasectomy status Presence of right artificial hip joint Social History Household Members: None Household Members Other:: lives at [facility] Housing: [facility] Housing Other:: resides at [facility] Are you a primary healthcare management to a significant other at home: No Do you presently have visiting nurse or other home services: No Alcohol intake: never Comment: hurt right ribs during fall Patient Tobacco Use Status: Never used Tobacco Advance Directives Date on File: 05/01/23 service: No Review of Systems Const Denies chills, Denies excessive sweating, Denies fever(s), Denies headache(s) and Denies night sweats Eyes Denies dry eyes, Denies irritation and Denies itchy eyes ENT Reports Normal hearing present, Denies headache(s), Denies nasal congestion, Denies nasal discharge, Denies post nasal drip and Denies sore throat Card Denies chest pain, Denies chest pain at rest, Denies chest pain with activity, Denies claudication, Denies leg edema, Denies orthopnea and Denies paroxysmal nocturnal dyspnea Resp Denies chest congestion, Denies excessive phlegm production, Denies pain on inspiration, Denies pain with cough, Denies stridor and Denies wheezing Musc Denies myalgias Neuro Reports Normal hearing present and Denies headache(s) Endo Denies excessive sweating Antonio/Lymph Denies lymphadenopathy Aller/Immun Denies itchy eyes, Denies seasonal rhinorrhea and Denies wheezing Physical Exam Vital Signs: Last Vital Signs Pulse 64 03/21/24 08:57 BP 110/64 03/21/24 08:57 Pulse Ox 100 03/21/24 08:57 Oxygen Delivery Method Room Air 03/21/24 08:57 Const General: cooperative, comfortable, no acute distress, well developed and alert Nutritional Appearance: obese Orientation/consciousness: patient oriented x3 Limitations: wheelchair HEENT Head: Yes normal to inspection, Yes normocephalic and Yes atraumatic Ears: hearing grossly normal bilaterally and external ears normal Eyes General: appearance normal, both eyes and all related structures Eyelids: Yes eyelids normal Sclerae: sclerae normal EOM: EOMs intact bilaterally Neck Neck: Yes normal visual inspection Chest Chest palpation & inspection: normal inspection of the chest Resp Other: Diminished lung sounds Effort & Inspection: normal respiratory effort, able to speak in complete sentences, no audible wheezes, no stridor, not tachypneic, no tripod positioning and no use of accessory muscles Cardio Jugular venous distension: no JVD Rate: regular rate Rhythm: regular rhythm Skin Other: warm, dry Neuro General: patient oriented x3 Cranial nerves: Yes Normal hearing present Cognition (Neuro): normal cognition Extrem Other: moderate BLE edema Psych Appearance: grossly normal and well kempt Speech and movement: Normal speech and movement present and Clear speech present Affect: normal affect Attitude: cooperative Thought process: Normal thought process present Thought content: Normal thought content present Insight: Good insight present (Psych) Judgement: Good judgement present (Psych) Assessment & Plan Assessment & Plan (1) Loud snoring: Code(s): R06.83 - Snoring Category: Medical (2) Multiple pulmonary nodules: Code(s): R91.8 - Other nonspecific abnormal finding of lung field Category: Medical (3) Asthma: Code(s): J45.909 - Unspecified asthma, uncomplicated Category: Medical (4) Obstructive sleep apnea: Code(s): G47.33 - Obstructive sleep apnea (adult) (pediatric) Category: Medical (5) Dysphagia: Code(s): R13.10 - Dysphagia, unspecified Category: Medical Plan Patient reports compliance with CPAP however when reviewing compliance report patient using only 27% of the time for more than than 4 hours. Report also reveals AHI of 11 with moderate leaking. Patient stated home sleep study completed this week, report not available however discussed importance of in lab titration study to ensure optimal pressures, as he likely may need changes in pressure as reflected in elevated AHI. Order printed and given to [facility] associate. All questions were answered and patient is in agreement of plan. Will follow up to review results. Orders: Orders RT PSG in-lab sleep titration Today G47.33 - Obstructive sleep apnea (adult) (pediatric), R06.83 - Snoring, R40.0 - Somnolence CT chest wo IV con 3 Months R91.8 - Other nonspecific abnormal finding of lung field Coding Level of Care Code Est Pt Level 4 (41749) Diagnoses Loud snoring R06.83 Multiple pulmonary nodules R91.8 Asthma J45.909 Obstructive sleep apnea G47.33 Dysphagia R13.10
== END 2024-03-21 11:12 | disposition home or self-care (01) ==
PROVIDERS: PCP Hospitalist; Visit Provider Nurse Practitioner Family
DX: R06.83 Snoring (principal); R91.8 Other nonspecific abnormal finding of lung field; J45.909 Unspecified asthma, uncomplicated; G47.33 Obstructive sleep apnea (adult) (pediatric); R13.10 Dysphagia, unspecified
CPT/HCPCS: 99214

== ENCOUNTER → 2024-03-21 08:56 | Outpatient (BNVA) | payer MEDICARE, SELFPAY | PROVIDERS: PCP Hospitalist; Visit Provider Nurse Practitioner Family | DX: G47.33 Obstructive sleep apnea (adult) (pediatric) (principal); R06.83 Snoring; R13.10 Dysphagia, unspecified; R91.8 Other nonspecific abnormal finding of lung field; J45.909 Unspecified asthma, uncomplicated; Z99.89 Dependence on other enabling machines and devices; Z99.3 Dependence on wheelchair | CPT/HCPCS: 99212 ==

== ENCOUNTER → 2024-04-30 19:30 | Outpatient (REF) | payer MEDICARE, SELFPAY | LOC: HO.SL 19:30 | PROVIDERS: PCP Hospitalist; Visit Provider Nurse Practitioner Family | DX: R40.0 Somnolence (principal); R06.83 Snoring; G47.33 Obstructive sleep apnea (adult) (pediatric) | CPT/HCPCS: 95811 ==

== ENCOUNTER → 2024-04-30 23:00 | Outpatient (BNV) | payer MEDICARE, SELFPAY | PROVIDERS: PCP Hospitalist; Visit Provider Internal Medicine | DX: G47.33 Obstructive sleep apnea (adult) (pediatric) (principal) | CPT/HCPCS: 95811 ==

== ENCOUNTER 2024-05-09 14:34 | Outpatient (REF) | payer MEDICARE, SELFPAY ==
--- NOTE | ~2024-05-09 | CT_ITS ---
EXAMINATION: CT CHEST WITHOUT CONTRAST CLINICAL INFORMATION: Other nonspecific abnormal finding of the lung block. Multiple pulmonary nodules COMPARISON: Previous CT dated 06/18/2023 TECHNIQUE: Multidetector volumetric CT imaging of the chest was done. Axial MIP volume rendering provided. Sagittal and coronal reformatted images were obtained. This CT examination was performed using dose optimization techniques as appropriate, variously including the following: *Automated exposure control *Adjustment of mA and/or kV according to patient size (this includes techniques or standardized protocols for targeted exams where dose is matched to indication/reason for exam; i.e. extremities or head) *Use of iterative reconstruction technique DLP: 206 mGy-cm FINDINGS: The thoracic inlet is felt to be unremarkable. Comparable to previous. The axillary regions are unremarkable. Coronary calcifications are once again noted. Once again some densities are seen behind the nipples right and left breast. This could be consistent with gynecomastia. Correlation recommended clinically. Consider mammography and ultrasound to further evaluate. The partially visualized upper abdominal structures felt to be comparable to previous. Centrally there is no bulky adenopathy in the mediastinum. This is a noncontrast study but the hilar regions are felt to be comparable to previous. Imaging t of the lung block. Right lung; Motion degrades imaging. There is a new nodule in the right lower lobe on image 385. This is measuring 4 mm. Otherwise some scattered calcified granulomas are once again noted New 3 mm nodule on image 380 right lower lobe. New 4 mm nodule with some surrounding groundglass change on image 206. Some scattered areas of ill-defined and reticulonodular change in the right lower lobe may represent areas of infiltrate. There is also a small right-sided effusion/pleural reaction which is new from previous There is a very thick atelectasis or infiltrate at the right base as well. Image 462. Exam demonstrates some bronchial thickening here Left lung; Stable 3 mm nodule on image 294 Again motion degrades imaging. Stable scattered calcified granulomas are noted No acute infiltrate or effusion. Review of the bone windows once again demonstrates a large sclerotic bony lesion in the right scapula. Similar to previous. Etiology indeterminate Some degenerative change in the thoracic spine. No compression injury. CT/CT chest wo IV con IMPRESSION: This study is just now presented to me for dictation. Findings as described above. Most remarkable for right lower lobe atelectasis/infiltrate with volume loss in the small right-sided effusion. Attention on follow-up. Stable calcified granulomas are seen bilaterally. Several new nodules are noted here.. These could be inflammatory. Largest 4 mm. Early malignancy cour of course cannot be excluded. Attention to follow-up per Fleischner criteria. Densities behind the nipples right and left breast once again seen. Gynecomastia would be a consideration. Correlation recommended clinically. If further evaluation is warranted recommend mammogram and ultrasound. Electronically signed by: Anselmo David MD 06/05/2024 10:10 AM EDT RP
== END 2024-05-09 14:35 | disposition home or self-care (01) ==
LOC: HO.CT 14:34
PROVIDERS: Visit Provider Nurse Practitioner Family
DX: R91.8 Other nonspecific abnormal finding of lung field (principal)
CPT/HCPCS: 71250

== ENCOUNTER 2024-06-19 13:27 | Inpatient (IN) | payer MEDICARE, SELFPAY ==
--- NOTE | ~2024-06-19 | XR_ITS ---
EXAMINATION: XR CHEST CLINICAL INFORMATION: Lethargy COMPARISON: Frontal view 07/20/23 TECHNIQUE: Upright frontal portable view of the chest was obtained. FINDINGS: There is kyphosis and rotation to the left. No mediastinal or hilar mass. No alveolar edema or dense focal pneumonia. The central markings are slightly thickened. No significant pleural fluid or pneumothorax demonstrated. Surgical clips in the upper abdomen XR/XR chest 1V IMPRESSION: No dense focal pneumonia or alveolar edema Electronically signed by: Justus Martinez MD 06/19/2024 05:07 PM EDT
--- NOTE | ~2024-06-19 | US_ITS ---
EXAMINATION: US TRIPLEX LOWER EXTREMITY, LEFT CLINICAL INFORMATION: Left leg pain. Clinical concern for deep venous thrombosis. COMPARISON: None available. TECHNIQUE: Color-flow triplex imaging with spectral analysis and compression Doppler were performed on the left lower extremity. FINDINGS: Respiratory variation, normal compression and augmented flow are noted from the groin to the distal thigh of the left lower extremity. The visualized common femoral vein, superficial femoral vein, profunda femoral vein show no evidence of deep venous thrombosis. The popliteal vein is noncompressible. There are low-level echoes within the popliteal vein. There is absence of color signal within the popliteal vein. Popliteal vein is not significantly distended The veins in the calf or not able to be visualized and are therefore only valuable There is no Ortega's cyst. US/US venous duplex LE IMPRESSION: Deep venous thrombosis in the left popliteal vein with nonvisualization of the calf veins. No deep venous thrombus in the groin proximal or mid thigh. Electronically signed by: Justus Martinez MD 06/19/2024 07:03 PM EDT
[2024-06-19 13:42] VITALS: BP 101/71; BP 96/65; PULSE 63; PULSE 86; RESP 12; O2SAT 95; O2SAT 99; BMI 21.8
--- NOTE | 2024-06-19 13:49 | ECG_ITS ---
Test Reason : WEAKNESS Blood Pressure : / mmHG Vent. Rate : 088 BPM Atrial Rate : 088 BPM P-R Int : 142 ms QRS Dur : 072 ms QT Int : 352 ms P-R-T Axes : 066 019 064 degrees QTc Int : 425 ms Sinus rhythm with occasional Premature ventricular complexes Low voltage QRS Borderline ECG No previous ECGs available Referred By: Devika Temple Electronically Signed By:MARGARITA LOMBARDI
[2024-06-19 13:50] VITALS: BP 101/71; PULSE 86; RESP 12; O2SAT 99
--- NOTE | 2024-06-19 14:03 | ED_ITS ---
HPI - Weakness General Chief complaint: Weakness Stated complaint: INCREASED LETHARGY PER EMS Time Seen by Provider: 06/19/24 13:32 Source: patient, EMS, RN notes reviewed and old records reviewed Mode of arrival: EMS History of Present Illness ED Provider: Devika Temple PA-C HPI Narrative: 59-year-old male with a past medical history of cerebral ataxia disease, diabetes, anemia, benign paroxysmal vertigo, dysphagia, HTN, poor historian, presenting to the ED via EMS from [facility] due to staff concern of increasing lethargy and abnormal labs. Unclear what lab abnormalities are. Patient offers no complaints at present. Denies CP/SOB, abdominal pain, nausea/vomiting Related Data Home Medications ?Medication ?Instructions ?Recorded ?Confirmed acetaminophen 325 mg capsule 650 mg PO Q6H PRN Fever Or Pain 12/22/22 02/12/24 bisacodyl 10 mg rectal suppository 10 mg SC DAILY PRN Constipation 12/22/22 02/12/24 calcium carbonate 500 mg PO Q6H PRN Heartburn 12/22/22 02/12/24 cyanocobalamin (vitamin B-12) 500 1,000 mcg PO DAILY 12/22/22 02/12/24 mcg tablet desmopressin 0.2 mg tablet 0.2 mg PO BID 12/22/22 02/12/24 hyoscyamine sulfate 0.125 mg 0.125 mg sublingual BID 12/22/22 02/12/24 sublingual tablet pyridoxine (vitamin B6) 200 mg 200 mg PO DAILY 12/22/22 02/12/24 tablet,extended release sodium phosphates 19 gram-7 118 ml SC DAILY PRN Constipation 12/22/22 02/12/24 gram/118 mL enema (Fleet Enema) benzocaine 10 % mucosal gel 1 appl mucous membrane TID PRN Pain 05/01/23 02/12/24 (Anbesol (benzocaine)) desmopressin 0.2 mg tablet 0.2 mg PO Q24H PRN EXCESSIVE 05/01/23 02/12/24 SECRETIONS Previous Rx's ?Medication ?Instructions ?Recorded sennosides 8.6 mg tablet (Senna 17.2 mg (2 x 8.6 mg) PO DAILY 08/21/23 Laxative) Constipation #180 tabs albuterol sulfate 2.5 mg/3 mL 2.5 mg (3 mL) inhalation BID PRN 08/29/23 (0.083 %) solution for nebulization shortness of breath or wheezing #180 mL tamsulosin 0.4 mg capsule (Flomax) 0.4 mg PO BEDTIME 30 days #30 caps 09/05/23 ascorbic acid (vitamin C) 1,000 mg 1 g PO DAILY 90 days #90 tabs 02/12/24 tablet methenamine hippurate 1 gram tablet 1 g PO DAILY 90 days #90 tabs 02/12/24 pantoprazole 40 mg tablet,delayed 40 mg PO DAILY #90 tabs 02/19/24 release Allergies Allergy/AdvReac Type Severity Reaction Status Date / Time No Known Allergies Allergy Verified 06/19/24 13:47 Review of Systems 2 Review of Systems: Yes all other systems are reviewed and are negative Constitutional: Constitutional: Reports as per [facility] Past Medical History Attestation statement: The following information was validated with the patient. Source: old records reviewed Medical History Hemorrhoids Diverticulosis Cataracts, bilateral Anemia Resides in residential facility Personal history of (healed) other pathological fracture Other abnormalities of gait and mobility Unsteadiness on feet Dysphagia, oral phase Constipation, unspecified Sensorineural hearing loss, bilateral Benign paroxysmal vertigo, right ear Deficiency, saccadic eye movements Other forms of nystagmus Insomnia, unspecified Vitamin B deficiency, unspecified Vitamin B12 deficiency anemia, unspecified Alternating exotropia Combined forms of age-related cataract, bilateral Personal history of other malignant neoplasm of skin Other melanin hyperpigmentation Seborrheic dermatitis, unspecified Melanocytic nevi, unspecified Hemangioma of skin and subcutaneous tissue Hypertension Diabetes insipidus Other chronic pain Obstructive sleep apnea (adult) (pediatric) Dysarthria and anarthria Muscle weakness (generalized) 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 Ataxic gait Morbid (severe) obesity due to excess calories Surgical History Hx of colonoscopy Hx of cystoscopy Other specified postprocedural states Bariatric surgery status Vasectomy status Presence of right artificial hip joint Social History Social History Household Members: None Household Members Other:: lives at [facility] Housing: [facility] Housing Other:: resides at [facility] Are you a primary resident care spec to a significant other at home: No Do you presently have visiting nurse or other home services: No Alcohol intake: never Comment: hurt right ribs during fall Patient Tobacco Use Status: Never used Tobacco Smoked in Last 30 Days: No Use of substances other than those prescribed or required for medical reasons: No Advance Directives: Yes Advance Directives on File: Yes Advance Directives Date on File: 05/01/23 Do you have a plan to hurt others: No Plan service: No Physical Exam 2 Vital Signs: Vital Signs: Last Vital Signs Pulse 86 06/19/24 13:50 Resp 12 06/19/24 13:50 BP 101/71 06/19/24 13:50 Pulse Ox 99 06/19/24 13:50 O2 Del Method Room Air 06/19/24 13:50 BMI result Body Mass Index 21.8 Const: General: cooperative, healthy appearing and no acute distress O rientation/consciousness: patient oriented x3 Limitations: no limitations HEENT: Head: Yes normal to inspection and Yes atraumatic Ears: hearing grossly normal bilaterally General nose exam: Normal external nose present Face and sinus: Yes normal facial exam Throat: Yes posterior oropharynx normal Eyes: General: appearance normal, both eyes and all related structures P upils: Equal, round and reactive pupils present EOM: EOMs intact bilaterally Neck: Neck: Yes normal visual inspection and Yes no meningeal signs Resp: Effort & Inspection: normal respiratory effort and no respiratory distress Auscultation: diminished lung sounds Cardio: Rate: regular rate Heart sounds: S1 normal heart sound present and S2 normal heart sound present GI: Inspection: Yes normal to inspection Palpation (GI): Soft to palpation and nontender Skin: Rashes: no rashes Wounds: no wounds Neuro: General: patient oriented x3, tone normal, moves all extremities, no meningeal signs and no focal motor deficits Cranial nerves: Yes CN's II-XII intact bilaterally and Yes Equal, round and reactive pupils present Extrem: General: Yes normal to inspection and Yes no pedal edema Course Course Course Narrative: -1432--leukocytosis of 15.4. H / H better than baseline 12.8/41.1 > patient admits to receiving blood transfusion recently -BUN chronically elevated. Initial troponin 20.9 > will obtain 3 hour repeat -patient notably hypernatremic to [address] Curry > 1521 recommended D5W and admission. Will discuss case with hospitalist Medications Administered Discontinued Medications Generic Name Dose Route Start Last Admin Trade Name Jarretq PRN Reason Stop Dose Admin Acetaminophen 325 mg 06/19/24 14:20 06/19/24 14:44 Acetaminophen 325 Mg Tablet PO 06/19/24 14:21 325 mg ONCE ONE Administration Medical Decision Making Medical Decision Making [facility] Narrative: 59-year-old male with a past medical history of cerebral ataxia disease, diabetes, anemia, benign paroxysmal vertigo, dysphagia, HTN, poor historian, presenting to the ED via EMS from [facility] due to staff concern of increasing lethargy and abnormal labs. On exam vital signs stable, NAD, nontoxic appearing, exam otherwise benign. Concern for metabolic vs infectious etiologies including UTI vs pneumonia. Low suspicion for severe sepsis. Labs provided from [facility] however no appreciable overt abnormalities. Plan: EKG, labs, UA, CXR, viral studies Please refer to course for remaining clinical decision making, interpretation of labs/imaging results, and discussions with consultants and/or family members. Differential Diagnosis Differential Diagnoses: The differential diagnosis associated with the presentation includes As above Admission/Observation Consideration of admission/observation: Escalation of care including admission/observation considered Consult Healthcare Provider Management of the patient was discussed with: Hospitalist and Dietetics Director (Nephrology) Lab Data [facility] Lab Attestation statement: I reviewed the patient's lab results. 06/19/24 14:00 06/19/24 14:00 Labs: Lab Results 06/19/24 06/19/24 Range/Units 14:00 14:15 WBC 15.4 H (4.8-10.8) X10*3/uL RBC 4.08 L D (4.60-5.80) X10*6/uL Hgb 12.8 L D (14.0-18.0) g/dl Hct 41.1 L D (42.0-52.0) % MCV 100.7 H (80.0-98.0) fL MCH 31.4 (27.0-33.0) pg MCHC 31.1 (31.0-36.0) g/dl RDW 17.9 H (11.0-16.0) % Plt Count 199 (160-400) X10*3/uL MPV 10.3 (9.4-12.4) fL Immature Gran % (Auto) 0.5 H (0.0-0.4) % Neut % (Auto) 71.4 (45-73) % Lymph % (Auto) 22.4 (20-40) % [place] % (Auto) 5.3 (2-11) % Eos % (Auto) 0.1 (0-4) % Baso % (Auto) 0.3 (0-2) % Lymph # (Auto) 3.5 (1.2-4.9) X10*3/uL [place] # (Auto) 0.8 (0.1-1.2) X10*3/uL Eos # (Auto) 0.0 (0.0-0.4) X10*3/uL Baso # (Auto) 0.1 (0.0-0.2) X10*3/uL Abs Immat Gran (auto) 0.08 H (0.00-0.03) X10*3/uL Absolute Neuts (auto) 11.0 H (2.0-8.3) x10*3/uL Absolute Nucleated RBC 0.000 (0.0-0.012) X10*3/uL Nucleated RBC % (auto) 0.0 (0.0-0.2) /100WBC Sodium 161 H* (135-145) mmol/L Potassium 4.1 (3.3-5.1) mmol/L Chloride 125 H (96-108) mmol/L Carbon Dioxide 28 (22-29) mmol/L Anion Gap 12 (12-20) BUN 23 H (9-16) mg/dL Creatinine 1.37 (0.5-1.4) mg/dL Estim Creat Clear Calc 55.7 Estimated GFR 53 Random Glucose 95 (60-115) mg/dL Calcium 8.2 L D (8.4-10.2) mg/dL Magnesium 2.3 (1.6-2.6) mg/dL Total Bilirubin 1.6 H (0.0-1.0) mg/dL Direct Bilirubin 0.9 H (0.0-0.5) mg/dL AST 10 (5-37) U/L ALT 11 (0-40) U/L Alkaline Phosphatase 123 H (39-117) U/L Troponin I High Sens 20.9 (<3.5-35.0) ng/L Total Protein 5.5 L (6.5-8.0) g/dL Albumin 2.2 L (3.5-5.0) g/dL Influenza Type A (PCR) NEGATIVE (Negative) Influenza Type B (PCR) NEGATIVE (Negative) RSV RNA Qual (PCR) NEGATIVE (Negative) SARS-CoV-2 RNA (RT-PCR) NEGATIVE (Negative) Independent Interpretation I performed an independent interpretation of an: EKG and Plain X-Ray Radiology Impression Discussion of test interpretation with radiology: I have reviewed the radiologist's reading. Independent Historian Clinical information obtained from an independent historian. History obtained from or confirmed by: EMS External Record Review External record reviewed: Inpatient record, Office record, Outpatient record, Prior outpatient labs, Prior outpatient radiology, Primary care record and Outside ED record Tests considered The following testing was considered but not selected: As above Prescription Management I considered prescription management with: Antibiotic Chronic Conditions Patient?s care impacted by: Other Critical Care Time Critical Care Time Critical Care Time: Yes Total Critical Care Time: 40 Attestation: I have personally provided critical care time exclusive of time spent on separately billable procedures. Time includes review of lab data, radiology results, discussion with consultants, and monitoring for potential decompensation. Intervention performed as documented. Discharge Plan Discharge Clinical Impression: Acute hypernatremia, Lethargy Patient Disposition: Admitted As Inpatient Print Language: Liberian
[2024-06-19 14:04] LABS: MANUAL DIFF FLAG NO
[2024-06-19 14:06] LABS: Basophils Absolute Auto 0.1 X10*3/uL (0.0-0.2); Basophils Percent Auto 0.3 % (0-2); Eosinophils Percent Auto 0.1 % (0-4); Hematocrit 41.1 % (42.0-52.0); Hemoglobin 12.8 g/dl (14.0-18.0); Imm Gran Abs Auto 0.08 X10*3/uL (0.00-0.03); Imm Gran Pct Auto 0.5 % (0.0-0.4); Lymphocytes Absolute Auto 3.5 X10*3/uL (1.2-4.9); Lymphocytes Percent Auto 22.4 % (20-40); Mean Corpuscular HGB Conc 31.1 g/dl (31.0-36.0); Mean Corpuscular Hemoglobin 31.4 pg (27.0-33.0); Mean Corpuscular Volume 100.7 fL (80.0-98.0); Mean Platelet Volume 10.3 fL (9.4-12.4); Monocytes Absolute Auto 0.8 X10*3/uL (0.1-1.2); Monocytes Percent Auto 5.3 % (2-11); Neutrophils Percent Auto 71.4 % (45-73); Platelet Count 199 X10*3/uL (160-400); Red Blood Count 4.08 X10*6/uL (4.60-5.80); Red Cell Distribution Width 17.9 % (11.0-16.0); White Blood Count 15.4 X10*3/uL (4.8-10.8)
[2024-06-19 14:25] LABS: Alanine Aminotransferase 11 U/L (0-40); Albumin Level 2.2 g/dL (3.5-5.0); Alkaline Phosphatase 123 U/L (39-117); Aspartate Amino Transferase 10 U/L (5-37); Bilirubin Direct 0.9 mg/dL (0.0-0.5); Bilirubin Total 1.6 mg/dL (0.0-1.0); Blood Urea Nitrogen 23 mg/dL (9-16); Calcium 8.2 mg/dL (8.4-10.2); Creatinine Clr Calc Pharmacy 55.7; Estimated Glomerular Filt Rate 53; Glucose Random 95 mg/dL (60-115); Magnesium 2.3 mg/dL (1.6-2.6); Total Protein 5.5 g/dL (6.5-8.0)
[2024-06-19 14:28] LABS: Troponin-I High Sensitivity 20.9 ng/L (<3.5-35.0)
[2024-06-19 14:39] LABS: Anion Gap 12 (12-20); Carbon Dioxide 28 mmol/L (22-29); Chloride 125 mmol/L (96-108); Potassium 4.1 mmol/L (3.3-5.1); Sodium 161 mmol/L (135-145)
[2024-06-19] MEDS: Acetaminophen 325 MG TABLET PO (14:44)
[2024-06-19 15:01] LABS: Influenza A PCR NEGATIVE (Negative); Influenza B PCR NEGATIVE (Negative); Resp Syncy Virus RNA Qual PCR NEGATIVE (Negative); SARS COV2 PCR INHOUSE NEGATIVE (Negative)
--- NOTE | 2024-06-19 15:50 | P.HPHOSP_ITS ---
<Statement entered by Andi Villarreal MD - 06/21/24 15:35> the patient was seen and evaluated with SHARI Moeller. I agree with his note, assessment and plan with the following. in summary, 59 years old male with PMH of HTN, dysphagia, bed-bound w cerebellar ataxia among others presenting with increase lethargy and elevated Na level. Acute hypernatremia Na of 161 , start on D5W @100 mls/hr Nephrology consult and closely monitor Na Acute UTI Start Ceftriaxone pending final cultures Rest of evaluations by PA note. History of Present Illness Date of Service: 06/19/24 Attending physician on admission: Andi Villarreal Chief Complaint: Lethargy, abnormal labs Pt is a 59-year-old male with a PMH significant for cerebellar ataxia, HTN, unspecified asthma, anemia, BPPV, dysphagia, non mobile and bed-bound at baseline who presents to the ED from [facility] for evaluation of increasing lethargy and abnormal routine labs that showed elevated sodium. Patient with significant expressive aphasia though is capable answering yes no questions and following basic commands. Patient reports left lower leg pain of unclear duration. Otherwise patient has no acute medical complaints at this time denies chest pain or pressure no difficulty breathing. No abdominal pain. In the ED pt with stable and WNL. Labs were significant for chronic leukocytosis of 15.4 H&H of 12.8/41.1, hypernatremia of 161, chloride 125, BUN 23, and bilirubin 1.6. Tested negative at flu, RSV, COVID. UA consistent with UTI. CXR showed no dense focal pneumonia or alveolar edema. EKG demonstrated sinus rhythm occasional PVCs no evidence ST or depressions. In the ED nephrology was consulted and patient was started on D5W @ 100mls/hr. Pt will be admitted to the hospital for treatment and further evaluation of acute hypernatremia. Review of Systems 2 Review of Systems: Limited due to patient's mentation Left leg pain Otherwise no acute medical concerns at this time [facility] Medical History Hemorrhoids Diverticulosis Cataracts, bilateral Anemia Resides in longterm facility Personal history of (healed) other pathological fracture Other abnormalities of gait and mobility Unsteadiness on feet Dysphagia, oral phase Constipation, unspecified Sensorineural hearing loss, bilateral Benign paroxysmal vertigo, right ear Deficiency, saccadic eye movements Other forms of nystagmus Insomnia, unspecified Vitamin B deficiency, unspecified Vitamin B12 deficiency anemia, unspecified Alternating exotropia Combined forms of age-related cataract, bilateral Personal history of other malignant neoplasm of skin Other melanin hyperpigmentation Seborrheic dermatitis, unspecified Melanocytic nevi, unspecified Hemangioma of skin and subcutaneous tissue Hypertension Diabetes insipidus Other chronic pain Obstructive sleep apnea (adult) (pediatric) Dysarthria and anarthria Muscle weakness (generalized) 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 Ataxic gait Morbid (severe) obesity due to excess calories Surgical History Hx of colonoscopy Hx of cystoscopy Other specified postprocedural states Bariatric surgery status Vasectomy status Presence of right artificial hip joint Social History Household Members: None Household Members Other:: lives at [facility] Housing: Long Term Housing Other:: resides at [facility] Are you a primary daycare manager to a significant other at home: No Do you presently have visiting nurse or other home services: No Alcohol intake: never Comment: hurt right ribs during fall Patient Tobacco Use Status: Never used Tobacco Smoked in Last 30 Days: No Use of substances other than those prescribed or required for medical reasons: No Advance Directives: Yes Advance Directives on File: Yes Advance Directives Date on File: 05/01/23 Do you have a plan to hurt others: No Plan service: No Meds Allergies Allergy/AdvReac Type Severity Reaction Status Date / Time No Known Allergies Allergy Verified 06/19/24 13:47 Active Medications: Current Medications Dextrose (D5w) 1,000 mls @ 100 mls/hr IVCONT .Q10H [facility] Home Medications ?Medication ?Instructions ?Recorded ?Confirmed ?Last Taken ?Type acetaminophen 325 mg capsule 650 mg PO Q6H PRN Fever Or Pain 12/22/22 06/19/24 Unknown History bisacodyl 10 mg rectal suppository 10 mg IA DAILY PRN Constipation 12/22/22 06/19/24 Unknown History calcium carbonate 500 mg PO Q6H PRN Heartburn 12/22/22 06/19/24 Unknown History cyanocobalamin (vitamin B-12) 500 1,000 mcg PO DAILY 12/22/22 06/19/24 Unknown History mcg tablet desmopressin 0.2 mg tablet 0.2 mg PO BID 12/22/22 06/19/24 Unknown History hyoscyamine sulfate 0.125 mg 0.125 mg sublingual BID 12/22/22 06/19/24 Unknown History sublingual tablet sodium phosphates 19 gram-7 118 ml IA DAILY PRN Constipation 12/22/22 06/19/24 Unknown History gram/118 mL enema (Fleet Enema) benzocaine 10 % mucosal gel 1 appl mucous membrane Q8H PRN Pain 05/01/23 06/19/24 Unknown History (Anbesol (benzocaine)) desmopressin 0.2 mg tablet 0.2 mg PO Q24H PRN EXCESSIVE 05/01/23 06/19/24 Unknown History SECRETIONS albuterol sulfate 2.5 mg/3 mL 2.5 mg inhalation BID shortness of 06/19/24 06/19/24 Unknown History (0.083 %) solution for nebulization breath or wheezing aspirin 81 mg tablet,delayed 81 mg PO BID 06/19/24 06/19/24 Unknown History release atropine 1 % eye drops 2 drp buccal BID 06/19/24 06/19/24 Unknown History hydrocortisone acetate 25 mg 25 mg IA DAILY PRN Grade 1 06/19/24 06/19/24 Unknown History rectal suppository (Anusol-HC) Internal Hemorrhoids after BM menthol 5 % topical patch (Bengay 1 patch topical Q6H PRN Pain 06/19/24 06/19/24 Unknown History Ultra Strength (menthol)) pantoprazole 40 mg tablet,delayed 40 mg PO DAILY@0630 06/19/24 06/19/24 Unknown History release pyridoxine (vitamin B6) 50 mg 200 mg PO DAILY 06/19/24 06/19/24 Unknown History tablet sennosides 8.6 mg tablet (senna) 8.6 mg PO DAILY PRN Constipation 06/19/24 06/19/24 Unknown History Physical Exam 2 Vital Signs and Narrative: Vital Signs: Last Vital Signs Pulse 86 06/19/24 13:50 Resp 12 06/19/24 13:50 BP 101/71 06/19/24 13:50 Pulse Ox 99 06/19/24 13:50 O2 Del Method Room Air 06/19/24 13:50 BMI result Body Mass Index 21.8 General: Awake but with significant expressive aphasia, unable to obtain orientation. Frail-looking, in no acute distress Resp: CTA bilaterally CVS: S1, S2, RRR GI: +BS, NT, no distention Skin: Warm, dry Neuro: Cranial nerves II-XII grossly intact bilaterally. Motor grossly intact bilaterally Musculoskeletal: Right lower leg diffusely tender Extremities: No edema Results Labs 06/19/24 14:00 06/19/24 14:00 Labs: Laboratory Results - last 24 hr 06/19/24 06/19/24 14:00 14:15 MCV 100.7 H MCH 31.4 MCHC 31.1 RDW 17.9 H Plt Count 199 MPV 10.3 Immature Gran % (Auto) 0.5 H Neut % (Auto) 71.4 Lymph % (Auto) 22.4 [place] % (Auto) 5.3 Eos % (Auto) 0.1 Baso % (Auto) 0.3 Lymph # (Auto) 3.5 [place] # (Auto) 0.8 Eos # (Auto) 0.0 Baso # (Auto) 0.1 Abs Immat Gran (auto) 0.08 H Absolute Neuts (auto) 11.0 H Absolute Nucleated RBC 0.000 Nucleated RBC % (auto) 0.0 Anion Gap 12 Estim Creat Clear Calc 55.7 Estimated GFR 53 Random Glucose 95 Calcium 8.2 L D Magnesium 2.3 Total Bilirubin 1.6 H Direct Bilirubin 0.9 H AST 10 ALT 11 Alkaline Phosphatase 123 H Troponin I High Sens 20.9 Total Protein 5.5 L Albumin 2.2 L Influenza Type A (PCR) NEGATIVE Influenza Type B (PCR) NEGATIVE RSV RNA Qual (PCR) NEGATIVE SARS-CoV-2 RNA (RT-PCR) NEGATIVE Assessment and Plan (1) Acute hypernatremia: Status: Acute Plan Pt is a 59-year-old male with a PMH significant for cerebellar ataxia, HTN, unspecified asthma, anemia, BPPV, dysphagia, non mobile and bed-bound at baseline who presents to the ED from [facility] for evaluation of increasing lethargy and abnormal routine labs that showed elevated sodium. Acute hypernatremia Patient's sodium 161 at time of presentation Likely secondary to dehydration from reduced p.o. intake Will treat with D5W @100 mls/hr Nephrology consult Monitor sodium q4hr Seizure precautions Monitor on telemetry Acute UTI UA consistent with UTI Does not meet sepsis criteria: Leukocytosis chronic, no tachycardia, tachypnea, or fever Will treat with ceftriaxone, started 06/19/2024 Follow urine cultures Lower left pain Pt complaining of lower left pain of unclear etiology and unknown duration Fracture unlikely as patient is nonambulatory and chronically bed and wheelchair-bound Will get ultrasound Doppler to r/o DVT Acetaminophen for pain management Diet Seen and evaluated by speech therapy on 01/01/2024 Pureed (NDD1) diet Honey thick liquids with small sips, no straws Medications crushed with puree Total assistance one-to-one with eating Asthma, unspecified Not in acute exacerbation Continue home inhalers GERD PPI BPH Tamsulosin DNR/DNI, confirmed with [facility] Attending:?Dr. Villarreal DVT Prophylaxis: Lovenox Pt will require a hospitalization of at least two nights for treatment of?acute hyponatremia that will require hypotonic IVF administration, and close monitoring of labs and cardiac function. Quality Stroke Does the patient have a stroke diagnosis?: No VTE Prior VTE?: No VTE Risk Level:: Medical - moderate - high VTE Device Contraindication: Treatment Not Indicated VTE Drug Contraindication: N/A - Med Ordered
--- NOTE | 2024-06-19 16:12 | PC.NURSE ---
Pt being admitted, Hospitalist to bed side. Pt fails swallow assessment--Hospitalist aware, accommodations to be made regarding diet and speech/therapy consult.
[2024-06-19] MEDS: Dextrose 5 % 1,000 ML 100 ML IVCONT (16:21)
[2024-06-19 16:31] VITALS: BP 93/70; PULSE 88; RESP 18; TEMP 36.6; O2SAT 100
--- NOTE | 2024-06-19 16:45 | PHA.MEDREC ---
Addendum entered by Nancy Lloyd RPh 06/19/24 17:01: Reviewed by [facility] Original Note: Pharmacy Consult ? Medication Reconciliation Pharmacy has completed the medication reconciliation. Confirmed medications with list provided by Bobby at [facility].
[2024-06-19 17:13] LABS: Appearance Urine Cloudy; Color Urine Dark Yellow; Glucose Urine UA Negative (Negative); Leukocyte Esterase Urine Large (3+) (Negative); Nitrite Urine Negative (Negative); PH >= 9.0 (5.0-9.0); UMIC TRIGGER UACC YES; Urine Blood Negative (Negative); Urine Ketones Negative (Negative); Urine Protein 30 (1+) mg/dL (Neg-Trace)
--- NOTE | 2024-06-19 17:13 | MHC.EDTECH ---
Patient inc stool therefore changed and repositioned
[2024-06-19 17:31] LABS: Bacteria Urine 4+ (None Seen); RBC Urine 0-2 /HPF (0-2); UACC Culture Trigger YES; WBC Urine >50 /HPF (0-5)
[2024-06-19] MEDS: Enoxaparin Sodium 40 MG/0.4 ML SYRINGE SUBCUT (18:00)
[2024-06-19 18:35] LABS: Anion Gap 11 (12-20); Blood Urea Nitrogen 25 mg/dL (9-16); Calcium 8.5 mg/dL (8.4-10.2); Carbon Dioxide 30 mmol/L (22-29); Chloride 124 mmol/L (96-108); Creatinine Clr Calc Pharmacy 53.8; Estimated Glomerular Filt Rate 51; Glucose Random 112 mg/dL (60-115); Potassium 3.9 mmol/L (3.3-5.1); Sodium 161 mmol/L (135-145)
[2024-06-19 18:37] LABS: Troponin-I High Sensitivity 22.1 ng/L (<3.5-35.0)
--- NOTE | 2024-06-19 18:44 | PC.NURSE ---
Pt lab, critical sodium of 161.
--- NOTE | 2024-06-19 19:01 | PC.NURSE ---
Discussed critical lab with provider. He will discuss with nephrology to see if they recommend increase d5 rate.
[2024-06-19] MEDS: cefTRIAXone sodium 1 GM in 0.9 % Sodium Chloride 50 ML IV (19:27)
[2024-06-19 19:30] VITALS: BP 98/58; PULSE 75; RESP 18; TEMP 36.5; O2SAT 99
--- NOTE | 2024-06-19 20:02 | PM.EVENT ---
Event Note Date of Service: 06/19/24 Event Note: Venous duplex ultrasound of left lower extremity positive for DVT in left popliteal vein with nonvisualization of calf veins. Will start patient on therapeutic dose Lovenox of 70 mg subQ q12h. Time Spent With Patient Time: Total time managing care of this patient today ____ minutes.
--- NOTE | 2024-06-19 20:03 | MHC.EDTECH ---
Patient inc therefore patient changed an repositioned
[2024-06-19] MEDS: Enoxaparin Sodium 30 MG/0.3 ML SYRINGE SUBCUT (21:02)
[2024-06-19 21:03] LABS: INTERNATIONAL NORM RATIO 1.1 (0.9-1.1); Prothrombin Time 12.7 SEC (10.9-12.4)
[2024-06-19 21:06] LABS: Partial Thromboplastin Time 34.7 SEC (26.0-36.8)
[2024-06-19] MEDS: Morphine Sulfate 2 MG/ML CARTRIDGE IVPUSH (21:26)
[2024-06-19 21:27] VITALS: BP 90/68; PULSE 61; RESP 16; TEMP 36.3; O2SAT 96
--- NOTE | 2024-06-19 23:01 | MHC.EDTECH ---
Patient inc therefore changed and repositioned
[2024-06-20] VITALS (8 sets, daily range): BP systolic 93–138; BP diastolic 58–88; PULSE 61–118; RESP 16–20; TEMP 35.7–36.7; O2SAT 98–100; BMI 21.8
[2024-06-20] MEDS: Dextrose 5 % 1,000 ML 100 ML IVCONT ×2 (01:18→12:01)
[2024-06-20 07:08] LABS: Hematocrit 41.4 % (42.0-52.0); Hemoglobin 12.7 g/dl (14.0-18.0); Mean Corpuscular HGB Conc 30.7 g/dl (31.0-36.0); Mean Corpuscular Hemoglobin 31.5 pg (27.0-33.0); Mean Corpuscular Volume 102.7 fL (80.0-98.0); Mean Platelet Volume 10.9 fL (9.4-12.4); NRBC Pct Auto 0.2 /100WBC (0.0-0.2); Platelet Count 188 X10*3/uL (160-400); Red Blood Count 4.03 X10*6/uL (4.60-5.80); Red Cell Distribution Width 17.7 % (11.0-16.0); White Blood Count 11.8 X10*3/uL (4.8-10.8)
[2024-06-20 07:25] LABS: Anion Gap 10 (12-20); Blood Urea Nitrogen 25 mg/dL (9-16); Calcium 8.5 mg/dL (8.4-10.2); Carbon Dioxide 29 mmol/L (22-29); Chloride 121 mmol/L (96-108); Estimated Glomerular Filt Rate 50; Glucose Fasting 109 mg/dL (60-99); Potassium 4.4 mmol/L (3.3-5.1); Sodium 156 mmol/L (135-145)
[2024-06-20] MEDS: Albuterol Sulfate (0.083%) 2.5 MG/3 ML VIAL.NEB INHALE (07:45)
[2024-06-20] MEDS: 0.9 % Sodium Chloride Flush 3 ML SYRINGE IVFLUSH ×2 (09:48→18:43)
[2024-06-20] MEDS: Enoxaparin Sodium 80 MG/0.8 ML SYRINGE 70 MG SUBCUT ×2 (09:49→21:40)
[2024-06-20] MEDS: Pyridoxine HCl (Vitamin B6) 50 MG TABLET 200 MG PO (10:36)
[2024-06-20] MEDS: Desmopressin Acetate 0.2 MG TABLET PO (10:36)
[2024-06-20] MEDS: Cyanocobalamin (Vitamin B-12) 1,000 MCG TABLET 1000 MCG PO (10:37)
[2024-06-20] MEDS: Aspirin Enteric Coated 81 MG TABLET.DR PO (10:37)
[2024-06-20] MEDS: Omeprazole 20 MG CAPSULE.DR PO (10:37)
[2024-06-20] MEDS: Sennosides 8.6 MG TABLET 17.2 MG PO (10:37)
--- NOTE | 2024-06-20 11:02 | PM.CNNEP ---
History of Present Illness Reason for Consult Consult date: 06/20/24 Chief Complaint Chief complaint: Hypernatremia History of Present Illness Narrative: Pt is a 59-year-old male with a PMH significant for cerebellar ataxia, diabetes insipidus, CKD, recurrent nephrolithiasis, HTN, unspecified asthma, anemia, BPPV, dysphagia, non mobile/bed-bound at baseline, lives at SNF. Presented for evaluation of increasing lethargy and abnormal routine labs that showed elevated sodium. Of note he also has an elevated bilirubin of 1.6 and leukocytosis on admission. Nephrology consulted. UA consistent with UTI hx of diabetes insipidus, on desmopressin 0.2mg PO BID at home started on D5W at 100mL/hr and sodium has decreased from 161 on admission to 156 this a.m. blood pressures were mildly soft but improving with fluids pt had left lower leg pain, started on lovenox for new DVT in left calf overnight. Review of Systems Constitutional: Reports fatigue Cardiovascular: Denies no additional cardiovascular complaints, Denies chest pain and Denies dyspnea Respiratory: Reports no additional respiratory complaints and Denies dyspnea Gastrointestinal: Denies diarrhea Comments: reports emptying bladder comfortable (incontinent at baseline, using brief). Musculoskeletal: Reports no additional musculoskeletal complaints Skin/Breast: Denies rash Comments: pt with expressive aphasia, cerebellar ataxia at baseline. Endocrine: Reports fatigue PMFSH Past Medical History Medical History Hemorrhoids Diverticulosis Cataracts, bilateral Anemia Resides in [place] [facility] Personal history of (healed) other pathological fracture Other abnormalities of gait and mobility Unsteadiness on feet Dysphagia, oral phase Constipation, unspecified Sensorineural hearing loss, bilateral Benign paroxysmal vertigo, right ear Deficiency, saccadic eye movements Other forms of nystagmus Insomnia, unspecified Vitamin B deficiency, unspecified Vitamin B12 deficiency anemia, unspecified Alternating exotropia Combined forms of age-related cataract, bilateral Personal history of other malignant neoplasm of skin Other melanin hyperpigmentation Seborrheic dermatitis, unspecified Melanocytic nevi, unspecified Hemangioma of skin and subcutaneous tissue Hypertension Diabetes insipidus Other chronic pain Obstructive sleep apnea (adult) (pediatric) Dysarthria and anarthria Muscle weakness (generalized) 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 Ataxic gait Morbid (severe) obesity due to excess calories Surgical History Surgical History Hx of colonoscopy Hx of cystoscopy Other specified postprocedural states Bariatric surgery status Vasectomy status Presence of right artificial hip joint Social History Social History Household Members: None Household Members Other:: lives at [facility] Housing: Correction Housing Other:: resides at [facility] Are you a primary child care centre manager to a significant other at home: No Do you presently have visiting nurse or other home services: No Alcohol intake: never Comment: hurt right ribs during fall Patient Tobacco Use Status: Never used Tobacco Advance Directives Date on File: 05/01/23 service: No Meds Allergies Allergy/AdvReac Type Severity Reaction Status Date / Time No Known Allergies Allergy Verified 06/19/24 13:47 Active Medications: Current Medications Acetaminophen (Acetaminophen 325 Mg Tablet) 650 mg PO Q6H PRN PRN Reason: Pain, Mild (Pain Scale 1-3), fever or headache Albuterol Sulfate (Albuterol Sulfate (0.083%) 2.5 Mg/3 Ml Vial.Neb) 2.5 mg INHALE BID [facility] Last Admin: 06/20/24 07:45 Dose: 2.5 mg Aspirin (Aspirin Enteric Coated 81 Mg Tablet.Dr) 81 mg PO BID [facility] Last Admin: 06/20/24 10:37 Dose: 81 mg Bisacodyl (Bisacodyl 10 Mg Supp.Rect) 10 mg VT DAILY PRN PRN Reason: Constipation Calcium Carbonate (Calcium Carbonate 750 Mg Tab.Chew) 750 mg PO Q4H PRN PRN Reason: Heartburn Cyanocobalamin (Cyanocobalamin (Vitamin B-12) 1,000 Mcg Tablet) 1,000 mcg PO DAILY [facility] Last Admin: 06/20/24 10:37 Dose: 1,000 mcg Desmopressin Acetate (Desmopressin Acetate 0.2 Mg Tablet) 0.2 mg PO BID [facility] Last Admin: 06/20/24 10:36 Dose: 0.2 mg Desmopressin Acetate (Desmopressin Acetate 0.2 Mg Tablet) 0.2 mg PO Q24H PRN PRN Reason: EXCESSIVE SECRETIONS Enoxaparin Sodium (Enoxaparin Sodium 80 Mg/0.8 Ml Syringe) 70 mg SUBCUT Q12H [facility] Last Admin: 06/20/24 09:49 Dose: 70 mg Dextrose (D5w) 1,000 mls @ 100 mls/hr IVCONT .Q10H [facility] Last Admin: 06/20/24 01:18 Dose: 100 mls/hr Ceftriaxone Sodium 1 gm/ (Sodium Chloride) 50 mls @ 100 mls/hr IV Q24H [facility] Last Infusion: 06/20/24 01:17 Dose: Infused Magnesium Hydroxide (Milk Of Magnesia 30 Ml Oral.Susp) 30 ml PO DAILY PRN PRN Reason: Constipation Melatonin (Melatonin 3 Mg Tablet) 6 mg PO BEDTIME PRN PRN Reason: Insomnia Morphine Sulfate (Morphine Sulfate 2 Mg/Ml Cartridge) 2 mg IVPUSH Q4H PRN; Protocol PRN Reason: Pain, Severe (Pain Scale 7-10) Last Admin: 06/19/24 21:26 Dose: 2 mg Omeprazole (Omeprazole 20 Mg Capsule.Dr) 20 mg PO DAILY@0630 [facility] Last Admin: 06/20/24 10:37 Dose: 20 mg Ondansetron HCl (Ondansetron Hcl 4 Mg/2 Ml Vial) 4 mg IVPUSH Q8H PRN PRN Reason: Nausea and Vomiting Pyridoxine HCl (Pyridoxine Hcl (Vitamin B6) 50 Mg Tablet) 200 mg PO DAILY [facility] Last Admin: 06/20/24 10:36 Dose: 200 mg Senna (Sennosides 8.6 Mg Tablet) 8.6 mg PO DAILY PRN PRN Reason: Constipation Senna (Sennosides 8.6 Mg Tablet) 17.2 mg PO DAILY [facility] Last Admin: 06/20/24 10:37 Dose: 17.2 mg Sodium Biphosphate/Sodium Phosphate (Sodium Phosphate,[place]-Dibasic 133 Ml Enema) 118 ml VT DAILY PRN PRN Reason: Constipation Sodium Chloride (0.9 % Sodium Chloride Flush 3 Ml Syringe) 3 ml IVFLUSH QSHIFT [facility] Last Admin: 06/20/24 09:48 Dose: 3 ml Tamsulosin HCl (Tamsulosin Hcl 0.4 Mg Capsule) 0.4 mg PO BEDTIME [facility] Last Admin: 06/19/24 21:08 Dose: Not Given Home Medications ?Medication ?Instructions ?Recorded ?Confirmed ?Last Taken ?Type acetaminophen 325 mg capsule 650 mg PO Q6H PRN Fever Or Pain 12/22/22 06/19/24 Unknown History bisacodyl 10 mg rectal suppository 10 mg VT DAILY PRN Constipation 12/22/22 06/19/24 Unknown History calcium carbonate 500 mg PO Q6H PRN Heartburn 12/22/22 06/19/24 Unknown History cyanocobalamin (vitamin B-12) 500 1,000 mcg PO DAILY 12/22/22 06/19/24 Unknown History mcg tablet desmopressin 0.2 mg tablet 0.2 mg PO BID 12/22/22 06/19/24 Unknown History hyoscyamine sulfate 0.125 mg 0.125 mg sublingual BID 12/22/22 06/19/24 Unknown History sublingual tablet sodium phosphates 19 gram-7 118 ml VT DAILY PRN Constipation 12/22/22 06/19/24 Unknown History gram/118 mL enema (Fleet Enema) benzocaine 10 % mucosal gel 1 appl mucous membrane Q8H PRN Pain 05/01/23 06/19/24 Unknown History (Anbesol (benzocaine)) desmopressin 0.2 mg tablet 0.2 mg PO Q24H PRN EXCESSIVE 05/01/23 06/19/24 Unknown History SECRETIONS albuterol sulfate 2.5 mg/3 mL 2.5 mg inhalation BID shortness of 06/19/24 06/19/24 Unknown History (0.083 %) solution for nebulization breath or wheezing aspirin 81 mg tablet,delayed 81 mg PO BID 06/19/24 06/19/24 Unknown History release atropine 1 % eye drops 2 drp buccal BID 06/19/24 06/19/24 Unknown History hydrocortisone acetate 25 mg 25 mg VT DAILY PRN Grade 1 06/19/24 06/19/24 Unknown History rectal suppository (Anusol-HC) Internal Hemorrhoids after BM menthol 5 % topical patch (Bengay 1 patch topical Q6H PRN Pain 06/19/24 06/19/24 Unknown History Ultra Strength (menthol)) pantoprazole 40 mg tablet,delayed 40 mg PO DAILY@0630 06/19/24 06/19/24 Unknown History release pyridoxine (vitamin B6) 50 mg 200 mg PO DAILY 06/19/24 06/19/24 Unknown History tablet sennosides 8.6 mg tablet (senna) 8.6 mg PO DAILY PRN Constipation 06/19/24 06/19/24 Unknown History Physical Exam Vital Signs: Last Vital Signs Temp 97.6 F 06/20/24 10:51 Pulse 73 06/20/24 10:51 Resp 18 06/20/24 10:51 BP 138/88 06/20/24 10:51 Pulse Ox 100 06/20/24 03:29 O2 Del Method Room Air 06/20/24 06:58 BMI result Body Mass Index 21.8 Const General: comfortable and no acute distress HEENT Mouth: Normal oral and palatal mucosa present Neck Neck: Yes supple Resp Auscultation: clear to auscultation bilaterally Cardio Jugular venous distension: no JVD Rate: regular rate GI Palpation (GI): Soft to palpation Auscultation: normal bowel sounds General: Yes no CVA tenderness Back/Spine/Pelvis Back: no CVA tenderness Skin General skin exam: no rashes or lesions noted Neuro General: moves all extremities Extrem General: Yes no pedal edema Results Lab Results 06/20/24 06:38 06/20/24 06:38 Lab results: Chemistry 06/19/24 06/19/24 06/20/24 14:00 18:03 06:38 Sodium 161 H* 161 H* 156 H Potassium 4.1 3.9 4.4 Carbon Dioxide 28 30 H 29 BUN 23 H 25 H 25 H Creatinine 1.37 1.42 H 1.44 H Calcium 8.2 L D 8.5 8.5 Hematology 06/19/24 06/20/24 14:00 06:38 WBC 15.4 H 11.8 H Hgb 12.8 L D 12.7 L Plt Count 199 188 Urinalysis 06/19/24 16:58 Urine Color Dark Yellow Urine Appearance Cloudy Urine pH >= 9.0 Ur Specific [place] 1.010 Urine Protein 30 (1+) H Urine Glucose (UA) Negative Urine Ketones Negative Urine Blood Negative Urine Nitrite Negative Ur Leukocyte Esterase Large (3+) H Urine RBC 0-2 Urine WBC >50 H Ur Squamous Epith Cells 3-5 Hyaline Casts 6-10 Assessment and Plan (1) Acute hypernatremia: Status: Acute (2) BOYD (acute kidney injury): Status: Acute Plan hyponatremia likely dehyrdation from poor PO intake (lethargy secondary to UTI); question also if pt has been taking all PO medications, may have missed desmopressin at SNF due to lethargy which may have also exacerbated hypernatremia. BOYD likely secondary to hypoperfusion from dehydration, UTI also likely contributory continue treatment for UTI and fluid resuscitation for dehydration with D5W continue home regimen of desmopressin PO monitor electrolytes, renal function, blood pressure, daily weights, I&O Monitor serum sodium Discussed with Dr Curry Procedures Date of Service Date of Service: 06/20/24
--- NOTE | 2024-06-20 11:50 | MHC.CLN ---
PT IS SEVERELY MALNOURISHED PT WITH MILDLY DEPLETED MUSCLE MASS AND 34% SIGNIFICANT WT LOSS X1 YEAR WITH POOR PO INTAKE R/T DYSPHAGIA. IN ADDITION, PT WITH INCREASED NUTRITION RISK R/T PRESSURE INJURY CURRENT WT 68.8KG PREVIOUS WT 104.1 KG (06/08/23) DIET RX: NPO PENDING SWALLOW EVAL NOTED [facility] FORM STATES NO ARTIFICIAL NUTRITION WHEN DIET TO ADVANCE; RECOMMEND ADDING ENSURE TID TO PROMOTE WOUND HEALING AND INCREASE KCALS SUPP TO PROVIDE 1050KCALS, 60G PROTEIN MONITOR FOR DIET ADVANCEMENT SEE ALSO FULL CLINICAL NUTRITION ASSESSMENT
[2024-06-20 12:46] LABS: Anion Gap 10 (12-20); Blood Urea Nitrogen 25 mg/dL (9-16); Calcium 8.2 mg/dL (8.4-10.2); Carbon Dioxide 28 mmol/L (22-29); Chloride 120 mmol/L (96-108); Creatinine Clr Calc Pharmacy 60.6; Estimated Glomerular Filt Rate 58; Glucose Random 88 mg/dL (60-115); Potassium 3.8 mmol/L (3.3-5.1); Sodium 154 mmol/L (135-145)
--- NOTE | 2024-06-20 13:39 | MHC.SL.SWA ---
Addendum entered and electronically signed by Dawn Knott MA, CCC-SUPERVISOR RECORD PRESS 06/20/24 13:41: Per nursing staff at [facility], at baseline, patient was on a minced and moist diet with moderately thick liquids. Original Note: Speech Pathologist Impression: Risk of aspiration, Severe oropharyngeal dysphagia Dysphasia Diet Status: UPGRADE from NPO, start on NDD1/HTL Liquid Consistency and Strategies for Safe Swallow: Liquid Intake Recommendation: Honey Thick Liquid Intake Strategies: Small Sips No Straws Solid Food Consistency: Dietary Recommendations: Pureed (NDD1) Additional Modifications to Solid Foods: Patient had MBSS 12/28/23 revealing SEVERELY impaired swallow in the oral and pharyngeal phases: Significantly slowed oral phase, characterized by delayed initiation, minimal posterior tongue retraction, premature posterior escape with liquids, and no chewing of solid foods. Pharyngeal swallow trigger was significantly delayed. Patient demonstrated wide open airway and compromised airway protection. There was aspiration on thin and nectar thick consistencies during the swallow with intermittent coughing. Patient swallowed solid food whole despite significant cues and exhibited great difficulty clearing from the pharynx. Based on these observations, patient was recommended PUREED (NDD1) solids and HONEY THICK liquids. Patient will require direct supervision and close monitoring, as he is at increased risk of aspiration. Patient is recommended strict aspiration precautions to maximize safety: -Upright 90 degree position during feeding and for at least 30 minutes afterwards -Take small, individual bites/sips -Avoid taking quick, sequential sips -Avoid the use of straws -Dry swallow after each bite/sip (elicit with cuing or by presenting dry teaspoon) -Oral cavity to be cleared before taking more bites/sips -Daily oral care (before first meal and after each subsequent meal) Patient seen at bedside 06/20/24, demonstrating good tolerance of these consistencies. Oral Medication Intake: Crushed with Puree Please contact the pharmacy regarding appropriate crushable or liquid drug formulations that are available whenever modified delivery is recommended. Compensatory Strategies and Precautions to be Taken for Safe Swallow: Sitting Upright (90 deg) Double Swallow No Straw Small Bites and Sips Alternate Liquids/Solids Rate of Ingestion Change Oral Check Supervision While Eating and Drinking for Safe Swallow: Total Supervision (1:1) Foods to Avoid: Mixed consistencies (soups with solids, cereals with milk). Difficult to chew solids. Dry, crunchy consistencies. Swallowing Recommended Treatments: Compens. Strategy Educat. Recommendation for Speech: Inpatient Speech Therapy Speech Therapy through Rehab Facility Compound Worker Clinican/Clinical Fellow: No Supervisory Statement: I have reviewed and agree with the student/clinical fellow's documentation: N/A Speech Language Pathologist: Dawn Knott M.A., CCC-SUPERVISOR RECORD PRESS
--- NOTE | 2024-06-20 15:25 | P.PNIM_ITS ---
Subjective Subjective Date of Service: 06/20/24 Interval History: seen and evaluated this morning more alert but still weak Na to 156 no other events Review of Systems Review of Systems: Yes all other systems are reviewed and are negative Physical Exam 2 Vital Signs: Vital Signs: Last Vital Signs Temp 97.6 F 06/20/24 10:51 Pulse 73 06/20/24 10:51 Resp 18 06/20/24 10:51 BP 138/88 06/20/24 10:51 Pulse Ox 100 06/20/24 03:29 O2 Del Method Room Air 06/20/24 06:58 BMI result Body Mass Index 21.8 Const: Other: Constitutional : interactive with stimulation, not in distress Cardiovascular : no JVP, no lower extremity edema Respiratory : bilateral chest movement, not in resp distress Gastrointestinal: soft, lax, Non tender Skin : Warm, Dry Neurological : difficult to arouse & disoriented , No focal deficit Objective Data Active Medications Acetaminophen (Acetaminophen 325 Mg Tablet) 650 mg PO Q6H PRN PRN Reason: Pain, Mild (Pain Scale 1-3), fever or headache Albuterol Sulfate (Albuterol Sulfate (0.083%) 2.5 Mg/3 Ml Vial.Neb) 2.5 mg INHALE BID [facility] Last Admin: 06/20/24 07:45 Dose: 2.5 mg Documented By: BENNY Aspirin (Aspirin Enteric Coated 81 Mg Tablet.Dr) 81 mg PO BID [facility] Last Admin: 06/20/24 10:37 Dose: 81 mg Documented By: PA Bisacodyl (Bisacodyl 10 Mg Supp.Rect) 10 mg MS DAILY PRN PRN Reason: Constipation Calcium Carbonate (Calcium Carbonate 750 Mg Tab.Chew) 750 mg PO Q4H PRN PRN Reason: Heartburn Cyanocobalamin (Cyanocobalamin (Vitamin B-12) 1,000 Mcg Tablet) 1,000 mcg PO DAILY [facility] Last Admin: 06/20/24 10:37 Dose: 1,000 mcg Documented By: PA Desmopressin Acetate (Desmopressin Acetate 0.2 Mg Tablet) 0.2 mg PO BID [facility] Last Admin: 06/20/24 10:36 Dose: 0.2 mg Documented By: PA Desmopressin Acetate (Desmopressin Acetate 0.2 Mg Tablet) 0.2 mg PO Q24H PRN PRN Reason: EXCESSIVE SECRETIONS Enoxaparin Sodium (Enoxaparin Sodium 80 Mg/0.8 Ml Syringe) 70 mg SUBCUT Q12H [facility] Last Admin: 06/20/24 09:49 Dose: 70 mg Documented By: PA Dextrose (D5w) 1,000 mls @ 100 mls/hr IVCONT .Q10H [facility] Last Admin: 06/20/24 12:01 Dose: 100 mls/hr Documented By: PA Ceftriaxone Sodium 1 gm/ (Sodium Chloride) 50 mls @ 100 mls/hr IV Q24H [facility] Last Infusion: 06/20/24 01:17 Dose: Infused Documented By: ANTOIC Magnesium Hydroxide (Milk Of Magnesia 30 Ml Oral.Susp) 30 ml PO DAILY PRN PRN Reason: Constipation Melatonin (Melatonin 3 Mg Tablet) 6 mg PO BEDTIME PRN PRN Reason: Insomnia Morphine Sulfate (Morphine Sulfate 2 Mg/Ml Cartridge) 2 mg IVPUSH Q4H PRN; Protocol PRN Reason: Pain, Severe (Pain Scale 7-10) Last Admin: 06/19/24 21:26 Dose: 2 mg Documented By: ORALIA Omeprazole (Omeprazole 20 Mg Capsule.Dr) 20 mg PO DAILY@0630 [facility] Last Admin: 06/20/24 10:37 Dose: 20 mg Documented By: PA Ondansetron HCl (Ondansetron Hcl 4 Mg/2 Ml Vial) 4 mg IVPUSH Q8H PRN PRN Reason: Nausea and Vomiting Pyridoxine HCl (Pyridoxine Hcl (Vitamin B6) 50 Mg Tablet) 200 mg PO DAILY [facility] Last Admin: 06/20/24 10:36 Dose: 200 mg Documented By: PA Senna (Sennosides 8.6 Mg Tablet) 8.6 mg PO DAILY PRN PRN Reason: Constipation Senna (Sennosides 8.6 Mg Tablet) 17.2 mg PO DAILY [facility] Last Admin: 06/20/24 10:37 Dose: 17.2 mg Documented By: PA Sodium Biphosphate/Sodium Phosphate (Sodium Phosphate,Osborne-Dibasic 133 Ml Enema) 118 ml MS DAILY PRN PRN Reason: Constipation Sodium Chloride (0.9 % Sodium Chloride Flush 3 Ml Syringe) 3 ml IVFLUSH QSHIFT [facility] Last Admin: 06/20/24 09:48 Dose: 3 ml Documented By: PA Tamsulosin HCl (Tamsulosin Hcl 0.4 Mg Capsule) 0.4 mg PO BEDTIME [facility] Last Admin: 06/19/24 21:08 Dose: Not Given Documented By: ORALIA Non-Admin Reason: Patient Condition Contraindication Labs 06/20/24 06:38 06/20/24 12:07 Labs: Laboratory Results - last 24 hr 06/19/24 06/19/24 06/19/24 16:58 18:03 20:50 MCV MCH MCHC RDW Plt Count MPV Absolute Nucleated RBC Nucleated RBC % (auto) PT 12.7 H INR 1.1 APTT 34.7 Anion Gap 11 L Estim Creat Clear Calc 53.8 Estimated GFR 51 Random Glucose 112 Fasting Glucose Calcium 8.5 Troponin I High Sens 22.1 Urine Color Dark Yellow Urine Appearance Cloudy Urine pH >= 9.0 Ur Specific [place] 1.010 Urine Protein 30 (1+) H Urine Glucose (UA) Negative Urine Ketones Negative Urine Blood Negative Urine Nitrite Negative Ur Leukocyte Esterase Large (3+) H Urine RBC 0-2 Urine WBC >50 H Ur Squamous Epith Cells 3-5 Urine Bacteria 4+ Hyaline Casts 6-10 06/20/24 06/20/24 06:38 12:07 MCV 102.7 H MCH 31.5 MCHC 30.7 L RDW 17.7 H Plt Count 188 MPV 10.9 Absolute Nucleated RBC 0.020 H Nucleated RBC % (auto) 0.2 PT INR APTT Anion Gap 10 L 10 L Estim Creat Clear Calc 53.0 60.6 Estimated GFR 50 58 Random Glucose 88 Fasting Glucose 109 H Calcium 8.5 8.2 L Troponin I High Sens Urine Color Urine Appearance Urine pH Ur Specific [place] Urine Protein Urine Glucose (UA) Urine Ketones Urine Blood Urine Nitrite Ur Leukocyte Esterase Urine RBC Urine WBC Ur Squamous Epith Cells Urine Bacteria Hyaline Casts Microbiology Microbiology Results: Microbiology 06/19/24 Unknown Urine Culture - Preliminary Urine clean catch - Clean Catch Midstream Gram negative [place] Assessment and Plan (1) Acute hypernatremia: Status: Acute (2) DVT (deep venous thrombosis): Status: Acute Plan Pt is a 59-year-old male with a PMH significant for cerebellar ataxia, HTN, unspecified asthma, anemia, BPPV, dysphagia, non mobile and bed-bound at baseline who presents to the ED from [facility] for evaluation of increasing lethargy and abnormal routine labs that showed elevated sodium. 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 Quality Stroke Does the patient have a stroke diagnosis?: No VTE Prior VTE?: No VTE Risk Level:: Medical - moderate - high VTE Device Contraindication: Treatment Not Indicated VTE Drug Contraindication: N/A - Med Ordered
[2024-06-20] MEDS: cefTRIAXone sodium 1 GM in 0.9 % Sodium Chloride 50 ML IV (18:42)
[2024-06-20 20:41] LABS: Prothrombin Time 11.9 SEC (10.9-12.4)
[2024-06-20 20:47] LABS: Anion Gap 10 (12-20); Blood Urea Nitrogen 23 mg/dL (9-16); Calcium 7.8 mg/dL (8.4-10.2); Carbon Dioxide 26 mmol/L (22-29); Chloride 118 mmol/L (96-108); Creatinine Clr Calc Pharmacy 82.1; Estimated Glomerular Filt Rate > 60; Glucose Random 83 mg/dL (60-115); Potassium 3.6 mmol/L (3.3-5.1); Sodium 150 mmol/L (135-145)
[2024-06-21] MEDS: 0.9 % Sodium Chloride Flush 3 ML SYRINGE IVFLUSH (01:03)
[2024-06-21] MEDS: Dextrose 5 % 1,000 ML 100 ML IVCONT ×2 (03:36→09:03)
[2024-06-21 04:00] VITALS: BP 110/71; PULSE 65; RESP 15; TEMP 36.1; O2SAT 99
[2024-06-21 07:14] LABS: MANUAL DIFF FLAG NO
[2024-06-21 07:32] LABS: Basophils Percent Auto 0.3 % (0-2); Eosinophils Absolute Auto 0.1 X10*3/uL (0.0-0.4); Eosinophils Percent Auto 1.3 % (0-4); Imm Gran Abs Auto 0.05 X10*3/uL (0.00-0.03); Imm Gran Pct Auto 0.6 % (0.0-0.4); Lymphocytes Absolute Auto 3.2 X10*3/uL (1.2-4.9); Lymphocytes Percent Auto 36.4 % (20-40); Mean Corpuscular HGB Conc 31.4 g/dl (31.0-36.0); Mean Corpuscular Hemoglobin 31.9 pg (27.0-33.0); Mean Corpuscular Volume 101.4 fL (80.0-98.0); Mean Platelet Volume 10.8 fL (9.4-12.4); Monocytes Absolute Auto 0.5 X10*3/uL (0.1-1.2); Monocytes Percent Auto 5.3 % (2-11); Neutrophils Absolute Auto 4.9 x10*3/uL (2.0-8.3); Neutrophils Percent Auto 56.1 % (45-73); Platelet Count 149 X10*3/uL (160-400); Red Blood Count 3.45 X10*6/uL (4.60-5.80); Red Cell Distribution Width 17.2 % (11.0-16.0); White Blood Count 8.7 X10*3/uL (4.8-10.8)
[2024-06-21 07:34] VITALS: BP 112/77; PULSE 66; RESP 18; TEMP 36.1; O2SAT 100
[2024-06-21 07:49] LABS: Anion Gap 7 (12-20); Blood Urea Nitrogen 22 mg/dL (9-16); Calcium 7.5 mg/dL (8.4-10.2); Carbon Dioxide 28 mmol/L (22-29); Chloride 116 mmol/L (96-108); Estimated Glomerular Filt Rate > 60; Glucose Random 81 mg/dL (60-115); Potassium 4.2 mmol/L (3.3-5.1); Sodium 147 mmol/L (135-145)
[2024-06-21 08:07] VITALS: PULSE 68; RESP 15; O2SAT 94
[2024-06-21] MEDS: Albuterol Sulfate (0.083%) 2.5 MG/3 ML VIAL.NEB INHALE (08:07)
[2024-06-21] MEDS: Cyanocobalamin (Vitamin B-12) 1,000 MCG TABLET 1000 MCG PO (09:08)
[2024-06-21] MEDS: Aspirin Enteric Coated 81 MG TABLET.DR PO (09:09)
[2024-06-21] MEDS: Desmopressin Acetate 0.2 MG TABLET PO ×2 (09:09→20:30)
[2024-06-21] MEDS: Enoxaparin Sodium 80 MG/0.8 ML SYRINGE 70 MG SUBCUT ×2 (09:09→20:31)
[2024-06-21] MEDS: Acetaminophen 325 MG TABLET 650 MG PO ×2 (09:09→20:32)
[2024-06-21] MEDS: Sennosides 8.6 MG TABLET 17.2 MG PO (09:09)
--- NOTE | 2024-06-21 09:46 | P.PNIM_ITS ---
Subjective Subjective Date of Service: 06/21/24 Interval History: seen and evaluated this morning more alert and talkative but still weak Na to 147 this morning Cr normalized no other events Review of Systems Review of Systems: Yes all other systems are reviewed and are negative Physical Exam 2 Vital Signs: Vital Signs: Last Vital Signs Temp 96.9 F 06/21/24 07:34 Pulse 68 06/21/24 08:07 Resp 15 06/21/24 08:07 BP 112/77 06/21/24 07:34 Pulse Ox 100 06/21/24 07:34 O2 Del Method Room Air 06/21/24 07:34 BMI result Body Mass Index 21.8 Const: Other: Constitutional : interactive , alert, not in distress Cardiovascular : no JVP, no lower extremity edema Respiratory : bilateral chest movement, not in resp distress Gastrointestinal: soft, lax, Non tender Skin : Warm, Dry Neurological : alert & disoriented , No focal deficit Objective Data Active Medications Acetaminophen (Acetaminophen 325 Mg Tablet) 650 mg PO Q6H PRN PRN Reason: Pain, Mild (Pain Scale 1-3), fever or headache Last Admin: 06/21/24 09:09 Dose: 650 mg Documented By: JOSE CRUZ Albuterol Sulfate (Albuterol Sulfate (0.083%) 2.5 Mg/3 Ml Vial.Neb) 2.5 mg INHALE BID [facility] Last Admin: 06/21/24 08:07 Dose: 2.5 mg Documented By: JIGNESH Aspirin (Aspirin Enteric Coated 81 Mg Tablet.) 81 mg PO BID [facility] Last Admin: 06/21/24 09:09 Dose: 81 mg Documented By: JOSE CRUZ Bisacodyl (Bisacodyl 10 Mg Supp.Rect) 10 mg AL DAILY PRN PRN Reason: Constipation Calcium Carbonate (Calcium Carbonate 750 Mg Tab.Chew) 750 mg PO Q4H PRN PRN Reason: Heartburn Cyanocobalamin (Cyanocobalamin (Vitamin B-12) 1,000 Mcg Tablet) 1,000 mcg PO DAILY [facility] Last Admin: 06/21/24 09:08 Dose: 1,000 mcg Documented By: JOSE CRUZ Desmopressin Acetate (Desmopressin Acetate 0.2 Mg Tablet) 0.2 mg PO BID [facility] Last Admin: 06/21/24 09:09 Dose: 0.2 mg Documented By: JOSE CRUZ Desmopressin Acetate (Desmopressin Acetate 0.2 Mg Tablet) 0.2 mg PO Q24H PRN PRN Reason: EXCESSIVE SECRETIONS Enoxaparin Sodium (Enoxaparin Sodium 80 Mg/0.8 Ml Syringe) 70 mg SUBCUT Q12H [facility] Last Admin: 06/21/24 09:09 Dose: 70 mg Documented By: JOSE CRUZ Dextrose (D5w) 1,000 mls @ 100 mls/hr IVCONT .Q10H [facility] Last Admin: 06/21/24 09:03 Dose: 100 mls/hr Documented By: JOSE CRUZ Ceftriaxone Sodium 1 gm/ (Sodium Chloride) 50 mls @ 100 mls/hr IV Q24H [facility] Last Infusion: 06/20/24 19:12 Dose: Infused Documented By: JACQUELIN Magnesium Hydroxide (Milk Of Magnesia 30 Ml Oral.Susp) 30 ml PO DAILY PRN PRN Reason: Constipation Melatonin (Melatonin 3 Mg Tablet) 6 mg PO BEDTIME PRN PRN Reason: Insomnia Morphine Sulfate (Morphine Sulfate 2 Mg/Ml Cartridge) 2 mg IVPUSH Q4H PRN; Protocol PRN Reason: Pain, Severe (Pain Scale 7-10) Last Admin: 06/19/24 21:26 Dose: 2 mg Documented By: ORALIA Omeprazole (Omeprazole 20 Mg Capsule.Dr) 20 mg PO DAILY@0630 [facility] Last Admin: 06/21/24 06:37 Dose: Not Given Documented By: JACQUELIN Non-Admin Reason: Patient Refused Ondansetron HCl (Ondansetron Hcl 4 Mg/2 Ml Vial) 4 mg IVPUSH Q8H PRN PRN Reason: Nausea and Vomiting Pyridoxine HCl (Pyridoxine Hcl (Vitamin B6) 50 Mg Tablet) 200 mg PO DAILY [facility] Last Admin: 06/20/24 10:36 Dose: 200 mg Documented By: PA Senna (Sennosides 8.6 Mg Tablet) 8.6 mg PO DAILY PRN PRN Reason: Constipation Senna (Sennosides 8.6 Mg Tablet) 17.2 mg PO DAILY [facility] Last Admin: 06/21/24 09:09 Dose: 17.2 mg Documented By: JOSE CRUZ Sodium Biphosphate/Sodium Phosphate (Sodium Phosphate,Peach-Dibasic 133 Ml Enema) 118 ml AL DAILY PRN PRN Reason: Constipation Sodium Chloride (0.9 % Sodium Chloride Flush 3 Ml Syringe) 3 ml IVFLUSH QSHIFT [facility] Last Admin: 06/21/24 09:05 Dose: Not Given Documented By: JOSE CRUZ Non-Admin Reason: IV Running Tamsulosin HCl (Tamsulosin Hcl 0.4 Mg Capsule) 0.4 mg PO BEDTIME [facility] Last Admin: 06/20/24 21:36 Dose: Not Given Documented By: JACQUELIN Non-Admin Reason: Patient Refused Labs 06/21/24 07:04 06/21/24 07:04 Labs: Laboratory Results - last 24 hr 06/20/24 06/20/24 06/21/24 12:07 20:17 07:04 MCV 101.4 H MCH 31.9 MCHC 31.4 RDW 17.2 H Plt Count 149 L MPV 10.8 Immature Gran % (Auto) 0.6 H Neut % (Auto) 56.1 Lymph % (Auto) 36.4 Peach % (Auto) 5.3 Eos % (Auto) 1.3 Baso % (Auto) 0.3 Lymph # (Auto) 3.2 Peach # (Auto) 0.5 Eos # (Auto) 0.1 Baso # (Auto) 0.0 Abs Immat Gran (auto) 0.05 H Absolute Neuts (auto) 4.9 Absolute Nucleated RBC 0.000 Nucleated RBC % (auto) 0.0 Hold Purple Top SEE NOTE PT 11.9 INR 1.0 Anion Gap 10 L 10 L 7 L Estim Creat Clear Calc 60.6 82.1 84.0 Estimated GFR 58 > 60 > 60 Random Glucose 88 83 81 Calcium 8.2 L 7.8 L 7.5 L Microbiology Microbiology Results: Microbiology 06/19/24 Unknown Urine Culture - Final Urine clean catch - Clean Catch Midstream Proteus mirabilis Assessment and Plan (1) DVT (deep venous thrombosis): Status: Acute (2) Acute hypernatremia: Status: Acute (3) Lethargy: Status: Acute (4) UTI (urinary tract infection): Status: Acute (5) Dysphagia: Status: Acute Plan Pt is a 59-year-old male with a PMH significant for cerebellar ataxia, HTN, unspecified asthma, anemia, BPPV, dysphagia, non mobile and bed-bound at baseline who presents to the ED from [facility] for evaluation of increasing lethargy and abnormal routine labs that showed elevated sodium. 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 Quality Stroke Does the patient have a stroke diagnosis?: No VTE Prior VTE?: No VTE Risk Level:: Medical - moderate - high VTE Device Contraindication: Treatment Not Indicated VTE Drug Contraindication: N/A - Med Ordered
[2024-06-21 11:49] VITALS: BP 92/59; PULSE 68; RESP 18; TEMP 36.2; O2SAT 100
--- NOTE | 2024-06-21 12:04 | MHC.CM.PN ---
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
[2024-06-21 12:42] LABS: Blood Urea Nitrogen 22 mg/dL (9-16); Calcium 7.5 mg/dL (8.4-10.2); Creatinine Clr Calc Pharmacy 76.4; Estimated Glomerular Filt Rate > 60; Glucose Random 83 mg/dL (60-115)
[2024-06-21 13:00] LABS: Anion Gap 10 (12-20); Carbon Dioxide 25 mmol/L (22-29); Chloride 112 mmol/L (96-108); Potassium 3.3 mmol/L (3.3-5.1); Sodium 144 mmol/L (135-145)
[2024-06-21] MEDS: Pyridoxine HCl (Vitamin B6) 50 MG TABLET 200 MG PO (15:58)
[2024-06-21] MEDS: cefTRIAXone sodium 1 GM in 0.9 % Sodium Chloride 50 ML IV (17:34)
[2024-06-21 19:13] VITALS: BP 109/73; PULSE 71; RESP 18; TEMP 36.3; O2SAT 100
[2024-06-21] MEDS: Tamsulosin HCL 0.4 MG CAPSULE PO (20:30)
[2024-06-21] MEDS: Melatonin 3 MG TABLET 6 MG PO (20:32)
[2024-06-21 23:33] VITALS: BP 136/56; PULSE 88; RESP 16; TEMP 36.3; O2SAT 98
[2024-06-22 04:00] VITALS: BP 115/71; PULSE 68; RESP 16; TEMP 37.1; O2SAT 94
[2024-06-22] MEDS: Omeprazole 20 MG CAPSULE.DR PO (05:52)
[2024-06-22 07:21] LABS: Anion Gap 9 (12-20); Blood Urea Nitrogen 22 mg/dL (9-16); Calcium 7.5 mg/dL (8.4-10.2); Carbon Dioxide 25 mmol/L (22-29); Chloride 113 mmol/L (96-108); Estimated Glomerular Filt Rate > 60; Glucose Random 66 mg/dL (60-115); Potassium 3.3 mmol/L (3.3-5.1); Sodium 144 mmol/L (135-145)
[2024-06-22 07:34] VITALS: BP 100/67; PULSE 65; RESP 20; TEMP 36.1; O2SAT 100
[2024-06-22] MEDS: Aspirin Enteric Coated 81 MG TABLET.DR PO (08:05)
[2024-06-22] MEDS: Sennosides 8.6 MG TABLET 17.2 MG PO (08:07)
[2024-06-22] MEDS: Pyridoxine HCl (Vitamin B6) 50 MG TABLET 200 MG PO (08:07)
[2024-06-22] MEDS: Cyanocobalamin (Vitamin B-12) 1,000 MCG TABLET 1000 MCG PO (08:07)
[2024-06-22] MEDS: Desmopressin Acetate 0.2 MG TABLET PO (08:08)
[2024-06-22] MEDS: Albuterol Sulfate (0.083%) 2.5 MG/3 ML VIAL.NEB INHALE (08:08)
[2024-06-22] MEDS: Enoxaparin Sodium 80 MG/0.8 ML SYRINGE 70 MG SUBCUT (08:08)
[2024-06-22] MEDS: 0.9 % Sodium Chloride Flush 3 ML SYRINGE IVFLUSH ×2 (08:09)
--- NOTE | 2024-06-22 10:52 | PM.DS ---
DS: Providers Provider Date of Service: 06/22/24 Date of admission: 06/19/24 16:42 Primary care physician: Unknown Physician Consults: 06/19/24 16:52 Consult to Nephrology Routine Consulting Provider: [facility] Reason for consultation: Hypernatremia 06/20/24 03:09 Consult to Wound Care Routine Reason for consultation: DTI/PI to coccyx DS: Diagnosis Discharge Diagnosis (1) DVT (deep venous thrombosis): Status: Acute (2) Acute hypernatremia: Status: Acute (3) Lethargy: Status: Acute (4) UTI (urinary tract infection): Status: Acute (5) Dysphagia: Status: Acute (6) Toxic metabolic encephalopathy: Status: Acute DS: Summary Hospital Course Hospital Course: Admission note HPI Pt is a 59-year-old male with a PMH significant for cerebellar ataxia, HTN, unspecified asthma, anemia, BPPV, dysphagia, non mobile and bed-bound at baseline who presents to the ED from [facility] for evaluation of increasing lethargy and abnormal routine labs that showed elevated sodium. Patient with significant expressive aphasia though is capable answering yes no questions and following basic commands. Patient reports left lower leg pain of unclear duration. Otherwise patient has no acute medical complaints at this time denies chest pain or pressure no difficulty breathing. No abdominal pain. In the ED pt with stable and WNL. Labs were significant for chronic leukocytosis of 15.4 H&H of 12.8/41.1, hypernatremia of 161, chloride 125, BUN 23, and bilirubin 1.6. Tested negative at flu, RSV, COVID. UA consistent with UTI. CXR showed no dense focal pneumonia or alveolar edema. EKG demonstrated sinus rhythm occasional PVCs no evidence ST or depressions. In the ED nephrology was consulted and patient was started on D5W @ 100mls/hr. Pt will be admitted to the hospital for treatment and further evaluation of acute hypernatremia. Hospital course - Acute hypernatremia complicated with Toxic metabolic encephalopathy PResented with Na of 161 on admission. treated with hypotonic fluids with fair response as sodium level trended down gradually over the course of hospital stay bavk to normal level of 143. Nephrology followed the patient. was kept on Seizure precautions with no reported incidents. improved mental status back to baseline. He will need to drink more water to prevent dehydration and hypernatremia again. - Acute UTI complicated with Toxic metabolic encephalopathy treated with IV ceftriaxone, started 06/19/2024 as his urine grew Proteus. To be dishcarged on 4 more days with Ceftin. - LLE DVT confirmed by ultrasound Doppler . Acetaminophen for pain management. Treated with Lovenox bid; converted to PO Eliquis on discharge. - Swallowing problem Evaluated by PSYCHIATRIC SOCIAL WORKER team who recommended Pureed (NDD1) diet with Honey thick liquids with small sips, no straws. Medications crushed with puree. Total assistance one-to-one with eating. tolerated fairly ok. He will need to drink more water to prevent dehydration and hypernatremia again. Discharge plan Start Eliquis 10 mg twice daily for 1 week then 5 mg twice daily to finish total of 6 months Continue 4 more days of Ceftin Encourage water intake Aspiration precautions Time Attestation Discharge Coordination Time (in mins): 42 Quality: Safe Use of Opioids Does Pt have an Active Cancer Diagnosis on the Problem List?: No Quality: Stroke Does the patient have a stroke diagnosis?: No Physical Exam Vital Signs: Vital Signs: Last Vital Signs Temp 96.9 F 06/22/24 07:34 Pulse 65 06/22/24 07:34 Resp 20 06/22/24 07:34 BP 100/67 06/22/24 07:34 Pulse Ox 100 06/22/24 07:34 O2 Del Method Room Air 06/22/24 07:34 BMI result Body Mass Index 21.8 Const: Other: Constitutional : interactive , alert, not in distress Cardiovascular : no JVP, no lower extremity edema Respiratory : bilateral chest movement, not in resp distress Gastrointestinal: soft, lax, Non tender Skin : Warm, Dry Neurological : alert & disoriented , No focal deficit DS: Data Data Completed and Pending Completed studies during hospitalization [Text1]: Procedures Drainage of Bladder with Drainage Device, Via Natural or Artificial Opening (05/11/23) Labs on day of discharge: Laboratory Results - last 24 hr 06/21/24 06/22/24 12:15 06:34 Hold Purple Top SEE NOTE Sodium 144 144 Potassium 3.3 D 3.3 Chloride 112 H 113 H Carbon Dioxide 25 25 Anion Gap 10 L 9 L BUN 22 H 22 H Creatinine 1.00 0.91 Estim Creat Clear Calc 76.4 84.0 Estimated GFR > 60 > 60 Random Glucose 83 66 Calcium 7.5 L 7.5 L Imaging Chest x-ray: Radiologist's impression: ITS Impressions Chest X-Ray 06/19/24 13:49 IMPRESSION: No dense focal pneumonia or alveolar edema Electronically signed by: Justus Martinez MD 06/19/2024 05:07 PM EDT RP Venous Duplex 06/19/24 17:11 IMPRESSION: Deep venous thrombosis in the left popliteal vein with nonvisualization of the calf veins. No deep venous thrombus in the groin proximal or mid thigh. Electronically signed by: Justus Martinez MD 06/19/2024 07:03 PM EDT RP Discharge Plan Discharge Anticipated Discharge Date/Time: 06/22/24 10:44 Patient Disposition: Xfer [facility] Discharge Diagnosis: Dysphagia Dehydration, Hypernatremia New DVT Left leg Referrals: [facility] [Outside] Physician,Unknown J [Primary Care Provider] - 1 Week Discharge Medications: New apixaban 5 mg (74 tabs) tablets,dose pack 5 mg PO BID Qty: 74 0RF cefuroxime axetil 500 mg tablet 500 mg PO BID Qty: 8 0RF Continued Anbesol (benzocaine) 10 % Gel 1 appl MUCOUS MEMBRANE Q8H PRN (Reason: Pain) desmopressin 0.2 mg tablet 0.2 mg PO Q24H PRN (Reason: EXCESSIVE SECRETIONS ) sennosides [senna] 8.6 mg Tablet 8.6 mg PO DAILY PRN (Reason: Constipation) aspirin 81 mg Tablet,Delayed Release (Dr/Ec) 81 mg PO BID hydrocortisone acetate [Anusol-HC] 25 mg Suppository 25 mg IA DAILY PRN (Reason: Grade 1 Internal Hemorrhoids after BM) Bengay Ultra Strength(menthol) 5 % Adhesive Patch,Medicated 1 patch TOPICAL Q6H PRN (Reason: Pain) Rx Instructions: to shoulder pyridoxine (vitamin B6) 50 mg Tablet 200 mg PO DAILY atropine 1 % Drops 2 drp BUCCAL BID albuterol sulfate 2.5 mg /3 mL (0.083 %) solution for nebulization 2.5 mg inhalation BID pantoprazole 40 mg tablet,delayed release (DR/EC) 40 mg PO DAILY@0630 Rx Instructions: take one tablet half an hour before breakfast acetaminophen 325 mg capsule 650 mg PO Q6H PRN (Reason: Fever Or Pain) bisacodyl 10 mg suppository 10 mg IA DAILY PRN (Reason: Constipation) Rx Instructions: If Senna not effective per bowel protocol. cyanocobalamin (vitamin B-12) 500 mcg tablet 1,000 mcg PO DAILY desmopressin 0.2 mg tablet 0.2 mg PO BID Fleet Enema 19-7 gram/118 mL enema 118 ml IA DAILY PRN (Reason: Constipation) hyoscyamine sulfate 0.125 mg tablet, sublingual 0.125 mg sublingual BID calcium carbonate 500 mg calcium (1,250 mg) tablet,chewable 500 mg PO Q6H PRN (Reason: Heartburn) sennosides [Senna Laxative] 8.6 mg tablet 17.2 mg PO DAILY Qty: 180 2RF tamsulosin [Flomax] 0.4 mg capsule 0.4 mg PO BEDTIME 30 Days Qty: 30 1RF Discharge Orders: Discharge Order (Routine); Ordered 06/22/24 Ordered By: Andi Villarreal Diet: NDD1 w Honey thick liquid Activity on Discharge: As tolerated Stand Alone Forms: Patient Portal Discharge page Print Language: Zimbabwean Care Plan Goals: Start Eliquis 10 mg twice daily for 1 week then 5 mg twice daily to finish total of 6 months Continue 4 more days of Ceftin Encourage water intake Aspiration precautions Health Concerns: Read below Plan of Treatment: Read below Assessment: Read below Discharge Date/Time: 06/22/24 15:50
--- NOTE | 2024-06-22 12:36 | MHC.CM.PN ---
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 THIS MORNING CONFIRMING DC, THERE HAS BEEN NO ANSWER GURDEEP ALSO ATTEMPTED TO REACH THE NURSE MANAGER PRODUCT AT [facility] VIA T/C [phone], THERE WAS NO ANSWER ON HIS UNIT
[2024-06-22 15:45] VITALS: BP 111/72; PULSE 71; RESP 20; TEMP 36.2; O2SAT 100
== END 2024-06-22 15:50 | DRG 299 ==
LOC: HO.ED 15:24 → HO.EDOVER 16:58 → HO.IMC 23:45
PROVIDERS: Internal Medicine; Physician Assistant; Admitting Provider Student in an Organized Health Care Education/Training Program; Emergency Provider Emergency Medicine; PCP Hospitalist; Visit Provider Student in an Organized Health Care Education/Training Program
DX: I82.432 Acute embolism and thrombosis of left popliteal vein (principal); G92.8 Other toxic encephalopathy; E87.0 Hyperosmolality and hypernatremia; N39.0 Urinary tract infection, site not specified; G11.9 Hereditary ataxia, unspecified; N17.9 Acute kidney failure, unspecified; R13.10 Dysphagia, unspecified; Z66 Do not resuscitate; J45.990 Exercise induced bronchospasm; B96.4 Proteus (mirabilis) (morganii) as the cause of diseases classified elsewhere; Z74.01 Bed confinement status; E86.0 Dehydration; K21.9 Gastro-esophageal reflux disease without esophagitis; N40.0 Benign prostatic hyperplasia without lower urinary tract symptoms; Z20.822 Contact with and (suspected) exposure to COVID-19; Z79.82 Long term (current) use of aspirin; Z79.899 Other long term (current) drug therapy
CPT/HCPCS: 0241U; 36415; 71045; 80048; 80076; 81001; 83735; 84484; 85025; 85027; 85610; 85730; 87086; 87088; 87186; 92610; 93005; 93971; 94640; 99285; J0696; J1650; J2270

== ENCOUNTER → 2024-06-19 16:42 | Outpatient (BNV) | payer MEDICARE, SELFPAY | PROVIDERS: Admitting Provider Student in an Organized Health Care Education/Training Program; Emergency Provider Emergency Medicine; Visit Provider Student in an Organized Health Care Education/Training Program | DX: I82.409 Acute embolism and thrombosis of unspecified deep veins of unspecified lower extremity (principal); E87.0 Hyperosmolality and hypernatremia; R53.83 Other fatigue; N39.0 Urinary tract infection, site not specified; R13.10 Dysphagia, unspecified; G92.8 Other toxic encephalopathy | CPT/HCPCS: 99223; 99232; 99239; 99499 ==

== ENCOUNTER → 2024-06-19 16:42 | Outpatient (BNV) | payer MEDICARE, SELFPAY | PROVIDERS: Admitting Provider Student in an Organized Health Care Education/Training Program; Emergency Provider Emergency Medicine; Visit Provider Nurse Practitioner Family | DX: E87.0 Hyperosmolality and hypernatremia (principal); N17.9 Acute kidney failure, unspecified | CPT/HCPCS: 99223 ==

== ENCOUNTER 2024-06-23 21:40 | Emergency (ER) | payer MEDICARE, SELFPAY ==
--- NOTE | ~2024-06-23 | XR_ITS ---
EXAMINATION: XR HAND/WRIST, RIGHT CLINICAL INFORMATION: Pain. COMPARISON: None available. TECHNIQUE: PA, lateral, and oblique views of the right hand and wrist. FINDINGS: The bony structures are osteopenic. The joint spaces are maintained. There is no fracture. Soft tissues are unremarkable. XR/XR hand wrist RT IMPRESSION: Osteopenia. No fracture or dislocation. Electronically signed by: Ephraim Butler MD 06/24/2024 04:06 AM EDT
--- NOTE | ~2024-06-23 | CT_ITS ---
EXAMINATION: CT HEAD WITHOUT CONTRAST CT CERVICAL SPINE WITHOUT CONTRAST CLINICAL INFORMATION: Trauma. Pain. COMPARISON: None available. TECHNIQUE: Contiguous axial imaging was performed through the head and cervical spine without intravenous administration of contrast. Sagittal and coronal reformatted images also obtained. This CT examination was performed using dose optimization techniques as appropriate, variously including the following: *Automated exposure control *Adjustment of mA and/or kV according to patient size (this includes techniques or standardized protocols for targeted exams where dose is matched to indication/reason for exam; i.e. extremities or head) *Use of iterative reconstruction technique DLP: 969 mGy-cm FINDINGS: There is cerebral volume loss with prominence of the lateral and the third ventricles. The cortical sulci are widened appropriately. The fourth ventricle and basal cisterns are normally outlined. There is mild bilateral periventricular and central white matter diminished attenuation. There is no acute territorial defects, hemorrhage or midline shift. The extra-axial spaces are unremarkable. Calvarium/scalp: Intact. Maxillofacial sinuses and mastoids: Clear as visualized. There is cerumen within the left external ear canal. Cervical spine: The alignment is within normal limits. There is mild diffuse cervical disc degenerative change with loss of disc space, endplate change and posterior osteophytes associated with mild diffuse facet osteoarthritic degenerative changes with multilevel mild spinal canal and neuroforaminal narrowing. The bony structures are osteopenic. There is no fracture. Soft tissues are unremarkable. The visualized upper lung block are clear. CT/CT cervical spine wo IV con IMPRESSION: 1. No acute intracranial process seen. 2. Mild cerebral volume loss with chronic small vessel ischemic changes. 3. No acute cervical spine fracture or malalignment. There is diffuse osteopenia. There are degenerative disc changes and facet joint arthropathy with multilevel mild spinal canal and neuroforaminal narrowing. Electronically signed by: Ephraim Butler MD 06/23/2024 11:29 PM EDT
--- NOTE | ~2024-06-23 | XR_ITS ---
EXAMINATION: XR TIBIA AND FIBULA, LEFT CLINICAL INFORMATION: Pain. COMPARISON: None available. TECHNIQUE: AP and lateral views of the left tibia and fibula were obtained. FINDINGS: The bony structures are osteopenic. 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 There is no acute fracture. The visualized joint spaces are maintained. There is mild soft tissue swelling about the tib-fib. XR/XR tibia fibula LT 2V IMPRESSION: 1. 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 2. No acute fracture. 3. Mild soft tissue swelling about the tib-fib. Electronically signed by: Ephraim Butler MD 06/24/2024 04:34 AM EDT
--- NOTE | ~2024-06-23 | CT_ITS ---
EXAMINATION: CT CHEST, ABDOMEN , AND PELVIS WITHOUT CONTRAST CLINICAL INFORMATION: Fall. COMPARISON: CT chest from the 05/09/2024. CT abdomen and pelvis from 08/20/2023. TECHNIQUE: Multidetector volumetric imaging was performed from the thoracic inlet to the pubic symphysis without intravenous contrast. Sagittal and coronal reformatted images were obtained on the technologist workstation. In addition, thin section, high resolution reconstruction, targeted reformatted images through the thoracic and lumbar spine were obtained with coronal and sagittal high resolution reformatted images as well. This CT examination was performed using dose optimization techniques as appropriate, variously including the following: *Automated exposure control. *Adjustment of mA and/or kV according to patient size (this includes techniques or standardized protocols for targeted exams where dose is matched to indication/reason for exam; i.e. extremities or head). *Use of iterative reconstruction technique. DLP: 972 mGy-cm FINDINGS: CHEST: Lungs: Scattered 0.1-0.2 cm calcified granulomas throughout the lungs. Patchy groundglass opacities in the posterior left lower lobe. No additional diffuse or focal lung parenchymal abnormalities. No pleural effusion or pneumothorax. The airways remain patent. Mediastinum: The cardiac structures are normal in appearance. No mediastinal free fluid or gas. Trace pericardial effusion. No hilar, mediastinal, or axillary lymphadenopathy. Coronary artery calcifications: Present - mild. ABDOMEN/PELVIS: Liver, Biliary Ducts, and Gallbladder: The liver is normal in size and attenuation. Stable 2.4 cm cyst in the right hepatic lobe. No additional focal hepatic lesions. No biliary ductal dilatation. The gallbladder is physiologically distended without radiopaque gallstones. Mild gallbladder wall edema. No significant pericholecystic fluid. Pancreas: Moderate fatty atrophy of the pancreas without demonstrated focal lesions. Adrenal Glands: Chronic extensive heterogeneous fat stranding of the adrenal glands. Spleen: The spleen is normal in appearance. Kidneys and Ureters: Chronic significant architectural distortion of the renal cortices with subcapsular adipose deposition and irregular thickening of the renal capsules. Multiple irregular, nonobstructive renal stones throughout the bilateral kidneys. The previously demonstrated subcapsular collections of largely resolved. There remains mild bilateral perinephric fat stranding. Urinary Bladder: The urinary bladder is partially distended without focal wall thickening. No bladder calculi are noted. Gastrointestinal System: Changes of prior Gerardo-en-Y gastric bypass. The small bowel is of normal caliber without regions of abnormal wall enhancement. The colon is normal in appearance without focal wall thickening or pericolonic inflammatory change. Normal appendix. Genitourinary: No demonstrated significant abnormalities of the prostate gland or seminal vesicles. Intra-abdominal and Retroperitoneal Spaces: No intra-abdominal free fluid collections or gas. No mesenteric, retroperitoneal, or inguinal lymphadenopathy. VASCULATURE: The thoracic aorta is of normal contour and caliber with moderate calcific atherosclerotic disease. 4 vessel branching pattern of the aortic arch with left vertebral artery arising directly from the aortic arch. The abdominal aorta is of normal contour and caliber with mild calcific atherosclerotic disease. Musculoskeletal: No acute fractures of the sternum, clavicles, scapulae, shoulders, ribs, thoracolumbar spine, pelvis, or hips. Partially healed fractures of the lateral left 3rd and 4th ribs. Prior right femoral intramedullary [place]ana nailing. Chronic anterior wedge deformity of the T12 vertebral body moderate. Moderate multilevel degenerative changes of the spine. No lytic or sclerotic osseous lesions demonstrated. No soft tissue masses demonstrated. Bilateral gynecomastia. CT/CT abdomen pelvis wo IV con IMPRESSION: 1. No evidence of acute traumatic injury to the chest, abdomen, pelvis, or thoracolumbar spine. 2. Mild patchy groundglass opacities in the posterior left lower lobe suggestive of an infectious/inflammatory process. 3. Chronic significant architectural distortion of the renal cortices with renal capsular changes. Nonobstructive nephrolithiasis. Chronic heterogeneous fat stranding of the adrenal glands. 4. Mild nonspecific gallbladder wall edema. Electronically signed by: Miah Sanford DO 06/24/2024 01:23 AM EDT
[2024-06-23 21:45] VITALS: BP 120/70; PULSE 77; O2SAT 90
[2024-06-23 21:56] VITALS: BP 123/84; PULSE 79; RESP 20; TEMP 36.5; O2SAT 98; BMI 27.9
--- NOTE | 2024-06-23 22:47 | ED.GENADULT ---
HPI - General Adult General Chief complaint: Fall Stated complaint: fall from 3ft, + c collar, + thinner Time Seen by Provider: 06/23/24 21:51 Source: patient Mode of arrival: ambulatory Limitations: no limitations History of Present Illness ED Provider: Jonathan Saleem PA-C HPI narrative: 59 yold male bed bound with pmh ot toxic metabolic encephalopathy, CkD, asthma, pyenopehritits, SABINE presents to the ED for rolling of the bed and falling unto the ground. Patient has slight frontal abrasions. Patient is from a sniff Related Data Home Medications ?Medication ?Instructions ?Recorded ?Confirmed acetaminophen 325 mg capsule 650 mg PO Q6H PRN Fever Or Pain 12/22/22 06/19/24 bisacodyl 10 mg rectal suppository 10 mg KY DAILY PRN Constipation 12/22/22 06/19/24 calcium carbonate 500 mg PO Q6H PRN Heartburn 12/22/22 06/19/24 cyanocobalamin (vitamin B-12) 500 1,000 mcg PO DAILY 12/22/22 06/19/24 mcg tablet desmopressin 0.2 mg tablet 0.2 mg PO BID 12/22/22 06/19/24 hyoscyamine sulfate 0.125 mg 0.125 mg sublingual BID 12/22/22 06/19/24 sublingual tablet sodium phosphates 19 gram-7 118 ml KY DAILY PRN Constipation 12/22/22 06/19/24 gram/118 mL enema (Fleet Enema) benzocaine 10 % mucosal gel 1 appl mucous membrane Q8H PRN Pain 05/01/23 06/19/24 (Anbesol (benzocaine)) desmopressin 0.2 mg tablet 0.2 mg PO Q24H PRN EXCESSIVE 05/01/23 06/19/24 SECRETIONS albuterol sulfate 2.5 mg/3 mL 2.5 mg inhalation BID shortness of 06/19/24 06/19/24 (0.083 %) solution for nebulization breath or wheezing aspirin 81 mg tablet,delayed 81 mg PO BID 06/19/24 06/19/24 release atropine 1 % eye drops 2 drp buccal BID 06/19/24 06/19/24 hydrocortisone acetate 25 mg 25 mg KY DAILY PRN Grade 1 06/19/24 06/19/24 rectal suppository (Anusol-HC) Internal Hemorrhoids after BM menthol 5 % topical patch (Bengay 1 patch topical Q6H PRN Pain 06/19/24 06/19/24 Ultra Strength (menthol)) pantoprazole 40 mg tablet,delayed 40 mg PO DAILY@0630 06/19/24 06/19/24 release pyridoxine (vitamin B6) 50 mg 200 mg PO DAILY 06/19/24 06/19/24 tablet sennosides 8.6 mg tablet (senna) 8.6 mg PO DAILY PRN Constipation 06/19/24 06/19/24 Previous Rx's ?Medication ?Instructions ?Recorded sennosides 8.6 mg tablet (Senna 17.2 mg (2 x 8.6 mg) PO DAILY 08/21/23 Laxative) Constipation #180 tabs tamsulosin 0.4 mg capsule (Flomax) 0.4 mg PO BEDTIME 30 days #30 caps 09/05/23 apixaban 5 mg (74 tabs) tablets in 5 mg PO BID #74 ea 06/22/24 a dose pack cefuroxime axetil 500 mg tablet 500 mg PO BID #8 tabs 06/22/24 amoxicillin 875 mg-potassium 1 tab PO Q12H 5 days #10 tabs 06/24/24 clavulanate 125 mg tablet azithromycin 250 mg tablet See Rx Instructions PO .COMPLEX #6 06/24/24 tabs Allergies Allergy/AdvReac Type Severity Reaction Status Date / Time No Known Allergies Allergy Verified 06/23/24 22:05 Review of Systems Review of Systems: rolled of bed unto ground Yes all other systems are reviewed and are negative [facility] Past Medical History Medical History Hemorrhoids Diverticulosis Cataracts, bilateral Anemia Resides in custodial facility Personal history of (healed) other pathological fracture Other abnormalities of gait and mobility Unsteadiness on feet Dysphagia, oral phase Constipation, unspecified Sensorineural hearing loss, bilateral Benign paroxysmal vertigo, right ear Deficiency, saccadic eye movements Other forms of nystagmus Insomnia, unspecified Vitamin B deficiency, unspecified Vitamin B12 deficiency anemia, unspecified Alternating exotropia Combined forms of age-related cataract, bilateral Personal history of other malignant neoplasm of skin Other melanin hyperpigmentation Seborrheic dermatitis, unspecified Melanocytic nevi, unspecified Hemangioma of skin and subcutaneous tissue Hypertension Diabetes insipidus Other chronic pain Obstructive sleep apnea (adult) (pediatric) Dysarthria and anarthria Muscle weakness (generalized) 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 Ataxic gait Morbid (severe) obesity due to excess calories Surgical History Hx of colonoscopy Hx of cystoscopy Other specified postprocedural states Bariatric surgery status Vasectomy status Presence of right artificial hip joint Social History Social History Household Members: None Household Members Other:: lives at [facility] Housing: [facility] Housing Other:: resides at [facility] Are you a primary daycare director to a significant other at home: No Do you presently have visiting nurse or other home services: No Alcohol intake: never Comment: hurt right ribs during fall Patient Tobacco Use Status: Never used Tobacco Smoked in Last 30 Days: No Use of substances other than those prescribed or required for medical reasons: No Advance Directives: Yes Advance Directives on File: Yes Advance Directives Date on File: 05/01/23 Do you have a plan to hurt others: No Plan service: No Physical Exam ED Vital Signs: Vital Signs - 24 hr 06/24/24 02:00 06/24/24 05:30 Temperature 97.9 F 0 F L Pulse Rate 69 0 L Respiratory Rate 16 0 L Blood Pressure 00/00 L Pulse Oximetry 93 Oxygen Delivery Method Room Air BMI result Body Mass Index 27.9 Const General: cooperative, healthy appearing, comfortable, no acute distress, well developed, alert, awake and Physically active Orientation/consciousness: patient oriented x3 HENMT Head: Yes normal to inspection, Yes No palpable skull fracture present, Yes normocephalic, Yes atraumatic and No abrasion Head images: 1. abrasion Eyes General: appearance normal, both eyes and all related structures Neck Other: patietn in C-Collar Neck: Yes normal visual inspection, Yes full ROM, Yes no lymphadenopathy, Yes no meningeal signs, Yes trachea midline, Yes supple, No anterior neck swelling and No tender Chest Chest palpation & inspection: normal inspection of the chest and normal palpation of entire chest wall Resp Effort & Inspection: normal respiratory effort and able to speak in complete sentences Auscultation: clear to auscultation bilaterally Cardio Jugular venous distension: no JVD Heart sounds: S1 normal heart sound present and S2 normal heart sound present GI Inspection: Yes normal to inspection Palpation (GI): Soft to palpation, not firm, nontender, no guarding and not rigid General: No CVA tenderness and Yes no CVA tenderness Back/Spine/Pelvis Other: pressure ulcer is very superficial. No erythema, foul odor, pus discharge, bone exposure, almost exposure. Negative for spine tenderness Back: no CVA tenderness, No CVA tenderness and No back tenderness Skin General skin exam: no rashes or lesions noted, elasticity normal and turgor normal Neuro General: patient oriented x3, tone normal, moves all extremities, no meningeal signs, no focal motor deficits, CN's II-XI intact bilaterally and normal sensation to monofilament Extrem Other: Positive for right wrist tenderness on palpation negative for crepitus, ecchymosis, deformity. Motor/neuro/vascular exam intact. General: Yes normal to inspection and Yes capillary refill normal Psych Appearance: grossly normal, well kempt and not disheveled Medications Administered Discontinued Medications Generic Name Dose Route Start Last Admin Trade Name Freq PRN Reason Stop Dose Admin Acetaminophen 975 mg 06/24/24 00:20 06/24/24 01:33 Acetaminophen 325 Mg Tablet PO 06/24/24 00:21 Not Given ONCE ONE Medical Decision Making Medical Decision Making [facility] Narrative: 59-year-old male presents to ED for rolling off the bed and falling to the ground. Patient is bed-bound. Patient has right frontal abrasion. Patient states for imaging of the head neck chest abdomen. Negative for signs of obvious/stress injury. Waiting for CT scan results. Signed out to Dr. Fernandez Differential Diagnosis Differential Diagnoses: The differential diagnosis associated with the presentation includes (Brain Bleed, neck fracture, hip fracture) Admission/Observation Consideration of admission/observation: Escalation of care including admission/observation considered Independent Interpretation I performed an independent interpretation of an: Plain X-Ray and CT Scan Radiology Impression Discussion of test interpretation with radiology: I have reviewed the radiologist's reading. Independent Historian Clinical information obtained from an independent historian. History obtained from or confirmed by: EMS External Record Review External record reviewed: Other (prior visits) Prescription Management I considered prescription management with: Antibiotic Discharge Plan Discharge Clinical Impression: Pneumonia, Fall Patient Disposition: Home, Self-Care Instructions: Fall Prevention for Older Adults (ED), Community Acquired Pneumonia (ED) Additional Instructions: Return to the ED for any concerning symptoms. Prescriptions: New amoxicillin-pot clavulanate 875-125 mg tablet 1 tab PO Q12H 5 Days Qty: 10 0RF azithromycin 250 mg tablet See Rx Instructions .ROUTE .COMPLEX Qty: 6 0RF Rx Instructions: For 250 mg dose pack: take 500 mg today (day 1), then 250 mg for 4 days (days 2-5) No Action Anbesol (benzocaine) 10 % Gel 1 appl MUCOUS MEMBRANE Q8H PRN (Reason: Pain) desmopressin 0.2 mg tablet 0.2 mg PO Q24H PRN (Reason: EXCESSIVE SECRETIONS ) sennosides [senna] 8.6 mg Tablet 8.6 mg PO DAILY PRN (Reason: Constipation) aspirin 81 mg Tablet,Delayed Release (Dr/Ec) 81 mg PO BID hydrocortisone acetate [Anusol-HC] 25 mg Suppository 25 mg KY DAILY PRN (Reason: Grade 1 Internal Hemorrhoids after BM) Bengay Ultra Strength(menthol) 5 % Adhesive Patch,Medicated 1 patch TOPICAL Q6H PRN (Reason: Pain) Rx Instructions: to shoulder pyridoxine (vitamin B6) 50 mg Tablet 200 mg PO DAILY atropine 1 % Drops 2 drp BUCCAL BID albuterol sulfate 2.5 mg /3 mL (0.083 %) solution for nebulization 2.5 mg inhalation BID pantoprazole 40 mg tablet,delayed release (DR/EC) 40 mg PO DAILY@0630 Rx Instructions: take one tablet half an hour before breakfast apixaban 5 mg (74 tabs) tablets,dose pack 5 mg PO BID Qty: 74 0RF cefuroxime axetil 500 mg tablet 500 mg PO BID Qty: 8 0RF acetaminophen 325 mg capsule 650 mg PO Q6H PRN (Reason: Fever Or Pain) bisacodyl 10 mg suppository 10 mg KY DAILY PRN (Reason: Constipation) Rx Instructions: If Senna not effective per bowel protocol. cyanocobalamin (vitamin B-12) 500 mcg tablet 1,000 mcg PO DAILY desmopressin 0.2 mg tablet 0.2 mg PO BID Fleet Enema 19-7 gram/118 mL enema 118 ml KY DAILY PRN (Reason: Constipation) hyoscyamine sulfate 0.125 mg tablet, sublingual 0.125 mg sublingual BID calcium carbonate 500 mg calcium (1,250 mg) tablet,chewable 500 mg PO Q6H PRN (Reason: Heartburn) sennosides [Senna Laxative] 8.6 mg tablet 17.2 mg PO DAILY Qty: 180 2RF tamsulosin [Flomax] 0.4 mg capsule 0.4 mg PO BEDTIME 30 Days Qty: 30 1RF Referrals: Crow Esparza MD [Primary Care Provider] - 1 day Interventions: ED Discharge Assessment Last Done: 06/24/24 05:30 Discharge Date/Time: 06/24/24 06:53 Print Language: Croatian
[2024-06-23 22:58] VITALS: BP 123/84; PULSE 79; RESP 20; TEMP 36.5; O2SAT 98
[2024-06-24] VITALS: BP 102/69; PULSE 76; RESP 16; TEMP 36.6; O2SAT 99
[2024-06-24 02:00] VITALS: PULSE 69; RESP 16; TEMP 36.6; O2SAT 93
[2024-06-24 05:30] VITALS: BP 00/00; PULSE 0; RESP 0; TEMP -17.7; TEMP 0
--- NOTE | 2024-06-24 06:31 | PC.NURSE ---
Report given to nurse Ospina at [facility], Pt will be transferred back via ambulance.
== END 2024-06-24 06:53 | disposition home or self-care (01) ==
PROVIDERS: Emergency Provider Emergency Medicine; PCP Internal Medicine
DX: S00.211A Abrasion of right eyelid and periocular area, initial encounter (principal); L89.159 Pressure ulcer of sacral region, unspecified stage; W06.XXXA Fall from bed, initial encounter; Y93.9 Activity, unspecified; Y92.9 Unspecified place or not applicable; Y99.9 Unspecified external cause status; E11.22 Type 2 diabetes mellitus with diabetic chronic kidney disease; I12.9 Hypertensive chronic kidney disease with stage 1 through stage 4 chronic kidney disease, or unspecified chronic kidney disease; N18.9 Chronic kidney disease, unspecified; M54.2 Cervicalgia; M85.80 Other specified disorders of bone density and structure, unspecified site; M79.662 Pain in left lower leg; M25.531 Pain in right wrist; Z79.899 Other long term (current) drug therapy
CPT/HCPCS: 70450; 71250; 72125; 73110; 73130; 73590; 74176; 99284

== ENCOUNTER 2024-07-04 12:57 | Outpatient (AMB) | payer MEDICARE, SELFPAY ==
[2024-07-04 13:03] VITALS: BP 98/60; PULSE 79; O2SAT 95
--- NOTE | 2024-07-04 13:03 | MHC.OFFVIS ---
Vital Signs 07/04/24 13:03 Height 5 ft 11 in BMI Reason not done Patient refused/unable BP 98/60 Blood Pressure Location Lt brachial Position Sitting Pulse 79 Pulse Source Pulse Oximeter Pulse Oximetry (%) 95 Oxygen Delivery Method Room Air Intake Visit Reasons: Chest CT results Allergies No Known Allergies Allergy (Verified 06/23/24 22:05) HPI HPI Chest CT results: Details: Ayo is a very pleasant 59 year old male, never smoker, with underlying pulmonary nodules, asthma and SABINE on CPAP therapy. He presents to office in a wheelchair, accompanied by a staff member from [facility]. He was initially referred by PCP after incidental finding of pulmonary nodules on abdominal CT, dedicated chest CT revealed small calcified pulmonary nodules probably representing calcified granulomas, <3 mm of RLL. Repeat scan for 1 year entered and presents to review today. Of note, patient recently admitted to [facility] 06/19-06/21 for UTI, LLE DVT and hypernatremia. He was d/c with eliquis x 6 months and cefuroxime. He was again evaluated at [facility] ED on 06/23 diagnosed with LLL PNA as Chest CT revealed ggo of LLL. He was treated with a zpak and augmentin. Today he presents for CT chest and hospital follow up. [facility] Medical History Hemorrhoids Diverticulosis Cataracts, bilateral Anemia Resides in custodial facility Personal history of (healed) other pathological fracture Other abnormalities of gait and mobility Unsteadiness on feet Dysphagia, oral phase Constipation, unspecified Sensorineural hearing loss, bilateral Benign paroxysmal vertigo, right ear Deficiency, saccadic eye movements Other forms of nystagmus Insomnia, unspecified Vitamin B deficiency, unspecified Vitamin B12 deficiency anemia, unspecified Alternating exotropia Combined forms of age-related cataract, bilateral Personal history of other malignant neoplasm of skin Other melanin hyperpigmentation Seborrheic dermatitis, unspecified Melanocytic nevi, unspecified Hemangioma of skin and subcutaneous tissue Hypertension Diabetes insipidus Other chronic pain Obstructive sleep apnea (adult) (pediatric) Dysarthria and anarthria Muscle weakness (generalized) 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 Ataxic gait Morbid (severe) obesity due to excess calories Surgical History Hx of colonoscopy Hx of cystoscopy Other specified postprocedural states Bariatric surgery status Vasectomy status Presence of right artificial hip joint Social History Household Members: None Household Members Other:: lives at [facility] Housing: Intermediate Housing Other:: resides at [facility] Are you a primary respite care provider to a significant other at home: No Do you presently have visiting nurse or other home services: No Alcohol intake: never Comment: hurt right ribs during fall Patient Tobacco Use Status: Never used Tobacco Advance Directives Date on File: 05/01/23 service: No Review of Systems Const Denies chills, Denies excessive sweating, Denies fever(s), Denies headache(s) and Denies night sweats Eyes Denies dry eyes, Denies irritation and Denies itchy eyes ENT Reports Normal hearing present, Denies headache(s), Denies nasal congestion, Denies nasal discharge, Denies post nasal drip and Denies sore throat Card Denies chest pain, Denies chest pain at rest, Denies chest pain with activity, Denies claudication, Denies leg edema, Reports dyspnea on exertion, Denies orthopnea and Denies paroxysmal nocturnal dyspnea Resp Denies chest congestion, Reports cough, Denies excessive phlegm production, Denies pain on inspiration, Denies pain with cough, Reports dyspnea on exertion, Denies stridor and Denies wheezing Musc Denies myalgias Neuro Reports Normal hearing present and Denies headache(s) Endo Denies excessive sweating Antonio/Lymph Denies lymphadenopathy Aller/Immun Denies itchy eyes, Denies seasonal rhinorrhea and Denies wheezing Physical Exam Vital Signs: Last Vital Signs Pulse 79 07/04/24 13:03 BP 98/60 07/04/24 13:03 Pulse Ox 95 07/04/24 13:03 Oxygen Delivery Method Room Air 07/04/24 13:03 Const General: cooperative, comfortable, no acute distress, well developed and alert Nutritional Appearance: obese Orientation/consciousness: patient oriented x3 Limitations: wheelchair HEENT Head: Yes normal to inspection, Yes normocephalic and Yes atraumatic Ears: hearing grossly normal bilaterally and external ears normal Eyes General: appearance normal, both eyes and all related structures Eyelids: Yes eyelids normal Sclerae: sclerae normal EOM: EOMs intact bilaterally Neck Neck: Yes normal visual inspection Chest Chest palpation & inspection: normal inspection of the chest Resp Other: Diminished lung sounds Effort & Inspection: normal respiratory effort, able to speak in complete sentences, no audible wheezes, no stridor, not tachypneic, no tripod positioning and no use of accessory muscles Cardio Jugular venous distension: no JVD Rate: regular rate Rhythm: regular rhythm Skin Other: warm, dry Neuro General: patient oriented x3 Cranial nerves: Yes Normal hearing present Cognition (Neuro): normal cognition Extrem Other: moderate BLE edema wearing heel protector boots Psych Appearance: grossly normal and well kempt Speech and movement: Normal speech and movement present and Clear speech present Affect: normal affect Attitude: cooperative Thought process: Normal thought process present Thought content: Normal thought content present Insight: Good insight present (Psych) Judgement: Good judgement present (Psych) Results Reviewed Results Reviewed: [address] [address] [address] Scan Report Signed Patient: Ayo Miranda MR#: [id number] : 1965 Acct:[id number] Age/Sex: 59 / M ADM Date: 06/23/24 Loc: .ED Attending Dr: Ordering Physician: Jonathan Saleem Date of Service: 06/23/24 Procedure(s): CT chest wo IV con Accession Number(s): [id number] cc: Jonathan Saleem; Crow Esparza MD~ EXAMINATION: CT CHEST, ABDOMEN , AND PELVIS WITHOUT CONTRAST CLINICAL INFORMATION: Fall. COMPARISON: CT chest from the 05/09/2024. CT abdomen and pelvis from 08/20/2023. TECHNIQUE: Multidetector volumetric imaging was performed from the thoracic inlet to the pubic symphysis without intravenous contrast. Sagittal and coronal reformatted images were obtained on the technologist workstation. In addition, thin section, high resolution reconstruction, targeted reformatted images through the thoracic and lumbar spine were obtained with coronal and sagittal high resolution reformatted images as well. This CT examination was performed using dose optimization techniques as appropriate, variously including the following: *Automated exposure control. *Adjustment of mA and/or kV according to patient size (this includes techniques or standardized protocols for targeted exams where dose is matched to indication/reason for exam; i.e. extremities or head). *Use of iterative reconstruction technique. DLP: 972 mGy-cm FINDINGS: CHEST: Lungs: Scattered 0.1-0.2 cm calcified granulomas throughout the lungs. Patchy groundglass opacities in the posterior left lower lobe. No additional diffuse or focal lung parenchymal abnormalities. No pleural effusion or pneumothorax. The airways remain patent. Mediastinum: The cardiac structures are normal in appearance. No mediastinal free fluid or gas. Trace pericardial effusion. No hilar, mediastinal, or axillary lymphadenopathy. Coronary artery calcifications: Present - mild. ABDOMEN/PELVIS: Liver, Biliary Ducts, and Gallbladder: The liver is normal in size and attenuation. Stable 2.4 cm cyst in the right hepatic lobe. No additional focal hepatic lesions. No biliary ductal dilatation. The gallbladder is physiologically distended without radiopaque gallstones. Mild gallbladder wall edema. No significant pericholecystic fluid. Pancreas: Moderate fatty atrophy of the pancreas without demonstrated focal lesions. Adrenal Glands: Chronic extensive heterogeneous fat stranding of the adrenal glands. Spleen: The spleen is normal in appearance. Kidneys and Ureters: Chronic significant architectural distortion of the renal cortices with subcapsular adipose deposition and irregular thickening of the renal capsules. Multiple irregular, nonobstructive renal stones throughout the bilateral kidneys. The previously demonstrated subcapsular collections of largely resolved. There remains mild bilateral perinephric fat stranding. Urinary Bladder: The urinary bladder is partially distended without focal wall thickening. No bladder calculi are noted. Gastrointestinal System: Changes of prior Gerardo-en-Y gastric bypass. The small bowel is of normal caliber without regions of abnormal wall enhancement. The colon is normal in appearance without focal wall thickening or pericolonic inflammatory change. Normal appendix. Genitourinary: No demonstrated significant abnormalities of the prostate gland or seminal vesicles. Intra-abdominal and Retroperitoneal Spaces: No intra-abdominal free fluid collections or gas. No mesenteric, retroperitoneal, or inguinal lymphadenopathy. VASCULATURE: The thoracic aorta is of normal contour and caliber with moderate calcific atherosclerotic disease. 4 vessel branching pattern of the aortic arch with left vertebral artery arising directly from the aortic arch. The abdominal aorta is of normal contour and caliber with mild calcific atherosclerotic disease. Musculoskeletal: No acute fractures of the sternum, clavicles, scapulae, shoulders, ribs, thoracolumbar spine, pelvis, or hips. Partially healed fractures of the lateral left 3rd and 4th ribs. Prior right femoral intramedullary [place]ana nailing. Chronic anterior wedge deformity of the T12 vertebral body moderate. Moderate multilevel degenerative changes of the spine. No lytic or sclerotic osseous lesions demonstrated. No soft tissue masses demonstrated. Bilateral gynecomastia. CT/CT chest wo IV con IMPRESSION: 1. No evidence of acute traumatic injury to the chest, abdomen, pelvis, or thoracolumbar spine. 2. Mild patchy groundglass opacities in the posterior left lower lobe suggestive of an infectious/inflammatory process. 3. Chronic significant architectural distortion of the renal cortices with renal capsular changes. Nonobstructive nephrolithiasis. Chronic heterogeneous fat stranding of the adrenal glands. 4. Mild nonspecific gallbladder wall edema. Electronically signed by: Miah Sanford DO 06/24/2024 01:23 AM EDT RP Dictated By: Rob Sanford DO Signed By: <Electronically signed by Rob Sanford DO in OV> 06/24/24 0123 DD/ 2251 TD/TT: 06/23/24 2319 Needle Punch Operator: LALO Assessment & Plan Assessment & Plan (1) History of recent pneumonia: Code(s): Z87.01 - Personal history of pneumonia (recurrent) Category: Medical (2) Asthma: Code(s): J45.909 - Unspecified asthma, uncomplicated Category: Medical (3) Multiple pulmonary nodules: Code(s): R91.8 - Other nonspecific abnormal finding of lung field Category: Medical Plan Patient recently treated for LLL pneumonia and completed zpak as well as augmentin. Respiratory exam unremarkable. Will send for CXR to assess for improvements/resolution in 4 weeks. Patient at significant risk for recurrent aspiration pneumonia. Discussed importance of following a strict honey thick liquid diet. During visit, patient drinking cup of water from facility (which he has at every visit), with difficulty swallowing and coughing with ingestion. Attempted to explain the consequences of continuing to drink thin liquids. He continues to report cough, which is likely for aspirating and dyspnea on exertion. Will increased albuterol neb to BID. Chest CT from May revealed multiple new pulmonary nodules <4mm. Will send for repeat chest CT in 6 months. All questions were answered and patient is in agreement of plan. Will follow up in 4-6 weeks to review CXR or sooner if needed. Orders: Orders XR chest 2V 4 Weeks Z87.01 - Personal history of pneumonia (recurrent) CT chest wo IV con 4 Months R91.8 - Other nonspecific abnormal finding of lung field Coding Level of Care Code Est Pt Level 4 (06729) Diagnoses History of recent pneumonia Z87.01 Asthma J45.909 Multiple pulmonary nodules R91.8
== END 2024-07-04 13:31 | disposition home or self-care (01) ==
PROVIDERS: PCP Hospitalist; Visit Provider Nurse Practitioner Family
DX: Z87.01 Personal history of pneumonia (recurrent) (principal); J45.909 Unspecified asthma, uncomplicated; R91.8 Other nonspecific abnormal finding of lung field
CPT/HCPCS: 99214

== ENCOUNTER → 2024-07-04 12:57 | Outpatient (BNVA) | payer MEDICARE, SELFPAY | PROVIDERS: PCP Hospitalist; Visit Provider Nurse Practitioner Family | DX: J45.909 Unspecified asthma, uncomplicated (principal); R91.8 Other nonspecific abnormal finding of lung field; G47.33 Obstructive sleep apnea (adult) (pediatric); Z87.01 Personal history of pneumonia (recurrent) | CPT/HCPCS: 99212 ==